=== PATIENT | male | born 1975 | race African-American/Black ===

== ENCOUNTER 2016-05-11 15:11 | Inpatient (IN) | payer OTHER ==
[2016-05-11 15:53] VITALS: BMI 24.3
--- NOTE | 2016-05-11 19:18 | HP ---
CIWA Score - CIWA Score Nausea/Vomitin Muscle Tremors: 3 Anxiety: 3 Agitation: 3 Paroxysmal Sweats: 2 Orientation: 0-Oriented Tacttile Disturbances: 2-Mild Itch/Numbness/Burn Auditory Disturbances: 2-Mild Harshness/Frighten Visual Disturbances: 2-Mild Sensitivity Headache: 2-Mild CIWA-Ar Total Score: 22 Admission ROS BHS - HPI Chief Complaint: i need help to stop drinking alcohol,cocaine and marijuana Allergies/Adverse Reactions: Allergies Allergy/AdvReac Type Severity Reaction Status Date / Time No Known Allergies Allergy Verified 04/09/16 17:45 History of Present Illness: this 40 years old male with alcohol,cocaine and marijuana,dependence,withdrawal symptom,last rehab 04/09/16 to 05/02/16 syncope alcohol related nicotine dependence several admissions in detox longest period of sobriet 19 months Exam Limitations: No Limitations - Ebola screening Have you traveled outside of the country in the last 21 days: No Have you had contact with anyone from an Ebola affected area: No Have you been sick,other than usual withdrawal symptoms: No Do you have a fever: No - Review of Systems Constitutional: Loss of Appetite, Malaise, Night Sweats, Changes in sleep, Weakness EENT: reports: Nose Congestion Respiratory: reports: No Symptoms reported Cardiac: reports: No Symptoms Reported GI: reports: Diarrhea, Nausea, Vomiting, Abdominal cramping : reports: No Symptoms Reported Musculoskeletal: reports: Back Pain, Muscle Pain Integumentary: reports: Dryness Neuro: reports: Headache, Tremors Endocrine: reports: No Symptoms Reported Hematology: reports: No Symptoms Reported Psychiatric: reports: No Sypmtoms Reported Other Systems: Reviewed and Negative Patient History - Patient Medical History Hx Anemia: No Hx Asthma: No Hx Chronic Obstructive Pulmonary Disease (COPD): No Hx Cancer: No Hx Cardiac Disorders: No Hx Congestive Heart Failure: No Hx Hypertension: No Hx Hypercholesterolemia: No Hx Pacemaker: No HX Cerebrovascular Accident: No Hx Seizures: No Hx Dementia: No Hx Diabetes: No Hx Gastrointestinal Disorders: No Hx Liver Disease: No Hx Genitourinary Disorders: No Hx Sexually Transmitted Disorders: No Hx Renal Disease (ESRD): No Hx Thyroid Disease: No Hx Human Immunodeficiency Virus (HIV): No (LAST 12/18 NEGATIVE) Hx Hepatitis C: No Hx Depression: No Hx Suicide Attempt: No Hx Bipolar Disorder: No Hx Schizophrenia: Yes (not on meds) Other Medical History: no suicidal,no homicidal - Patient Surgical History Past Surgical History: No Hx Neurologic Surgery: No Hx Cataract Extraction: No Hx Cardiac Surgery: No Hx Lung Surgery: No Hx Breast Surgery: No Hx Breast Biopsy: No Hx Abdominal Surgery: No Hx Appendectomy: No Hx Cholecystectomy: No Hx Genitourinary Surgery: No Hx Section: No Hx Orthopedic Surgery: No Other Surgical History: 1998 jaw fracture (braces/Wire) LEFT Anesthesia Reaction: No - PPD History Previous Implant?: Yes Documented Results: Negative w/proof Date: 01/20/16 Results: 0mm PPD to be Administered?: No - Smoking Cessation Smoking history: Current every day smoker Have you smoked in the past 12 months: Yes Aproximately how many cigarettes per day: 20 Hx Chewing Tobacco Use: No Initiated information on smoking cessation: Yes 'Breaking Loose' booklet given: 05/11/16 - Substance & Tx. History Hx Alcohol Use: Yes Hx Substance Use: Yes Substance Use Type: Alcohol, Marijuana Hx Substance Use Treatment: Yes ([facility] 04/09/16 to 05/02/16 [facility]) - Substances Abused Alcohol Route: Oral Frequency: Daily Amount used: 1 pint of vodka/1case of 12 ozs of beer Age of first use: 14 Date of Last Use: 05/10/16 Cocaine Route: Smoking Frequency: Daily Amount used: 600$ Age of first use: 28 Date of Last Use: 05/09/16 Marijuana/Hashish Route: Smoking Frequency: 1-2 times per week Amount used: 20$ Age of first use: 10 Date of Last Use: 05/09/16 Family Disease History - Family Disease History Family History: Denies Admission Physical Exam [facility] - Vital Signs Vital Signs: Vital Signs - 24 hr 05/11/16 15:51 Temperature 96.4 F L Pulse Rate 58 L Respiratory 20 Rate Blood Pressure 123/77 - Physical General Appearance: Yes: Moderate Distress, Tremorous, Irritable, Sweating, Anxious HEENTM: Yes: Nasal Congestion Respiratory: Yes: Lungs Clear Neck: Yes: Within Normal Limits Breast: Yes: Within Normal Limits Cardiology: Yes: Within Normal Limits, Regular Rhythm, Regular Rate, S1, S2 Abdominal: Yes: Within Normal Limits, Normal Bowel Sounds, Non Tender, Flat, Soft Genitourinary: Yes: Within Normal Limits Back: Yes: Muscle Spasm Musculoskeletal: Yes: Back pain, Muscle Pain Extremities: Yes: Tremors 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 NML intact, Alert, Motor Strength 5/5 Integumentary: Yes: Dry Lymphatic: Yes: Within Normal Limits - Diagnostic (1) Alcohol dependence with uncomplicated withdrawal Current Visit: Yes Status: Acute (2) Cannabis abuse Current Visit: No Status: Acute (3) Cocaine dependence Current Visit: No Status: Chronic Qualifiers: Substance use status: uncomplicated Qualified Code(s): F14.20 - Cocaine dependence, uncomplicated (4) Nicotine dependence Current Visit: No Status: Chronic Qualifiers: Nicotine product type: cigarettes Substance use status: uncomplicated Qualified Code(s): F17.210 - Nicotine dependence, cigarettes, uncomplicated (5) Schizophrenia Current Visit: Yes Status: Acute (6) Weight loss Current Visit: Yes Status: Acute Cleared for Admission [facility] - Detox or Rehab [facility] Level of Care: Medically Managed Detox Regimen/Protocol: Librium S Breath Alcohol Content Breath Alcohol Content: 0 Urine Drug Screen - Results Drug Screen Negative: No Urine Drug Screen Results: THC-Marijuana, JACKELINE-Cocaine
[2016-05-11] MEDS ORDERED: LOPERAMIDE HCL 2 MG CAPSULE PO PRN (19:34)
[2016-05-11] MEDS ORDERED: MAGNESIUM HYDROX 2400MG/30ML ORAL SUSPENSION 30 ML CUP PO PRN (19:34)
[2016-05-11] MEDS ORDERED: MENTHOL/PHENOL 1 EACH UD MM PRN (19:34)
[2016-05-11] MEDS ORDERED: P-EPHED 60MG/TRIPROLIDI 2.5MG TABLET PO PRN (19:34)
[2016-05-11] MEDS ORDERED: chlordiazePOXIDE HCL 25 MG CAPSULE PO ONE (19:34)
[2016-05-11] MEDS ORDERED: ACETAMINOPHEN 325 MG TABLET (FP) PO PRN (19:34)
[2016-05-11] MEDS ORDERED: MAGNESIUM CITRATE 300 ML BOTTLE PO PRN (19:34)
[2016-05-11] MEDS ORDERED: guaiFENesin/D-METHORPHAN HB 10 ML UNIT-DOSE CUPS PO PRN (19:34)
[2016-05-11] MEDS ORDERED: hydrOXYzine PAMOATE 25 MG CAPSULE (FP) PO PRN (19:34)
[2016-05-11] MEDS ORDERED: chlordiazePOXIDE HCL 25 MG CAPSULE PO PRN (19:34)
[2016-05-11] MEDS ORDERED: IBUPROFEN 400 MG TABLET (FP) PO PRN (19:34)
[2016-05-11] MEDS ORDERED: diphenhydrAMINE HCL 50 MG CAPSULE PO PRN (19:34)
[2016-05-11] MEDS ORDERED: MAG HYDROX/AL HYDROX/SIMETH 30 ML UNIT-DOSE CUP PO PRN (19:34)
[2016-05-11] MEDS: THIAMINE HCL 100 MG TABLET (FP) PO SCH (21:57)
[2016-05-11] MEDS: chlordiazePOXIDE HCL 25 MG CAPSULE PO SCH (22:04)
[2016-05-12] MEDS: chlordiazePOXIDE HCL 25 MG CAPSULE PO SCH ×4 (06:14→22:22)
[2016-05-12] MEDS ORDERED: PRENATAL VITAMINS W/ FOLIC ACID TABLET (FP) PO SCH (10:00)
--- NOTE | 2016-05-12 14:03 | PN ---
BHS CIWA - CIWA Score Nausea/Vomitin Muscle Tremors: 3 Anxiety: 4-Mod. Anxious/Guarded Agitation: 4-Moderately Restless Paroxysmal Sweats: No Perspiration Orientation: 0-Oriented Tacttile Disturbances: 1-Very Mild Itch/Numbness Auditory Disturbances: 0-None Visual Disturbances: 0-None Headache: 2-Mild CIWA-Ar Total Score: 17 BHS Progress Note (SOAP) Subjective: Anxiety, restless, tremor, sweating, interrupted sleep Objective: 05/12/16 14:01 Last Vital Signs Temp Pulse Resp BP Pulse Ox 96 F L 67 18 109/75 05/12/16 13:25 05/12/16 13:25 05/12/16 13:25 05/12/16 13:25 Labs: patient refused Assessment: 05/12/16 14:02 Withdrawal symptoms Plan: Continue detox
[2016-05-12] MEDS: THIAMINE HCL 100 MG TABLET (FP) PO SCH (22:22)
[2016-05-13] MEDS: chlordiazePOXIDE HCL 25 MG CAPSULE PO SCH (06:05)
[2016-05-13 06:07] VITALS: BP 111/78; PULSE 57; TEMP 97.1
--- NOTE | 2016-05-13 09:31 | PN ---
S CIWA - CIWA Score Nausea/Vomitin Muscle Tremors: 2 Anxiety: 3 Agitation: 3 Paroxysmal Sweats: 1-Minimal Palms Moist Orientation: 0-Oriented Tacttile Disturbances: 1-Very Mild Itch/Numbness Auditory Disturbances: 1-Very Mild Visual Disturbances: 1-Very Mild Sensitivity Headache: 2-Mild CIWA-Ar Total Score: 16 BHS Progress Note (SOAP) Subjective: alert,irritable,anxious,interrupted sleep Objective: 05/13/16 09:29 Vital Signs Temperature 97.1 F L 05/13/16 06:07 Pulse Rate 57 L 05/13/16 06:07 Respiratory Rate 18 05/13/16 06:07 Blood Pressure 111/78 05/13/16 06:07 O2 Sat by Pulse Oximetry (%) ekg sinus bradycardia 57/min no chest pain,no sob,no dizziness Assessment: 05/13/16 09:30 withdrawal symptom Plan: continue detox
--- NOTE | 2016-05-13 09:38 | PN ---
S Progress Note Note: patient did not want to take medications,non compliance,has been seen by the counselor,health care providers,nursing coordinator patient did not want to continue treatment,signed release ama
--- NOTE | 2016-05-13 09:43 | DS ---
[facility] Detox Discharge Summary Admission Date: 05/11/16 Discharge Date: 05/13/16 - History Present History: Alcohol Dependence, Cannabis Dependence, Cocaine Dependence Additional Comments: patient did not want to complete treatment,refused to take medications,non compliance,seen by health care providers,counselor and nursing program coordinator,signed release ama Pertinent Past History: schizophrenia weight loss - Physical Exam Results Vital Signs: Vital Signs Temperature 97.1 F L 05/13/16 06:07 Pulse Rate 57 L 05/13/16 06:07 Respiratory Rate 18 05/13/16 06:07 Blood Pressure 111/78 05/13/16 06:07 O2 Sat by Pulse Oximetry (%) Pertinent Admission Physical Exam Findings: withdrawal symptom - Treatment Patient has Accepted a Rehab Referral to: declined - Medication Discharge Medications: Ambulatory Orders NK [No Known Home Medication] 07/20/14 - Diagnosis (1) Alcohol dependence with uncomplicated withdrawal Current Visit: Yes Status: Acute (2) Cannabis abuse Current Visit: No Status: Acute (3) Cocaine dependence Current Visit: No Status: Chronic Qualifiers: Substance use status: uncomplicated Qualified Code(s): F14.20 - Cocaine dependence, uncomplicated (4) Nicotine dependence Current Visit: No Status: Chronic Qualifiers: Nicotine product type: cigarettes Substance use status: uncomplicated Qualified Code(s): F17.210 - Nicotine dependence, cigarettes, uncomplicated (5) Schizophrenia Current Visit: Yes Status: Acute (6) Weight loss Current Visit: Yes Status: Acute - AMA Did Patient Leave Against Medical Advice: Yes
[2016-05-13] MEDS ORDERED: chlordiazePOXIDE 5 MG CAPSULE PO SCH (23:00)
[2016-05-14] MEDS ORDERED: chlordiazePOXIDE HCL 10 MG CAPSULE PO SCH (23:00)
--- NOTE | 2016-05-15 10:21 | EKG ---
Test Reason : Blood Pressure : / mmHG Vent. Rate : 057 BPM Atrial Rate : 057 BPM P-R Int : 118 ms QRS Dur : 082 ms QT Int : 420 ms P-R-T Axes : 053 038 047 degrees QTc Int : 408 ms SINUS BRADYCARDIA OTHERWISE NORMAL ECG NO PREVIOUS ECGS AVAILABLE Confirmed by ELAINA MORATAYA, KORY ([id number]) on 05/15/2016 10:20:33 AM Referred By: Confirmed By:KORY DELANEY MD
== END 2016-05-13 09:11 | disposition left against medical advice (07) | DRG 770 ==
LOC: YASAS 15:11 → Y3N 19:21
PROVIDERS: ADMIT Internal Medicine; ATTEND Internal Medicine
PROC: HZ2ZZZZ Detoxification Services for Substance Abuse Treatment (ICD-10-PCS; principal; 2016-05-11)
DX: F10.230 Alcohol dependence with withdrawal, uncomplicated (principal); F14.20 Cocaine dependence, uncomplicated; F12.10 Cannabis abuse, uncomplicated; F17.210 Nicotine dependence, cigarettes, uncomplicated; F20.9 Schizophrenia, unspecified; R00.1 Bradycardia, unspecified; Z87.898 Personal history of other specified conditions
CPT/HCPCS: 93005; 93010

== ENCOUNTER 2016-06-09 09:15 | Inpatient (IN) | payer OTHER ==
[2016-06-09 09:59] VITALS: BMI 23.5
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
[2016-06-09] MEDS ORDERED: NICOTINE POLACRILEX 2 MG GUM BUC PRN (11:06)
[2016-06-09] MEDS ORDERED: MAGNESIUM CITRATE 300 ML BOTTLE PO PRN (11:06)
[2016-06-09] MEDS ORDERED: MAGNESIUM HYDROX 2400MG/30ML ORAL SUSPENSION 30 ML CUP PO PRN (11:06)
[2016-06-09] MEDS ORDERED: MENTHOL/PHENOL 1 EACH UD MM PRN (11:06)
[2016-06-09] MEDS ORDERED: LOPERAMIDE HCL 2 MG CAPSULE PO PRN (11:06)
[2016-06-09] MEDS ORDERED: MAG HYDROX/AL HYDROX/SIMETH 30 ML UNIT-DOSE CUP PO PRN (11:06)
[2016-06-09] MEDS ORDERED: guaiFENesin/D-METHORPHAN HB 10 ML UNIT-DOSE CUPS PO PRN (11:06)
[2016-06-09] MEDS ORDERED: chlordiazePOXIDE HCL 25 MG CAPSULE PO PRN (11:06)
[2016-06-09] MEDS ORDERED: P-EPHED 60MG/TRIPROLIDI 2.5MG TABLET PO PRN (11:06)
[2016-06-09] MEDS ORDERED: hydrOXYzine PAMOATE 50 MG CAPSULE (FP) PO PRN (11:06)
[2016-06-09] MEDS ORDERED: IBUPROFEN 400 MG TABLET (FP) PO PRN (11:06)
[2016-06-09] MEDS ORDERED: ACETAMINOPHEN 325 MG TABLET (FP) PO PRN (11:06)
[2016-06-09] MEDS ORDERED: diphenhydrAMINE HCL 50 MG CAPSULE PO PRN (11:06)
[2016-06-09] MEDS ORDERED: chlordiazePOXIDE HCL 25 MG CAPSULE PO ONE (11:30)
[2016-06-09] MEDS: NICOTINE 21 MG/24 HOURS TOPICAL PATCH TD SCH (12:10)
[2016-06-09 17:40] LABS: URINE APPEARANCE CLEAR; URINE BILIRUBIN NEGATIVE (NEGATIVE); URINE BLOOD NEGATIVE (NEGATIVE); URINE COLOR DKYELLOW; URINE GLUCOSE (UA) 1+ (NEGATIVE); URINE KETONE TRACE (NEGATIVE); URINE NITRITE NEGATIVE (NEGATIVE); URINE PROTEIN NEGATIVE (NEGATIVE); URINE UROBILINOGEN 4.0 E.U/dl E.U./dl (0.2-1.0)
[2016-06-09] MEDS: chlordiazePOXIDE HCL 25 MG CAPSULE PO SCH ×2 (17:45→22:49)
[2016-06-09 17:50] LABS: URINE LEUK ESTERASE TRACE (NEGATIVE)
[2016-06-09 18:04] LABS: URINE MUCUS MANY; URINE RBC 7 /hpf (0-3); URINE WBC 17 /hpf (3-5)
[2016-06-09] MEDS ORDERED: THIAMINE HCL 100 MG TABLET (FP) PO SCH (22:00)
--- NOTE | 2016-06-10 00:06 | EKG ---
Test Reason : Blood Pressure : / mmHG Vent. Rate : 065 BPM Atrial Rate : 065 BPM P-R Int : 112 ms QRS Dur : 090 ms QT Int : 414 ms P-R-T Axes : -29 042 038 degrees QTc Int : 430 ms NORMAL SINUS RHYTHM WITH SHORT ME ST ELEVATION, CONSIDER EARLY REPOLARIZATION, PERICARDITIS, OR INJURY WHEN COMPARED WITH ECG OF 11-MAY-2016 22:10, NO SIGNIFICANT CHANGE WAS FOUND Confirmed by TONYA MORATAYA, SIRI ([id number]) on 06/10/2016 12:06:51 AM Referred By: Confirmed By:SIRI CASTANEDA MD
[2016-06-10] MEDS: chlordiazePOXIDE HCL 25 MG CAPSULE PO SCH ×2 (05:43→10:49)
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
[2016-06-10] MEDS ORDERED: PRENATAL VITAMINS W/ FOLIC ACID TABLET (FP) PO SCH (10:00)
[2016-06-10 10:07] LABS: MCH 31.2 pg (25.7-33.7); MCHC 33.2 g/dl (32.0-35.9); MEAN PLT VOLUME 8.7 fl (7.5-11.1); PLATELET COUNT 227 K/MM3 (134-434); RDW 12.6 % (11.9-15.9); WHITE BLOOD COUNT 4.9 K/mm3 (4.0-10.0)
[2016-06-10 10:08] LABS: ALBUMIN 3.4 g/dl (3.4-5.0); ALK PHOS 65 U/L (45-117); ANION GAP 8 (8-16); BILIRUBIN,TOTAL 0.4 mg/dL (0.2-1.0); CALCIUM 8.5 mg/dL (8.5-10.1); CO2 26 mmol/L (21-32); CREATININE 0.9 mg/dL (0.7-1.3); GLUCOSE,RANDOM 100 mg/dL (74-106); SGOT/AST 15 U/L (15-37); SGPT/ALT 29 U/L (12-78); TOT PROT 6.3 g/dl (6.4-8.2)
[2016-06-10] MEDS: NICOTINE 21 MG/24 HOURS TOPICAL PATCH TD SCH (10:49)
[2016-06-10 11:01] VITALS: BP 107/62; PULSE 92; TEMP 95.7
--- NOTE | 2016-06-10 11:39 | DS ---
[facility] Detox Discharge Summary Admission Date: 06/09/16 Discharge Date: 06/10/16 - History Present History: Alcohol Dependence, Cannabis Dependence, Cocaine Dependence Additional Comments: PT WAS REPORTED TO HAVE BEEN VERBALLY AGRESSIVE TOWARDS STAFF ON THE UNIT. PT UNABLE TO FOLLOW UNIT PROTOCOL AND ATTACKS WHEN CALLED FOR ANY DAILY UNIT ROUTINE. PT WAS SPOKEN TO BY COUNSELOR, DIONICIO. PT DOES NOT APPEAR TO BE READY FOR DETOX TREATMENT. ADMINISTRATIVE DISCHARGE. Pertinent Past History: S/P JAW TRUAMA HX HEAD INJURY SCHIZOPHRENIA - Physical Exam Results Vital Signs: Vital Signs Temperature 95.7 F L 06/10/16 11:00 Pulse Rate 92 H 06/10/16 11:00 Respiratory Rate 20 06/10/16 11:00 Blood Pressure 107/62 06/10/16 11:00 O2 Sat by Pulse Oximetry (%) Pertinent Admission Physical Exam Findings: WITHDRAWAL SX - Treatment Hospital Course: Discharged Condition Good - Medication Discharge Medications: Ambulatory Orders NK [No Known Home Medication] 07/20/14 - Diagnosis (1) Alcohol dependence with uncomplicated withdrawal Current Visit: Yes Status: Acute (2) Cannabis dependence Current Visit: Yes Status: Acute (3) Cocaine dependence, uncomplicated Current Visit: Yes Status: Acute (4) Nicotine dependence Current Visit: Yes Status: Chronic Qualifiers: Nicotine product type: cigarettes Substance use status: uncomplicated Qualified Code(s): F17.210 - Nicotine dependence, cigarettes, uncomplicated (5) History of head injury Current Visit: Yes Status: Suspected (6) Schizophrenia Current Visit: Yes Status: Chronic Qualifiers: Schizophrenia type: unspecified Qualified Code(s): F20.9 - Schizophrenia, unspecified - AMA Did Patient Leave Against Medical Advice: No
[2016-06-10 12:24] LABS: SICKLE CELL SCREEN NEGATIVE (NEGATIVE)
[2016-06-10] MEDS ORDERED: chlordiazePOXIDE HCL 25 MG CAPSULE PO SCH (17:00)
[2016-06-11] MEDS ORDERED: chlordiazePOXIDE 5 MG CAPSULE PO SCH (17:00)
[2016-06-12] MEDS ORDERED: chlordiazePOXIDE HCL 10 MG CAPSULE PO SCH (17:00)
== END 2016-06-10 11:03 | disposition home or self-care (01) | DRG 774 ==
LOC: YASAS 09:15 → Y3N 10:48
PROVIDERS: ADMIT Internal Medicine; ATTEND Internal Medicine
PROC: HZ2ZZZZ Detoxification Services for Substance Abuse Treatment (ICD-10-PCS; principal; 2016-06-10)
DX: F10.230 Alcohol dependence with withdrawal, uncomplicated (principal); F14.20 Cocaine dependence, uncomplicated; F12.20 Cannabis dependence, uncomplicated; F17.210 Nicotine dependence, cigarettes, uncomplicated; F15.10 Other stimulant abuse, uncomplicated; F16.10 Hallucinogen abuse, uncomplicated; F20.9 Schizophrenia, unspecified; F91.8 Other conduct disorders
CPT/HCPCS: 36415; 80053; 81003; 81015; 85027; 85660; 86593; 93005; 93010

== ENCOUNTER 2017-01-13 16:06 | Inpatient (IN) | payer OTHER ==
[2017-01-13 17:34] VITALS: BMI 24.6
--- NOTE | 2017-01-13 20:23 | HP ---
Admission [facility] Chief Complaint: I WANT TO GO TO REHAB Allergies/Adverse Reactions: Allergies Allergy/AdvReac Type Severity Reaction Status Date / Time No Known Allergies Allergy Verified 01/13/17 18:18 History of Present Illness: 41 YEARS OLD MALE WITH LONG HISTORY OF COCAINE NICOTINE DEPENDENCE DENIES MEDICAL ISSUE HAS SCHIZOPHRENIA IS ADMITTED TO REHAB Exam Limitations: No Limitations - Ebola screening Have you traveled outside of the country in the last 21 days: No Have you had contact with anyone from an Ebola affected area: No Have you been sick,other than usual withdrawal symptoms: No Do you have a fever: No - Review of Systems Constitutional: Loss of Appetite, Unintentional Wgt. Loss, Unexplained wgt Loss EENT: reports: No Symptoms Reported Respiratory: reports: Shortness of Breath Cardiac: reports: No Symptoms Reported GI: reports: No Symptoms Reported : reports: No Symptoms Reported Musculoskeletal: reports: No Symptoms Reported Integumentary: reports: No Symptoms Reported Neuro: reports: No Symptoms reported Endocrine: reports: No Symptoms Reported Hematology: reports: No Symptoms Reported Psychiatric: reports: Judgement Intact, Orientated x3, Anxious, Depressed Other Systems: Reviewed and Negative Patient History - Patient Medical History Hx Anemia: No Hx Asthma: No Hx Chronic Obstructive Pulmonary Disease (COPD): No Hx Cancer: No Hx Cardiac Disorders: No Hx Congestive Heart Failure: No Hx Hypertension: No Hx Hypercholesterolemia: No Hx Pacemaker: No HX Cerebrovascular Accident: No Hx Seizures: No Hx Dementia: No Hx Diabetes: No Hx Gastrointestinal Disorders: No Hx Liver Disease: No Hx Genitourinary Disorders: No Hx Sexually Transmitted Disorders: No Hx Renal Disease (ESRD): No Hx Thyroid Disease: No Hx Human Immunodeficiency Virus (HIV): No (LAST 12/18 NEGATIVE) Hx Hepatitis C: No (Last Tested 2016: NEGATIVE.) Hx Depression: No (No treatment.) Hx Suicide Attempt: No (PATIENT DENIES CURRENT SI / HI.) Hx Bipolar Disorder: No Hx Schizophrenia: Yes (Meds. in past, None currently.) - Patient Surgical History Past Surgical History: No Hx Neurologic Surgery: No Hx Cataract Extraction: No Hx Cardiac Surgery: No Hx Lung Surgery: No Hx Breast Surgery: No Hx Breast Biopsy: No Hx Abdominal Surgery: No Hx Appendectomy: No Hx Cholecystectomy: No Hx Genitourinary Surgery: No Hx Orthopedic Surgery: No Other Surgical History: 1998 jaw fracture (braces/Wire) LEFT - PPD History Previous Implant?: Yes Documented Results: Negative w/o proof Implanted On Prior [facility] Admission?: Yes Date: 01/20/16 Results: 0 mm PPD to be Administered?: Yes - Smoking Cessation Smoking history: Current every day smoker Have you smoked in the past 12 months: Yes Aproximately how many cigarettes per day: 4 Cigars Per Day: 0 Hx Chewing Tobacco Use: No Initiated information on smoking cessation: Yes 'Breaking Loose' booklet given: 01/13/17 - Substance & Tx. History Hx Alcohol Use: No Hx Substance Use: Yes Substance Use Type: Cocaine Hx Substance Use Treatment: Yes (06/09-06/10/16 [facility]) - Substances Abused Cocaine Route: Smoking Frequency: Daily Amount used: 800$ Age of first use: 29 Date of Last Use: 01/13/17 Family Disease History - Family Disease History Family Disease History: Other: Father (Used Alcohol. .), Mother ( Seizures. .), Sister ( HIV) Admission Physical Exam S - Vital Signs Vital Signs: Vital Signs - 24 hr 01/13/17 17:30 Temperature 97.4 F L Pulse Rate 69 Respiratory 20 Rate Blood Pressure 111/64 - Physical General Appearance: Yes: No Apparent Distress, Appropriately Dressed, Thin HEENTM: Yes: Hearing grossly Normal, Normal ENT Inspection, Normocephalic, Normal Voice Respiratory: Yes: Chest Non-Tender, Lungs Clear, Normal Breath Sounds, No Respiratory Distress, No Accessory Muscle Use Neck: Yes: Supple, Trachea in good position Breast: Yes: Breasts Symetrical Cardiology: Yes: Regular Rhythm, Regular Rate, S1, S2 Abdominal: Yes: Normal Bowel Sounds, Non Tender, Soft Genitourinary: Yes: Within Normal Limits Back: Yes: Normal Inspection Musculoskeletal: Yes: Gait Steady Extremities: Yes: Normal Inspection, Normal Range of Motion, Non-Tender Neurological: Yes: Fully Oriented, Alert, Motor Strength 5/5, Normal Response, Depressed Affect Integumentary: Yes: Warm Lymphatic: Yes: Within Normal Limits - Diagnostic (1) Cocaine dependence, uncomplicated Current Visit: Yes Status: Chronic (2) Weight loss Current Visit: Yes Status: Acute (3) Nicotine dependence Current Visit: Yes Status: Acute Qualifiers: Nicotine product type: cigarettes Substance use status: in withdrawal Qualified Code(s): F17.213 - Nicotine dependence, cigarettes, with withdrawal (4) Schizophrenia, paranoid Current Visit: Yes Status: Suspected Cleared for Admission [facility] - Detox or Rehab [facility] Level of Care: Observation Bed Detox Regimen/Protocol: Not Applicable Claeared for Rehab Admission: Yes [facility] Breath Alcohol Content Breath Alcohol Content: 0 Urine Drug Screen - Results Urine Drug Screen Results: JACKELINE-Cocaine
[2017-01-13] MEDS ORDERED: MAGNESIUM CITRATE 300 ML BOTTLE PO PRN (20:24)
[2017-01-13] MEDS ORDERED: guaiFENesin/D-METHORPHAN HB 10 ML UNIT-DOSE CUPS PO PRN (20:24)
[2017-01-13] MEDS ORDERED: IBUPROFEN 400 MG TABLET (FP) PO PRN (20:24)
[2017-01-13] MEDS ORDERED: NICOTINE POLACRILEX 2 MG GUM BC PRN (20:24)
[2017-01-13] MEDS ORDERED: P-EPHED 60MG/TRIPROLIDI 2.5MG TABLET PO PRN (20:24)
[2017-01-13] MEDS ORDERED: hydrOXYzine PAMOATE 50 MG CAPSULE (FP) PO PRN (20:24)
[2017-01-13] MEDS ORDERED: MAG HYDROX/AL HYDROX/SIMETH 30 ML UNIT-DOSE CUP PO PRN (20:24)
[2017-01-13] MEDS ORDERED: LOPERAMIDE HCL 2 MG CAPSULE PO PRN (20:24)
[2017-01-13] MEDS ORDERED: diphenhydrAMINE HCL 50 MG CAPSULE PO PRN (20:24)
[2017-01-13] MEDS ORDERED: MENTHOL/PHENOL 1 EACH UD MM PRN (20:24)
[2017-01-13] MEDS ORDERED: ACETAMINOPHEN 325 MG TABLET (FP) PO PRN (20:24)
[2017-01-13] MEDS ORDERED: MAGNESIUM HYDROX 2400MG/30ML ORAL SUSPENSION 30 ML CUP PO PRN (20:24)
[2017-01-13] MEDS: THIAMINE HCL 100 MG TABLET (FP) PO SCH (22:45)
[2017-01-13] MEDS ORDERED: TUBERCULIN PPD 5 TU/0.1ML VIAL ID ONE (23:49)
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
[2017-01-14 09:41] LABS: URINE APPEARANCE CLEAR; URINE BILIRUBIN NEGATIVE (NEGATIVE); URINE BLOOD TRACE-INTA (NEGATIVE); URINE COLOR LT. YELLOW; URINE GLUCOSE (UA) NEGATIVE (NEGATIVE); URINE KETONE NEGATIVE (NEGATIVE); URINE LEUK ESTERASE NEGATIVE (NEGATIVE); URINE NITRITE NEGATIVE (NEGATIVE); URINE PROTEIN NEGATIVE (NEGATIVE); URINE UROBILINOGEN 0.2 mg/dL (0.2-1.0)
[2017-01-14] MEDS: NICOTINE 14 MG/24 HOURS TOPICAL PATCH TD SCH (10:37)
[2017-01-14] MEDS: PRENATAL VITAMINS W/ FOLIC ACID TABLET (FP) PO SCH (10:38)
--- NOTE | 2017-01-14 13:01 | EKG ---
Test Reason : Blood Pressure : / mmHG Vent. Rate : 069 BPM Atrial Rate : 069 BPM P-R Int : 120 ms QRS Dur : 090 ms QT Int : 380 ms P-R-T Axes : 054 044 049 degrees QTc Int : 407 ms LOW ATRIAL VS ACCELERATED JUNCTIONAL RHYTHM ALTERNATING WITH SINUS RHYTHM INCOMPLETE RBBB WHEN COMPARED WITH ECG OF 09-JUN-2016 12:16, NO SIGNIFICANT CHANGE WAS FOUND REPEAT EKG IF CLINICALLY INDICATED Confirmed by CINDI ZENG MD ([id number]) on 01/14/2017 1:01:02 PM Referred By: Confirmed By:CINDI ZENG MD
[2017-01-14 15:24] LABS: MCHC 33.6 g/dl (32.0-35.9); MEAN CELL VOLUME 95.3 fl (80-96); MEAN PLT VOLUME 9.4 fl (7.5-11.1); PLATELET COUNT 230 K/MM3 (134-434); WHITE BLOOD COUNT 6.3 K/mm3 (4.0-10.0)
[2017-01-14 15:48] LABS: ALBUMIN 3.5 g/dl (3.4-5.0); ALK PHOS 65 U/L (45-117); ANION GAP 4 (8-16); BILIRUBIN,TOTAL 0.4 mg/dL (0.2-1.0); CALCIUM 8.8 mg/dL (8.5-10.1); CO2 32 mmol/L (21-32); CREATININE 1.2 mg/dL (0.7-1.3); GLUCOSE,RANDOM 143 mg/dL (74-106); SGOT/AST 16 U/L (15-37); SGPT/ALT 31 U/L (12-78); TOT PROT 6.4 g/dl (6.4-8.2)
[2017-01-14 15:49] LABS: HIV 1 & 2 AB NEGATIVE; HIV 1 AGp24 NEGATIVE
[2017-01-14] MEDS: THIAMINE HCL 100 MG TABLET (FP) PO SCH (21:41)
[2017-01-15] MEDS: PRENATAL VITAMINS W/ FOLIC ACID TABLET (FP) PO SCH (10:14)
[2017-01-15] MEDS: NICOTINE 14 MG/24 HOURS TOPICAL PATCH TD SCH (10:14)
[2017-01-15] MEDS: THIAMINE HCL 100 MG TABLET (FP) PO SCH (21:52)
[2017-01-16] MEDS: NICOTINE 14 MG/24 HOURS TOPICAL PATCH TD SCH (10:47)
[2017-01-16] MEDS: PRENATAL VITAMINS W/ FOLIC ACID TABLET (FP) PO SCH (10:57)
[2017-01-16] MEDS: THIAMINE HCL 100 MG TABLET (FP) PO SCH (22:06)
[2017-01-17] MEDS: NICOTINE 14 MG/24 HOURS TOPICAL PATCH TD SCH (09:49)
[2017-01-17] MEDS: PRENATAL VITAMINS W/ FOLIC ACID TABLET (FP) PO SCH (09:49)
[2017-01-17] MEDS: THIAMINE HCL 100 MG TABLET (FP) PO SCH (22:25)
[2017-01-18] MEDS: NICOTINE 14 MG/24 HOURS TOPICAL PATCH TD SCH (10:08)
[2017-01-18] MEDS: PRENATAL VITAMINS W/ FOLIC ACID TABLET (FP) PO SCH (10:08)
[2017-01-18] MEDS: THIAMINE HCL 100 MG TABLET (FP) PO SCH (22:04)
[2017-01-19] MEDS: NICOTINE 14 MG/24 HOURS TOPICAL PATCH TD SCH (10:30)
[2017-01-19] MEDS: PRENATAL VITAMINS W/ FOLIC ACID TABLET (FP) PO SCH (10:30)
[2017-01-19] MEDS: THIAMINE HCL 100 MG TABLET (FP) PO SCH (21:36)
[2017-01-20] MEDS: PRENATAL VITAMINS W/ FOLIC ACID TABLET (FP) PO SCH (10:33)
[2017-01-20] MEDS: NICOTINE 14 MG/24 HOURS TOPICAL PATCH TD SCH (10:33)
[2017-01-20] MEDS: THIAMINE HCL 100 MG TABLET (FP) PO SCH (21:53)
[2017-01-21] MEDS: NICOTINE 14 MG/24 HOURS TOPICAL PATCH TD SCH (10:05)
[2017-01-21] MEDS: PRENATAL VITAMINS W/ FOLIC ACID TABLET (FP) PO SCH (10:05)
[2017-01-21] MEDS: THIAMINE HCL 100 MG TABLET (FP) PO SCH (22:38)
[2017-01-22] MEDS: NICOTINE 14 MG/24 HOURS TOPICAL PATCH TD SCH (10:23)
[2017-01-22] MEDS: PRENATAL VITAMINS W/ FOLIC ACID TABLET (FP) PO SCH (10:23)
[2017-01-22] MEDS: THIAMINE HCL 100 MG TABLET (FP) PO SCH (21:59)
[2017-01-23] MEDS: NICOTINE 14 MG/24 HOURS TOPICAL PATCH TD SCH (10:35)
[2017-01-23] MEDS: PRENATAL VITAMINS W/ FOLIC ACID TABLET (FP) PO SCH (10:36)
[2017-01-23] MEDS: THIAMINE HCL 100 MG TABLET (FP) PO SCH (22:42)
[2017-01-24] MEDS: PRENATAL VITAMINS W/ FOLIC ACID TABLET (FP) PO SCH (10:23)
[2017-01-24] MEDS: NICOTINE 14 MG/24 HOURS TOPICAL PATCH TD SCH (10:23)
[2017-01-24] MEDS: THIAMINE HCL 100 MG TABLET (FP) PO SCH (22:18)
[2017-01-25] MEDS: NICOTINE 14 MG/24 HOURS TOPICAL PATCH TD SCH (11:13)
[2017-01-25] MEDS: PRENATAL VITAMINS W/ FOLIC ACID TABLET (FP) PO SCH (11:13)
[2017-01-25] MEDS: THIAMINE HCL 100 MG TABLET (FP) PO SCH (22:10)
[2017-01-26] MEDS: PRENATAL VITAMINS W/ FOLIC ACID TABLET (FP) PO SCH (11:07)
[2017-01-26] MEDS: NICOTINE 14 MG/24 HOURS TOPICAL PATCH TD SCH (11:07)
[2017-01-26] MEDS: THIAMINE HCL 100 MG TABLET (FP) PO SCH (22:48)
[2017-01-27] MEDS: PRENATAL VITAMINS W/ FOLIC ACID TABLET (FP) PO SCH (10:07)
[2017-01-27] MEDS: NICOTINE 14 MG/24 HOURS TOPICAL PATCH TD SCH (10:07)
[2017-01-27] MEDS: THIAMINE HCL 100 MG TABLET (FP) PO SCH (21:59)
[2017-01-28] MEDS: PRENATAL VITAMINS W/ FOLIC ACID TABLET (FP) PO SCH (10:13)
[2017-01-28] MEDS: NICOTINE 14 MG/24 HOURS TOPICAL PATCH TD SCH (10:13)
[2017-01-28] MEDS: THIAMINE HCL 100 MG TABLET (FP) PO SCH (21:40)
[2017-01-29] MEDS: PRENATAL VITAMINS W/ FOLIC ACID TABLET (FP) PO SCH (10:34)
[2017-01-29] MEDS: NICOTINE 14 MG/24 HOURS TOPICAL PATCH TD SCH (10:34)
[2017-01-29] MEDS: THIAMINE HCL 100 MG TABLET (FP) PO SCH (21:55)
--- NOTE | 2017-01-30 10:02 | PN ---
Psychiatric Progress Note Vital Signs: Vital Signs Period Temp Pulse Resp BP Sys/Villafana Pulse Ox Last 24 Hr 18 Date of Session: 01/30/17 Chief Complaint:: Discharge Note HPI: Patient addressing Alcohol and Cocaine Dependence comorbid with Nicotine Dependence and Paranoid Schizophrenia Current Medications: Active Medications Generic Name Dose Route Start Last Admin Trade Name Freq PRN Reason Stop Dose Admin Acetaminophen 650 mg 01/13/17 20:24 Tylenol - PO Q4H PRN PAIN Al Hydroxide/Mg Hydroxide 30 ml 01/13/17 20:24 Mylanta Oral Suspension - PO Q6H PRN DYSPEPSIA Diphenhydramine HCl 50 mg 01/13/17 20:24 Benadryl - PO HSMR1 PRN INSOMNIA Eucalyptus/Menthol/Phenol/Sorbitol 1 each 01/13/17 20:24 Cepastat Lozenge - MM Q4H PRN SORE THROAT Guaifenesin 10 ml 01/13/17 20:24 Robitussin Dm - PO Q6H PRN COUGH Hydroxyzine Pamoate 50 mg 01/13/17 20:24 Vistaril - PO Q4H PRN AGITATION Ibuprofen 400 mg 01/13/17 20:24 Motrin - PO Q6H PRN SEVERE PAIN Loperamide HCl 4 mg 01/13/17 20:24 Imodium - PO Q6H PRN DIARRHEA Magnesium Citrate 300 ml 01/13/17 20:24 Citroma - PO Q48H PRN CONSTIPATION Magnesium Hydroxide 30 ml 01/13/17 20:24 Milk Of Magnesia - PO DAILY PRN CONSTIPATION Nicotine 14 mg 01/14/17 10:00 01/29/17 10:34 Nicoderm Patch - TD Not Given DAILY DC Nicotine Polacrilex 2 mg 01/13/17 20:24 Nicorette Gum - BC Q2H PRN NICOTINE REPLACEMENT RX Multivit/Folic Acid/Iron 1 tab 01/14/17 10:00 01/29/17 10:34 Vitamins ([facility]) - PO Not Given DAILY DC Pseudoephedrine/Triprolidine 1 combo 01/13/17 20:24 Actifed - PO TID PRN NASAL CONGESTION Thiamine HCl 100 mg 01/13/17 22:00 01/29/17 21:55 Vitamin B1 - PO Not Given HS [facility] Current Side Effect: No Lab tests ordered: Yes Lab tests reviewed: Yes Provider note:: Patient will complete this program on 01/31/17. He has met his treatment goals and will continue to address his issues in outpatient treatment at [facility] located at [address] [place] [address]. Told feature writer that from his participation in this program, he has acquired the tools he needs to manage his addiction. He is stable for discharge on 01/31/17 Total face to face time:: 35 Mental Status Exam - Mental Status Exam Alert and Oriented to: Time, Place, Person Cognitive Function: Fair Patient Appearance: Well Groomed Mood: Hopeful, Euthymic Affect: Blunted Patient Behavior: Cooperative Speech Pattern: Clear Voice Loudness: Normal Thought Process: Intact, Goal Oriented Thought Disorder: Not Present Hallucinations: Denies Suicidal Ideation: Denies Homicidal Ideation: Denies Insight/Judgement: Fair Sleep: Well Appetite: Good Muscle strength/Tone: Normal Gait/Station: Normal Psychiatric Treatment Plan - Problem List (1) Alcohol dependence Current Visit: Yes (2) Cocaine dependence Current Visit: No Qualifiers: Substance use status: uncomplicated Qualified Code(s): F14.20 - Cocaine dependence, uncomplicated (3) Nicotine dependence Current Visit: Yes Qualifiers: Nicotine product type: cigarettes Substance use status: in withdrawal Qualified Code(s): F17.213 - Nicotine dependence, cigarettes, with withdrawal (4) Paranoid schizophrenia Current Visit: Yes (5) History of head injury Current Visit: No Initial treatment plan: Patient will be discharged tomorrow and referred to [facility] for outpatient treatment and [facility] for housing
[2017-01-30] MEDS: NICOTINE 14 MG/24 HOURS TOPICAL PATCH TD SCH (10:25)
[2017-01-30] MEDS: PRENATAL VITAMINS W/ FOLIC ACID TABLET (FP) PO SCH (10:26)
[2017-01-30] MEDS: THIAMINE HCL 100 MG TABLET (FP) PO SCH (21:09)
[2017-01-31 06:46] VITALS: BP 107/77; PULSE 63; TEMP 97.3
== END 2017-01-31 08:25 | disposition home or self-care (01) | DRG 772 ==
LOC: YASAS 16:06 → Y3W 18:26
PROVIDERS: ADMIT Psychiatry & Neurology Psychiatry; ATTEND Psychiatry & Neurology Psychiatry
PROC: HZ42ZZZ Group Counseling for Substance Abuse Treatment, Cognitive-Behavioral (ICD-10-PCS; principal; 2017-01-13)
DX: F10.20 Alcohol dependence, uncomplicated (principal); F14.10 Cocaine abuse, uncomplicated; F17.213 Nicotine dependence, cigarettes, with withdrawal; F20.0 Paranoid schizophrenia; R63.4 Abnormal weight loss; Z68.24 Body mass index [BMI] 24.0-24.9, adult
CPT/HCPCS: 36415; 80053; 81003; 85027; 86593; 87389; 93005; 93010

== ENCOUNTER 2017-05-07 17:35 | Inpatient (IN) | payer OTHER ==
[2017-05-07 17:45] VITALS: BMI 24.3
[2017-05-07] MEDS ORDERED: ACETAMINOPHEN 325 MG TABLET (FP) PO PRN (19:22)
[2017-05-07] MEDS ORDERED: MAGNESIUM HYDROX 2400MG/30ML ORAL SUSPENSION 30 ML CUP PO PRN (19:22)
[2017-05-07] MEDS ORDERED: guaiFENesin/D-METHORPHAN HB 10 ML UNIT-DOSE CUPS PO PRN (19:22)
[2017-05-07] MEDS ORDERED: MAG HYDROX/AL HYDROX/SIMETH 30 ML UNIT-DOSE CUP PO PRN (19:22)
[2017-05-07] MEDS ORDERED: MAGNESIUM CITRATE 300 ML BOTTLE PO PRN (19:22)
[2017-05-07] MEDS ORDERED: P-EPHED 60MG/TRIPROLIDI 2.5MG TABLET PO PRN (19:22)
[2017-05-07] MEDS ORDERED: MENTHOL/PHENOL 1 EACH UD MM PRN (19:22)
[2017-05-07] MEDS ORDERED: NICOTINE POLACRILEX 2 MG GUM BC PRN (19:22)
[2017-05-07] MEDS ORDERED: LOPERAMIDE HCL 2 MG CAPSULE PO PRN (19:22)
--- NOTE | 2017-05-07 19:22 | HP ---
CIWA Score - CIWA Score Nausea/Vomitin-Mild Nausea/No Vomiting Muscle Tremors: 4-Moderate,w/Arms Extend Anxiety: 4-Mod. Anxious/Guarded Agitation: 4-Moderately Restless Paroxysmal Sweats: 1-Minimal Palms Moist Orientation: 0-Oriented Tacttile Disturbances: 0-None Auditory Disturbances: 0-None Visual Disturbances: 0-None Headache: 1-Very Mild CIWA-Ar Total Score: 15 Admission ROS [facility] - HPI Chief Complaint: WITHDRAWAL SX Allergies/Adverse Reactions: Allergies Allergy/AdvReac Type Severity Reaction Status Date / Time No Known Allergies Allergy Verified 05/07/17 18:01 History of Present Illness: 41 YEARS OLD MALE WITH LONG HISTORY OF ALCOHOL NICOTINE DEPENDENCE HAS SCHIZOPHRENIA IS ADMITTED TO DETOX Exam Limitations: No Limitations - Ebola screening Have you traveled outside of the country in the last 21 days: No Have you had contact with anyone from an Ebola affected area: No Have you been sick,other than usual withdrawal symptoms: No Do you have a fever: No - Review of Systems Constitutional: Loss of Appetite, Changes in sleep, Unintentional Wgt. Loss, Unexplained wgt Loss EENT: reports: No Symptoms Reported, Nose Congestion Respiratory: reports: No Symptoms reported Cardiac: reports: No Symptoms Reported GI: reports: Nausea, Poor Appetite, Poor Fluid Intake, Abdominal cramping : reports: No Symptoms Reported Musculoskeletal: reports: No Symptoms Reported Integumentary: reports: No Symptoms Reported Neuro: reports: Tremors Endocrine: reports: No Symptoms Reported Hematology: reports: No Symptoms Reported Psychiatric: reports: Judgement Intact, Orientated x3, Anxious, Depressed Other Systems: Reviewed and Negative Patient History - Patient Medical History Hx Anemia: No Hx Asthma: No Hx Chronic Obstructive Pulmonary Disease (COPD): No Hx Cancer: No Hx Cardiac Disorders: No Hx Congestive Heart Failure: No Hx Hypertension: No Hx Hypercholesterolemia: No Hx Pacemaker: No HX Cerebrovascular Accident: No Hx Seizures: No Hx Dementia: No Hx Diabetes: No Hx Gastrointestinal Disorders: No Hx Liver Disease: No Hx Genitourinary Disorders: No Hx Sexually Transmitted Disorders: No Hx Renal Disease (ESRD): No Hx Thyroid Disease: No Hx Human Immunodeficiency Virus (HIV): No (LAST 12/18 NEGATIVE) Hx Hepatitis C: No (Last Tested 2015: NEGATIVE.) Hx Depression: No Hx Suicide Attempt: No Hx Bipolar Disorder: No Hx Schizophrenia: Yes - Patient Surgical History Past Surgical History: No Hx Neurologic Surgery: No Hx Cataract Extraction: No Hx Cardiac Surgery: No Hx Lung Surgery: No Hx Breast Surgery: No Hx Breast Biopsy: No Hx Abdominal Surgery: No Hx Appendectomy: No Hx Cholecystectomy: No Hx Genitourinary Surgery: No Hx Orthopedic Surgery: No Other Surgical History: 1998 jaw fracture (braces/Wire) LEFT Anesthesia Reaction: No - PPD History Previous Implant?: Yes Documented Results: Negative w/proof Implanted On Prior [facility] Admission?: Yes Date: 01/15/17 Results: 0 mm PPD to be Administered?: No - Smoking Cessation Smoking history: Current every day smoker Have you smoked in the past 12 months: Yes Aproximately how many cigarettes per day: 6 Cigars Per Day: 0 Hx Chewing Tobacco Use: No Initiated information on smoking cessation: Yes 'Breaking Loose' booklet given: 05/07/17 - Substance & Tx. History Hx Alcohol Use: Yes Hx Substance Use: Yes Substance Use Type: Alcohol, Cocaine, Marijuana Hx Substance Use Treatment: Yes (03/2017 [facility] - Substances Abused Alcohol Route: Oral Frequency: Daily Amount used: beer- 10btls 24OZ, vodka- 2pts Age of first use: 13 Date of Last Use: 05/07/17 Crack Route: Smoking Frequency: Daily Amount used: $200 Age of first use: 28 Date of Last Use: 05/07/17 Family Disease History - Family Disease History Family Disease History: Other: Father (Used Alcohol. .), Mother ( Seizures. .), Sister ( HIV) Admission Physical Exam [facility] - Vital Signs Vital Signs: Vital Signs - 24 hr 05/07/17 17:43 Temperature 97.8 F Pulse Rate 74 Respiratory 18 Rate Blood Pressure 134/70 - Physical General Appearance: Yes: Appropriately Dressed, Mild Distress, Moderate Distress , Thin, Tremorous, Irritable, Sweating, Anxious HEENTM: Yes: Hearing grossly Normal, Normal ENT Inspection, Normocephalic, Normal Voice, Nasal Congestion Respiratory: Yes: Chest Non-Tender, Lungs Clear, Normal Breath Sounds, No Respiratory Distress, No Accessory Muscle Use Neck: Yes: Supple, Trachea in good position Breast: Yes: Breasts Symetrical Cardiology: Yes: Regular Rhythm, Regular Rate, S1, S2 Abdominal: Yes: Normal Bowel Sounds, Non Tender, Soft Genitourinary: Yes: Within Normal Limits Back: Yes: Normal Inspection Musculoskeletal: Yes: full range of Motion, Gait Steady Extremities: Yes: Normal Inspection, Normal Range of Motion, Non-Tender, Tremors Neurological: Yes: Fully Oriented, Alert, Motor Strength 5/5, Normal Response, Depressed Affect Integumentary: Yes: Warm Lymphatic: Yes: Within Normal Limits - Diagnostic (1) Alcohol dependence with uncomplicated withdrawal Current Visit: Yes Status: Acute (2) Nicotine dependence Current Visit: Yes Status: Acute Qualifiers: Nicotine product type: cigarettes Substance use status: in withdrawal Qualified Code(s): F17.213 - Nicotine dependence, cigarettes, with withdrawal (3) Weight loss Current Visit: Yes Status: Acute (4) Schizophrenia Current Visit: Yes Status: Suspected Qualifiers: Schizophrenia type: unspecified Qualified Code(s): F20.9 - Schizophrenia, unspecified Cleared for Admission [facility] - Detox or Rehab [facility] Level of Care: Medically Managed Detox Regimen/Protocol: Librium [facility] Breath Alcohol Content Breath Alcohol Content: 0 Urine Drug Screen - Results Drug Screen Negative: No Urine Drug Screen Results: THC-Marijuana, JACKELINE-Cocaine
[2017-05-07] MEDS: chlordiazePOXIDE HCL 25 MG CAPSULE PO PRN (20:44)
[2017-05-07] MEDS: THIAMINE HCL 100 MG TABLET (FP) PO SCH (22:14)
[2017-05-07] MEDS: chlordiazePOXIDE HCL 25 MG CAPSULE PO SCH (22:15)
[2017-05-07] MEDS: IBUPROFEN 400 MG TABLET (FP) PO PRN (22:16)
[2017-05-07 23:48] LABS: URINE APPEARANCE TURBID; URINE BILIRUBIN NEGATIVE (NEGATIVE); URINE BLOOD NEGATIVE (NEGATIVE); URINE COLOR YELLOW; URINE GLUCOSE (UA) NEGATIVE (NEGATIVE); URINE KETONE 1+ (NEGATIVE); URINE NITRITE NEGATIVE (NEGATIVE); URINE PROTEIN NEGATIVE (NEGATIVE); URINE UROBILINOGEN NEGATIVE mg/dL (0.2-1.0)
[2017-05-07 23:50] LABS: URINE LEUK ESTERASE 2+ (NEGATIVE)
[2017-05-08 01:19] LABS: URINE MUCUS RARE
[2017-05-08] MEDS: chlordiazePOXIDE HCL 25 MG CAPSULE PO SCH ×4 (05:18→22:11)
[2017-05-08 09:43] LABS: ALBUMIN 3.4 g/dl (3.4-5.0); ANION GAP 8 (8-16); BILIRUBIN,TOTAL 0.3 mg/dL (0.2-1.0); BLOOD UREA NITROGEN 15 mg/dL (7-18); CALCIUM 8.1 mg/dL (8.5-10.1); CHLORIDE 107 mmol/L (98-107); CO2 26 mmol/L (21-32); CREATININE 0.9 mg/dL (0.7-1.3); GLUCOSE,RANDOM 113 mg/dL (74-106); POTASSIUM 3.9 mmol/L (3.5-5.1); SGOT/AST 20 U/L (15-37); SGPT/ALT 34 U/L (12-78); SODIUM 141 mmol/L (136-145); TOT PROT 6.3 g/dl (6.4-8.2)
[2017-05-08 09:44] LABS: ALK PHOS 67 U/L (45-117)
[2017-05-08 10:22] LABS: HEMATOCRIT 40.6 % (35.4-49); HEMOGLOBIN 13.1 GM/dL (11.7-16.9); MCH 30.6 pg (25.7-33.7); MCHC 32.2 g/dl (32.0-35.9); MEAN CELL VOLUME 95.1 fl (80-96); MEAN PLT VOLUME 8.7 fl (7.5-11.1); PLATELET COUNT 249 K/MM3 (134-434); RBC 4.27 M/mm3 (4.00-5.60); RDW 13.2 % (11.9-15.9); WHITE BLOOD COUNT 5.8 K/mm3 (4.0-10.0)
[2017-05-08] MEDS: NICOTINE 14 MG/24 HOURS TOPICAL PATCH TD SCH (10:35)
[2017-05-08] MEDS: PRENATAL VITAMINS W/ FOLIC ACID TABLET (FP) PO SCH (10:35)
[2017-05-08] MEDS: PETROLATUM, WHITE 30 GM TUBE TP SCH (10:37)
--- NOTE | 2017-05-08 11:06 | CONSULT ---
[facility] Psychiatric Consult - Data Date of interview: 05/08/17 Admission source: [facility] Identifying data: Pt. is a 41 year old male , father of two, single, and unemployed. This is one of multiple admissions to [facility]. Pt. admitted to [facility] for alcohol and crack dependence. Substance Abuse History: Following information confirmed by Mr. Oviedo: - Smoking Cessation. Smoking history: Current every day smoker. Have you smoked in the past 12 months: Yes. Aproximately how many cigarettes per day: 6. Cigars Per Day: 0. Hx Chewing Tobacco Use: No. Initiated information on smoking cessation: Yes. 'Breaking Loose' booklet given: 05/07/17. - Substance & Tx. History. Hx Alcohol Use: Yes. Hx Substance Use: Yes. Substance Use Type : Alcohol, Cocaine, Marijuana. Hx Substance Use Treatment: Yes (03/2017 [facility]). - Substances Abused. Alcohol. Route: Oral. Frequency: Daily. Amount used: beer- 10btls 24OZ, vodka- 2pts. Age of first use: 13. Date of Last Use: 05/07/17. Crack. Route: Smoking. Frequency: Daily. Amount used : $200. Age of first use: 28. Date of Last Use: 05/07/17 Medical History: Denies. Psychiatric History: Pt. presents as guarded, suspicious, and is a poor historian. Pt. reports one psychiatric hospitalization in 2006. Pt. denies h/o suicide attempt and stated to inspector automatic typewriter, " I don't take and do not want to take any psych medications." As per Dr. Miller's note on 03/08/2017 patient has a history of multiple psychiatric hospitalizations at various hospitals, including , [facility] in [place] (for auditory hallucinations , paranoia ideation and behvior dyscontrol), [facility] in [place], [facility], and [facility] in 2016 for auditory hallucinations and was discharged on risperdal. As per Dr. Miller's note patient has been diagnosed with PTSD, bipolar disorder and schizoprenia. Physical/Sexual Abuse/Trauma History: Denies. Additional Comment: Urine Drug Screen Results: JACKELINE-Cocaine, BZO-Benzodiazepines Mental Status Exam - Mental Status Exam Alert and Oriented to: Time, Place, Person Cognitive Function: Fair Patient Appearance: Unkempt Mood: Suspicious, Withdrawn Affect: Flat Patient Behavior: Guarded, Suspicious Speech Pattern: Delayed Voice Loudness: Moderately Soft/Quiet Hallucinations: Denies Suicidal Ideation: Denies Homicidal Ideation: Denies Insight/Judgement: Poor Sleep: Fair Appetite: Fair Muscle strength/Tone: Normal Gait/Station: Normal Psychiatric Findings - Problem List ([place] 1, 2,3) (1) Alcohol dependence with uncomplicated withdrawal Current Visit: Yes Status: Acute (2) Alcohol dependence Current Visit: Yes Status: Acute (3) Cocaine dependence Current Visit: Yes Status: Acute Qualifiers: Substance use status: uncomplicated Qualified Code(s): F14.20 - Cocaine dependence, uncomplicated (4) Cocaine dependence, uncomplicated Current Visit: Yes Status: Acute (5) Cannabis dependence Current Visit: Yes Status: Chronic (6) Nicotine dependence Current Visit: Yes Status: Chronic Qualifiers: Nicotine product type: cigarettes Substance use status: in withdrawal Qualified Code(s): F17.213 - Nicotine dependence, cigarettes, with withdrawal (7) Schizophrenia Current Visit: No Status: Chronic Qualifiers: Schizophrenia type: unspecified Qualified Code(s): F20.9 - Schizophrenia, unspecified Comment: Self reports from previous notes. (8) Bipolar disorder Current Visit: No Status: Chronic Comment: Self reports from previous notes. - Initial Treatment Plan Initial Treatment Plan: Psychoeducation provided. Detoxification in progress. Pt. refuses psychotrophic medications.
--- NOTE | 2017-05-08 12:15 | PN ---
S CIWA - CIWA Score Nausea/Vomitin-No Nausea/No Vomiting Muscle Tremors: 3 Anxiety: 4-Mod. Anxious/Guarded Agitation: 2 Paroxysmal Sweats: 3 Orientation: 0-Oriented Tacttile Disturbances: 2-Mild Itch/Numbness/Burn Auditory Disturbances: 0-None Visual Disturbances: 2-Mild Sensitivity Headache: 0-None Present CIWA-Ar Total Score: 16 [facility] Progress Note (SOAP) Subjective: Tremors, Anxious, Sweating, Fatigue. Objective: PT. A & O X 3, OBSERVED AMBULATING ON UNIT. NO ACUTE DISTRESS. 05/08/17 12:15 Vital Signs Temperature 97.7 F 05/08/17 08:43 Pulse Rate 68 05/08/17 08:43 Respiratory Rate 17 05/08/17 08:43 Blood Pressure 108/75 05/08/17 08:43 O2 Sat by Pulse Oximetry (%) Laboratory Tests 05/07/17 05/08/17 05/08/17 Unknown 07:00 07:00 WBC 5.8 RBC 4.27 Hgb 13.1 Hct 40.6 MCV 95.1 MCH 30.6 MCHC 32.2 RDW 13.2 Plt Count 249 MPV 8.7 Sodium 141 Potassium 3.9 Chloride 107 Carbon Dioxide 26 Anion Gap 8 BUN 15 Creatinine 0.9 Creat Clearance w eGFR > 60 Random Glucose 113 H Calcium 8.1 L Total Bilirubin 0.3 D AST 20 ALT 34 D Alkaline Phosphatase 67 Total Protein 6.3 L Albumin 3.4 Urine Color Yellow Urine Appearance Turbid Urine pH 5.0 Ur Specific [place] 1.029 Urine Protein Negative Urine Glucose (UA) Negative Urine Ketones 1+ H Urine Blood Negative Urine Nitrite Negative Urine Bilirubin Negative Urine Urobilinogen Negative Ur Leukocyte Esterase Negative Urine WBC (Auto) None Urine RBC (Auto) 4 Urine Mucus Rare LABS NOTED. Assessment: 05/08/17 12:16 WITHDRAWAL SYMPTOMS. Plan: CONTINUE DETOX. INCREASE DAILY PO FLUID INTAKE.
--- NOTE | 2017-05-08 12:33 | EKG ---
Test Reason : Blood Pressure : / mmHG Vent. Rate : 075 BPM Atrial Rate : 075 BPM P-R Int : 108 ms QRS Dur : 092 ms QT Int : 396 ms P-R-T Axes : -37 050 048 degrees QTc Int : 442 ms NORMAL SINUS RHYTHM Confirmed by MEE HA MD ([id number]) on 05/08/2017 12:33:27 PM Referred By: Confirmed By:MEE HA MD
--- NOTE | 2017-05-08 12:35 | EKG ---
Test Reason : Blood Pressure : / mmHG Vent. Rate : 064 BPM Atrial Rate : 064 BPM P-R Int : 116 ms QRS Dur : 078 ms QT Int : 408 ms P-R-T Axes : 064 051 042 degrees QTc Int : 420 ms NORMAL SINUS RHYTHM NORMAL ECG WHEN COMPARED WITH ECG OF 07-MAY-2017 21:48, SINUS RHYTHM HAS REPLACED ECTOPIC ATRIAL RHYTHM Confirmed by MEE HA MD ([id number]) on 05/08/2017 12:35:13 PM Referred By: Confirmed By:MEE HA MD
[2017-05-08] MEDS: THIAMINE HCL 100 MG TABLET (FP) PO SCH (22:11)
[2017-05-09] MEDS: chlordiazePOXIDE HCL 25 MG CAPSULE PO SCH ×3 (06:09→16:57)
[2017-05-09] MEDS: PRENATAL VITAMINS W/ FOLIC ACID TABLET (FP) PO SCH (10:10)
[2017-05-09] MEDS: NICOTINE 14 MG/24 HOURS TOPICAL PATCH TD SCH (10:10)
[2017-05-09] MEDS: PETROLATUM, WHITE 30 GM TUBE TP SCH ×2 (10:11→10:19)
--- NOTE | 2017-05-09 11:05 | PN ---
[facility] CIWA - CIWA Score Nausea/Vomitin-No Nausea/No Vomiting Muscle Tremors: 4-Moderate,w/Arms Extend Anxiety: 4-Mod. Anxious/Guarded Agitation: 4-Moderately Restless Paroxysmal Sweats: 1-Minimal Palms Moist Orientation: 0-Oriented Tacttile Disturbances: 3-Moderate Itch/Numb/Burn Auditory Disturbances: 0-None Visual Disturbances: 0-None Headache: 0-None Present CIWA-Ar Total Score: 16 BHS Progress Note (SOAP) Subjective: ANXIETY,SWEATS,FATIGUE. Objective: 05/09/17 11:04 Vital Signs 05/09/17 05/09/17 05/09/17 03:25 06:01 09:20 Temperature 97.2 F L 96.4 F L Pulse Rate 68 75 Respiratory 19 18 18 Rate Blood Pressure 99/69 116/67 Laboratory Last Values WBC 5.8 K/mm3 (4.0-10.0) 05/08/17 07:00 RBC 4.27 M/mm3 (4.00-5.60) 05/08/17 07:00 Hgb 13.1 GM/dL (11.7-16.9) 05/08/17 07:00 Hct 40.6 % (35.4-49) 05/08/17 07:00 MCV 95.1 fl (80-96) 05/08/17 07:00 MCH 30.6 pg (25.7-33.7) 05/08/17 07:00 MCHC 32.2 g/dl (32.0-35.9) 05/08/17 07:00 RDW 13.2 % (11.9-15.9) 05/08/17 07:00 Plt Count 249 K/MM3 (134-434) 05/08/17 07:00 MPV 8.7 fl (7.5-11.1) 05/08/17 07:00 Sodium 141 mmol/L (136-145) 05/08/17 07:00 Potassium 3.9 mmol/L (3.5-5.1) 05/08/17 07:00 Chloride 107 mmol/L (98-107) 05/08/17 07:00 Carbon Dioxide 26 mmol/L (21-32) 05/08/17 07:00 Anion Gap 8 (8-16) 05/08/17 07:00 BUN 15 mg/dL (7-18) 05/08/17 07:00 Creatinine 0.9 mg/dL (0.7-1.3) 05/08/17 07:00 Creat Clearance w eGFR > 60 (>60) 05/08/17 07:00 Random Glucose 113 mg/dL (74-106) H 05/08/17 07:00 Calcium 8.1 mg/dL (8.5-10.1) L 05/08/17 07:00 Total Bilirubin 0.3 mg/dL (0.2-1.0) D 05/08/17 07:00 AST 20 U/L (15-37) 05/08/17 07:00 ALT 34 U/L (12-78) D 05/08/17 07:00 Alkaline Phosphatase 67 U/L (45-117) 05/08/17 07:00 Total Protein 6.3 g/dl (6.4-8.2) L 05/08/17 07:00 Albumin 3.4 g/dl (3.4-5.0) 05/08/17 07:00 Urine Color Yellow 05/07/17 Unknown Urine Appearance Turbid 05/07/17 Unknown Urine pH 5.0 (5.0-8.0) 05/07/17 Unknown Ur Specific [place] 1.029 (1.001-1.035) 05/07/17 Unknown Urine Protein Negative (NEGATIVE) 05/07/17 Unknown Urine Glucose (UA) Negative (NEGATIVE) 05/07/17 Unknown Urine Ketones 1+ (NEGATIVE) H 05/07/17 Unknown Urine Blood Negative (NEGATIVE) 05/07/17 Unknown Urine Nitrite Negative (NEGATIVE) 05/07/17 Unknown Urine Bilirubin Negative (NEGATIVE) 05/07/17 Unknown Urine Urobilinogen Negative mg/dL (0.2-1.0) 05/07/17 Unknown Ur Leukocyte Esterase Negative (NEGATIVE) 05/07/17 Unknown Urine WBC (Auto) None /hpf (3-5) 05/07/17 Unknown Urine RBC (Auto) 4 /hpf (0-3) 05/07/17 Unknown Urine Mucus Rare 05/07/17 Unknown RPR Titer Nonreactive (NONREACTIVE) 05/08/17 07:00 Assessment: 05/09/17 11:04 WITHDRAWAL SX Plan: CONTINUE DETOX
[2017-05-09] MEDS: chlordiazePOXIDE 5 MG CAPSULE PO SCH (22:00)
[2017-05-09] MEDS: THIAMINE HCL 100 MG TABLET (FP) PO SCH (22:00)
[2017-05-09] MEDS: IBUPROFEN 400 MG TABLET (FP) PO PRN (23:46)
[2017-05-10] MEDS: chlordiazePOXIDE HCL 25 MG CAPSULE PO PRN (01:02)
[2017-05-10] MEDS: chlordiazePOXIDE 5 MG CAPSULE PO SCH ×4 (05:58→17:45)
[2017-05-10] MEDS: PETROLATUM, WHITE 30 GM TUBE TP SCH (10:26)
[2017-05-10] MEDS: NICOTINE 14 MG/24 HOURS TOPICAL PATCH TD SCH (10:26)
[2017-05-10] MEDS: PRENATAL VITAMINS W/ FOLIC ACID TABLET (FP) PO SCH ×2 (10:26→10:36)
--- NOTE | 2017-05-10 12:47 | PN ---
BHS Progress Note (SOAP) Subjective: Patient not cooperative, verbalized a lot of anger and unwillingness to be talked to Objective: 05/10/17 12:43 Vital Signs 05/10/17 05/10/17 06:15 09:41 Temperature 97 F L 96.9 F L Pulse Rate 64 73 Respiratory 16 18 Rate Blood Pressure 106/67 106/66 Laboratory Last Values WBC 5.8 K/mm3 (4.0-10.0) 05/08/17 07:00 RBC 4.27 M/mm3 (4.00-5.60) 05/08/17 07:00 Hgb 13.1 GM/dL (11.7-16.9) 05/08/17 07:00 Hct 40.6 % (35.4-49) 05/08/17 07:00 MCV 95.1 fl (80-96) 05/08/17 07:00 MCH 30.6 pg (25.7-33.7) 05/08/17 07:00 MCHC 32.2 g/dl (32.0-35.9) 05/08/17 07:00 RDW 13.2 % (11.9-15.9) 05/08/17 07:00 Plt Count 249 K/MM3 (134-434) 05/08/17 07:00 MPV 8.7 fl (7.5-11.1) 05/08/17 07:00 Sodium 141 mmol/L (136-145) 05/08/17 07:00 Potassium 3.9 mmol/L (3.5-5.1) 05/08/17 07:00 Chloride 107 mmol/L (98-107) 05/08/17 07:00 Carbon Dioxide 26 mmol/L (21-32) 05/08/17 07:00 Anion Gap 8 (8-16) 05/08/17 07:00 BUN 15 mg/dL (7-18) 05/08/17 07:00 Creatinine 0.9 mg/dL (0.7-1.3) 05/08/17 07:00 Creat Clearance w eGFR > 60 (>60) 05/08/17 07:00 Random Glucose 113 mg/dL (74-106) H 05/08/17 07:00 Calcium 8.1 mg/dL (8.5-10.1) L 05/08/17 07:00 Total Bilirubin 0.3 mg/dL (0.2-1.0) D 05/08/17 07:00 AST 20 U/L (15-37) 05/08/17 07:00 ALT 34 U/L (12-78) D 05/08/17 07:00 Alkaline Phosphatase 67 U/L (45-117) 05/08/17 07:00 Total Protein 6.3 g/dl (6.4-8.2) L 05/08/17 07:00 Albumin 3.4 g/dl (3.4-5.0) 05/08/17 07:00 Urine Color Yellow 05/07/17 Unknown Urine Appearance Turbid 05/07/17 Unknown Urine pH 5.0 (5.0-8.0) 05/07/17 Unknown Ur Specific [place] 1.029 (1.001-1.035) 05/07/17 Unknown Urine Protein Negative (NEGATIVE) 05/07/17 Unknown Urine Glucose (UA) Negative (NEGATIVE) 05/07/17 Unknown Urine Ketones 1+ (NEGATIVE) H 05/07/17 Unknown Urine Blood Negative (NEGATIVE) 05/07/17 Unknown Urine Nitrite Negative (NEGATIVE) 05/07/17 Unknown Urine Bilirubin Negative (NEGATIVE) 05/07/17 Unknown Urine Urobilinogen Negative mg/dL (0.2-1.0) 05/07/17 Unknown Ur Leukocyte Esterase Negative (NEGATIVE) 05/07/17 Unknown Urine WBC (Auto) None /hpf (3-5) 05/07/17 Unknown Urine RBC (Auto) 4 /hpf (0-3) 05/07/17 Unknown Urine Mucus Rare 05/07/17 Unknown RPR Titer Nonreactive (NONREACTIVE) 05/08/17 07:00 Labs noted Assessment: 05/10/17 12:43 Withdrawal sx Anxiety, irritability with inappropriate verbal pronunciations Plan: Continue detox Redirected, reiterated the standard of behavior for inpatient detox patients
[2017-05-10] MEDS: THIAMINE HCL 100 MG TABLET (FP) PO SCH (23:11)
[2017-05-10] MEDS: chlordiazePOXIDE HCL 10 MG CAPSULE PO SCH (23:11)
[2017-05-10] MEDS: IBUPROFEN 400 MG TABLET (FP) PO PRN (23:37)
[2017-05-11 06:12] VITALS: BP 98/60; PULSE 63; TEMP 97.2
[2017-05-11] MEDS: chlordiazePOXIDE HCL 10 MG CAPSULE PO SCH (06:21)
--- NOTE | 2017-05-11 11:35 | DS ---
[facility] Detox Discharge Summary Admission Date: 05/07/17 Discharge Date: 05/11/17 - History Present History: Alcohol Dependence, Cannabis Dependence, Cocaine Dependence Additional Comments: Nicotine Dependence Pertinent Past History: Schizophrenia - Physical Exam Results Vital Signs: Vital Signs Temperature 97.2 F L 05/11/17 06:11 Pulse Rate 63 05/11/17 06:11 Respiratory Rate 16 05/11/17 06:11 Blood Pressure 98/60 05/11/17 06:11 O2 Sat by Pulse Oximetry (%) Pertinent Admission Physical Exam Findings: withdrawal symptoms Laboratory Last Values WBC 5.8 K/mm3 (4.0-10.0) 05/08/17 07:00 RBC 4.27 M/mm3 (4.00-5.60) 05/08/17 07:00 Hgb 13.1 GM/dL (11.7-16.9) 05/08/17 07:00 Hct 40.6 % (35.4-49) 05/08/17 07:00 MCV 95.1 fl (80-96) 05/08/17 07:00 MCH 30.6 pg (25.7-33.7) 05/08/17 07:00 MCHC 32.2 g/dl (32.0-35.9) 05/08/17 07:00 RDW 13.2 % (11.9-15.9) 05/08/17 07:00 Plt Count 249 K/MM3 (134-434) 05/08/17 07:00 MPV 8.7 fl (7.5-11.1) 05/08/17 07:00 Sodium 141 mmol/L (136-145) 05/08/17 07:00 Potassium 3.9 mmol/L (3.5-5.1) 05/08/17 07:00 Chloride 107 mmol/L (98-107) 05/08/17 07:00 Carbon Dioxide 26 mmol/L (21-32) 05/08/17 07:00 Anion Gap 8 (8-16) 05/08/17 07:00 BUN 15 mg/dL (7-18) 05/08/17 07:00 Creatinine 0.9 mg/dL (0.7-1.3) 05/08/17 07:00 Creat Clearance w eGFR > 60 (>60) 05/08/17 07:00 Random Glucose 113 mg/dL (74-106) H 05/08/17 07:00 Calcium 8.1 mg/dL (8.5-10.1) L 05/08/17 07:00 Total Bilirubin 0.3 mg/dL (0.2-1.0) D 05/08/17 07:00 AST 20 U/L (15-37) 05/08/17 07:00 ALT 34 U/L (12-78) D 05/08/17 07:00 Alkaline Phosphatase 67 U/L (45-117) 05/08/17 07:00 Total Protein 6.3 g/dl (6.4-8.2) L 05/08/17 07:00 Albumin 3.4 g/dl (3.4-5.0) 05/08/17 07:00 Urine Color Yellow 05/07/17 Unknown Urine Appearance Turbid 05/07/17 Unknown Urine pH 5.0 (5.0-8.0) 05/07/17 Unknown Ur Specific [place] 1.029 (1.001-1.035) 05/07/17 Unknown Urine Protein Negative (NEGATIVE) 05/07/17 Unknown Urine Glucose (UA) Negative (NEGATIVE) 05/07/17 Unknown Urine Ketones 1+ (NEGATIVE) H 05/07/17 Unknown Urine Blood Negative (NEGATIVE) 05/07/17 Unknown Urine Nitrite Negative (NEGATIVE) 05/07/17 Unknown Urine Bilirubin Negative (NEGATIVE) 05/07/17 Unknown Urine Urobilinogen Negative mg/dL (0.2-1.0) 05/07/17 Unknown Ur Leukocyte Esterase Negative (NEGATIVE) 05/07/17 Unknown Urine WBC (Auto) None /hpf (3-5) 05/07/17 Unknown Urine RBC (Auto) 4 /hpf (0-3) 05/07/17 Unknown Urine Mucus Rare 05/07/17 Unknown RPR Titer Nonreactive (NONREACTIVE) 05/08/17 07:00 Labs noted. - Treatment Hospital Course: Detox Protocol Followed, Detoxed Safely, Responded well, Discharged Condition Good, Rehab Referral Accepted Patient has Accepted a Rehab Referral to: Pt. advised self help group - Medication Discharge Medications: Ambulatory Orders NK [No Known Home Medication] 03/06/17 - Diagnosis (1) Alcohol dependence with uncomplicated withdrawal Status: Acute (2) Cannabis dependence Status: Acute (3) Cocaine dependence, uncomplicated Status: Acute (4) Nicotine dependence Status: Acute Qualifiers: Nicotine product type: cigarettes Substance use status: in withdrawal Qualified Code(s): F17.213 - Nicotine dependence, cigarettes, with withdrawal (5) Weight loss Status: Acute (6) Bipolar disorder Status: Chronic (7) Schizophrenia Status: Chronic Qualifiers: Schizophrenia type: unspecified Qualified Code(s): F20.9 - Schizophrenia, unspecified - AMA Did Patient Leave Against Medical Advice: No
== END 2017-05-11 09:27 | disposition home or self-care (01) | DRG 774 ==
LOC: YASAS 17:35 → Y3N 20:04
PROVIDERS: ADMIT Internal Medicine; ATTEND Internal Medicine
PROC: HZ2ZZZZ Detoxification Services for Substance Abuse Treatment (ICD-10-PCS; principal; 2017-05-07)
DX: F10.230 Alcohol dependence with withdrawal, uncomplicated (principal); F14.20 Cocaine dependence, uncomplicated; F12.20 Cannabis dependence, uncomplicated; F17.213 Nicotine dependence, cigarettes, with withdrawal; F20.9 Schizophrenia, unspecified; F31.9 Bipolar disorder, unspecified; R63.4 Abnormal weight loss; Z68.24 Body mass index [BMI] 24.0-24.9, adult
CPT/HCPCS: 36415; 80053; 81003; 81015; 85027; 86593; 93005; 93010

== ENCOUNTER 2017-05-26 12:05 | Inpatient (IN) | payer OTHER ==
[2017-05-26 15:02] VITALS: BMI 25.7
--- NOTE | 2017-05-26 19:00 | HP ---
[facility] Rehab Assess/Revision - Admission History Admitted to Rehab from: [facility] Date of Admission to Rehab: 05/26/17 - Vital signs Vital Signs: Vital Signs Period Temp Pulse Resp BP Sys/Villafana Pulse Ox Last 24 Hr 96.1 F 78 20 118/66 - Findings Detox History & Physical reviewed: Yes Concur with findings: Yes Comments/Additional Findings: discharged 05/11/17. return for rehab Inpatient Rehab Admission - Initial Determination Are CD services needed?: Yes Free of communicable disease: Yes Not in need of hospitalization: Yes - Rehab Admission Criteria Previous failed treatment: Yes Poor recovery environment: Yes Comorbidities: Yes Lacks judgement: No Patient is meeting Inpatient Rehab admission criteria:: Yes
[2017-05-26] MEDS ORDERED: LOPERAMIDE HCL 2 MG CAPSULE PO PRN (19:01)
[2017-05-26] MEDS ORDERED: ACETAMINOPHEN 325 MG TABLET (FP) PO PRN (19:01)
[2017-05-26] MEDS ORDERED: P-EPHED 60MG/TRIPROLIDI 2.5MG TABLET PO PRN (19:01)
[2017-05-26] MEDS ORDERED: guaiFENesin/D-METHORPHAN HB 10 ML UNIT-DOSE CUPS PO PRN (19:01)
[2017-05-26] MEDS ORDERED: MAGNESIUM CITRATE 300 ML BOTTLE PO PRN (19:01)
[2017-05-26] MEDS ORDERED: NICOTINE POLACRILEX 2 MG GUM BUC PRN (19:01)
[2017-05-26] MEDS ORDERED: IBUPROFEN 400 MG TABLET (FP) PO PRN (19:01)
[2017-05-26] MEDS ORDERED: MENTHOL/PHENOL 1 EACH UD MM PRN (19:01)
[2017-05-26] MEDS ORDERED: MAG HYDROX/AL HYDROX/SIMETH 30 ML UNIT-DOSE CUP PO PRN (19:01)
[2017-05-26] MEDS ORDERED: MAGNESIUM HYDROX 2400MG/30ML ORAL SUSPENSION 30 ML CUP PO PRN (19:01)
[2017-05-26] MEDS: THIAMINE HCL 100 MG TABLET (FP) PO SCH (22:02)
[2017-05-27] MEDS: PRENATAL VITAMINS W/ FOLIC ACID TABLET (FP) PO SCH (10:38)
[2017-05-27] MEDS: NICOTINE 14 MG/24 HOURS TOPICAL PATCH TD SCH (10:39)
--- NOTE | 2017-05-27 14:55 | HP ---
Psychiatrist Admission - Data Date of interview: 05/27/17 Admission source: [facility] Identifying data: This is one of the several inpatient rehabilitation admission for this 41 year old singal unemployed AA male, father of 2, currently homeless. Medical History: Reports a good health. Smokes 6 cigarettes a day. Psychiatric History: First psychiatric contact in his 30's in [place] to address auditory hallucinations and paranoid thoughts, was hospitalized, reports several subsequent hospitalizations with most recent in 2016 at [facility] for auditory hallucinations, was diagnosed as bipolar, schizophrenia and PTSD, non-compliant with aftercare and medications, in the past treated with prozac, zyprexa, seroquel, risperdal, he not on any medications now but willing to take , latuda was recommended(side-effects and benefits discussed) .and patient agreed to start. Physical/Sexual Abuse/Trauma History: Denies history of sexual, physical and verbal abuse, reports seeing people got killeda s a child growing in [facility], as well witnessed his mother's in 2003 but did want to talk about it. Admits having nightmares abd flashbacks to these taumas. Vital Signs: Vital Signs - 24 hr 05/26/17 05/27/17 05/27/17 14:53 01:08 03:21 Temperature 96.1 F L Pulse Rate 78 Respiratory 20 18 18 Rate Blood Pressure 118/66 05/27/17 07:04 Temperature 97.7 F Pulse Rate 58 L Respiratory 18 Rate Blood Pressure 129/69 Allergies/Adverse Reactions: Allergies Allergy/AdvReac Type Severity Reaction Status Date / Time No Known Allergies Allergy Verified 05/26/17 16:33 Date of last physical exam: 05/26/17 Concur with the findings of this exam: Yes - Substance Abuse/Tx History Hx Alcohol Use: Yes (age of first use 13, daily 2 pints of vodka and 10 24 oz beer daily.) Hx Substance Use: Yes Substance Use Type: Cocaine (age of first use 28, daily $200) Hx Substance Use Treatment: Yes (several detox/rehab at [facility]) Mental Status Exam - Mental Status Exam Alert and Oriented to: Time, Place, Person Cognitive Function: Grossly Intact Patient Appearance: Well Groomed Mood: Depressed, Sad, Anxious Affect: Mood Congruent, Constricted Patient Behavior: Guarded, Cooperative Speech Pattern: Appropriate Voice Loudness: Normal Thought Process: Goal Oriented Thought Disorder: Not Present Hallucinations: Denies Suicidal Ideation: Denies Homicidal Ideation: Denies Insight/Judgement: Fair Sleep: Fair Appetite: Fair Muscle strength/Tone: Normal Gait/Station: Normal Psychiatric Findings - Problem List ([place]armi 1, 2,3) (1) PTSD (post-traumatic stress disorder) Current Visit: Yes Status: Acute (2) Schizoaffective disorder Current Visit: Yes Status: Acute (3) Alcohol dependence Current Visit: No Status: Acute (4) Cocaine dependence Current Visit: No Status: Acute Qualifiers: Substance use status: uncomplicated Qualified Code(s): F14.20 - Cocaine dependence, uncomplicated (5) Nicotine dependence Current Visit: No Status: Acute Qualifiers: Nicotine product type: cigarettes Substance use status: in withdrawal Qualified Code(s): F17.213 - Nicotine dependence, cigarettes, with withdrawal - Initial Treatment Plan Initial Treatment Plan: psychoeducation and supports provided, will start Latuda 20 mg po daily, monitor progress as needed.
[2017-05-27] MEDS: THIAMINE HCL 100 MG TABLET (FP) PO SCH (22:01)
[2017-05-28] MEDS: NICOTINE 14 MG/24 HOURS TOPICAL PATCH TD SCH (10:34)
[2017-05-28] MEDS: PRENATAL VITAMINS W/ FOLIC ACID TABLET (FP) PO SCH (10:34)
[2017-05-28] MEDS: LURASIDONE HCL 20 MG TABLET PO SCH (10:34)
[2017-05-28] MEDS: THIAMINE HCL 100 MG TABLET (FP) PO SCH (21:49)
[2017-05-29] MEDS: PRENATAL VITAMINS W/ FOLIC ACID TABLET (FP) PO SCH (10:39)
[2017-05-29] MEDS: NICOTINE 14 MG/24 HOURS TOPICAL PATCH TD SCH (10:39)
[2017-05-29] MEDS: LURASIDONE HCL 20 MG TABLET PO SCH (10:39)
--- NOTE | 2017-05-29 14:50 | PN ---
Psychiatric Progress Note Vital Signs: Vital Signs Period Temp Pulse Resp BP Sys/Villafana Pulse Ox Last 24 Hr 97.5 F 57 17-18 103/66 Date of Session: 05/29/17 Chief Complaint:: "he refusing Latuda" HPI: Patient is addressing alcohol, cocaine, nicotine dependence comorbid PTSD and Schizoaffective disorder. Current Medications: Active Medications Generic Name Dose Route Start Last Admin Trade Name Freq PRN Reason Stop Dose Admin Acetaminophen 650 mg 05/26/17 19:01 Tylenol - PO Q4H PRN FEVER Al Hydroxide/Mg Hydroxide 30 ml 05/26/17 19:01 Mylanta Oral Suspension - PO Q6H PRN DYSPEPSIA Eucalyptus/Menthol/Phenol/Sorbitol 1 each 05/26/17 19:01 Cepastat Lozenge - MM Q4H PRN SORE THROAT Guaifenesin 10 ml 05/26/17 19:01 Robitussin Dm - PO Q6H PRN COUGH Ibuprofen 400 mg 05/26/17 19:01 Motrin - PO Q6H PRN Pain Level 4-6 Loperamide HCl 4 mg 05/26/17 19:01 Imodium - PO Q6H PRN DIARRHEA Magnesium Citrate 300 ml 05/26/17 19:01 Citroma - PO Q48H PRN CONSTIPATION Magnesium Hydroxide 30 ml 05/26/17 19:01 Milk Of Magnesia - PO DAILY PRN CONSTIPATION Nicotine 14 mg 05/27/17 10:00 05/29/17 10:39 Nicoderm Patch - TD 14 mg DAILY DC Administration Nicotine Polacrilex 2 mg 05/26/17 19:01 Nicorette Gum - BUC Q2H PRN NICOTINE REPLACEMENT RX Multivit/Folic Acid/Iron 1 tab 05/27/17 10:00 05/29/17 10:39 Vitamins (Sjr) - PO 1 tab DAILY DC Administration Pseudoephedrine/Triprolidine 1 combo 05/26/17 19:01 Actifed - PO TID PRN NASAL CONGESTION Thiamine HCl 100 mg 05/26/17 22:00 05/28/17 21:49 Vitamin B1 - PO 100 mg HS DC Administration Medication(s) Change(s): d/c Latuda Current Side Effect: Yes (nausea and diarrhea) Lab tests ordered: No Lab tests reviewed: Yes Provider note:: Patient was seen today, he reported he does not want to continue with Latuda due to the side-effects, discussed alternative medications with the patient which he took in the past, but patient declined, will d/c medication, continue to monitor progress. Total face to face time:: 15 Mental Status Exam - Mental Status Exam Alert and Oriented to: Time, Place, Person Cognitive Function: Good Patient Appearance: Well Groomed Mood: Sad Affect: Appropriate, Mood Congruent Patient Behavior: Appropriate, Cooperative Speech Pattern: Clear, Appropriate Voice Loudness: Normal Thought Process: Intact, Goal Oriented Thought Disorder: Not Present Hallucinations: Denies Suicidal Ideation: Denies Homicidal Ideation: Denies Insight/Judgement: Fair Sleep: Fair Appetite: Fair Muscle strength/Tone: Normal Gait/Station: Normal Psychiatric Treatment Plan - Problem List (1) PTSD (post-traumatic stress disorder) Current Visit: Yes (2) Schizoaffective disorder Current Visit: Yes (3) Alcohol dependence Current Visit: No (4) Cocaine dependence Current Visit: No Qualifiers: Substance use status: uncomplicated Qualified Code(s): F14.20 - Cocaine dependence, uncomplicated (5) Nicotine dependence Current Visit: No Qualifiers: Nicotine product type: cigarettes Substance use status: in withdrawal Qualified Code(s): F17.213 - Nicotine dependence, cigarettes, with withdrawal
[2017-05-29] MEDS: THIAMINE HCL 100 MG TABLET (FP) PO SCH (22:05)
[2017-05-30] MEDS: PRENATAL VITAMINS W/ FOLIC ACID TABLET (FP) PO SCH (10:44)
[2017-05-30] MEDS: NICOTINE 14 MG/24 HOURS TOPICAL PATCH TD SCH (10:44)
[2017-05-30] MEDS: THIAMINE HCL 100 MG TABLET (FP) PO SCH (21:53)
[2017-05-31] MEDS: PRENATAL VITAMINS W/ FOLIC ACID TABLET (FP) PO SCH (10:42)
[2017-05-31] MEDS: NICOTINE 14 MG/24 HOURS TOPICAL PATCH TD SCH (10:42)
[2017-05-31] MEDS: THIAMINE HCL 100 MG TABLET (FP) PO SCH (22:08)
[2017-06-01] MEDS: NICOTINE 14 MG/24 HOURS TOPICAL PATCH TD SCH (10:40)
[2017-06-01] MEDS: PRENATAL VITAMINS W/ FOLIC ACID TABLET (FP) PO SCH (10:40)
[2017-06-01] MEDS: THIAMINE HCL 100 MG TABLET (FP) PO SCH (21:51)
[2017-06-02] MEDS: NICOTINE 14 MG/24 HOURS TOPICAL PATCH TD SCH (11:02)
[2017-06-02] MEDS: PRENATAL VITAMINS W/ FOLIC ACID TABLET (FP) PO SCH (11:02)
--- NOTE | 2017-06-02 14:13 | PN ---
Psychiatric Progress Note Vital Signs: Vital Signs Period Temp Pulse Resp BP Sys/Villafana Pulse Ox Last 24 Hr 97.8 F 62 18-18 106/61 Date of Session: 06/02/17 Chief Complaint:: "anxious" HPI: Patient is addressing alcohol, cocaine, nicotine dependence comorbid PTSD and Schizoaffective disorder. ROS: WNL Current Medications: Active Medications Generic Name Dose Route Start Last Admin Trade Name Freq PRN Reason Stop Dose Admin Acetaminophen 650 mg 05/26/17 19:01 Tylenol - PO Q4H PRN FEVER Al Hydroxide/Mg Hydroxide 30 ml 05/26/17 19:01 Mylanta Oral Suspension - PO Q6H PRN DYSPEPSIA Eucalyptus/Menthol/Phenol/Sorbitol 1 each 05/26/17 19:01 Cepastat Lozenge - MM Q4H PRN SORE THROAT Guaifenesin 10 ml 05/26/17 19:01 Robitussin Dm - PO Q6H PRN COUGH Ibuprofen 400 mg 05/26/17 19:01 Motrin - PO Q6H PRN Pain Level 4-6 Loperamide HCl 4 mg 05/26/17 19:01 Imodium - PO Q6H PRN DIARRHEA Magnesium Citrate 300 ml 05/26/17 19:01 Citroma - PO Q48H PRN CONSTIPATION Magnesium Hydroxide 30 ml 05/26/17 19:01 Milk Of Magnesia - PO DAILY PRN CONSTIPATION Nicotine 14 mg 05/27/17 10:00 06/02/17 11:02 Nicoderm Patch - TD Not Given DAILY DC Nicotine Polacrilex 2 mg 05/26/17 19:01 Nicorette Gum - BUC Q2H PRN NICOTINE REPLACEMENT RX Multivit/Folic Acid/Iron 1 tab 05/27/17 10:00 06/02/17 11:02 Vitamins (Sjr) - PO Not Given DAILY DC Pseudoephedrine/Triprolidine 1 combo 05/26/17 19:01 Actifed - PO TID PRN NASAL CONGESTION Thiamine HCl 100 mg 05/26/17 22:00 06/01/17 21:51 Vitamin B1 - PO Not Given HS DC Current Side Effect: No Lab tests ordered: No Lab tests reviewed: Yes Provider note:: Patient was seen today, he is very concerned about his HIV test results, he was provided with supportive therapy and was referred to his counselor, he reports he sleeps well, medications well tolerated. Ways to reduce stress discussed with the patient , continue to monitor progress. Total face to face time:: 25 Mental Status Exam - Mental Status Exam Alert and Oriented to: Time, Place, Person Cognitive Function: Grossly Intact Patient Appearance: Well Groomed Mood: Sad, Anxious Affect: Appropriate, Mood Congruent Patient Behavior: Appropriate, Cooperative Speech Pattern: Clear, Appropriate Voice Loudness: Normal Thought Process: Intact, Goal Oriented Thought Disorder: Not Present Hallucinations: Denies Suicidal Ideation: Denies Homicidal Ideation: Denies Insight/Judgement: Fair Sleep: Fair Appetite: Fair Muscle strength/Tone: Normal Gait/Station: Normal Psychiatric Treatment Plan - Problem List (1) PTSD (post-traumatic stress disorder) Current Visit: Yes (2) Schizoaffective disorder Current Visit: Yes (3) Alcohol dependence Current Visit: No (4) Cocaine dependence Current Visit: No Qualifiers: Substance use status: uncomplicated Qualified Code(s): F14.20 - Cocaine dependence, uncomplicated (5) Nicotine dependence Current Visit: No Qualifiers: Nicotine product type: cigarettes Substance use status: in withdrawal Qualified Code(s): F17.213 - Nicotine dependence, cigarettes, with withdrawal
[2017-06-02] MEDS: THIAMINE HCL 100 MG TABLET (FP) PO SCH (21:56)
[2017-06-03] MEDS: NICOTINE 14 MG/24 HOURS TOPICAL PATCH TD SCH (11:10)
[2017-06-03] MEDS: PRENATAL VITAMINS W/ FOLIC ACID TABLET (FP) PO SCH (11:10)
[2017-06-03] MEDS: THIAMINE HCL 100 MG TABLET (FP) PO SCH (21:41)
[2017-06-04 06:49] VITALS: BP 116/69; PULSE 59; TEMP 98
[2017-06-04] MEDS: PRENATAL VITAMINS W/ FOLIC ACID TABLET (FP) PO SCH (10:54)
[2017-06-04] MEDS: NICOTINE 14 MG/24 HOURS TOPICAL PATCH TD SCH (10:54)
--- NOTE | 2017-06-04 13:54 | PN ---
[facility] Progress Note Note: patient decided to continue to address his issues on outpatient basis.He met his treatment goals partially.Patient is stable.Appropriate referral has been provided. Patient is stable for discharge today.
== END 2017-06-04 14:15 | disposition home or self-care (01) | DRG 772 ==
LOC: YASAS 12:05 → Y5N 17:49
PROVIDERS: ADMIT Psychiatry & Neurology Psychiatry; ATTEND Psychiatry & Neurology Psychiatry
PROC: HZ42ZZZ Group Counseling for Substance Abuse Treatment, Cognitive-Behavioral (ICD-10-PCS; principal; 2017-05-26)
DX: F10.20 Alcohol dependence, uncomplicated (principal); F14.20 Cocaine dependence, uncomplicated; F17.213 Nicotine dependence, cigarettes, with withdrawal; F43.10 Post-traumatic stress disorder, unspecified; F25.9 Schizoaffective disorder, unspecified
CPT/HCPCS: 36415; 87389

== ENCOUNTER 2017-07-06 13:14 | Inpatient (IN) | payer OTHER ==
[2017-07-06 15:16] VITALS: BMI 23.7
--- NOTE | 2017-07-06 20:19 | HP ---
CIWA Score - CIWA Score Nausea/Vomitin-No Nausea/No Vomiting Muscle Tremors: 4-Moderate,w/Arms Extend Anxiety: 4-Mod. Anxious/Guarded Agitation: 4-Moderately Restless Paroxysmal Sweats: 2 Orientation: 0-Oriented Tacttile Disturbances: 0-None Auditory Disturbances: 0-None Visual Disturbances: 0-None Headache: 0-None Present CIWA-Ar Total Score: 14 Admission ROS S - HPI Chief Complaint: Alcohol withdrawal symptoms Allergies/Adverse Reactions: Allergies Allergy/AdvReac Type Severity Reaction Status Date / Time No Known Allergies Allergy Verified 05/26/17 16:33 History of Present Illness: 41 years old male with a long history of alcohol dependence is seeking admission to detox. Patient has been in previous detox and reports 19 months of sobriety. He denies past medical history and suicidal ideation at this time. Exam Limitations: No Limitations - Ebola screening Have you traveled outside of the country in the last 21 days: No (N) Have you had contact with anyone from an Ebola affected area: No Have you been sick,other than usual withdrawal symptoms: No Do you have a fever: No - Review of Systems Constitutional: Chills, Loss of Appetite, Malaise, Night Sweats, Changes in sleep EENT: reports: Nose Congestion, Sinus Pressure Respiratory: reports: No Symptoms reported Cardiac: reports: No Symptoms Reported GI: reports: Poor Appetite, Poor Fluid Intake, Abdominal cramping : reports: No Symptoms Reported Integumentary: reports: Flushing Neuro: reports: Tingling, Tremors Endocrine: reports: No Symptoms Reported Hematology: reports: No Symptoms Reported Psychiatric: reports: Orientated x3, Agitated, Anxious Other Systems: Reviewed and Negative Patient History - Patient Medical History Hx Anemia: No Hx Asthma: No Hx Chronic Obstructive Pulmonary Disease (COPD): No Hx Cancer: No Hx Cardiac Disorders: No Hx Congestive Heart Failure: No Hx Hypertension: No Hx Hypercholesterolemia: No Hx Pacemaker: No HX Cerebrovascular Accident: No Hx Seizures: No Hx Dementia: No Hx Diabetes: No Hx Gastrointestinal Disorders: No Hx Liver Disease: No Hx Genitourinary Disorders: No Hx Sexually Transmitted Disorders: No Hx Renal Disease (ESRD): No Hx Thyroid Disease: No Hx Human Immunodeficiency Virus (HIV): No ( NEGATIVE MAY 2017) Hx Hepatitis C: No ( NEGATIVE MAY 2017) Hx Depression: No Hx Suicide Attempt: No Hx Bipolar Disorder: No Hx Schizophrenia: Yes (Paranoid schizophrenia- Not on medication) - Patient Surgical History Past Surgical History: No Hx Neurologic Surgery: No Hx Cataract Extraction: No Hx Cardiac Surgery: No Hx Lung Surgery: No Hx Abdominal Surgery: No Hx Appendectomy: No Hx Cholecystectomy: No Hx Genitourinary Surgery: No Hx Orthopedic Surgery: No Other Surgical History: 1998 jaw fracture (braces/Wire) LEFT Anesthesia Reaction: No - PPD History Previous Implant?: Yes Documented Results: Negative w/proof Implanted On Prior [facility] Admission?: Yes Date: 01/15/17 Results: 0 mm PPD to be Administered?: No - Reproductive History Patient is a Female of Child Bearing Age (11 -55 yrs old): No (MALE) - Smoking Cessation Smoking history: Current every day smoker Have you smoked in the past 12 months: Yes Aproximately how many cigarettes per day: 5 Cigars Per Day: 0 Hx Chewing Tobacco Use: No Initiated information on smoking cessation: Yes 'Breaking Loose' booklet given: 07/06/17 - Substance & Tx. History Hx Alcohol Use: Yes Hx Substance Use: Yes Substance Use Type: Cocaine, Marijuana Hx Substance Use Treatment: Yes ([facility] 05/07/2017-05/26/2017) - Substances Abused Alcohol Route: Oral Frequency: Daily Amount used: VODKA - 2 PINT, BEER - 12 PACK Age of first use: 10 Date of Last Use: 07/06/17 Cocaine Route: Smoking Frequency: Daily Amount used: $200 Age of first use: 10 Date of Last Use: 07/05/17 Marijuana/Hashish Route: Smoking Frequency: 1-2 times per week Amount used: $10 Age of first use: 10 Date of Last Use: 07/05/17 Family Disease History - Family Disease History Family Disease History: Other: Father (Used Alcohol. .), Mother ( Seizures. .), Sister ( HIV) Admission Physical Exam S - Vital Signs Vital Signs: Vital Signs - 24 hr 07/06/17 15:14 Temperature 97.2 F L Pulse Rate 82 Respiratory 18 Rate Blood Pressure 117/62 - Physical General Appearance: Yes: Moderate Distress, Tremorous, Irritable, Sweating, Anxious HEENTM: Yes: EOMI, Normal ENT Inspection, Normal Voice, Nasal Congestion Respiratory: Yes: Lungs Clear, Normal Breath Sounds, No Respiratory Distress Neck: Yes: Supple Breast: Yes: Breast Exam Deferred Cardiology: Yes: Regular Rhythm, Regular Rate, S1, S2 Abdominal: Yes: Normal Bowel Sounds, Soft Genitourinary: Yes: Within Normal Limits Back: Yes: Normal Inspection Musculoskeletal: Yes: Within Normal Limits Extremities: Yes: Tremors Neurological: Yes: Alert, Normal Mood/Affect Integumentary: Yes: Warm Lymphatic: Yes: Within Normal Limits - Diagnostic (1) Alcohol dependence with uncomplicated withdrawal Current Visit: Yes Status: Chronic (2) Cannabis dependence Current Visit: Yes Status: Chronic (3) Cocaine dependence Current Visit: Yes Status: Chronic Qualifiers: Substance use status: uncomplicated Qualified Code(s): F14.20 - Cocaine dependence, uncomplicated (4) Nicotine dependence Current Visit: Yes Status: Chronic Qualifiers: Nicotine product type: cigarettes Substance use status: in withdrawal Qualified Code(s): F17.213 - Nicotine dependence, cigarettes, with withdrawal [facility] Level of Care: Medically Managed Detox Regimen/Protocol: Librium [facility] Breath Alcohol Content Breath Alcohol Content: 0 Urine Drug Screen - Results Drug Screen Negative: No Urine Drug Screen Results: THC-Marijuana, JACKELINE-Cocaine
[2017-07-06] MEDS ORDERED: LOPERAMIDE HCL 2 MG CAPSULE PO PRN (20:30)
[2017-07-06] MEDS ORDERED: guaiFENesin/D-METHORPHAN HB 10 ML UNIT-DOSE CUPS PO PRN (20:30)
[2017-07-06] MEDS ORDERED: MAG HYDROX/AL HYDROX/SIMETH 30 ML UNIT-DOSE CUP PO PRN (20:30)
[2017-07-06] MEDS ORDERED: ACETAMINOPHEN 325 MG TABLET (FP) PO PRN (20:30)
[2017-07-06] MEDS ORDERED: MAGNESIUM HYDROX 2400MG/30ML ORAL SUSPENSION 30 ML CUP PO PRN (20:30)
[2017-07-06] MEDS ORDERED: NICOTINE POLACRILEX 2 MG GUM BC PRN (20:30)
[2017-07-06] MEDS ORDERED: IBUPROFEN 400 MG TABLET (FP) PO PRN (20:30)
[2017-07-06] MEDS ORDERED: MENTHOL/PHENOL 1 EACH UD MM PRN (20:30)
[2017-07-06] MEDS ORDERED: MAGNESIUM CITRATE 300 ML BOTTLE PO PRN (20:30)
[2017-07-06] MEDS ORDERED: chlordiazePOXIDE HCL 25 MG CAPSULE PO PRN (20:30)
[2017-07-06] MEDS ORDERED: P-EPHED 60MG/TRIPROLIDI 2.5MG TABLET PO PRN (20:30)
[2017-07-06 22:50] LABS: URINE APPEARANCE CLEAR; URINE BILIRUBIN NEGATIVE (NEGATIVE); URINE BLOOD NEGATIVE (NEGATIVE); URINE COLOR YELLOW; URINE GLUCOSE (UA) 2+ (NEGATIVE); URINE KETONE 1+ (NEGATIVE); URINE LEUK ESTERASE NEGATIVE (NEGATIVE); URINE NITRITE NEGATIVE (NEGATIVE); URINE PROTEIN NEGATIVE (NEGATIVE); URINE UROBILINOGEN 4.0 E.U/dl mg/dL (0.2-1.0)
[2017-07-06] MEDS: chlordiazePOXIDE HCL 25 MG CAPSULE PO SCH (23:30)
[2017-07-06] MEDS: THIAMINE HCL 100 MG TABLET (FP) PO SCH (23:30)
[2017-07-07] MEDS: chlordiazePOXIDE HCL 25 MG CAPSULE PO SCH ×5 (07:14→22:57)
--- NOTE | 2017-07-07 10:49 | EKG ---
Test Reason : Blood Pressure : / mmHG Vent. Rate : 076 BPM Atrial Rate : 076 BPM P-R Int : 120 ms QRS Dur : 086 ms QT Int : 390 ms P-R-T Axes : 062 056 056 degrees QTc Int : 438 ms NORMAL SINUS RHYTHM NORMAL ECG WHEN COMPARED WITH ECG OF 08-MAY-2017 12:16, NO SIGNIFICANT CHANGE WAS FOUND Confirmed by SHENG LAU MD ([id number]) on 07/07/2017 10:49:12 AM Referred By: Tim Ponce Confirmed By:SHENG LAU MD
[2017-07-07] MEDS: NICOTINE 14 MG/24 HOURS TOPICAL PATCH TD SCH (11:00)
[2017-07-07] MEDS: PRENATAL VITAMINS W/ FOLIC ACID TABLET (FP) PO SCH (11:00)
--- NOTE | 2017-07-07 11:36 | PN ---
S CIWA - CIWA Score Nausea/Vomitin Muscle Tremors: 3 Anxiety: 3 Agitation: 3 Paroxysmal Sweats: 1-Minimal Palms Moist Orientation: 0-Oriented Tacttile Disturbances: 1-Very Mild Itch/Numbness Auditory Disturbances: 1-Very Mild Visual Disturbances: 0-None Headache: 2-Mild CIWA-Ar Total Score: 17 BHS Progress Note (SOAP) Subjective: ALERT,IRRITABLE,ANXIOUS,INTERRUPTED SLEEP,TREMOR Objective: 07/07/17 11:34 Vital Signs Temperature 97.7 F 07/07/17 10:00 Pulse Rate 79 07/07/17 10:00 Respiratory Rate 18 07/07/17 10:00 Blood Pressure 112/62 07/07/17 10:00 O2 Sat by Pulse Oximetry (%) EKG NSR,NORMAL ECG Laboratory Last Values Urine Color Yellow 07/06/17 22:40 Urine Appearance Clear 07/06/17 22:40 Urine pH 5.0 (5.0-8.0) 07/06/17 22:40 Ur Specific [place] 1.027 (1.001-1.035) 07/06/17 22:40 Urine Protein Negative (NEGATIVE) 07/06/17 22:40 Urine Glucose (UA) 2+ (NEGATIVE) H 07/06/17 22:40 Urine Ketones 1+ (NEGATIVE) H 07/06/17 22:40 Urine Blood Negative (NEGATIVE) 07/06/17 22:40 Urine Nitrite Negative (NEGATIVE) 07/06/17 22:40 Urine Bilirubin Negative (NEGATIVE) 07/06/17 22:40 Urine Urobilinogen 4.0 e.u/dl mg/dL (0.2-1.0) 07/06/17 22:40 Ur Leukocyte Esterase Negative (NEGATIVE) 07/06/17 22:40 LABS PENDING Assessment: 07/07/17 11:35 WITHDRAWAL SYMPTOM Plan: CONTINUE DETOX
[2017-07-07 14:54] LABS: HEMATOCRIT 38.1 % (35.4-49); MCH 32.1 pg (25.7-33.7); MEAN CELL VOLUME 94.5 fl (80-96); MEAN PLT VOLUME 9.4 fl (7.5-11.1); PLATELET COUNT 247 K/MM3 (134-434); RBC 4.04 M/mm3 (4.00-5.60); RDW 13.5 % (11.9-15.9); WHITE BLOOD COUNT 5.3 K/mm3 (4.0-10.0)
[2017-07-07 15:02] LABS: ALBUMIN 3.2 g/dl (3.4-5.0); ANION GAP 9 (8-16); BLOOD UREA NITROGEN 13 mg/dL (7-18); CALCIUM 8.4 mg/dL (8.5-10.1); CHLORIDE 107 mmol/L (98-107); CO2 27 mmol/L (21-32); GLUCOSE,RANDOM 80 mg/dL (74-106); POTASSIUM 4.1 mmol/L (3.5-5.1); SODIUM 143 mmol/L (136-145)
[2017-07-07 15:06] LABS: ALK PHOS 83 U/L (45-117); BILIRUBIN,TOTAL 0.5 mg/dL (0.2-1.0); SGOT/AST 17 U/L (15-37); SGPT/ALT 33 U/L (12-78); TOT PROT 6.3 g/dl (6.4-8.2)
--- NOTE | 2017-07-07 19:45 | CONSULT ---
[facility] Psychiatric Consult - Data Date of interview: 07/07/17 Admission source: [facility] Identifying data: Patient is approached at bedside for psychiatric interview.Mr Oviedo refuses to converse with this proposal lead writer." I am fine.I have no issue to discuss with psychiatrists."
[2017-07-07] MEDS: THIAMINE HCL 100 MG TABLET (FP) PO SCH (22:57)
[2017-07-08] MEDS: chlordiazePOXIDE HCL 25 MG CAPSULE PO SCH ×2 (05:54→10:51)
[2017-07-08] MEDS: PRENATAL VITAMINS W/ FOLIC ACID TABLET (FP) PO SCH (10:51)
[2017-07-08] MEDS: NICOTINE 14 MG/24 HOURS TOPICAL PATCH TD SCH (10:52)
--- NOTE | 2017-07-08 10:59 | PN ---
S CIWA - CIWA Score Nausea/Vomitin Muscle Tremors: 3 Anxiety: 3 Agitation: 2 Paroxysmal Sweats: 1-Minimal Palms Moist Orientation: 0-Oriented Tacttile Disturbances: 1-Very Mild Itch/Numbness Auditory Disturbances: 1-Very Mild Visual Disturbances: 0-None Headache: 2-Mild CIWA-Ar Total Score: 16 BHS Progress Note (SOAP) Subjective: ALERT,IRRITABLE,ANXIOUS,INTERRUPTED SLEEP,TREMOR,BLISTER UPPER LIP Objective: 07/08/17 10:57 Vital Signs Temperature 97.5 F L 07/08/17 06:00 Pulse Rate 68 07/08/17 06:00 Respiratory Rate 18 07/08/17 06:00 Blood Pressure 112/62 07/08/17 06:00 O2 Sat by Pulse Oximetry (%) Laboratory Last Values WBC 5.3 K/mm3 (4.0-10.0) 07/07/17 08:30 RBC 4.04 M/mm3 (4.00-5.60) 07/07/17 08:30 Hgb 13.0 GM/dL (11.7-16.9) 07/07/17 08:30 Hct 38.1 % (35.4-49) 07/07/17 08:30 MCV 94.5 fl (80-96) 07/07/17 08:30 MCH 32.1 pg (25.7-33.7) 07/07/17 08:30 MCHC 34.0 g/dl (32.0-35.9) 07/07/17 08:30 RDW 13.5 % (11.9-15.9) 07/07/17 08:30 Plt Count 247 K/MM3 (134-434) 07/07/17 08:30 MPV 9.4 fl (7.5-11.1) 07/07/17 08:30 Sodium 143 mmol/L (136-145) 07/07/17 08:30 Potassium 4.1 mmol/L (3.5-5.1) 07/07/17 08:30 Chloride 107 mmol/L (98-107) 07/07/17 08:30 Carbon Dioxide 27 mmol/L (21-32) 07/07/17 08:30 Anion Gap 9 (8-16) 07/07/17 08:30 BUN 13 mg/dL (7-18) 07/07/17 08:30 Creatinine 1.0 mg/dL (0.7-1.3) 07/07/17 08:30 Creat Clearance w eGFR > 60 (>60) 07/07/17 08:30 Random Glucose 80 mg/dL (74-106) D 07/07/17 08:30 Calcium 8.4 mg/dL (8.5-10.1) L 07/07/17 08:30 Total Bilirubin 0.5 mg/dL (0.2-1.0) D 07/07/17 08:30 AST 17 U/L (15-37) 07/07/17 08:30 ALT 33 U/L (12-78) 07/07/17 08:30 Alkaline Phosphatase 83 U/L (45-117) D 07/07/17 08:30 Total Protein 6.3 g/dl (6.4-8.2) L 07/07/17 08:30 Albumin 3.2 g/dl (3.4-5.0) L 07/07/17 08:30 Urine Color Yellow 07/06/17 22:40 Urine Appearance Clear 07/06/17 22:40 Urine pH 5.0 (5.0-8.0) 07/06/17 22:40 Ur Specific [place] 1.027 (1.001-1.035) 07/06/17 22:40 Urine Protein Negative (NEGATIVE) 07/06/17 22:40 Urine Glucose (UA) 2+ (NEGATIVE) H 07/06/17 22:40 Urine Ketones 1+ (NEGATIVE) H 07/06/17 22:40 Urine Blood Negative (NEGATIVE) 07/06/17 22:40 Urine Nitrite Negative (NEGATIVE) 07/06/17 22:40 Urine Bilirubin Negative (NEGATIVE) 07/06/17 22:40 Urine Urobilinogen 4.0 e.u/dl mg/dL (0.2-1.0) 07/06/17 22:40 Ur Leukocyte Esterase Negative (NEGATIVE) 07/06/17 22:40 Assessment: 07/08/17 10:58 WITHDRAWAL SYMPTOM Plan: CONTINUE DETOX,BACITRACIN OINTMENT BID
[2017-07-08] MEDS ORDERED: BACITRACIN 0.9 GM PACKET TP SCH (11:30)
--- NOTE | 2017-07-08 14:35 | PN ---
S Progress Note Note: PATIENT DID NOT WANT TO COMPLETE TREATMENT,SIGNED RELEASE AMA,DID NOT WANT TO WAIT
--- NOTE | 2017-07-08 14:38 | DS ---
[facility] Detox Discharge Summary Admission Date: 07/06/17 Discharge Date: 07/08/17 - History Present History: Alcohol Dependence, Cannabis Dependence, Cocaine Dependence Additional Comments: PATIENT DID NOT WANT TO COMPLETE TREATMENT,SEEN BY COUNSELOR,SIGNED RELEASE AMA, DID NOT WANT TO WAIT Pertinent Past History: NICOTINE DEPENDENCE - Physical Exam Results Vital Signs: Vital Signs Temperature 97.5 F L 07/08/17 06:00 Pulse Rate 68 07/08/17 06:00 Respiratory Rate 18 07/08/17 06:00 Blood Pressure 112/62 07/08/17 06:00 O2 Sat by Pulse Oximetry (%) Pertinent Admission Physical Exam Findings: WITHDRAWAL SYMPTOM AND SIGNS - Medication Discharge Medications: Ambulatory Orders NK [No Known Home Medication] 03/06/17 - Diagnosis (1) Alcohol dependence with uncomplicated withdrawal Current Visit: Yes Status: Chronic (2) Cannabis dependence Current Visit: Yes Status: Chronic (3) Cocaine dependence Current Visit: Yes Status: Chronic Qualifiers: Substance use status: uncomplicated Qualified Code(s): F14.20 - Cocaine dependence, uncomplicated (4) Nicotine dependence Current Visit: Yes Status: Chronic Qualifiers: Nicotine product type: cigarettes Substance use status: in withdrawal Qualified Code(s): F17.213 - Nicotine dependence, cigarettes, with withdrawal - AMA Did Patient Leave Against Medical Advice: Yes
[2017-07-08 15:30] VITALS: BP 108/45; PULSE 73; TEMP 98.1
[2017-07-08] MEDS ORDERED: chlordiazePOXIDE 5 MG CAPSULE PO SCH (23:00)
[2017-07-09] MEDS ORDERED: chlordiazePOXIDE HCL 10 MG CAPSULE PO SCH (23:00)
== END 2017-07-08 15:20 | disposition left against medical advice (07) | DRG 770 ==
LOC: YASAS 13:14 → Y6N 20:57
PROVIDERS: ADMIT Internal Medicine; ATTEND Internal Medicine
PROC: HZ2ZZZZ Detoxification Services for Substance Abuse Treatment (ICD-10-PCS; principal; 2017-07-06)
DX: F10.230 Alcohol dependence with withdrawal, uncomplicated (principal); F14.20 Cocaine dependence, uncomplicated; F12.20 Cannabis dependence, uncomplicated; F17.213 Nicotine dependence, cigarettes, with withdrawal
CPT/HCPCS: 36415; 80053; 81003; 85027; 86593; 93005; 93010

== ENCOUNTER 2017-08-18 13:42 | Inpatient (IN) | payer OTHER ==
[2017-08-18 14:59] VITALS: BMI 23.1
--- NOTE | 2017-08-18 16:30 | HP ---
CIWA Score - CIWA Score Nausea/Vomitin-No Nausea/No Vomiting Muscle Tremors: 2 Anxiety: 2 Agitation: 2 Paroxysmal Sweats: 2 Orientation: 1-Uncertain about Date Tacttile Disturbances: 0-None Auditory Disturbances: 0-None Visual Disturbances: 0-None Headache: 3-Moderate CIWA-Ar Total Score: 12 Admission [facility] Chief Complaint: Pt present with ETOH withdrawal symptoms. Allergies/Adverse Reactions: Allergies Allergy/AdvReac Type Severity Reaction Status Date / Time No Known Allergies Allergy Verified 08/18/17 15:37 History of Present Illness: Patient presents with ETOH withdrawal symptoms. Also smokes crack/cocaine. Drinks up to 1-2 pints of vodka and 12 pack of beer daily. Smokes up to 2grams of crack/cocaine daily. Starting using ETOH at age 14, crack at age 28. Last drink today and last use of cocaine yesterday. Has history of depression and schizophrenia. Was in [facility] on 08/16/17 due to mental illness and medicated while there. Denies suicidal ideation or attempts. Denies seizures from ETOH use/withdrawal. Exam Limitations: No Limitations - Ebola screening Have you traveled outside of the country in the last 21 days: No Have you had contact with anyone from an Ebola affected area: No Have you been sick,other than usual withdrawal symptoms: No Do you have a fever: No - Review of Systems Constitutional: Unexplained wgt Loss EENT: reports: No Symptoms Reported Respiratory: reports: No Symptoms reported Cardiac: reports: No Symptoms Reported GI: reports: Diarrhea, Poor Fluid Intake, Abdominal cramping : reports: No Symptoms Reported Musculoskeletal: reports: Joint Swelling, Joint Stiffness Integumentary: reports: Sweating Neuro: reports: Headache, Tremors Endocrine: reports: Unexplained Weight Loss Hematology: reports: No Symptoms Reported Psychiatric: reports: Anxious, Depressed Patient History - Patient Medical History Hx Anemia: No Hx Asthma: No Hx Chronic Obstructive Pulmonary Disease (COPD): No Hx Cancer: No Hx Cardiac Disorders: No Hx Congestive Heart Failure: No Hx Hypertension: No Hx Hypercholesterolemia: No Hx Pacemaker: No HX Cerebrovascular Accident: No Hx Seizures: No Hx Dementia: No Hx Diabetes: No Hx Gastrointestinal Disorders: No Hx Liver Disease: No Hx Genitourinary Disorders: No Hx Sexually Transmitted Disorders: No Hx Renal Disease (ESRD): No Hx Thyroid Disease: No Hx Human Immunodeficiency Virus (HIV): No ( NEGATIVE MAY 2017) Hx Hepatitis C: No ( NEGATIVE MAY 2017) Hx Depression: Yes (denies suicidal ideation/attempts) Hx Suicide Attempt: No Hx Bipolar Disorder: No Hx Schizophrenia: No - Patient Surgical History Past Surgical History: No Hx Neurologic Surgery: No Hx Cataract Extraction: No Hx Cardiac Surgery: No Hx Lung Surgery: No Hx Breast Surgery: No Hx Breast Biopsy: No Hx Abdominal Surgery: No Hx Appendectomy: No Hx Cholecystectomy: No Hx Genitourinary Surgery: No Hx Section: No Hx Orthopedic Surgery: No Other Surgical History: 1998 jaw fracture (braces/Wire) LEFT Anesthesia Reaction: No - PPD History Documented Results: Negative w/proof Date: 01/15/17 Results: 0 mm PPD to be Administered?: No - Smoking Cessation Smoking history: Current every day smoker Have you smoked in the past 12 months: Yes Aproximately how many cigarettes per day: 5 Cigars Per Day: 0 Hx Chewing Tobacco Use: No Initiated information on smoking cessation: Yes 'Breaking Loose' booklet given: 08/18/17 - Substance & Tx. History Hx Alcohol Use: Yes Hx Substance Use: Yes Substance Use Type: Alcohol, Cocaine Hx Substance Use Treatment: Yes - Substances Abused Alcohol Route: Oral Frequency: Daily Amount used: 1 pint Age of first use: 13 Date of Last Use: 08/18/17 Crack Route: Smoking Frequency: Daily Amount used: 150 Age of first use: 28 Date of Last Use: 08/18/17 Family Disease History - Family Disease History Family Disease History: Other: Father (Used Alcohol. .), Mother ( Seizures. .), Sister ( HIV) Admission Physical Exam [facility] - Vital Signs Vital Signs: Vital Signs - 24 hr 08/18/17 14:55 Temperature 96.6 F L Pulse Rate 70 Respiratory 20 Rate Blood Pressure 136/73 - Physical General Appearance: Yes: No Apparent Distress, Appropriately Dressed, Tremorous , Sweating, Anxious HEENTM: Yes: EOMI, Hearing grossly Normal, Normocephalic, Normal Voice, PRISCILLA, Pharynx Normal Respiratory: Yes: Lungs Clear, Normal Breath Sounds, No Respiratory Distress, No Accessory Muscle Use Neck: Yes: Within Normal Limits, No masses,lesions,Nodules, Supple Breast: Yes: Breast Exam Deferred Cardiology: Yes: Within Normal Limits, Regular Rhythm, Regular Rate, S1, S2 Abdominal: Yes: Normal Bowel Sounds, Non Tender, Soft Genitourinary: Yes: Within Normal Limits Back: Yes: Muscle Spasm Musculoskeletal: Yes: Gait Steady, Muscle Pain Extremities: Yes: Tremors Neurological: Yes: rod pointer II-XII NML intact, Fully Oriented, Alert, Motor Strength 5/5, Depressed Affect Integumentary: Yes: Normal Color, Warm, Moist Lymphatic: Yes: Within Normal Limits - Diagnostic (1) Depressed affect Current Visit: Yes Status: Acute (2) Cocaine dependence, uncomplicated Current Visit: Yes Status: Acute (3) Alcohol dependence with uncomplicated withdrawal Current Visit: Yes Status: Chronic (4) Nicotine dependence Current Visit: Yes Status: Chronic Qualifiers: Nicotine product type: cigarettes Substance use status: in withdrawal Qualified Code(s): F17.213 - Nicotine dependence, cigarettes, with withdrawal (5) Paranoid schizophrenia Current Visit: Yes Status: Chronic Cleared for Admission [facility] - Detox or Rehab [facility] Level of Care: Medically Managed Detox Regimen/Protocol: Valium S Breath Alcohol Content Breath Alcohol Content: 0.011 Urine Drug Screen - Results Drug Screen Negative: Yes Urine Drug Screen Results: JACKELINE-Cocaine, BZO-Benzodiazepines Inpatient Rehab Admission - Initial Determination Are CD services needed?: Yes Free of communicable disease: Yes Not in need of hospitalization: Yes - Rehab Admission Criteria Previous failed treatment: Yes Poor recovery environment: Yes Comorbidities: Yes Lacks judgement: Yes
[2017-08-18] MEDS ORDERED: MAGNESIUM HYDROX 2400MG/30ML ORAL SUSPENSION 30 ML CUP PO PRN (16:41)
[2017-08-18] MEDS ORDERED: LOPERAMIDE HCL 2 MG CAPSULE PO PRN (16:41)
[2017-08-18] MEDS ORDERED: IBUPROFEN 400 MG TABLET (FP) PO PRN (16:41)
[2017-08-18] MEDS ORDERED: NICOTINE POLACRILEX 2 MG GUM BC PRN (16:41)
[2017-08-18] MEDS ORDERED: MENTHOL/PHENOL 1 EACH UD MM PRN (16:41)
[2017-08-18] MEDS ORDERED: hydrOXYzine PAMOATE 50 MG CAPSULE (FP) PO PRN (16:41)
[2017-08-18] MEDS ORDERED: guaiFENesin/D-METHORPHAN HB 10 ML UNIT-DOSE CUPS PO PRN (16:41)
[2017-08-18] MEDS ORDERED: MAG HYDROX/AL HYDROX/SIMETH 30 ML UNIT-DOSE CUP PO PRN (16:41)
[2017-08-18] MEDS ORDERED: P-EPHED 60MG/TRIPROLIDI 2.5MG TABLET PO PRN (16:41)
[2017-08-18] MEDS ORDERED: ACETAMINOPHEN 325 MG TABLET (FP) PO PRN (16:41)
[2017-08-18] MEDS ORDERED: MAGNESIUM CITRATE 300 ML BOTTLE PO PRN (16:41)
[2017-08-18] MEDS ORDERED: diazePAM 5 MG TABLET PO PRN (16:43)
[2017-08-18] MEDS ORDERED: diazePAM 5 MG TABLET PO ONE (17:45)
[2017-08-18] MEDS ORDERED: MELATONIN 5 MG TABLETS PO PRN (22:00)
[2017-08-18] MEDS: THIAMINE HCL 100 MG TABLET (FP) PO SCH (22:27)
[2017-08-18] MEDS: CLOTRIMAZOLE 1% CREAM 15 GM TUBE TP SCH (22:27)
[2017-08-18] MEDS: diazePAM 5 MG TABLET PO SCH (22:27)
[2017-08-19 00:17] LABS: URINE APPEARANCE CLEAR; URINE BILIRUBIN NEGATIVE (<2.0 mg/dL); URINE BLOOD NEGATIVE (NEGATIVE); URINE COLOR LTYELLOW; URINE GLUCOSE (UA) 2+ (NEGATIVE); URINE KETONE NEGATIVE (NEGATIVE); URINE LEUK ESTERASE NEGATIVE (NEGATIVE); URINE NITRITE NEGATIVE (NEGATIVE); URINE PROTEIN NEGATIVE (NEGATIVE); URINE UROBILINOGEN NEGATIVE mg/dL (0.2-1.0)
[2017-08-19] MEDS: diazePAM 5 MG TABLET PO SCH ×3 (05:10→22:24)
[2017-08-19 10:07] LABS: HEMATOCRIT 39.1 % (35.4-49); HEMOGLOBIN 13.1 GM/dL (11.7-16.9); MCH 31.8 pg (25.7-33.7); MCHC 33.6 g/dl (32.0-35.9); MEAN CELL VOLUME 94.6 fl (80-96); MEAN PLT VOLUME 9.1 fl (7.5-11.1); PLATELET COUNT 232 K/MM3 (134-434); RBC 4.13 M/mm3 (4.00-5.60); RDW 13.7 % (11.9-15.9); WHITE BLOOD COUNT 5.4 K/mm3 (4.0-10.0)
[2017-08-19] MEDS: PRENATAL VITAMINS W/ FOLIC ACID TABLET (FP) PO SCH (10:10)
[2017-08-19] MEDS: CLOTRIMAZOLE 1% CREAM 15 GM TUBE TP SCH ×2 (10:11→22:24)
[2017-08-19 10:22] LABS: ALBUMIN 3.4 g/dl (3.4-5.0); ANION GAP 4 (8-16); BLOOD UREA NITROGEN 10 mg/dL (7-18); CALCIUM 8.4 mg/dL (8.5-10.1); CHLORIDE 108 mmol/L (98-107); CO2 29 mmol/L (21-32); CREATININE 0.9 mg/dL (0.7-1.3); GLUCOSE,RANDOM 89 mg/dL (74-106); POTASSIUM 4.1 mmol/L (3.5-5.1); SGOT/AST 13 U/L (15-37); SGPT/ALT 20 U/L (12-78); SODIUM 141 mmol/L (136-145)
[2017-08-19 10:24] LABS: ALK PHOS 68 U/L (45-117); BILIRUBIN,TOTAL 0.2 mg/dL (0.2-1.0); TOT PROT 6.2 g/dl (6.4-8.2)
--- NOTE | 2017-08-19 10:32 | PN ---
[facility] CIWA - CIWA Score Nausea/Vomitin-No Nausea/No Vomiting Muscle Tremors: 4-Moderate,w/Arms Extend Anxiety: 4-Mod. Anxious/Guarded Agitation: 4-Moderately Restless Paroxysmal Sweats: 1-Minimal Palms Moist Orientation: 0-Oriented Tacttile Disturbances: 0-None Auditory Disturbances: 0-None Visual Disturbances: 0-None Headache: 0-None Present CIWA-Ar Total Score: 13 BHS Progress Note (SOAP) Subjective: ANXIETY,SLIGHT TREMORS,FATIGUE. Objective: 08/19/17 10:25 Vital Signs Temperature 96.8 F L 08/19/17 09:04 Pulse Rate 61 08/19/17 09:04 Respiratory Rate 18 08/19/17 09:04 Blood Pressure 101/62 08/19/17 09:04 O2 Sat by Pulse Oximetry (%) Laboratory Last Values Sodium 141 mmol/L (136-145) 08/19/17 08:30 Potassium 4.1 mmol/L (3.5-5.1) 08/19/17 08:30 Chloride 108 mmol/L (98-107) H 08/19/17 08:30 Carbon Dioxide 29 mmol/L (21-32) 08/19/17 08:30 Anion Gap 4 (8-16) L 08/19/17 08:30 BUN 10 mg/dL (7-18) D 08/19/17 08:30 Creatinine 0.9 mg/dL (0.7-1.3) 08/19/17 08:30 Creat Clearance w eGFR > 60 (>60) 08/19/17 08:30 Random Glucose 89 mg/dL (74-106) 08/19/17 08:30 Calcium 8.4 mg/dL (8.5-10.1) L 08/19/17 08:30 Total Bilirubin 0.2 mg/dL (0.2-1.0) D 08/19/17 08:30 AST 13 U/L (15-37) L D 08/19/17 08:30 ALT 20 U/L (12-78) D 08/19/17 08:30 Alkaline Phosphatase 68 U/L (45-117) 08/19/17 08:30 Total Protein 6.2 g/dl (6.4-8.2) L 08/19/17 08:30 Albumin 3.4 g/dl (3.4-5.0) 08/19/17 08:30 Urine Color Ltyellow 08/18/17 00:00 Urine Appearance Clear 08/18/17 00:00 Urine pH 8.0 (5.0-8.0) D 08/18/17 00:00 Ur Specific [place] 1.017 (1.001-1.035) 08/18/17 00:00 Urine Protein Negative (NEGATIVE) 08/18/17 00:00 Urine Glucose (UA) 2+ (NEGATIVE) H 08/18/17 00:00 Urine Ketones Negative (NEGATIVE) 08/18/17 00:00 Urine Blood Negative (NEGATIVE) 08/18/17 00:00 Urine Nitrite Negative (NEGATIVE) 08/18/17 00:00 Urine Bilirubin Negative (<2.0 mg/dL) 08/18/17 00:00 Urine Urobilinogen Negative mg/dL (0.2-1.0) 08/18/17 00:00 Ur Leukocyte Esterase Negative (NEGATIVE) 08/18/17 00:00 Assessment: 08/19/17 10:32 WITHDRAWAL SX Plan: CONTINUE DETOX
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
--- NOTE | 2017-08-19 16:59 | EKG ---
Test Reason : Blood Pressure : / mmHG Vent. Rate : 071 BPM Atrial Rate : 071 BPM P-R Int : 110 ms QRS Dur : 088 ms QT Int : 380 ms P-R-T Axes : -28 041 045 degrees QTc Int : 412 ms SINUS RHYTHM WITH SHORT TN OTHERWISE NORMAL ECG WHEN COMPARED WITH ECG OF 06-JUL-2017 23:05, NO SIGNIFICANT CHANGE WAS FOUND Confirmed by MD Lillian, Chan ([id number]) on 08/19/2017 4:59:24 PM Referred By: Confirmed By:Chan Snyder MD
[2017-08-19] MEDS: THIAMINE HCL 100 MG TABLET (FP) PO SCH (22:24)
[2017-08-20] MEDS: CLOTRIMAZOLE 1% CREAM 15 GM TUBE TP SCH ×2 (09:46→22:50)
[2017-08-20] MEDS: diazePAM 5 MG TABLET PO SCH ×2 (09:46→22:50)
[2017-08-20] MEDS: PRENATAL VITAMINS W/ FOLIC ACID TABLET (FP) PO SCH (09:46)
--- NOTE | 2017-08-20 12:18 | PN ---
S CIWA - CIWA Score Nausea/Vomitin-No Nausea/No Vomiting Muscle Tremors: 3 Anxiety: 5 Agitation: 3 Paroxysmal Sweats: 1-Minimal Palms Moist Orientation: 0-Oriented Tacttile Disturbances: 0-None Auditory Disturbances: 0-None Visual Disturbances: 0-None Headache: 0-None Present CIWA-Ar Total Score: 12 S Progress Note (SOAP) Subjective: ANXIETY,IRRITABILITY,FATIGUE. Objective: 08/20/17 12:17 Vital Signs Temperature 96.5 F L 08/20/17 11:06 Pulse Rate 73 08/20/17 11:06 Respiratory Rate 18 08/20/17 11:06 Blood Pressure 96/52 08/20/17 11:06 O2 Sat by Pulse Oximetry (%) Laboratory Last Values WBC 5.4 K/mm3 (4.0-10.0) 08/19/17 08:30 RBC 4.13 M/mm3 (4.00-5.60) 08/19/17 08:30 Hgb 13.1 GM/dL (11.7-16.9) 08/19/17 08:30 Hct 39.1 % (35.4-49) 08/19/17 08:30 MCV 94.6 fl (80-96) 08/19/17 08:30 MCH 31.8 pg (25.7-33.7) 08/19/17 08:30 MCHC 33.6 g/dl (32.0-35.9) 08/19/17 08:30 RDW 13.7 % (11.9-15.9) 08/19/17 08:30 Plt Count 232 K/MM3 (134-434) 08/19/17 08:30 MPV 9.1 fl (7.5-11.1) 08/19/17 08:30 Sodium 141 mmol/L (136-145) 08/19/17 08:30 Potassium 4.1 mmol/L (3.5-5.1) 08/19/17 08:30 Chloride 108 mmol/L (98-107) H 08/19/17 08:30 Carbon Dioxide 29 mmol/L (21-32) 08/19/17 08:30 Anion Gap 4 (8-16) L 08/19/17 08:30 BUN 10 mg/dL (7-18) D 08/19/17 08:30 Creatinine 0.9 mg/dL (0.7-1.3) 08/19/17 08:30 Creat Clearance w eGFR > 60 (>60) 08/19/17 08:30 Random Glucose 89 mg/dL (74-106) 08/19/17 08:30 Calcium 8.4 mg/dL (8.5-10.1) L 08/19/17 08:30 Total Bilirubin 0.2 mg/dL (0.2-1.0) D 08/19/17 08:30 AST 13 U/L (15-37) L D 08/19/17 08:30 ALT 20 U/L (12-78) D 08/19/17 08:30 Alkaline Phosphatase 68 U/L (45-117) 08/19/17 08:30 Total Protein 6.2 g/dl (6.4-8.2) L 08/19/17 08:30 Albumin 3.4 g/dl (3.4-5.0) 08/19/17 08:30 Urine Color Ltyellow 08/18/17 00:00 Urine Appearance Clear 08/18/17 00:00 Urine pH 8.0 (5.0-8.0) D 08/18/17 00:00 Ur Specific [place] 1.017 (1.001-1.035) 08/18/17 00:00 Urine Protein Negative (NEGATIVE) 08/18/17 00:00 Urine Glucose (UA) 2+ (NEGATIVE) H 08/18/17 00:00 Urine Ketones Negative (NEGATIVE) 08/18/17 00:00 Urine Blood Negative (NEGATIVE) 08/18/17 00:00 Urine Nitrite Negative (NEGATIVE) 08/18/17 00:00 Urine Bilirubin Negative (<2.0 mg/dL) 08/18/17 00:00 Urine Urobilinogen Negative mg/dL (0.2-1.0) 08/18/17 00:00 Ur Leukocyte Esterase Negative (NEGATIVE) 08/18/17 00:00 RPR Titer Nonreactive (NONREACTIVE) 08/19/17 08:30 HIV 1&2 Antibody Screen Negative 08/18/17 08:30 HIV P24 Antigen Negative 08/18/17 08:30 Assessment: 08/20/17 12:17 WITHDRAWAL SX Plan: CONTINUE DETOX INCREASE PO FLUIDS
[2017-08-20] MEDS: THIAMINE HCL 100 MG TABLET (FP) PO SCH (22:50)
[2017-08-21 09:09] VITALS: BP 104/54; PULSE 57; TEMP 96.6
--- NOTE | 2017-08-21 10:04 | PN ---
S Progress Note (SOAP) Subjective: DENIES ANY ACUTE DISTRESS OF WITHDRAWAL SX. PT IS VERY EAGER TO GO INTO REHAB TODAY AND DOES NOT WANT TO CONTINUE WITH VALIUM PROTOCOL IF BED IS AVAILABLE FOR HIM. STATES THAT HE NEEDS REHAB NOW RATHER THAN TAKING MOR VALIUM. Objective: 08/21/17 10:03 Vital Signs Temperature 96.6 F L 08/21/17 09:09 Pulse Rate 57 L 08/21/17 09:09 Respiratory Rate 18 08/21/17 09:09 Blood Pressure 104/54 08/21/17 09:09 O2 Sat by Pulse Oximetry (%) Laboratory Last Values WBC 5.4 K/mm3 (4.0-10.0) 08/19/17 08:30 RBC 4.13 M/mm3 (4.00-5.60) 08/19/17 08:30 Hgb 13.1 GM/dL (11.7-16.9) 08/19/17 08:30 Hct 39.1 % (35.4-49) 08/19/17 08:30 MCV 94.6 fl (80-96) 08/19/17 08:30 MCH 31.8 pg (25.7-33.7) 08/19/17 08:30 MCHC 33.6 g/dl (32.0-35.9) 08/19/17 08:30 RDW 13.7 % (11.9-15.9) 08/19/17 08:30 Plt Count 232 K/MM3 (134-434) 08/19/17 08:30 MPV 9.1 fl (7.5-11.1) 08/19/17 08:30 Sodium 141 mmol/L (136-145) 08/19/17 08:30 Potassium 4.1 mmol/L (3.5-5.1) 08/19/17 08:30 Chloride 108 mmol/L (98-107) H 08/19/17 08:30 Carbon Dioxide 29 mmol/L (21-32) 08/19/17 08:30 Anion Gap 4 (8-16) L 08/19/17 08:30 BUN 10 mg/dL (7-18) D 08/19/17 08:30 Creatinine 0.9 mg/dL (0.7-1.3) 08/19/17 08:30 Creat Clearance w eGFR > 60 (>60) 08/19/17 08:30 Random Glucose 89 mg/dL (74-106) 08/19/17 08:30 Calcium 8.4 mg/dL (8.5-10.1) L 08/19/17 08:30 Total Bilirubin 0.2 mg/dL (0.2-1.0) D 08/19/17 08:30 AST 13 U/L (15-37) L D 08/19/17 08:30 ALT 20 U/L (12-78) D 08/19/17 08:30 Alkaline Phosphatase 68 U/L (45-117) 08/19/17 08:30 Total Protein 6.2 g/dl (6.4-8.2) L 08/19/17 08:30 Albumin 3.4 g/dl (3.4-5.0) 08/19/17 08:30 Urine Color Ltyellow 08/18/17 00:00 Urine Appearance Clear 08/18/17 00:00 Urine pH 8.0 (5.0-8.0) D 08/18/17 00:00 Ur Specific [place] 1.017 (1.001-1.035) 08/18/17 00:00 Urine Protein Negative (NEGATIVE) 08/18/17 00:00 Urine Glucose (UA) 2+ (NEGATIVE) H 08/18/17 00:00 Urine Ketones Negative (NEGATIVE) 08/18/17 00:00 Urine Blood Negative (NEGATIVE) 08/18/17 00:00 Urine Nitrite Negative (NEGATIVE) 08/18/17 00:00 Urine Bilirubin Negative (<2.0 mg/dL) 08/18/17 00:00 Urine Urobilinogen Negative mg/dL (0.2-1.0) 08/18/17 00:00 Ur Leukocyte Esterase Negative (NEGATIVE) 08/18/17 00:00 RPR Titer Nonreactive (NONREACTIVE) 08/19/17 08:30 HIV 1&2 Antibody Screen Negative 08/18/17 08:30 HIV P24 Antigen Negative 08/18/17 08:30 Assessment: 08/21/17 10:03 NAD/MEDICALLY STABLE Plan: PT SEPTEMBER D/C TO REHAB TODAY
[2017-08-21] MEDS: diazePAM 5 MG TABLET PO SCH (10:15)
[2017-08-21] MEDS: PRENATAL VITAMINS W/ FOLIC ACID TABLET (FP) PO SCH (10:15)
[2017-08-21] MEDS: CLOTRIMAZOLE 1% CREAM 15 GM TUBE TP SCH (10:16)
--- NOTE | 2017-08-21 10:16 | DS ---
[facility] Detox Discharge Summary Admission Date: 08/18/17 Discharge Date: 08/21/17 - History Present History: Alcohol Dependence Additional Comments: DETOX COMPLETED. Pertinent Past History: PLEASE SEE DX BELOW - Physical Exam Results Vital Signs: Vital Signs Temperature 96.6 F L 08/21/17 09:09 Pulse Rate 57 L 08/21/17 09:09 Respiratory Rate 08/21/17 09:09 Blood Pressure 104/54 08/21/17 09:09 O2 Sat by Pulse Oximetry (%) - Treatment Hospital Course: Detox Protocol Followed, Detoxed Safely, Responded well, Discharged Condition Good, Rehab Referral Accepted Patient has Accepted a Rehab Referral to: [facility] - Medication Discharge Medications: Ambulatory Orders NK [No Known Home Medication] 03/06/17 - Diagnosis (1) Cocaine dependence, uncomplicated Status: Acute (2) Alcohol dependence with uncomplicated withdrawal Status: Chronic (3) Nicotine dependence Status: Acute Qualifiers: Nicotine product type: cigarettes Substance use status: in withdrawal Qualified Code(s): F17.213 - Nicotine dependence, cigarettes, with withdrawal - AMA Did Patient Leave Against Medical Advice: No
[2017-08-22] MEDS ORDERED: diazePAM 5 MG TABLET PO SCH (10:00)
== END 2017-08-21 11:40 | disposition other institution (70) | DRG 774 ==
LOC: YASAS 13:42 → Y3N 17:07
PROVIDERS: ADMIT Internal Medicine; ATTEND Internal Medicine
PROC: HZ2ZZZZ Detoxification Services for Substance Abuse Treatment (ICD-10-PCS; principal; 2017-08-18)
DX: F10.230 Alcohol dependence with withdrawal, uncomplicated (principal); F14.20 Cocaine dependence, uncomplicated; F17.213 Nicotine dependence, cigarettes, with withdrawal; F19.24 Other psychoactive substance dependence with psychoactive substance-induced mood disorder; F25.0 Schizoaffective disorder, bipolar type; Z91.5 Personal history of self-harm
CPT/HCPCS: 36415; 80053; 81003; 85027; 86593; 87389; 93005; 93010

== ENCOUNTER 2017-08-21 11:49 | Inpatient (IN) | payer OTHER ==
[2017-08-21 12:09] VITALS: BMI 22.9
[2017-08-21] MEDS ORDERED: NICOTINE POLACRILEX 2 MG GUM BUC PRN (12:30)
[2017-08-21] MEDS ORDERED: hydrOXYzine PAMOATE 50 MG CAPSULE (FP) PO PRN (12:30)
[2017-08-21] MEDS ORDERED: ACETAMINOPHEN 325 MG TABLET (FP) PO PRN (12:30)
[2017-08-21] MEDS ORDERED: MENTHOL/PHENOL 1 EACH UD MM PRN (12:30)
[2017-08-21] MEDS ORDERED: P-EPHED 60MG/TRIPROLIDI 2.5MG TABLET PO PRN (12:30)
[2017-08-21] MEDS ORDERED: MAGNESIUM CITRATE 300 ML BOTTLE PO PRN (12:30)
[2017-08-21] MEDS ORDERED: LOPERAMIDE HCL 2 MG CAPSULE PO PRN (12:30)
[2017-08-21] MEDS ORDERED: IBUPROFEN 400 MG TABLET (FP) PO PRN (12:30)
[2017-08-21] MEDS ORDERED: MAG HYDROX/AL HYDROX/SIMETH 30 ML UNIT-DOSE CUP PO PRN (12:30)
[2017-08-21] MEDS ORDERED: MAGNESIUM HYDROX 2400MG/30ML ORAL SUSPENSION 30 ML CUP PO PRN (12:30)
[2017-08-21] MEDS ORDERED: guaiFENesin/D-METHORPHAN HB 10 ML UNIT-DOSE CUPS PO PRN (12:30)
--- NOTE | 2017-08-21 12:33 | HP ---
[facility] Rehab Assess/Revision - Admission History Admitted to Rehab from: [facility] Date of Admission to Rehab: 08/21/17 - Vital signs Vital Signs: Vital Signs Period Temp Pulse Resp BP Sys/Villafana Pulse Ox Last 24 Hr 97.4 F 59 18 105/67 - Findings Detox History & Physical reviewed: Yes Concur with findings: Yes Comments/Additional Findings: PT REFERRED TO REHAB TODAY FROM DETOX. Inpatient Rehab Admission - Initial Determination Are CD services needed?: Yes Free of communicable disease: Yes Not in need of hospitalization: Yes - Rehab Admission Criteria Patient is meeting Inpatient Rehab admission criteria:: Yes
[2017-08-21] MEDS: NICOTINE 14 MG/24 HOURS TOPICAL PATCH TD SCH (12:40)
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
[2017-08-21] MEDS: THIAMINE HCL 100 MG TABLET (FP) PO SCH (21:02)
[2017-08-21] MEDS ORDERED: MELATONIN 5 MG TABLETS PO PRN (22:00)
[2017-08-22] MEDS: PRENATAL VITAMINS W/ FOLIC ACID TABLET (FP) PO SCH (10:32)
[2017-08-22] MEDS: NICOTINE 14 MG/24 HOURS TOPICAL PATCH TD SCH (10:32)
[2017-08-22] MEDS: CLOTRIMAZOLE/BETAMET DIPROP 15 GM TUBE TP SCH (21:06)
[2017-08-22] MEDS: THIAMINE HCL 100 MG TABLET (FP) PO SCH (21:07)
[2017-08-23] MEDS: PRENATAL VITAMINS W/ FOLIC ACID TABLET (FP) PO SCH (09:28)
[2017-08-23] MEDS: NICOTINE 14 MG/24 HOURS TOPICAL PATCH TD SCH (09:28)
[2017-08-23] MEDS: CLOTRIMAZOLE/BETAMET DIPROP 15 GM TUBE TP SCH ×3 (09:28→22:17)
[2017-08-23] MEDS: THIAMINE HCL 100 MG TABLET (FP) PO SCH (21:15)
[2017-08-24] MEDS: PRENATAL VITAMINS W/ FOLIC ACID TABLET (FP) PO SCH (09:31)
[2017-08-24] MEDS: CLOTRIMAZOLE/BETAMET DIPROP 15 GM TUBE TP SCH ×2 (09:31→22:01)
[2017-08-24] MEDS: NICOTINE 14 MG/24 HOURS TOPICAL PATCH TD SCH (09:31)
[2017-08-24] MEDS: THIAMINE HCL 100 MG TABLET (FP) PO SCH (22:00)
[2017-08-25] MEDS: CLOTRIMAZOLE/BETAMET DIPROP 15 GM TUBE TP SCH ×2 (10:42→21:05)
[2017-08-25] MEDS: PRENATAL VITAMINS W/ FOLIC ACID TABLET (FP) PO SCH (10:42)
[2017-08-25] MEDS: NICOTINE 14 MG/24 HOURS TOPICAL PATCH TD SCH (10:42)
[2017-08-25] MEDS: THIAMINE HCL 100 MG TABLET (FP) PO SCH (21:06)
[2017-08-26] MEDS: PRENATAL VITAMINS W/ FOLIC ACID TABLET (FP) PO SCH (11:38)
[2017-08-26] MEDS: NICOTINE 14 MG/24 HOURS TOPICAL PATCH TD SCH (11:38)
[2017-08-26] MEDS: CLOTRIMAZOLE/BETAMET DIPROP 15 GM TUBE TP SCH ×2 (11:38→21:08)
[2017-08-26] MEDS: THIAMINE HCL 100 MG TABLET (FP) PO SCH (21:07)
[2017-08-27] MEDS: PRENATAL VITAMINS W/ FOLIC ACID TABLET (FP) PO SCH (10:53)
[2017-08-27] MEDS: CLOTRIMAZOLE/BETAMET DIPROP 15 GM TUBE TP SCH ×2 (10:57→22:02)
[2017-08-27] MEDS: NICOTINE 14 MG/24 HOURS TOPICAL PATCH TD SCH (10:57)
[2017-08-27] MEDS ORDERED: PT OWN MED DRAWER 7, Y5N ONE (20:11)
[2017-08-27] MEDS: THIAMINE HCL 100 MG TABLET (FP) PO SCH (21:08)
[2017-08-28] MEDS: CLOTRIMAZOLE/BETAMET DIPROP 15 GM TUBE TP SCH ×2 (10:45→21:04)
[2017-08-28] MEDS: PRENATAL VITAMINS W/ FOLIC ACID TABLET (FP) PO SCH (10:45)
[2017-08-28] MEDS: NICOTINE 14 MG/24 HOURS TOPICAL PATCH TD SCH (10:45)
[2017-08-28] MEDS: THIAMINE HCL 100 MG TABLET (FP) PO SCH (21:04)
[2017-08-29] MEDS: PRENATAL VITAMINS W/ FOLIC ACID TABLET (FP) PO SCH (10:52)
[2017-08-29] MEDS: NICOTINE 14 MG/24 HOURS TOPICAL PATCH TD SCH (10:52)
[2017-08-29] MEDS: CLOTRIMAZOLE/BETAMET DIPROP 15 GM TUBE TP SCH ×2 (10:52→21:03)
[2017-08-29] MEDS: THIAMINE HCL 100 MG TABLET (FP) PO SCH (21:02)
[2017-08-30] MEDS: NICOTINE 14 MG/24 HOURS TOPICAL PATCH TD SCH (10:47)
[2017-08-30] MEDS: PRENATAL VITAMINS W/ FOLIC ACID TABLET (FP) PO SCH (10:47)
[2017-08-30] MEDS: CLOTRIMAZOLE/BETAMET DIPROP 15 GM TUBE TP SCH ×2 (10:47→21:09)
[2017-08-30] MEDS: THIAMINE HCL 100 MG TABLET (FP) PO SCH (21:08)
[2017-08-31] MEDS: PRENATAL VITAMINS W/ FOLIC ACID TABLET (FP) PO SCH (10:33)
[2017-08-31] MEDS: NICOTINE 14 MG/24 HOURS TOPICAL PATCH TD SCH (10:33)
[2017-08-31] MEDS: CLOTRIMAZOLE/BETAMET DIPROP 15 GM TUBE TP SCH ×2 (10:33→21:51)
[2017-08-31] MEDS: THIAMINE HCL 100 MG TABLET (FP) PO SCH (21:06)
[2017-09-01] MEDS: PRENATAL VITAMINS W/ FOLIC ACID TABLET (FP) PO SCH (10:06)
[2017-09-01] MEDS: NICOTINE 14 MG/24 HOURS TOPICAL PATCH TD SCH (10:06)
[2017-09-01] MEDS: CLOTRIMAZOLE/BETAMET DIPROP 15 GM TUBE TP SCH ×2 (10:06→21:03)
[2017-09-01] MEDS: THIAMINE HCL 100 MG TABLET (FP) PO SCH (21:02)
[2017-09-02 06:48] VITALS: BP 127/74; PULSE 65; TEMP 97.2
--- NOTE | 2017-09-02 08:13 | HP ---
Psychiatrist Admission - Data Date of interview: 09/02/17 Admission source: Discharge Note Identifying data: Patient addresing Alcohol and Cocaine Dependence comorbid with Nicotine Dependence and Schizoaffective Disorder Vital Signs: Vital Signs - 24 hr 09/02/17 09/02/17 09/02/17 00:30 03:30 06:48 Temperature 97.2 F L Pulse Rate 65 Respiratory 18 18 18 Rate Blood Pressure 127/74 Allergies/Adverse Reactions: Allergies Allergy/AdvReac Type Severity Reaction Status Date / Time No Known Allergies Allergy Verified 08/21/17 11:56 Psychiatric Findings - Problem List ([place] 1, 2,3) (1) Alcohol dependence Current Visit: No Status: Acute (2) Cocaine dependence Current Visit: Yes Status: Acute (3) Nicotine dependence Current Visit: Yes Status: Chronic (4) Schizoaffective disorder Current Visit: No Status: Chronic Comment: By history.Non-adherent to medications. (5) Paranoid schizophrenia Current Visit: No Status: Ruled-out (6) PTSD (post-traumatic stress disorder) Current Visit: No Status: Chronic (7) History of head injury Current Visit: No Status: Chronic
--- NOTE | 2017-09-02 08:19 | PN ---
Psychiatric Progress Note Vital Signs: Vital Signs Period Temp Pulse Resp BP Sys/Villafana Pulse Ox Last 24 Hr 97.2 F 65 18-18 127/74 Date of Session: 09/02/17 Chief Complaint:: Discharge Note HPI: Patient addressing Alcohol and Cocaine Dependence comorbid with Nicotine Dependence, Schizoaffective Disorder and Posttraumatic Sress Disorder ROS: History of head injury Current Medications: Active Medications Generic Name Dose Route Start Last Admin Trade Name Freq PRN Reason Stop Dose Admin Acetaminophen 650 mg 08/21/17 12:30 Tylenol - PO Q4H PRN FEVER Al Hydroxide/Mg Hydroxide 30 ml 08/21/17 12:30 Mylanta Oral Suspension - PO Q6H PRN DYSPEPSIA Clotrimazole 1 applic 08/22/17 22:00 09/01/17 21:03 Lotrisone Cream (Small Tube) TP Not Given BID DC Eucalyptus/Menthol/Phenol/Sorbitol 1 each 08/21/17 12:30 Cepastat Lozenge - MM Q4H PRN SORE THROAT Guaifenesin 10 ml 08/21/17 12:30 Robitussin Dm - PO Q6H PRN COUGH Hydroxyzine Pamoate 50 mg 08/21/17 12:30 Vistaril - PO Q4H PRN AGITATION Ibuprofen 400 mg 08/21/17 12:30 Motrin - PO Q6H PRN Pain Level 4-6 Loperamide HCl 4 mg 08/21/17 12:30 Imodium - PO Q6H PRN DIARRHEA Magnesium Citrate 300 ml 08/21/17 12:30 Citroma - PO Q48H PRN CONSTIPATION Magnesium Hydroxide 30 ml 08/21/17 12:30 Milk Of Magnesia - PO DAILY PRN CONSTIPATION Melatonin 5 mg 08/21/17 22:00 Melatonin PO HS PRN INSOMNIA Nicotine 14 mg 08/21/17 12:30 09/01/17 10:06 Nicoderm Patch - TD Not Given DAILY DC Nicotine Polacrilex 2 mg 08/21/17 12:30 Nicorette Gum - BUC Q2H PRN NICOTINE REPLACEMENT RX Multivit/Folic Acid/Iron 1 tab 08/22/17 10:00 09/01/17 10:06 Vitamins (Sjr) - PO 1 tab DAILY DC Administration Pseudoephedrine/Triprolidine 1 combo 08/21/17 12:30 Actifed - PO TID PRN NASAL CONGESTION Thiamine HCl 100 mg 08/21/17 22:00 09/01/17 21:02 Vitamin B1 - PO 100 mg HS DC Administration Current Side Effect: No Lab tests ordered: Yes Lab tests reviewed: Yes Provider note:: Patient has completed this program today. He has met his treatment goal and will continue to address his issues in outpatiet treatment at [facility]. Told engineering writer that from his participation in this program, he has learned that he has to stop using if he does not want to [facility]. He is stable for discharge today Total face to face time:: 35 Mental Status Exam - Mental Status Exam Alert and Oriented to: Time, Place, Person Cognitive Function: Fair Patient Appearance: Well Groomed Mood: Hopeful, Euthymic Affect: Appropriate Patient Behavior: Cooperative Speech Pattern: Clear Voice Loudness: Normal Thought Process: Intact, Goal Oriented Thought Disorder: Not Present Hallucinations: Denies Suicidal Ideation: Denies Homicidal Ideation: Denies Insight/Judgement: Fair Sleep: Well Appetite: Good Muscle strength/Tone: Normal Gait/Station: Normal Psychiatric Treatment Plan - Problem List (1) Alcohol dependence Current Visit: No (2) Cocaine dependence Current Visit: Yes (3) Nicotine dependence Current Visit: Yes (4) Schizoaffective disorder Current Visit: No Comment: By history.Non-adherent to medications. (5) Paranoid schizophrenia Current Visit: No (6) PTSD (post-traumatic stress disorder) Current Visit: No (7) History of head injury Current Visit: No Initial treatment plan: Patient is discharged today and referred to [facility] for outpatient treatment
== END 2017-09-02 08:35 | disposition home or self-care (01) | DRG 772 ==
LOC: YASAS 11:49 → Y3W 11:50
PROVIDERS: ADMIT Psychiatry & Neurology Psychiatry; ATTEND Psychiatry & Neurology Psychiatry
PROC: HZ42ZZZ Group Counseling for Substance Abuse Treatment, Cognitive-Behavioral (ICD-10-PCS; principal; 2017-08-21)
DX: F10.20 Alcohol dependence, uncomplicated (principal); F14.20 Cocaine dependence, uncomplicated; F17.210 Nicotine dependence, cigarettes, uncomplicated; F25.9 Schizoaffective disorder, unspecified; F20.0 Paranoid schizophrenia; F43.10 Post-traumatic stress disorder, unspecified

== ENCOUNTER 2017-10-05 12:45 | Inpatient (IN) | payer OTHER ==
[2017-10-05 13:27] VITALS: BMI 24.0
--- NOTE | 2017-10-05 15:07 | HP ---
CIWA Score - CIWA Score Nausea/Vomitin-Mild Nausea/No Vomiting Muscle Tremors: 4-Moderate,w/Arms Extend Anxiety: 4-Mod. Anxious/Guarded Agitation: 4-Moderately Restless Paroxysmal Sweats: 1-Minimal Palms Moist Orientation: 0-Oriented Tacttile Disturbances: 0-None Auditory Disturbances: 0-None Visual Disturbances: 0-None Headache: 2-Mild CIWA-Ar Total Score: 16 Admission ROS BHS - HPI Chief Complaint: alcohol withdrawal sx Allergies/Adverse Reactions: Allergies Allergy/AdvReac Type Severity Reaction Status Date / Time No Known Allergies Allergy Verified 10/05/17 14:08 History of Present Illness: 42 years old male with long history of alcohol nicotine dependence has depression is admitted to detox Exam Limitations: No Limitations - Ebola screening Have you traveled outside of the country in the last 21 days: No (N) Have you had contact with anyone from an Ebola affected area: No Have you been sick,other than usual withdrawal symptoms: No Do you have a fever: No - Review of Systems Constitutional: Changes in sleep, Weight Stable EENT: reports: No Symptoms Reported Respiratory: reports: No Symptoms reported Cardiac: reports: No Symptoms Reported GI: reports: Nausea, Poor Fluid Intake, Abdominal cramping : reports: No Symptoms Reported Musculoskeletal: reports: No Symptoms Reported Integumentary: reports: No Symptoms Reported Neuro: reports: Tremors Endocrine: reports: No Symptoms Reported Hematology: reports: No Symptoms Reported Psychiatric: reports: Judgement Intact, Orientated x3, Anxious, Depressed Other Systems: Reviewed and Negative Patient History - Patient Medical History Hx Anemia: No Hx Asthma: No Hx Chronic Obstructive Pulmonary Disease (COPD): No Hx Cancer: No Hx Cardiac Disorders: No Hx Congestive Heart Failure: No Hx Hypertension: No Hx Hypercholesterolemia: No Hx Pacemaker: No HX Cerebrovascular Accident: No Hx Seizures: No Hx Dementia: No Hx Diabetes: No Hx Gastrointestinal Disorders: No Hx Liver Disease: No Hx Genitourinary Disorders: No Hx Sexually Transmitted Disorders: No Hx Renal Disease (ESRD): No Hx Thyroid Disease: No Hx Human Immunodeficiency Virus (HIV): No ( NEGATIVE MAY 2017) Hx Hepatitis C: No ( NEGATIVE MAY 2017) Hx Depression: Yes Hx Suicide Attempt: No Hx Bipolar Disorder: No Hx Schizophrenia: No (Dx Several years ago) - Patient Surgical History Past Surgical History: No Hx Neurologic Surgery: No Hx Cataract Extraction: No Hx Cardiac Surgery: No Hx Lung Surgery: No Hx Breast Surgery: No Hx Breast Biopsy: No Hx Abdominal Surgery: No Hx Appendectomy: No Hx Cholecystectomy: No Hx Genitourinary Surgery: No Hx Orthopedic Surgery: No Other Surgical History: 1998 jaw fracture (braces/Wire) LEFT - PPD History Previous Implant?: No Documented Results: Negative w/proof Implanted On Prior [facility] Admission?: Yes Date: 01/15/17 Results: 0 mm PPD to be Administered?: No - Smoking Cessation Smoking history: Current every day smoker Have you smoked in the past 12 months: Yes Aproximately how many cigarettes per day: 20 Cigars Per Day: 0 Hx Chewing Tobacco Use: No Initiated information on smoking cessation: Yes 'Breaking Loose' booklet given: 10/05/17 - Substance & Tx. History Hx Alcohol Use: Yes Hx Substance Use: Yes Substance Use Type: Alcohol, Cocaine, Marijuana Hx Substance Use Treatment: Yes (09/2017 [facility] - Substances Abused Alcohol Route: Oral Frequency: Daily Amount used: 1 Case of Beer Age of first use: 13 Date of Last Use: 10/04/17 Marijuana/Hashish Route: Smoking Frequency: 1-2 times per week Amount used: $20 Age of first use: 10 Date of Last Use: 10/04/17 Crack Route: Smoking Frequency: Daily Amount used: 5- 10 grams Age of first use: 27 Date of Last Use: 10/04/17 Family Disease History - Family Disease History Family Disease History: Other: Father (Used Alcohol. .), Mother ( Seizures. .), Sister ( HIV) Admission Physical Exam S - Vital Signs Vital Signs: Vital Signs - 24 hr 10/05/17 13:23 Temperature 98.3 F Pulse Rate 76 Respiratory 17 Rate Blood Pressure 123/65 - Physical General Appearance: Yes: Appropriately Dressed, Mild Distress, Thin, Tremorous, Irritable, Sweating, Anxious HEENTM: Yes: Hearing grossly Normal, Normocephalic, Normal Voice Respiratory: Yes: Chest Non-Tender, Lungs Clear, Normal Breath Sounds, No Respiratory Distress, No Accessory Muscle Use Neck: Yes: Supple, Trachea in good position Breast: Yes: Breasts Symetrical, No Discharge Cardiology: Yes: Regular Rhythm, Regular Rate, S1, S2 Abdominal: Yes: Normal Bowel Sounds, Non Tender, Flat Genitourinary: Yes: Within Normal Limits Back: Yes: Normal Inspection Musculoskeletal: Yes: full range of Motion, Gait Steady Extremities: Yes: Normal Inspection, Normal Range of Motion, Non-Tender, Tremors Neurological: Yes: Fully Oriented, Alert, Motor Strength 5/5, Normal Response, Depressed Affect Integumentary: Yes: Warm Lymphatic: Yes: Within Normal Limits - Diagnostic (1) Cocaine dependence, uncomplicated Current Visit: Yes Status: Chronic (2) Nicotine dependence Current Visit: Yes Status: Acute Qualifiers: Nicotine product type: cigarettes Substance use status: in withdrawal Qualified Code(s): F17.213 - Nicotine dependence, cigarettes, with withdrawal (3) Alcohol dependence with uncomplicated withdrawal Current Visit: Yes Status: Acute (4) Schizoaffective disorder Current Visit: Yes Status: Suspected Qualifiers: Schizoaffective disorder type: bipolar Qualified Code(s): F25.0 - Schizoaffective disorder, bipolar type Comment: By history.Non-adherent to medications. Cleared for Admission [facility] - Detox or Rehab [facility] Level of Care: Medically Managed Detox Regimen/Protocol: Librium [facility] Breath Alcohol Content Breath Alcohol Content: 0 Urine Drug Screen - Results Drug Screen Negative: No Urine Drug Screen Results: THC-Marijuana, JACKELINE-Cocaine
[2017-10-05] MEDS ORDERED: ACETAMINOPHEN 325 MG TABLET (FP) PO PRN (15:11)
[2017-10-05] MEDS ORDERED: chlordiazePOXIDE HCL 25 MG CAPSULE PO PRN (15:11)
[2017-10-05] MEDS ORDERED: P-EPHED 60MG/TRIPROLIDI 2.5MG TABLET PO PRN (15:11)
[2017-10-05] MEDS ORDERED: MENTHOL/PHENOL 1 EACH UD MM PRN (15:11)
[2017-10-05] MEDS ORDERED: LOPERAMIDE HCL 2 MG CAPSULE PO PRN (15:11)
[2017-10-05] MEDS ORDERED: NICOTINE POLACRILEX 4 MG GUM BC PRN (15:11)
[2017-10-05] MEDS ORDERED: MAGNESIUM HYDROX 2400MG/30ML ORAL SUSPENSION 30 ML CUP PO PRN (15:11)
[2017-10-05] MEDS ORDERED: IBUPROFEN 400 MG TABLET (FP) PO PRN (15:11)
[2017-10-05] MEDS ORDERED: guaiFENesin/D-METHORPHAN HB 10 ML UNIT-DOSE CUPS PO PRN (15:11)
[2017-10-05] MEDS ORDERED: MAG HYDROX/AL HYDROX/SIMETH 30 ML UNIT-DOSE CUP PO PRN (15:11)
[2017-10-05] MEDS ORDERED: MAGNESIUM CITRATE 300 ML BOTTLE PO PRN (15:11)
[2017-10-05] MEDS: chlordiazePOXIDE HCL 25 MG CAPSULE PO SCH ×2 (17:10→22:36)
[2017-10-05] MEDS: NICOTINE 21 MG/24 HOURS TOPICAL PATCH TD SCH (17:10)
[2017-10-05] MEDS ORDERED: MELATONIN 5 MG TABLETS PO PRN (22:00)
[2017-10-05] MEDS: THIAMINE HCL 100 MG TABLET (FP) PO SCH (22:36)
[2017-10-05 23:55] LABS: URINE APPEARANCE CLEAR; URINE BILIRUBIN NEGATIVE (<2.0 mg/dL); URINE BLOOD NEGATIVE (NEGATIVE); URINE COLOR YELLOW; URINE GLUCOSE (UA) NEGATIVE (NEGATIVE); URINE KETONE 1+ (NEGATIVE); URINE LEUK ESTERASE NEGATIVE (NEGATIVE); URINE NITRITE NEGATIVE (NEGATIVE); URINE PROTEIN NEGATIVE (NEGATIVE); URINE UROBILINOGEN NEGATIVE mg/dL (0.2-1.0)
[2017-10-06] MEDS: chlordiazePOXIDE HCL 25 MG CAPSULE PO SCH ×4 (05:49→22:51)
[2017-10-06] MEDS: NICOTINE 21 MG/24 HOURS TOPICAL PATCH TD SCH (10:29)
[2017-10-06] MEDS: PRENATAL VITAMINS W/ FOLIC ACID TABLET (FP) PO SCH (10:30)
[2017-10-06 10:32] LABS: HEMATOCRIT 39.2 % (35.4-49); HEMOGLOBIN 13.2 GM/dL (11.7-16.9); MCH 31.7 pg (25.7-33.7); MCHC 33.6 g/dl (32.0-35.9); MEAN CELL VOLUME 94.2 fl (80-96); MEAN PLT VOLUME 9.1 fl (7.5-11.1); PLATELET COUNT 213 K/MM3 (134-434); RBC 4.16 M/mm3 (4.00-5.60); RDW 12.8 % (11.9-15.9); WHITE BLOOD COUNT 5.1 K/mm3 (4.0-10.0)
[2017-10-06 10:42] LABS: CHLORIDE 107 mmol/L (98-107); POTASSIUM 4.1 mmol/L (3.5-5.1); SODIUM 142 mmol/L (136-145)
[2017-10-06 10:57] LABS: ALBUMIN 3.5 g/dl (3.4-5.0); ALK PHOS 80 U/L (45-117); ANION GAP 7 (8-16); BILIRUBIN,TOTAL 0.2 mg/dL (0.2-1.0); BLOOD UREA NITROGEN 14 mg/dL (7-18); CALCIUM 7.8 mg/dL (8.5-10.1); CO2 28 mmol/L (21-32); CREATININE 1.2 mg/dL (0.7-1.3); GLUCOSE,RANDOM 146 mg/dL (74-106); SGOT/AST 21 U/L (15-37); SGPT/ALT 28 U/L (12-78); TOT PROT 6.4 g/dl (6.4-8.2)
--- NOTE | 2017-10-06 11:26 | EKG ---
Test Reason : Blood Pressure : / mmHG Vent. Rate : 063 BPM Atrial Rate : 063 BPM P-R Int : 120 ms QRS Dur : 082 ms QT Int : 412 ms P-R-T Axes : 062 047 045 degrees QTc Int : 421 ms NORMAL SINUS RHYTHM NORMAL ECG WHEN COMPARED WITH ECG OF 18-AUG-2017 18:55, NO SIGNIFICANT CHANGE WAS FOUND Confirmed by SHENG LAU MD ([id number]) on 10/06/2017 11:26:21 AM Referred By: Confirmed By:SHENG LAU MD
--- NOTE | 2017-10-06 11:28 | PN ---
S CIWA - CIWA Score Nausea/Vomitin-No Nausea/No Vomiting Muscle Tremors: 4-Moderate,w/Arms Extend Anxiety: 4-Mod. Anxious/Guarded Agitation: 4-Moderately Restless Paroxysmal Sweats: 1-Minimal Palms Moist Orientation: 0-Oriented Tacttile Disturbances: 0-None Auditory Disturbances: 0-None Visual Disturbances: 0-None Headache: 0-None Present CIWA-Ar Total Score: 13 BHS Progress Note (SOAP) Subjective: ANXIETY,SWEATS,FATIGUE. Objective: 10/06/17 11:28 Vital Signs 10/06/17 10/06/17 10/06/17 03:30 06:45 09:02 Temperature 96.3 F L 97.0 F L Pulse Rate 72 70 Respiratory 20 16 18 Rate Blood Pressure 101/63 108/57 Laboratory Tests 10/06/17 10/06/17 10/06/17 00:00 07:00 07:00 WBC 5.1 RBC 4.16 Hgb 13.2 Hct 39.2 MCV 94.2 MCH 31.7 MCHC 33.6 RDW 12.8 Plt Count 213 MPV 9.1 Sodium 142 Potassium 4.1 Chloride 107 Carbon Dioxide 28 Anion Gap 7 L BUN 14 D Creatinine 1.2 D Creat Clearance w eGFR > 60 Random Glucose 146 H D Calcium 7.8 L Total Bilirubin 0.2 AST 21 D ALT 28 D Alkaline Phosphatase 80 Total Protein 6.4 Albumin 3.5 Urine Color Yellow Urine Appearance Clear Urine pH 5.0 D Ur Specific [place] 1.030 Urine Protein Negative Urine Glucose (UA) Negative Urine Ketones 1+ H Urine Blood Negative Urine Nitrite Negative Urine Bilirubin Negative Urine Urobilinogen Negative Ur Leukocyte Esterase Negative Assessment: 10/06/17 11:28 WITHDRAWAL SX Plan: CONTINUE DETOX
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
[2017-10-06] MEDS: THIAMINE HCL 100 MG TABLET (FP) PO SCH (22:51)
[2017-10-07] MEDS: chlordiazePOXIDE HCL 25 MG CAPSULE PO SCH ×2 (05:47→10:32)
[2017-10-07] MEDS: NICOTINE 21 MG/24 HOURS TOPICAL PATCH TD SCH (10:32)
[2017-10-07] MEDS: PRENATAL VITAMINS W/ FOLIC ACID TABLET (FP) PO SCH (10:32)
--- NOTE | 2017-10-07 12:55 | PN ---
[facility] CIWA - CIWA Score Nausea/Vomitin-No Nausea/No Vomiting Muscle Tremors: 4-Moderate,w/Arms Extend Anxiety: 4-Mod. Anxious/Guarded Agitation: 3 Paroxysmal Sweats: 1-Minimal Palms Moist Orientation: 0-Oriented Tacttile Disturbances: 0-None Auditory Disturbances: 0-None Visual Disturbances: 0-None Headache: 0-None Present CIWA-Ar Total Score: 12 S Progress Note (SOAP) Subjective: PT SEEN IN BED AND STATES HE IS JUST TIRED AND RESTING. DENIES ACUTE DISTRESS. Objective: 10/07/17 12:54 ALERT O X3 Vital Signs 10/07/17 10/07/17 05:53 09:16 Temperature 96.9 F L 96.4 F L Pulse Rate 70 72 Respiratory 18 18 Rate Blood Pressure 97/65 87/50 Laboratory Tests 10/06/17 10/06/17 10/06/17 00:00 07:00 07:00 WBC 5.1 RBC 4.16 Hgb 13.2 Hct 39.2 MCV 94.2 MCH 31.7 MCHC 33.6 RDW 12.8 Plt Count 213 MPV 9.1 Sodium 142 Potassium 4.1 Chloride 107 Carbon Dioxide 28 Anion Gap 7 L BUN 14 D Creatinine 1.2 D Creat Clearance w eGFR > 60 Random Glucose 146 H D Calcium 7.8 L Total Bilirubin 0.2 AST 21 D ALT 28 D Alkaline Phosphatase 80 Total Protein 6.4 Albumin 3.5 Urine Color Yellow Urine Appearance Clear Urine pH 5.0 D Ur Specific [place] 1.030 Urine Protein Negative Urine Glucose (UA) Negative Urine Ketones 1+ H Urine Blood Negative Urine Nitrite Negative Urine Bilirubin Negative Urine Urobilinogen Negative Ur Leukocyte Esterase Negative RPR Titer 10/06/17 07:00 WBC RBC Hgb Hct MCV MCH MCHC RDW Plt Count MPV Sodium Potassium Chloride Carbon Dioxide Anion Gap BUN Creatinine Creat Clearance w eGFR Random Glucose Calcium Total Bilirubin AST ALT Alkaline Phosphatase Total Protein Albumin Urine Color Urine Appearance Urine pH Ur Specific [place] Urine Protein Urine Glucose (UA) Urine Ketones Urine Blood Urine Nitrite Urine Bilirubin Urine Urobilinogen Ur Leukocyte Esterase RPR Titer Nonreactive Assessment: 10/07/17 12:55 WITHDRAWAL SX Plan: CONTINUE DETOX INCREASE PO FLUIDS
[2017-10-07] MEDS: chlordiazePOXIDE 5 MG CAPSULE PO SCH ×2 (17:22→22:35)
[2017-10-07] MEDS: THIAMINE HCL 100 MG TABLET (FP) PO SCH (22:35)
[2017-10-08] MEDS: chlordiazePOXIDE 5 MG CAPSULE PO SCH ×2 (06:18→10:32)
[2017-10-08 09:32] VITALS: BP 93/59; PULSE 59; TEMP 97.5
[2017-10-08] MEDS: NICOTINE 21 MG/24 HOURS TOPICAL PATCH TD SCH (10:32)
[2017-10-08] MEDS: PRENATAL VITAMINS W/ FOLIC ACID TABLET (FP) PO SCH (10:32)
--- NOTE | 2017-10-08 15:03 | PN ---
S Progress Note (SOAP) Subjective: ALERT O X 2. PT HAS NOT BEEN TAKING HIS LIBRIUM . STATES HE DOESN'T WANT IT AND FEELS OK. NO TREMORS NOTED. Objective: 10/08/17 15:01 Vital Signs 10/08/17 09:31 Temperature 97.5 F L Pulse Rate 59 L Respiratory 18 Rate Blood Pressure 93/59 Laboratory Tests 10/06/17 10/06/17 10/06/17 00:00 07:00 07:00 WBC 5.1 RBC 4.16 Hgb 13.2 Hct 39.2 MCV 94.2 MCH 31.7 MCHC 33.6 RDW 12.8 Plt Count 213 MPV 9.1 Sodium 142 Potassium 4.1 Chloride 107 Carbon Dioxide 28 Anion Gap 7 L BUN 14 D Creatinine 1.2 D Creat Clearance w eGFR > 60 Random Glucose 146 H D Calcium 7.8 L Total Bilirubin 0.2 AST 21 D ALT 28 D Alkaline Phosphatase 80 Total Protein 6.4 Albumin 3.5 Urine Color Yellow Urine Appearance Clear Urine pH 5.0 D Ur Specific [place] 1.030 Urine Protein Negative Urine Glucose (UA) Negative Urine Ketones 1+ H Urine Blood Negative Urine Nitrite Negative Urine Bilirubin Negative Urine Urobilinogen Negative Ur Leukocyte Esterase Negative RPR Titer 10/06/17 07:00 WBC RBC Hgb Hct MCV MCH MCHC RDW Plt Count MPV Sodium Potassium Chloride Carbon Dioxide Anion Gap BUN Creatinine Creat Clearance w eGFR Random Glucose Calcium Total Bilirubin AST ALT Alkaline Phosphatase Total Protein Albumin Urine Color Urine Appearance Urine pH Ur Specific [place] Urine Protein Urine Glucose (UA) Urine Ketones Urine Blood Urine Nitrite Urine Bilirubin Urine Urobilinogen Ur Leukocyte Esterase RPR Titer Nonreactive Vital Signs - 24 hr 10/07/17 10/07/17 10/08/17 17:31 22:20 00:30 Temperature 97.4 F L 97.5 F L Pulse Rate 67 75 Respiratory 16 18 18 Rate Blood Pressure 97/53 106/67 10/08/17 10/08/17 10/08/17 03:30 06:52 09:31 Temperature 97.1 F L 97.5 F L Pulse Rate 67 59 L Respiratory 18 18 18 Rate Blood Pressure 86/60 93/59 Assessment: 10/08/17 15:03 NAD Plan: D/C PT TODAY PT WILL F/U AT [facility] SCHEDULED BY COUNSELOR MS CHANTELL FORTE FOR PATIENT'S AFTERCARE.
--- NOTE | 2017-10-08 15:08 | DS ---
[facility] Detox Discharge Summary Admission Date: 10/05/17 Discharge Date: 10/08/17 - History Present History: Alcohol Dependence, Cannabis Dependence, Cocaine Dependence Additional Comments: PT D/C'D TODAY AND WILL FOLLOW UP WITH AFTERCARE. Pertinent Past History: PLEASE SEE DX BELOW - Physical Exam Results Vital Signs: Vital Signs Temperature 97.5 F L 10/08/17 09:31 Pulse Rate 59 L 10/08/17 09:31 Respiratory Rate 18 10/08/17 09:31 Blood Pressure 93/59 10/08/17 09:31 O2 Sat by Pulse Oximetry (%) Pertinent Admission Physical Exam Findings: WITHDRAWAL SX Laboratory Tests 10/06/17 10/06/17 10/06/17 00:00 07:00 07:00 WBC 5.1 RBC 4.16 Hgb 13.2 Hct 39.2 MCV 94.2 MCH 31.7 MCHC 33.6 RDW 12.8 Plt Count 213 MPV 9.1 Sodium 142 Potassium 4.1 Chloride 107 Carbon Dioxide 28 Anion Gap 7 L BUN 14 D Creatinine 1.2 D Creat Clearance w eGFR > 60 Random Glucose 146 H D Calcium 7.8 L Total Bilirubin 0.2 AST 21 D ALT 28 D Alkaline Phosphatase 80 Total Protein 6.4 Albumin 3.5 Urine Color Yellow Urine Appearance Clear Urine pH 5.0 D Ur Specific [place] 1.030 Urine Protein Negative Urine Glucose (UA) Negative Urine Ketones 1+ H Urine Blood Negative Urine Nitrite Negative Urine Bilirubin Negative Urine Urobilinogen Negative Ur Leukocyte Esterase Negative RPR Titer 10/06/17 07:00 WBC RBC Hgb Hct MCV MCH MCHC RDW Plt Count MPV Sodium Potassium Chloride Carbon Dioxide Anion Gap BUN Creatinine Creat Clearance w eGFR Random Glucose Calcium Total Bilirubin AST ALT Alkaline Phosphatase Total Protein Albumin Urine Color Urine Appearance Urine pH Ur Specific [place] Urine Protein Urine Glucose (UA) Urine Ketones Urine Blood Urine Nitrite Urine Bilirubin Urine Urobilinogen Ur Leukocyte Esterase RPR Titer Nonreactive - Treatment Hospital Course: Detoxed Safely, Responded well, Discharged Condition Good, Rehab Referral Accepted Patient has Accepted a Rehab Referral to: [facility] - Medication Discharge Medications: Ambulatory Orders NK [No Known Home Medication] 03/06/17 - Diagnosis (1) Alcohol dependence with uncomplicated withdrawal Status: Acute (2) Nicotine dependence Status: Acute Qualifiers: Nicotine product type: cigarettes Substance use status: in withdrawal Qualified Code(s): F17.213 - Nicotine dependence, cigarettes, with withdrawal (3) Cocaine dependence, uncomplicated Status: Chronic (4) Cannabis dependence Status: Acute (5) Schizoaffective disorder Status: Suspected Qualifiers: Schizoaffective disorder type: bipolar Qualified Code(s): F25.0 - Schizoaffective disorder, bipolar type - AMA Did Patient Leave Against Medical Advice: No
[2017-10-08] MEDS ORDERED: chlordiazePOXIDE HCL 10 MG CAPSULE PO SCH (17:00)
== END 2017-10-08 10:57 | disposition left against medical advice (07) | DRG 770 ==
LOC: YASAS 12:45 → Y3N 16:36
PROVIDERS: ADMIT Surgery; ATTEND Surgery
PROC: HZ2ZZZZ Detoxification Services for Substance Abuse Treatment (ICD-10-PCS; principal; 2017-10-05)
DX: F10.230 Alcohol dependence with withdrawal, uncomplicated (principal); F14.20 Cocaine dependence, uncomplicated; F12.20 Cannabis dependence, uncomplicated; F17.213 Nicotine dependence, cigarettes, with withdrawal; F25.0 Schizoaffective disorder, bipolar type
CPT/HCPCS: 36415; 80053; 81003; 85027; 86593; 93005; 93010

== ENCOUNTER 2017-12-04 22:30 | Inpatient (IN) | payer OTHER ==
[~2017-12-04 22:30] MED LIST: MELATONIN 5 MG TABLETS PO PRN
--- NOTE | 2017-12-04 22:52 | HP ---
CIWA Score - CIWA Score Nausea/Vomitin-Mild Nausea/No Vomiting Muscle Tremors: 4-Moderate,w/Arms Extend Anxiety: 4-Mod. Anxious/Guarded Agitation: 4-Moderately Restless Paroxysmal Sweats: No Perspiration Orientation: 0-Oriented Tacttile Disturbances: 2-Mild Itch/Numbness/Burn Auditory Disturbances: 0-None Visual Disturbances: 0-None Headache: 2-Mild CIWA-Ar Total Score: 17 Admission ROS BHS - HPI Chief Complaint: SEEKING DETOX FOR C/O WITHDRAWAL SX'S FROM ALCOHOL Allergies/Adverse Reactions: Allergies Allergy/AdvReac Type Severity Reaction Status Date / Time No Known Allergies Allergy Verified 11/01/17 12:28 History of Present Illness: 42 Y.O. MALE KNOWN TO THIS PROGRAM HERE FOR ALCOHOL DETOX. CLIENT DC 1 MONTH AGO BUT IMMEDIATELY RELAPSED. SELF REFERRED. REPORTS LONGEST CLEAQN TIME 19 MONTHS WHILE INCARCERATED. DENIES HX/O SEIZURES BUT DOES ADMIT TO A FEW BLACK OUTS. DENIES PAST PRESENT SI/HI Exam Limitations: No Limitations - Ebola screening Have you traveled outside of the country in the last 21 days: No (N) Have you had contact with anyone from an Ebola affected area: No Do you have a fever: No - Review of Systems Constitutional: Chills, Malaise, Weakness, Unintentional Wgt. Loss EENT: reports: No Symptoms Reported Respiratory: reports: No Symptoms reported Cardiac: reports: No Symptoms Reported GI: reports: Abdominal cramping : reports: No Symptoms Reported Musculoskeletal: reports: No Symptoms Reported Integumentary: reports: Other (LEFT FOREARM ABRASION) Neuro: reports: No Symptoms reported Endocrine: reports: No Symptoms Reported Hematology: reports: No Symptoms Reported Psychiatric: reports: Anxious Other Systems: Reviewed and Negative Patient History - Patient Medical History Hx Anemia: No Hx Asthma: No Hx Chronic Obstructive Pulmonary Disease (COPD): No Hx Cancer: No Hx Cardiac Disorders: No Hx Congestive Heart Failure: No Hx Hypertension: No Hx Hypercholesterolemia: No Hx Pacemaker: No HX Cerebrovascular Accident: No Hx Seizures: No Hx Dementia: No Hx Diabetes: No Hx Gastrointestinal Disorders: No Hx Liver Disease: No Hx Genitourinary Disorders: No Hx Sexually Transmitted Disorders: No Hx Renal Disease (ESRD): No Hx Thyroid Disease: No Hx Human Immunodeficiency Virus (HIV): No Hx Hepatitis C: No Hx Depression: No Hx Suicide Attempt: No Hx Bipolar Disorder: No Hx Schizophrenia: Yes Other Medical History: ANXIETY - Patient Surgical History Past Surgical History: No Hx Neurologic Surgery: No Hx Cataract Extraction: No Hx Cardiac Surgery: No Hx Lung Surgery: No Hx Breast Surgery: No Hx Breast Biopsy: No Hx Abdominal Surgery: No Hx Appendectomy: No Hx Cholecystectomy: No Hx Genitourinary Surgery: No Hx Section: No Hx Orthopedic Surgery: No Other Surgical History: 1998 jaw fracture (braces/Wire) LEFT Anesthesia Reaction: No - PPD History Previous Implant?: Yes Documented Results: Negative w/proof Implanted On Prior [facility] Admission?: Yes Date: 01/15/17 Results: 0 mm PPD to be Administered?: No - Smoking Cessation Smoking history: Current every day smoker Have you smoked in the past 12 months: Yes Aproximately how many cigarettes per day: 20 Cigars Per Day: 0 Hx Chewing Tobacco Use: No Initiated information on smoking cessation: Yes 'Breaking Loose' booklet given: 12/04/17 - Substance & Tx. History Hx Alcohol Use: Yes Hx Substance Use: Yes Substance Use Type: Alcohol, Cocaine, Marijuana Hx Substance Use Treatment: Yes ([facility]) - Substances Abused VODKA Route: Oral Frequency: Daily Amount used: 1 LITER Age of first use: 15 Date of Last Use: 12/04/17 CRACK Route: Smoking Frequency: Daily Amount used: $100'S Age of first use: 28 Date of Last Use: 12/04/17 THC Route: Smoking Frequency: 1-3 times last 30 days Amount used: 1 JOINT Age of first use: 10 Date of Last Use: 12/03/17 Family Disease History - Family Disease History Family Disease History: Other: Father (Used Alcohol. .), Mother ( Seizures. .), Brother (two - living - healthy), Sister (two ( one HIV, one murdered)), Son (three - healthy), Daughter (three - healthy) Admission Physical Exam [facility] - Physical General Appearance: Yes: Appropriately Dressed, Tremorous, Anxious HEENTM: Yes: EOMI, Normocephalic, Normal Voice, PRISCILLA, Pharynx Normal, Other ( POOR DENTITON/MISSING TEETH) Respiratory: Yes: Chest Non-Tender, Lungs Clear, Normal Breath Sounds, No Respiratory Distress, No Accessory Muscle Use Neck: Yes: No masses,lesions,Nodules, Supple, Trachea in good position Breast: Yes: Breast Exam Deferred Cardiology: Yes: Regular Rhythm, Regular Rate, S1, S2 Abdominal: Yes: Normal Bowel Sounds, Non Tender, Flat, Soft Genitourinary: Yes: Within Normal Limits Back: Yes: Normal Inspection Musculoskeletal: Yes: full range of Motion, Gait Steady Extremities: Yes: Normal Range of Motion, Non-Tender, Tremors Neurological: Yes: Fully Oriented, Alert, Motor Strength 5/5, Depressed Affect Integumentary: Yes: Dry, Warm Lymphatic: Yes: Within Normal Limits - Diagnostic (1) Alcohol dependence with uncomplicated withdrawal Current Visit: Yes Status: Acute (2) Cocaine dependence, uncomplicated Current Visit: Yes Status: Chronic (3) Depressed affect Current Visit: Yes Status: Suspected (4) Nicotine dependence Current Visit: Yes Status: Chronic Qualifiers: Nicotine product type: cigarettes Substance use status: in withdrawal Qualified Code(s): F17.213 - Nicotine dependence, cigarettes, with withdrawal (5) Substance induced mood disorder Current Visit: Yes Status: Suspected (6) Schizoaffective disorder Current Visit: Yes Status: Chronic Qualifiers: Schizoaffective disorder type: bipolar Qualified Code(s): F25.0 - Schizoaffective disorder, bipolar type Comment: By history.Non-adherent to medications. Cleared for Admission S - Detox or Rehab [facility] Level of Care: Medically Managed Detox Regimen/Protocol: Garciaium Claeared for Rehab Admission: No BHS Breath Alcohol Content Breath Alcohol Content: 0
[2017-12-04] MEDS ORDERED: hydrOXYzine PAMOATE 50 MG CAPSULE (FP) PO PRN (22:55)
[2017-12-04] MEDS ORDERED: NICOTINE POLACRILEX 2 MG GUM BC PRN (22:55)
[2017-12-04] MEDS ORDERED: MAG HYDROX/AL HYDROX/SIMETH 30 ML UNIT-DOSE CUP PO PRN (22:55)
[2017-12-04] MEDS ORDERED: chlordiazePOXIDE HCL 25 MG CAPSULE PO PRN (22:55)
[2017-12-04] MEDS ORDERED: P-EPHED 60MG/TRIPROLIDI 2.5MG TABLET PO PRN (22:55)
[2017-12-04] MEDS ORDERED: LOPERAMIDE HCL 2 MG CAPSULE PO PRN (22:55)
[2017-12-04] MEDS ORDERED: MAGNESIUM CITRATE 300 ML BOTTLE PO PRN (22:55)
[2017-12-04] MEDS ORDERED: IBUPROFEN 400 MG TABLET (FP) PO PRN (22:55)
[2017-12-04] MEDS ORDERED: MENTHOL/PHENOL 1 EACH UD MM PRN (22:55)
[2017-12-04] MEDS ORDERED: MAGNESIUM HYDROX 2400MG/30ML ORAL SUSPENSION 30 ML CUP PO PRN (22:55)
[2017-12-04] MEDS ORDERED: guaiFENesin/D-METHORPHAN HB 10 ML UNIT-DOSE CUPS PO PRN (22:55)
[2017-12-04 23:15] VITALS: BMI 23.7
[2017-12-05] MEDS: chlordiazePOXIDE HCL 25 MG CAPSULE PO SCH ×5 (01:37→23:00)
[2017-12-05 09:56] LABS: HEMATOCRIT 37.2 % (35.4-49); HEMOGLOBIN 12.7 GM/dL (11.7-16.9); MEAN CELL VOLUME 94.1 fl (80-96); MEAN PLT VOLUME 9.2 fl (7.5-11.1); PLATELET COUNT 205 K/MM3 (134-434); RBC 3.95 M/mm3 (4.00-5.60); WHITE BLOOD COUNT 6.9 K/mm3 (4.0-10.0)
[2017-12-05] MEDS: PRENATAL VITAMINS W/ FOLIC ACID TABLET (FP) PO SCH (10:11)
[2017-12-05] MEDS: NICOTINE 21 MG/24 HOURS TOPICAL PATCH TD SCH (10:24)
[2017-12-05 10:45] LABS: ALBUMIN 3.5 g/dl (3.4-5.0); ANION GAP 7 (8-16); BLOOD UREA NITROGEN 15 mg/dL (7-18); CALCIUM 8.6 mg/dL (8.5-10.1); CHLORIDE 107 mmol/L (98-107); CO2 28 mmol/L (21-32); GLUCOSE,RANDOM 92 mg/dL (74-106); SGOT/AST 42 U/L (15-37); SGPT/ALT 49 U/L (12-78); SODIUM 142 mmol/L (136-145)
[2017-12-05 10:47] LABS: ALK PHOS 68 U/L (45-117); BILIRUBIN,TOTAL 0.5 mg/dL (0.2-1.0); TOT PROT 6.2 g/dl (6.4-8.2)
--- NOTE | 2017-12-05 11:44 | PN ---
S CIWA - CIWA Score Nausea/Vomitin-No Nausea/No Vomiting Muscle Tremors: None Anxiety: 4-Mod. Anxious/Guarded Agitation: 2 Paroxysmal Sweats: 3 Orientation: 0-Oriented Tacttile Disturbances: 2-Mild Itch/Numbness/Burn Auditory Disturbances: 0-None Visual Disturbances: 2-Mild Sensitivity Headache: 3-Moderate CIWA-Ar Total Score: 16 BHS Progress Note (SOAP) Subjective: Fatigue, Anxious, H/A. Objective: PATIENT A & O X 3. NO ACUTE DISTRESS. 12/05/17 11:42 Vital Signs Temperature 97.4 F L 12/05/17 09:45 Pulse Rate 74 12/05/17 09:45 Respiratory Rate 16 12/05/17 09:45 Blood Pressure 100/60 12/05/17 09:45 O2 Sat by Pulse Oximetry (%) Laboratory Tests 12/05/17 12/05/17 07:40 07:40 WBC 6.9 RBC 3.95 L Hgb 12.7 Hct 37.2 MCV 94.1 MCH 32.0 MCHC 34.0 RDW 13.0 Plt Count 205 D MPV 9.2 Sodium 142 Potassium 4.0 Chloride 107 Carbon Dioxide 28 Anion Gap 7 L BUN 15 Creatinine 1.0 Creat Clearance w eGFR > 60 Random Glucose 92 D Calcium 8.6 Total Bilirubin 0.5 AST 42 H D ALT 49 Alkaline Phosphatase 68 Total Protein 6.2 L Albumin 3.5 LABS NOTED. RPR, UA RESULTS PENDING. 12/05/17 11:44 Assessment: 12/05/17 11:43 WITHDRAWAL SYMPTOMS. Plan: CONTINUE DETOX.
--- NOTE | 2017-12-05 17:04 | CONSULT ---
[facility] Psychiatric Consult - Data Date of interview: 12/05/17 Admission source: [facility] Identifying data: Approached this patient at bedside for the requested psychiatric evaluation.Mr Oviedo leni." Leave me alone.I am getting my rest.Go away." Nursing staff is made aware.
[2017-12-05] MEDS: ACETAMINOPHEN 325 MG TABLET (FP) PO PRN (17:33)
[2017-12-05 17:53] LABS: URINE APPEARANCE TURBID; URINE BILIRUBIN NEGATIVE (<2.0 mg/dL); URINE COLOR AMBER; URINE GLUCOSE (UA) 2+ (NEGATIVE); URINE KETONE NEGATIVE (NEGATIVE); URINE LEUK ESTERASE NEGATIVE (NEGATIVE); URINE NITRITE NEGATIVE (NEGATIVE); URINE PROTEIN NEGATIVE (NEGATIVE); URINE UROBILINOGEN NEGATIVE mg/dL (0.2-1.0)
[2017-12-05] MEDS: THIAMINE HCL 100 MG TABLET (FP) PO SCH (23:00)
[2017-12-06] MEDS: chlordiazePOXIDE HCL 25 MG CAPSULE PO SCH ×3 (05:30→18:30)
--- NOTE | 2017-12-06 09:03 | EKG ---
Test Reason : Blood Pressure : / mmHG Vent. Rate : 082 BPM Atrial Rate : 082 BPM P-R Int : 120 ms QRS Dur : 090 ms QT Int : 378 ms P-R-T Axes : 075 036 040 degrees QTc Int : 441 ms NORMAL SINUS RHYTHM POSSIBLE LEFT ATRIAL ENLARGEMENT BORDERLINE ECG WHEN COMPARED WITH ECG OF 01-NOV-2017 13:23, MS INTERVAL HAS INCREASED Confirmed by ELAINA MORATAYA, KORY ([id number]) on 12/06/2017 9:02:49 AM Referred By: Confirmed By:KORY DELANEY MD
[2017-12-06] MEDS: NICOTINE 21 MG/24 HOURS TOPICAL PATCH TD SCH (11:02)
[2017-12-06] MEDS: PRENATAL VITAMINS W/ FOLIC ACID TABLET (FP) PO SCH (11:03)
[2017-12-06] MEDS: BACITRACIN 0.9 GM PACKET TP SCH ×2 (12:19→22:57)
--- NOTE | 2017-12-06 16:20 | PN ---
[facility] CIWA - CIWA Score Nausea/Vomitin-No Nausea/No Vomiting Muscle Tremors: None Anxiety: 4-Mod. Anxious/Guarded Agitation: 4-Moderately Restless Paroxysmal Sweats: 2 Orientation: 0-Oriented Tacttile Disturbances: 3-Moderate Itch/Numb/Burn Auditory Disturbances: 0-None Visual Disturbances: 0-None Headache: 0-None Present CIWA-Ar Total Score: 13 BHS Progress Note (SOAP) Subjective: Anxious, Sweating, Body Aches. Objective: PATIENT A & O X 3, OBSERVED AMBULATING ON UNIT. NO ACUTE DISTRESS. 12/06/17 16:21 Vital Signs Temperature 98.6 F 12/06/17 14:13 Pulse Rate 80 12/06/17 14:13 Respiratory Rate 18 12/06/17 14:13 Blood Pressure 110/76 12/06/17 14:13 O2 Sat by Pulse Oximetry (%) Laboratory Tests 12/05/17 12/05/17 12/05/17 07:40 07:40 07:40 WBC 6.9 RBC 3.95 L Hgb 12.7 Hct 37.2 MCV 94.1 MCH 32.0 MCHC 34.0 RDW 13.0 Plt Count 205 D MPV 9.2 Sodium 142 Potassium 4.0 Chloride 107 Carbon Dioxide 28 Anion Gap 7 L BUN 15 Creatinine 1.0 Creat Clearance w eGFR > 60 Random Glucose 92 D Calcium 8.6 Total Bilirubin 0.5 AST 42 H D ALT 49 Alkaline Phosphatase 68 Total Protein 6.2 L Albumin 3.5 Urine Color Urine Appearance Urine pH Ur Specific [place] Urine Protein Urine Glucose (UA) Urine Ketones Urine Blood Urine Nitrite Urine Bilirubin Urine Urobilinogen Ur Leukocyte Esterase RPR Titer Nonreactive 12/05/17 15:26 WBC RBC Hgb Hct MCV MCH MCHC RDW Plt Count MPV Sodium Potassium Chloride Carbon Dioxide Anion Gap BUN Creatinine Creat Clearance w eGFR Random Glucose Calcium Total Bilirubin AST ALT Alkaline Phosphatase Total Protein Albumin Urine Color Magy Urine Appearance Turbid Urine pH 5.0 Ur Specific [place] 1.028 Urine Protein Negative Urine Glucose (UA) 2+ H Urine Ketones Negative Urine Blood Negative Urine Nitrite Negative Urine Bilirubin Negative Urine Urobilinogen Negative Ur Leukocyte Esterase Negative RPR Titer labs noted. Assessment: 12/06/17 16:21 WITHDRAWAL SYMPTOMS. Plan: CONTINUE DETOX.
[2017-12-06] MEDS: chlordiazePOXIDE 5 MG CAPSULE PO SCH (22:57)
[2017-12-06] MEDS: THIAMINE HCL 100 MG TABLET (FP) PO SCH (22:57)
[2017-12-07] MEDS: chlordiazePOXIDE 5 MG CAPSULE PO SCH ×3 (06:44→17:37)
[2017-12-07] MEDS: PRENATAL VITAMINS W/ FOLIC ACID TABLET (FP) PO SCH (10:46)
[2017-12-07] MEDS: BACITRACIN 0.9 GM PACKET TP SCH ×2 (10:46→22:06)
[2017-12-07] MEDS: NICOTINE 21 MG/24 HOURS TOPICAL PATCH TD SCH (10:46)
[2017-12-07] MEDS ORDERED: BACITRACIN 15 GM TUBE TOPICAL OINTMENT TP ONE (11:11)
--- NOTE | 2017-12-07 12:50 | PN ---
S Progress Note (SOAP) Subjective: Anxious, interrupted sleep Objective: 12/07/17 12:45 Last Vital Signs Temp Pulse Resp BP Pulse Ox 95.0 F L 63 18 90/51 12/07/17 10:11 12/07/17 10:11 12/07/17 10:11 12/07/17 10:11 Hypotension noted: encouraged PO hydration (water) Laboratory Tests 12/05/17 12/05/17 12/05/17 07:40 07:40 07:40 WBC 6.9 RBC 3.95 L Hgb 12.7 Hct 37.2 MCV 94.1 MCH 32.0 MCHC 34.0 RDW 13.0 Plt Count 205 D MPV 9.2 Sodium 142 Potassium 4.0 Chloride 107 Carbon Dioxide 28 Anion Gap 7 L BUN 15 Creatinine 1.0 Creat Clearance w eGFR > 60 Random Glucose 92 D Calcium 8.6 Total Bilirubin 0.5 AST 42 H D ALT 49 Alkaline Phosphatase 68 Total Protein 6.2 L Albumin 3.5 Urine Color Urine Appearance Urine pH Ur Specific [place] Urine Protein Urine Glucose (UA) Urine Ketones Urine Blood Urine Nitrite Urine Bilirubin Urine Urobilinogen Ur Leukocyte Esterase RPR Titer Nonreactive 12/05/17 15:26 WBC RBC Hgb Hct MCV MCH MCHC RDW Plt Count MPV Sodium Potassium Chloride Carbon Dioxide Anion Gap BUN Creatinine Creat Clearance w eGFR Random Glucose Calcium Total Bilirubin AST ALT Alkaline Phosphatase Total Protein Albumin Urine Color Magy Urine Appearance Turbid Urine pH 5.0 Ur Specific [place] 1.028 Urine Protein Negative Urine Glucose (UA) 2+ H Urine Ketones Negative Urine Blood Negative Urine Nitrite Negative Urine Bilirubin Negative Urine Urobilinogen Negative Ur Leukocyte Esterase Negative RPR Titer Labs reviewed: glycosuria noted Assessment: 12/07/17 12:47 Withdrawal symptoms Noted with hypotension and glycosuria Plan: Continue detox Hypotension: encouraged to drink more water for hydration Glycosuria: repeat UA
--- NOTE | 2017-12-07 18:25 | PN ---
[facility] Progress Note Note: patient would like to go home today stated he is feeling all right Vital Signs Temperature 97.4 F L 12/07/17 14:29 Pulse Rate 68 12/07/17 14:29 Respiratory Rate 18 12/07/17 14:29 Blood Pressure 104/65 12/07/17 14:29 O2 Sat by Pulse Oximetry (%) stable for discharge follow up with after care program as arrangement
--- NOTE | 2017-12-07 18:26 | DS ---
[facility] Detox Discharge Summary Admission Date: 12/04/17 Discharge Date: 12/07/17 - History Present History: Alcohol Dependence, Cocaine Dependence Pertinent Past History: nicotine dependence - Physical Exam Results Vital Signs: Vital Signs Temperature 97.4 F L 12/07/17 14:29 Pulse Rate 68 12/07/17 14:29 Respiratory Rate 18 12/07/17 14:29 Blood Pressure 104/65 12/07/17 14:29 O2 Sat by Pulse Oximetry (%) - Medication Discharge Medications: Ambulatory Orders NK [No Known Home Medication] 03/06/17
--- NOTE | 2017-12-07 18:31 | PN ---
[facility] Progress Note Note: patient changed his mind did not want to leave today,continue detox
[2017-12-07] MEDS: chlordiazePOXIDE HCL 10 MG CAPSULE PO SCH (22:05)
[2017-12-07] MEDS: THIAMINE HCL 100 MG TABLET (FP) PO SCH (22:06)
[2017-12-07] MEDS: ACETAMINOPHEN 325 MG TABLET (FP) PO PRN (22:06)
[2017-12-08] MEDS: chlordiazePOXIDE HCL 10 MG CAPSULE PO SCH (05:32)
[2017-12-08 06:24] VITALS: BP 90/58; PULSE 62; TEMP 97.6
--- NOTE | 2017-12-08 16:47 | PN ---
[facility] Progress Note (SOAP) Subjective: DETOX COMPLETED. ALERT O X3. NAD. PT REPORTS HE GOES TO [facility] FOR HIS MEDICAL CARE. Objective: 12/08/17 16:46 Vital Signs - 24 hr 12/07/17 12/07/17 12/08/17 18:00 21:27 06:23 Temperature 98.7 F 97.3 F L 97.6 F Pulse Rate 67 65 62 Respiratory 18 18 18 Rate Blood Pressure 114/63 96/61 90/58 Laboratory Tests 12/05/17 12/05/17 12/05/17 07:40 07:40 07:40 WBC 6.9 RBC 3.95 L Hgb 12.7 Hct 37.2 MCV 94.1 MCH 32.0 MCHC 34.0 RDW 13.0 Plt Count 205 D MPV 9.2 Sodium 142 Potassium 4.0 Chloride 107 Carbon Dioxide 28 Anion Gap 7 L BUN 15 Creatinine 1.0 Creat Clearance w eGFR > 60 Random Glucose 92 D Calcium 8.6 Total Bilirubin 0.5 AST 42 H D ALT 49 Alkaline Phosphatase 68 Total Protein 6.2 L Albumin 3.5 Urine Color Urine Appearance Urine pH Ur Specific [place] Urine Protein Urine Glucose (UA) Urine Ketones Urine Blood Urine Nitrite Urine Bilirubin Urine Urobilinogen Ur Leukocyte Esterase RPR Titer Nonreactive 12/05/17 15:26 WBC RBC Hgb Hct MCV MCH MCHC RDW Plt Count MPV Sodium Potassium Chloride Carbon Dioxide Anion Gap BUN Creatinine Creat Clearance w eGFR Random Glucose Calcium Total Bilirubin AST ALT Alkaline Phosphatase Total Protein Albumin Urine Color Magy Urine Appearance Turbid Urine pH 5.0 Ur Specific [place] 1.028 Urine Protein Negative Urine Glucose (UA) 2+ H Urine Ketones Negative Urine Blood Negative Urine Nitrite Negative Urine Bilirubin Negative Urine Urobilinogen Negative Ur Leukocyte Esterase Negative RPR Titer Assessment: 12/08/17 16:46 MEDICALLY STABLE Plan: D/C PT TODAY
--- NOTE | 2017-12-08 16:48 | DS ---
[facility] Detox Discharge Summary Admission Date: 12/04/17 Discharge Date: 12/08/17 - History Present History: Alcohol Dependence Additional Comments: DETOX COMPLETED. ALERT OX 3, NAD. Pertinent Past History: PLEASE SEE DX BELOW - Physical Exam Results Vital Signs: Vital Signs Temperature 97.6 F 12/08/17 06:23 Pulse Rate 62 12/08/17 06:23 Respiratory Rate 18 12/08/17 06:23 Blood Pressure 90/58 12/08/17 06:23 O2 Sat by Pulse Oximetry (%) Pertinent Admission Physical Exam Findings: WITHDRAWAL SX - Treatment Hospital Course: Detox Protocol Followed, Detoxed Safely, Responded well, Discharged Condition Good - Medication Discharge Medications: Ambulatory Orders NK [No Known Home Medication] 03/06/17 - Diagnosis (1) Alcohol dependence with uncomplicated withdrawal Status: Acute (2) Cocaine dependence, uncomplicated Status: Chronic (3) Nicotine dependence Status: Acute Qualifiers: Nicotine product type: cigarettes Substance use status: in withdrawal Qualified Code(s): F17.213 - Nicotine dependence, cigarettes, with withdrawal (4) Cannabis dependence, uncomplicated Status: Acute - AMA Did Patient Leave Against Medical Advice: No
== END 2017-12-08 09:05 | disposition home or self-care (01) | DRG 774 ==
LOC: YASAS 22:30 → Y3N 23:15
PROVIDERS: ADMIT Surgery; ATTEND Surgery
PROC: HZ2ZZZZ Detoxification Services for Substance Abuse Treatment (ICD-10-PCS; principal; 2017-12-04)
DX: F10.230 Alcohol dependence with withdrawal, uncomplicated (principal); F14.20 Cocaine dependence, uncomplicated; F12.20 Cannabis dependence, uncomplicated; F17.213 Nicotine dependence, cigarettes, with withdrawal; F25.0 Schizoaffective disorder, bipolar type; F32.9 Major depressive disorder, single episode, unspecified; F19.24 Other psychoactive substance dependence with psychoactive substance-induced mood disorder; I95.9 Hypotension, unspecified; R81 Glycosuria
CPT/HCPCS: 36415; 80053; 81003; 85027; 86593; 93005; 93010

== ENCOUNTER 2018-02-06 14:26 | Inpatient (IN) | payer OTHER ==
[2018-02-06 15:21] VITALS: BMI 24.0
--- NOTE | 2018-02-06 18:31 | HP ---
"CIWA Score - CIWA Score Nausea/Vomitin-No Nausea/No Vomiting Muscle Tremors: 3 Anxiety: 3 Agitation: 1-Slight > Activity Paroxysmal Sweats: 3 (facial moisture w/o beading) Orientation: 0-Oriented Tacttile Disturbances: 0-None Auditory Disturbances: 0-None Visual Disturbances: 0-None Headache: 0-None Present CIWA-Ar Total Score: 10 Admission ROS S - HPI Chief Complaint: Here for alcohol withdrawal. Allergies/Adverse Reactions: Allergies Allergy/AdvReac Type Severity Reaction Status Date / Time No Known Allergies Allergy Verified 02/06/18 16:14 History of Present Illness: Having alcohol withdrawal and I need detox. Alcohol use began at age 13. Hx crack/cocaine use since age 28. Marijuana use at age 10. Denies benzo use. States probably in the cocaine. Denies hx seizures or blackouts. Nicotine use since age 13. Daily use until 1 week ago when stopped smoking. Longest length of sobriety only while in rehab. Search Terms: Cesar Oviedo, 1975 Search Date: 02/06/2018 06:30:38 PM The Drug Utilization Report below displays all of the controlled substance prescriptions, if any, that your patient has filled in the last twelve months. The information displayed on this report is compiled from pharmacy submissions to the Department, and accurately reflects the information as submitted by the pharmacies. This report was requested by: Holly Win | Reference #: [id number] There are no results for the search terms that you entered. Exam Limitations: No Limitations - Ebola screening Have you traveled outside of the country in the last 21 days: No Have you had contact with anyone from an Ebola affected area: No Have you been sick,other than usual withdrawal symptoms: No Do you have a fever: No - Review of Systems Constitutional: No Symptoms Reported EENT: reports: No Symptoms Reported Respiratory: reports: Cough (x 3 days. Bringing up grayish mucous. Denies chest pain. SOB.) Cardiac: reports: No Symptoms Reported GI: reports: No Symptoms Reported : reports: No Symptoms Reported Musculoskeletal: reports: No Symptoms Reported Integumentary: reports: No Symptoms Reported Neuro: reports: Tremors (mild) Endocrine: reports: No Symptoms Reported Hematology: reports: No Symptoms Reported Psychiatric: reports: Judgement Intact (Denies thoughts of harming self or others.), Orientated x3, Agitated, Anxious Patient History - Patient Medical History Hx Anemia: No Hx Asthma: No Hx Chronic Obstructive Pulmonary Disease (COPD): No Hx Cancer: No Hx Cardiac Disorders: No Hx Congestive Heart Failure: No Hx Hypertension: No Hx Hypercholesterolemia: No Hx Pacemaker: No HX Cerebrovascular Accident: No Hx Seizures: No Hx Dementia: No Hx Diabetes: No Hx Gastrointestinal Disorders: No Hx Liver Disease: No Hx Genitourinary Disorders: No Hx Sexually Transmitted Disorders: No Hx Renal Disease (ESRD): No Hx Thyroid Disease: No Hx Human Immunodeficiency Virus (HIV): No Hx Hepatitis C: No Hx Depression: No Hx Suicide Attempt: No Hx Bipolar Disorder: No Hx Schizophrenia: No - Patient Surgical History Past Surgical History: No Hx Neurologic Surgery: No Hx Cataract Extraction: No Hx Cardiac Surgery: No Hx Lung Surgery: No Hx Breast Surgery: No Hx Breast Biopsy: No Hx Abdominal Surgery: No Hx Appendectomy: No Hx Cholecystectomy: No Hx Genitourinary Surgery: No Hx Section: No Hx Orthopedic Surgery: No Other Surgical History: fx, left mandible in 1998 Anesthesia Reaction: No - PPD History Previous Implant?: Yes Documented Results: Negative w/o proof Implanted On Prior R Admission?: Yes Date: 01/15/17 Results: 0 mm PPD to be Administered?: Yes - Smoking Cessation Smoking history: Former smoker Have you smoked in the past 12 months: Yes Aproximately how many cigarettes per day: 20 If you are a former smoker, when did you quit?: 01/30/2018 Cigars Per Day: 0 Hx Chewing Tobacco Use: No Initiated information on smoking cessation: Yes 'Breaking Loose' booklet given: 02/06/18 - Substance & Tx. History Hx Alcohol Use: Yes Hx Substance Use: Yes Substance Use Type: Alcohol, Cocaine, Marijuana Hx Substance Use Treatment: Yes (Multiple detox and rehabs) - Substances Abused Alcohol Route: Oral Frequency: Daily Amount used: 1 LITER OF VODKA 2XWEEKLY AND 64OZ OF BEER DAILY Age of first use: 13 Date of Last Use: 02/06/18 (1 am) Marijuana/Hashish Route: Smoking Frequency: 1-2 times per week Amount used: 1 BAG Age of first use: 10 Date of Last Use: 02/05/18 (10 pm) Cocaine Route: Smoking Frequency: Daily Amount used: $100 Age of first use: 28 Date of Last Use: 02/05/18 ( 9 pm) Family Disease History - Family Disease History Family Disease History: Other: Father (Used Alcohol. .), Mother ( Seizures. .), Brother (two - living - healthy), Sister (two ( one HIV, one murdered)), Son (three - healthy), Daughter (three - healthy) Admission Physical Exam [facility] - Vital Signs Vital Signs: Vital Signs - 24 hr 02/06/18 15:18 Temperature 97.7 F Pulse Rate 72 Respiratory 17 Rate Blood Pressure 119/63 - Physical General Appearance: Yes: Nourished, Appropriately Dressed, Mild Distress, Tremorous, Sweating (Facial moisture w/o beading), Anxious HEENTM: Yes: EOMI (Slight jumping on lateral gaze), Hearing grossly Normal, Normocephalic, Normal Voice, PRISCILLA Respiratory: Yes: Lungs Clear, Normal Breath Sounds, No Respiratory Distress, Other (Noisy cough productive of whitish phlegm) Neck: Yes: No masses,lesions,Nodules, Supple Breast: Yes: Breast Exam Deferred Cardiology: Yes: Regular Rhythm, Regular Rate, S1, S2 Abdominal: Yes: Normal Bowel Sounds, Non Tender, Soft Genitourinary: Yes: Within Normal Limits Back: Yes: Normal Inspection Musculoskeletal: Yes: full range of Motion Extremities: Yes: Normal Capillary Refill, Normal Range of Motion, Tremors ( Mild tremors of hands felt and increased when arms elevated) Neurological: Yes: trimmer sawyer II-XII NML intact, Fully Oriented, Alert, Motor Strength 5/5, Normal Mood/Affect Integumentary: Yes: Normal Color, Dry, Warm, Moist (Facial moisture w/o beading) Lymphatic: Yes: Within Normal Limits - Diagnostic (1) Nicotine dependence, cigarettes, in remission Current Visit: Yes Status: Acute (2) Cannabis dependence, uncomplicated Current Visit: Yes Status: Chronic (3) Alcohol dependence with uncomplicated withdrawal Current Visit: Yes Status: Acute (4) Cocaine dependence, uncomplicated Current Visit: Yes Status: Chronic (5) Cough Current Visit: Yes Status: Acute (6) Nystagmus Current Visit: Yes Status: Acute Cleared for Admission [facility] - Detox or Rehab [facility] Level of Care: Medically Supervised Detox Regimen/Protocol: Librium [facility] Breath Alcohol Content Breath Alcohol Content: 0 Urine Drug Screen - Results Drug Screen Negative: No Urine Drug Screen Results: THC-Marijuana, JACKELINE-Cocaine, BZO-Benzodiazepines"
[2018-02-06] MEDS ORDERED: MAG HYDROX/AL HYDROX/SIMETH 30 ML UNIT-DOSE CUP PO PRN (18:51)
[2018-02-06] MEDS ORDERED: P-EPHED 60MG/TRIPROLIDI 2.5MG TABLET PO PRN (18:51)
[2018-02-06] MEDS ORDERED: chlordiazePOXIDE HCL 25 MG CAPSULE PO PRN (18:51)
[2018-02-06] MEDS ORDERED: IBUPROFEN 400 MG TABLET (FP) PO PRN (18:51)
[2018-02-06] MEDS ORDERED: MAGNESIUM CITRATE 300 ML BOTTLE PO PRN (18:51)
[2018-02-06] MEDS ORDERED: ACETAMINOPHEN 325 MG TABLET (FP) PO PRN (18:51)
[2018-02-06] MEDS ORDERED: LOPERAMIDE HCL 2 MG CAPSULE PO PRN (18:51)
[2018-02-06] MEDS ORDERED: MAGNESIUM HYDROX 2400MG/30ML ORAL SUSPENSION 30 ML CUP PO PRN (18:51)
[2018-02-06] MEDS ORDERED: hydrOXYzine PAMOATE 50 MG CAPSULE (FP) PO PRN (18:51)
[2018-02-06] MEDS ORDERED: NICOTINE POLACRILEX 2 MG GUM BC PRN (18:51)
[2018-02-06] MEDS ORDERED: MENTHOL/PHENOL 1 EACH UD MM PRN (18:51)
[2018-02-06] MEDS ORDERED: chlordiazePOXIDE HCL 25 MG CAPSULE PO ONE (20:00)
[2018-02-06] MEDS ORDERED: MELATONIN 5 MG TABLETS PO PRN (22:00)
[2018-02-06] MEDS: THIAMINE HCL 100 MG TABLET (FP) PO SCH (23:08)
[2018-02-06] MEDS: chlordiazePOXIDE HCL 25 MG CAPSULE PO SCH (23:08)
[2018-02-07] MEDS: chlordiazePOXIDE HCL 25 MG CAPSULE PO SCH ×4 (06:20→23:02)
[2018-02-07 10:07] LABS: HEMATOCRIT 39.8 % (35.4-49); HEMOGLOBIN 12.9 GM/dL (11.7-16.9); MCH 30.6 pg (25.7-33.7); MCHC 32.4 g/dl (32.0-35.9); MEAN CELL VOLUME 94.2 fl (80-96); MEAN PLT VOLUME 8.8 fl (7.5-11.1); PLATELET COUNT 207 K/MM3 (134-434); RBC 4.22 M/mm3 (4.00-5.60); RDW 12.6 % (11.9-15.9); WHITE BLOOD COUNT 4.7 K/mm3 (4.0-10.0)
[2018-02-07 10:44] LABS: URINE APPEARANCE CLEAR; URINE BILIRUBIN NEGATIVE (<2.0 mg/dL); URINE COLOR YELLOW; URINE GLUCOSE (UA) 3+ (NEGATIVE); URINE KETONE NEGATIVE (NEGATIVE); URINE LEUK ESTERASE NEGATIVE (NEGATIVE); URINE NITRITE NEGATIVE (NEGATIVE); URINE PROTEIN NEGATIVE (NEGATIVE)
[2018-02-07] MEDS: PRENATAL VITAMINS W/ FOLIC ACID TABLET (FP) PO SCH (10:55)
[2018-02-07 10:58] LABS: ALBUMIN 3.3 g/dl (3.4-5.0); ALK PHOS 67 U/L (45-117); ANION GAP 6 MMOL/L (8-16); BILIRUBIN,TOTAL 0.3 mg/dL (0.2-1); BLOOD UREA NITROGEN 7 mg/dL (7-18); CALCIUM 8.3 mg/dL (8.5-10.1); CHLORIDE 109 mmol/L (98-107); CO2 27 mmol/L (21-32); CREATININE 0.9 mg/dL (0.55-1.3); GLUCOSE,RANDOM 102 mg/dL (74-106); SGOT/AST 16 U/L (15-37); SGPT/ALT 22 U/L (13-61); SODIUM 142 mmol/L (136-145); TOT PROT 6.3 g/dl (6.4-8.2)
--- NOTE | 2018-02-07 13:19 | PN ---
S CIWA - CIWA Score Nausea/Vomitin-No Nausea/No Vomiting Muscle Tremors: None Anxiety: 4-Mod. Anxious/Guarded Agitation: 5 Paroxysmal Sweats: No Perspiration Orientation: 0-Oriented Tacttile Disturbances: 0-None Auditory Disturbances: 0-None Visual Disturbances: 0-None Headache: 3-Moderate CIWA-Ar Total Score: 12 BHS Progress Note (SOAP) Subjective: PATIENT IRRITABLE AND RESTLESS DURING VISIT. PATIENT STATES "I WANT TO BE LEFT ALONE!". REFUSED PHYSICAL EXAM Objective: 02/07/18 13:18 Vital Signs Temperature 97.7 F 02/07/18 10:37 Pulse Rate 64 02/07/18 10:37 Respiratory Rate 18 02/07/18 10:37 Blood Pressure 100/54 L 02/07/18 10:37 O2 Sat by Pulse Oximetry (%) Laboratory Tests 02/06/18 02/07/18 02/07/18 10:00 08:00 08:00 WBC 4.7 RBC 4.22 Hgb 12.9 Hct 39.8 MCV 94.2 MCH 30.6 MCHC 32.4 RDW 12.6 Plt Count 207 MPV 8.8 Sodium 142 Potassium 4.0 Chloride 109 H Carbon Dioxide 27 Anion Gap 6 L BUN 7 Creatinine 0.9 Creat Clearance w eGFR > 60 Random Glucose 102 Calcium 8.3 L Total Bilirubin 0.3 AST 16 ALT 22 Alkaline Phosphatase 67 Total Protein 6.3 L Albumin 3.3 L Urine Color Yellow Urine Appearance Clear Urine pH 7.0 D Ur Specific [place] 1.024 Urine Protein Negative Urine Glucose (UA) 3+ H Urine Ketones Negative Urine Blood Negative Urine Nitrite Negative Urine Bilirubin Negative Urine Urobilinogen 2.0 Ur Leukocyte Esterase Negative RPR Titer 02/07/18 08:00 WBC RBC Hgb Hct MCV MCH MCHC RDW Plt Count MPV Sodium Potassium Chloride Carbon Dioxide Anion Gap BUN Creatinine Creat Clearance w eGFR Random Glucose Calcium Total Bilirubin AST ALT Alkaline Phosphatase Total Protein Albumin Urine Color Urine Appearance Urine pH Ur Specific [place] Urine Protein Urine Glucose (UA) Urine Ketones Urine Blood Urine Nitrite Urine Bilirubin Urine Urobilinogen Ur Leukocyte Esterase RPR Titer Nonreactive REFUSED PE Assessment: 02/07/18 13:18 WITHDRAWAL SYNDROME Plan: CONTINUE DETOX PATIENT ENCOURAGED TO COMPLY WITH DETOX REGIMEN ORAL FLUIDS ENCOURAGED
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
--- NOTE | 2018-02-07 17:28 | EKG ---
Test Reason : Blood Pressure : / mmHG Vent. Rate : 059 BPM Atrial Rate : 059 BPM P-R Int : 116 ms QRS Dur : 078 ms QT Int : 388 ms P-R-T Axes : 061 043 046 degrees QTc Int : 384 ms SINUS BRADYCARDIA OTHERWISE NORMAL ECG WHEN COMPARED WITH ECG OF 18-DEC-2017 14:21, SINUS RHYTHM HAS REPLACED ECTOPIC ATRIAL RHYTHM QT HAS SHORTENED CLINICAL CORRELATION IS RECOMMENDED Confirmed by ADELAIDE MORATAYA, DEANGELO ([id number]) on 02/07/2018 5:28:16 PM Referred By: Confirmed By:DEANGELO BRYSON MD
[2018-02-07] MEDS: QUEtiapine FUMARATE 100 MG TABLET (FP) PO SCH (23:02)
[2018-02-07] MEDS: THIAMINE HCL 100 MG TABLET (FP) PO SCH (23:02)
[2018-02-08] MEDS: chlordiazePOXIDE HCL 25 MG CAPSULE PO SCH ×3 (07:50→18:19)
[2018-02-08] MEDS: PRENATAL VITAMINS W/ FOLIC ACID TABLET (FP) PO SCH (10:52)
[2018-02-08] MEDS: guaiFENesin/D-METHORPHAN HB 10 ML UNIT-DOSE CUPS PO PRN (11:55)
--- NOTE | 2018-02-08 13:16 | PN ---
S CIWA - CIWA Score Nausea/Vomitin-Mild Nausea/No Vomiting Muscle Tremors: 3 Anxiety: 2 Agitation: 2 Paroxysmal Sweats: 1-Minimal Palms Moist Orientation: 0-Oriented Tacttile Disturbances: 1-Very Mild Itch/Numbness Auditory Disturbances: 0-None Visual Disturbances: 0-None Headache: 0-None Present CIWA-Ar Total Score: 10 BHS Progress Note (SOAP) Subjective: sweat tremor trouble sleep at night low energy anxiety Objective: 02/08/18 13:21 Vital Signs Temperature 97.7 F 02/08/18 10:32 Pulse Rate 66 02/08/18 10:32 Respiratory Rate 18 02/08/18 10:32 Blood Pressure 100/50 L 02/08/18 10:32 O2 Sat by Pulse Oximetry (%) Laboratory Last Values WBC 4.7 K/mm3 (4.0-10.0) 02/07/18 08:00 RBC 4.22 M/mm3 (4.00-5.60) 02/07/18 08:00 Hgb 12.9 GM/dL (11.7-16.9) 02/07/18 08:00 Hct 39.8 % (35.4-49) 02/07/18 08:00 MCV 94.2 fl (80-96) 02/07/18 08:00 MCH 30.6 pg (25.7-33.7) 02/07/18 08:00 MCHC 32.4 g/dl (32.0-35.9) 02/07/18 08:00 RDW 12.6 % (11.9-15.9) 02/07/18 08:00 Plt Count 207 K/MM3 (134-434) 02/07/18 08:00 MPV 8.8 fl (7.5-11.1) 02/07/18 08:00 Sodium 142 mmol/L (136-145) 02/07/18 08:00 Potassium 4.0 mmol/L (3.5-5.1) 02/07/18 08:00 Chloride 109 mmol/L (98-107) H 02/07/18 08:00 Carbon Dioxide 27 mmol/L (21-32) 02/07/18 08:00 Anion Gap 6 MMOL/L (8-16) L 02/07/18 08:00 BUN 7 mg/dL (7-18) 02/07/18 08:00 Creatinine 0.9 mg/dL (0.55-1.3) 02/07/18 08:00 Creat Clearance w eGFR > 60 (>60) 02/07/18 08:00 Random Glucose 102 mg/dL (74-106) 02/07/18 08:00 Calcium 8.3 mg/dL (8.5-10.1) L 02/07/18 08:00 Total Bilirubin 0.3 mg/dL (0.2-1) 02/07/18 08:00 AST 16 U/L (15-37) 02/07/18 08:00 ALT 22 U/L (13-61) 02/07/18 08:00 Alkaline Phosphatase 67 U/L (45-117) 02/07/18 08:00 Total Protein 6.3 g/dl (6.4-8.2) L 02/07/18 08:00 Albumin 3.3 g/dl (3.4-5.0) L 02/07/18 08:00 Urine Color Yellow 02/06/18 10:00 Urine Appearance Clear 02/06/18 10:00 Urine pH 7.0 (5.0-8.0) D 02/06/18 10:00 Ur Specific [place] 1.024 (1.010-1.035) 02/06/18 10:00 Urine Protein Negative (NEGATIVE) 02/06/18 10:00 Urine Glucose (UA) 3+ (NEGATIVE) H 02/06/18 10:00 Urine Ketones Negative (NEGATIVE) 02/06/18 10:00 Urine Blood Negative (NEGATIVE) 02/06/18 10:00 Urine Nitrite Negative (NEGATIVE) 02/06/18 10:00 Urine Bilirubin Negative (<2.0 mg/dL) 02/06/18 10:00 Urine Urobilinogen 2.0 mg/dL (0.2-1.0) 02/06/18 10:00 Ur Leukocyte Esterase Negative (NEGATIVE) 02/06/18 10:00 RPR Titer Nonreactive (NONREACTIVE) 02/07/18 08:00 lab noted Assessment: 02/08/18 13:21 withdrawal sx Plan: continue detox
[2018-02-08] MEDS: chlordiazePOXIDE 5 MG CAPSULE PO SCH (23:10)
[2018-02-08] MEDS: QUEtiapine FUMARATE 100 MG TABLET (FP) PO SCH (23:10)
[2018-02-08] MEDS: THIAMINE HCL 100 MG TABLET (FP) PO SCH (23:12)
[2018-02-09] MEDS: chlordiazePOXIDE 5 MG CAPSULE PO SCH ×3 (05:57→18:09)
[2018-02-09] MEDS: guaiFENesin/D-METHORPHAN HB 10 ML UNIT-DOSE CUPS PO PRN ×2 (05:58→18:10)
[2018-02-09] MEDS: PRENATAL VITAMINS W/ FOLIC ACID TABLET (FP) PO SCH (10:40)
--- NOTE | 2018-02-09 16:49 | PN ---
BHS Progress Note (SOAP) Subjective: feeling better no tremor less sweat no gi distress Objective: 02/09/18 16:47 Vital Signs Temperature 98.8 F 02/09/18 13:20 Pulse Rate 73 02/09/18 13:20 Respiratory Rate 20 02/09/18 13:20 Blood Pressure 124/73 02/09/18 13:20 O2 Sat by Pulse Oximetry (%) Laboratory Last Values WBC 4.7 K/mm3 (4.0-10.0) 02/07/18 08:00 RBC 4.22 M/mm3 (4.00-5.60) 02/07/18 08:00 Hgb 12.9 GM/dL (11.7-16.9) 02/07/18 08:00 Hct 39.8 % (35.4-49) 02/07/18 08:00 MCV 94.2 fl (80-96) 02/07/18 08:00 MCH 30.6 pg (25.7-33.7) 02/07/18 08:00 MCHC 32.4 g/dl (32.0-35.9) 02/07/18 08:00 RDW 12.6 % (11.9-15.9) 02/07/18 08:00 Plt Count 207 K/MM3 (134-434) 02/07/18 08:00 MPV 8.8 fl (7.5-11.1) 02/07/18 08:00 Sodium 142 mmol/L (136-145) 02/07/18 08:00 Potassium 4.0 mmol/L (3.5-5.1) 02/07/18 08:00 Chloride 109 mmol/L (98-107) H 02/07/18 08:00 Carbon Dioxide 27 mmol/L (21-32) 02/07/18 08:00 Anion Gap 6 MMOL/L (8-16) L 02/07/18 08:00 BUN 7 mg/dL (7-18) 02/07/18 08:00 Creatinine 0.9 mg/dL (0.55-1.3) 02/07/18 08:00 Creat Clearance w eGFR > 60 (>60) 02/07/18 08:00 Random Glucose 102 mg/dL (74-106) 02/07/18 08:00 Calcium 8.3 mg/dL (8.5-10.1) L 02/07/18 08:00 Total Bilirubin 0.3 mg/dL (0.2-1) 02/07/18 08:00 AST 16 U/L (15-37) 02/07/18 08:00 ALT 22 U/L (13-61) 02/07/18 08:00 Alkaline Phosphatase 67 U/L (45-117) 02/07/18 08:00 Total Protein 6.3 g/dl (6.4-8.2) L 02/07/18 08:00 Albumin 3.3 g/dl (3.4-5.0) L 02/07/18 08:00 Urine Color Yellow 02/06/18 10:00 Urine Appearance Clear 02/06/18 10:00 Urine pH 7.0 (5.0-8.0) D 02/06/18 10:00 Ur Specific [place] 1.024 (1.010-1.035) 02/06/18 10:00 Urine Protein Negative (NEGATIVE) 02/06/18 10:00 Urine Glucose (UA) 3+ (NEGATIVE) H 02/06/18 10:00 Urine Ketones Negative (NEGATIVE) 02/06/18 10:00 Urine Blood Negative (NEGATIVE) 02/06/18 10:00 Urine Nitrite Negative (NEGATIVE) 02/06/18 10:00 Urine Bilirubin Negative (<2.0 mg/dL) 02/06/18 10:00 Urine Urobilinogen 2.0 mg/dL (0.2-1.0) 02/06/18 10:00 Ur Leukocyte Esterase Negative (NEGATIVE) 02/06/18 10:00 RPR Titer Nonreactive (NONREACTIVE) 02/07/18 08:00 lab noted Assessment: 02/09/18 16:48 mild withdrawal sx Plan: continue detox
[2018-02-09] MEDS: chlordiazePOXIDE HCL 10 MG CAPSULE PO SCH (22:12)
[2018-02-09] MEDS: QUEtiapine FUMARATE 100 MG TABLET (FP) PO SCH (22:12)
[2018-02-09] MEDS: THIAMINE HCL 100 MG TABLET (FP) PO SCH (22:12)
[2018-02-10] MEDS: chlordiazePOXIDE HCL 10 MG CAPSULE PO SCH ×3 (07:19→18:06)
--- NOTE | 2018-02-10 09:07 | DS ---
[facility] Detox Discharge Summary Admission Date: 02/06/18 Discharge Date: 02/10/18 - History Present History: Alcohol Dependence, Cannabis Dependence, Cocaine Dependence - Physical Exam Results Vital Signs: Vital Signs Temperature 97 F L 02/10/18 07:07 Pulse Rate 102 H 02/10/18 07:07 Respiratory Rate 20 02/10/18 07:07 Blood Pressure 115/54 L 02/10/18 07:07 O2 Sat by Pulse Oximetry (%) - Treatment Hospital Course: Detox Protocol Followed, Detoxed Safely, Responded well, Discharged Condition Good, Rehab Referral Accepted - Medication Discharge Medications: Ambulatory Orders NK [No Known Home Medication] 03/06/17 - Diagnosis (1) Alcohol dependence with uncomplicated withdrawal Current Visit: Yes Status: Chronic (2) Cannabis dependence, uncomplicated Current Visit: Yes Status: Chronic (3) Cocaine dependence, uncomplicated Current Visit: Yes Status: Chronic - AMA Did Patient Leave Against Medical Advice: No
[2018-02-10] MEDS: guaiFENesin/D-METHORPHAN HB 10 ML UNIT-DOSE CUPS PO PRN ×2 (09:53→22:20)
[2018-02-10] MEDS: PRENATAL VITAMINS W/ FOLIC ACID TABLET (FP) PO SCH (10:25)
--- NOTE | 2018-02-10 16:01 | PN ---
BHS Progress Note (SOAP) Subjective: patient stated that he experience alcohol withdrawal feeling anxiousness restlessness, moist skin, visible tremor pel to sitting still, atient is unab Objective: 02/10/18 16:00 Vital Signs Temperature 98.3 F 02/10/18 14:58 Pulse Rate 63 02/10/18 14:58 Respiratory Rate 16 02/10/18 14:58 Blood Pressure 103/48 L 02/10/18 14:58 O2 Sat by Pulse Oximetry (%) Laboratory Last Values WBC 4.7 K/mm3 (4.0-10.0) 02/07/18 08:00 RBC 4.22 M/mm3 (4.00-5.60) 02/07/18 08:00 Hgb 12.9 GM/dL (11.7-16.9) 02/07/18 08:00 Hct 39.8 % (35.4-49) 02/07/18 08:00 MCV 94.2 fl (80-96) 02/07/18 08:00 MCH 30.6 pg (25.7-33.7) 02/07/18 08:00 MCHC 32.4 g/dl (32.0-35.9) 02/07/18 08:00 RDW 12.6 % (11.9-15.9) 02/07/18 08:00 Plt Count 207 K/MM3 (134-434) 02/07/18 08:00 MPV 8.8 fl (7.5-11.1) 02/07/18 08:00 Sodium 142 mmol/L (136-145) 02/07/18 08:00 Potassium 4.0 mmol/L (3.5-5.1) 02/07/18 08:00 Chloride 109 mmol/L (98-107) H 02/07/18 08:00 Carbon Dioxide 27 mmol/L (21-32) 02/07/18 08:00 Anion Gap 6 MMOL/L (8-16) L 02/07/18 08:00 BUN 7 mg/dL (7-18) 02/07/18 08:00 Creatinine 0.9 mg/dL (0.55-1.3) 02/07/18 08:00 Creat Clearance w eGFR > 60 (>60) 02/07/18 08:00 Random Glucose 102 mg/dL (74-106) 02/07/18 08:00 Calcium 8.3 mg/dL (8.5-10.1) L 02/07/18 08:00 Total Bilirubin 0.3 mg/dL (0.2-1) 02/07/18 08:00 AST 16 U/L (15-37) 02/07/18 08:00 ALT 22 U/L (13-61) 02/07/18 08:00 Alkaline Phosphatase 67 U/L (45-117) 02/07/18 08:00 Total Protein 6.3 g/dl (6.4-8.2) L 02/07/18 08:00 Albumin 3.3 g/dl (3.4-5.0) L 02/07/18 08:00 Urine Color Yellow 02/06/18 10:00 Urine Appearance Clear 02/06/18 10:00 Urine pH 7.0 (5.0-8.0) D 02/06/18 10:00 Ur Specific [place] 1.024 (1.010-1.035) 02/06/18 10:00 Urine Protein Negative (NEGATIVE) 02/06/18 10:00 Urine Glucose (UA) 3+ (NEGATIVE) H 02/06/18 10:00 Urine Ketones Negative (NEGATIVE) 02/06/18 10:00 Urine Blood Negative (NEGATIVE) 02/06/18 10:00 Urine Nitrite Negative (NEGATIVE) 02/06/18 10:00 Urine Bilirubin Negative (<2.0 mg/dL) 02/06/18 10:00 Urine Urobilinogen 2.0 mg/dL (0.2-1.0) 02/06/18 10:00 Ur Leukocyte Esterase Negative (NEGATIVE) 02/06/18 10:00 RPR Titer Nonreactive (NONREACTIVE) 02/07/18 08:00 lab noted Assessment: 02/10/18 16:00 mild withdrawal sx Plan: medically supervised detox
[2018-02-10] MEDS: QUEtiapine FUMARATE 100 MG TABLET (FP) PO SCH (22:20)
[2018-02-10] MEDS: THIAMINE HCL 100 MG TABLET (FP) PO SCH (23:41)
[2018-02-11 07:20] VITALS: TEMP 97.3
--- NOTE | 2018-02-11 08:33 | DS ---
[facility] Detox Discharge Summary Admission Date: 02/06/18 Discharge Date: 02/11/18 - History Present History: Alcohol Dependence - Physical Exam Results Vital Signs: Vital Signs Temperature 97.3 F L 02/11/18 07:19 Pulse Rate 51 L 02/11/18 07:19 Respiratory Rate 18 02/11/18 07:19 Blood Pressure 102/58 L 02/11/18 07:19 O2 Sat by Pulse Oximetry (%) - Treatment Hospital Course: Detox Protocol Followed, Detoxed Safely, Responded well, Discharged Condition Good, Rehab Referral Accepted - Medication Discharge Medications: Ambulatory Orders NK [No Known Home Medication] 03/06/17 - Diagnosis (1) Alcohol dependence with uncomplicated withdrawal Current Visit: Yes Status: Chronic (2) Cannabis dependence, uncomplicated Current Visit: Yes Status: Chronic (3) Cocaine dependence, uncomplicated Current Visit: Yes Status: Chronic (4) Cough Current Visit: Yes Status: Acute (5) Insomnia Current Visit: Yes Status: Acute (6) Nystagmus Current Visit: No Status: Acute (7) Substance induced mood disorder Current Visit: Yes Status: Acute (8) Nicotine dependence Current Visit: Yes Status: Chronic Qualifiers: Nicotine product type: cigarettes Substance use status: uncomplicated Qualified Code(s): F17.210 - Nicotine dependence, cigarettes, uncomplicated (9) Schizoaffective disorder Current Visit: Yes Status: Suspected Qualifiers: Schizoaffective disorder type: bipolar Qualified Code(s): F25.0 - Schizoaffective disorder, bipolar type (10) Athletes foot Current Visit: No Status: Acute (11) Cannabis dependence Current Visit: No Status: Acute (12) Cocaine dependence Current Visit: No Status: Acute Qualifiers: Substance use status: uncomplicated Qualified Code(s): F14.20 - Cocaine dependence, uncomplicated (13) Dehydration Current Visit: No Status: Acute (14) Glycosuria with normal serum glucose Current Visit: No Status: Acute (15) Hypotension Current Visit: No Status: Acute (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
[2018-02-11] MEDS: PRENATAL VITAMINS W/ FOLIC ACID TABLET (FP) PO SCH (10:03)
[2018-02-11] MEDS: guaiFENesin/D-METHORPHAN HB 10 ML UNIT-DOSE CUPS PO PRN (10:04)
[2018-02-11 10:24] VITALS: BP 103/59; PULSE 56
== END 2018-02-11 13:03 | disposition other institution (70) | DRG 774 ==
LOC: YASAS 14:26 → Y6N 19:27
PROC: HZ2ZZZZ Detoxification Services for Substance Abuse Treatment (ICD-10-PCS; principal; 2018-02-06)
DX: F10.230 Alcohol dependence with withdrawal, uncomplicated (principal); F14.20 Cocaine dependence, uncomplicated; F12.20 Cannabis dependence, uncomplicated; F19.24 Other psychoactive substance dependence with psychoactive substance-induced mood disorder; F25.9 Schizoaffective disorder, unspecified; F32.9 Major depressive disorder, single episode, unspecified; F43.10 Post-traumatic stress disorder, unspecified; F20.0 Paranoid schizophrenia; F31.9 Bipolar disorder, unspecified; G47.00 Insomnia, unspecified; R05 Cough; H55.09 Other forms of nystagmus; B35.3 Tinea pedis; E86.0 Dehydration; R81 Glycosuria; Z87.891 Personal history of nicotine dependence; Z91.14 Patient's other noncompliance with medication regimen; Z86.69 Personal history of other diseases of the nervous system and sense organs
CPT/HCPCS: 36415; 80053; 81003; 85027; 86593; 93005; 93010

== ENCOUNTER 2018-02-11 13:31 | Inpatient (IN) | payer OTHER ==
[2018-02-11] MEDS ORDERED: ACETAMINOPHEN 325 MG TABLET (FP) PO PRN (14:06)
[2018-02-11] MEDS ORDERED: P-EPHED 60MG/TRIPROLIDI 2.5MG TABLET PO PRN (14:06)
[2018-02-11] MEDS ORDERED: NICOTINE POLACRILEX 2 MG GUM BUC PRN (14:06)
[2018-02-11] MEDS ORDERED: MAG HYDROX/AL HYDROX/SIMETH 30 ML UNIT-DOSE CUP PO PRN (14:06)
[2018-02-11] MEDS ORDERED: LOPERAMIDE HCL 2 MG CAPSULE PO PRN (14:06)
[2018-02-11] MEDS ORDERED: IBUPROFEN 400 MG TABLET (FP) PO PRN (14:06)
[2018-02-11] MEDS ORDERED: MAGNESIUM CITRATE 300 ML BOTTLE PO PRN (14:06)
[2018-02-11] MEDS ORDERED: MAGNESIUM HYDROX 2400MG/30ML ORAL SUSPENSION 30 ML CUP PO PRN (14:06)
[2018-02-11] MEDS ORDERED: MENTHOL/PHENOL 1 EACH UD MM PRN (14:06)
--- NOTE | 2018-02-11 14:06 | HP ---
ANAIS MORATAYA Rehab Assess/Revision - Admission History Admitted to Rehab from: [facility] [place] Date of Admission to Rehab: 02/11/18 - Findings Detox History & Physical reviewed: Yes Concur with findings: Yes Comments/Additional Findings: transferred from detox to rehab admission as per protocol Inpatient Rehab Admission - Initial Determination Are CD services needed?: Yes Free of communicable disease: Yes Not in need of hospitalization: Yes - Rehab Admission Criteria Previous failed treatment: Yes Poor recovery environment: Yes Comorbidities: Yes Lacks judgement: No Patient is meeting Inpatient Rehab admission criteria:: Yes
[2018-02-11] MEDS: THIAMINE HCL 100 MG TABLET (FP) PO SCH (21:54)
[2018-02-11] MEDS: guaiFENesin/D-METHORPHAN HB 10 ML UNIT-DOSE CUPS PO PRN (21:54)
[2018-02-11] MEDS ORDERED: MELATONIN 5 MG TABLETS PO PRN (22:00)
[2018-02-12] MEDS: NICOTINE 14 MG/24 HOURS TOPICAL PATCH TD SCH (09:35)
[2018-02-12] MEDS: PRENATAL VITAMINS W/ FOLIC ACID TABLET (FP) PO SCH (09:35)
[2018-02-12] MEDS: guaiFENesin/D-METHORPHAN HB 10 ML UNIT-DOSE CUPS PO PRN ×2 (09:36→21:55)
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
[2018-02-12] MEDS ORDERED: FLU VACCINE QUAD 60 MCG/0.5 ML (MDV 18-19) IM ONE (12:00)
[2018-02-12] MEDS: THIAMINE HCL 100 MG TABLET (FP) PO SCH (21:54)
[2018-02-12] MEDS ORDERED: QUEtiapine FUMARATE 100 MG TABLET (FP) PO SCH (22:00)
[2018-02-13 07:01] VITALS: BP 93/66; PULSE 55; TEMP 97.9
[2018-02-13] MEDS: NICOTINE 14 MG/24 HOURS TOPICAL PATCH TD SCH (09:20)
[2018-02-13] MEDS: PRENATAL VITAMINS W/ FOLIC ACID TABLET (FP) PO SCH (09:20)
== END 2018-02-13 15:58 | disposition left against medical advice (07) | DRG 770 ==
LOC: YASAS 13:31 → Y3W 13:32
PROVIDERS: ADMIT Psychiatry & Neurology Psychiatry; ATTEND Psychiatry & Neurology Psychiatry
PROC: HZ42ZZZ Group Counseling for Substance Abuse Treatment, Cognitive-Behavioral (ICD-10-PCS; principal; 2018-02-11)
DX: F10.20 Alcohol dependence, uncomplicated (principal); F14.20 Cocaine dependence, uncomplicated; F12.20 Cannabis dependence, uncomplicated; F17.210 Nicotine dependence, cigarettes, uncomplicated; F25.0 Schizoaffective disorder, bipolar type; F43.10 Post-traumatic stress disorder, unspecified; F20.0 Paranoid schizophrenia; F19.282 Other psychoactive substance dependence with psychoactive substance-induced sleep disorder

== ENCOUNTER 2018-03-07 10:55 | Inpatient (IN) | payer OTHER ==
[2018-03-07 11:19] VITALS: BMI 23.7
--- NOTE | 2018-03-07 13:15 | HP ---
CIWA Score - CIWA Score Nausea/Vomitin-Mild Nausea/No Vomiting Muscle Tremors: 3 Anxiety: 4-Mod. Anxious/Guarded Agitation: 0-Normal Activity Paroxysmal Sweats: No Perspiration Orientation: 1-Uncertain about Date Tacttile Disturbances: 0-None Auditory Disturbances: 1-Very Mild Visual Disturbances: 1-Very Mild Sensitivity Headache: 2-Mild CIWA-Ar Total Score: 13 Admission ROS BHS - HPI Chief Complaint: I need to be here. I don't feel good. I need help Allergies/Adverse Reactions: Allergies Allergy/AdvReac Type Severity Reaction Status Date / Time No Known Allergies Allergy Verified 03/07/18 12:49 History of Present Illness: 42 yo gentleman here for detox from alcohol. also using cocaine. noted urine tox+ fentanyl and bzo- denies using these but thinks mixed with cocaine. Denies seizures, does have black outs. This is one of many admissions (almost monthly) for detox. Exam Limitations: Clinical Condition - Ebola screening Have you traveled outside of the country in the last 21 days: No Have you had contact with anyone from an Ebola affected area: No Have you been sick,other than usual withdrawal symptoms: No Do you have a fever: No - Review of Systems Constitutional: Chills, Malaise, Weakness EENT: reports: No Symptoms Reported Respiratory: reports: No Symptoms reported Cardiac: reports: No Symptoms Reported GI: reports: Nausea, Poor Appetite, Abdominal cramping : reports: Frequency Musculoskeletal: reports: No Symptoms Reported Integumentary: reports: No Symptoms Reported Neuro: reports: Headache, Tremors Endocrine: reports: No Symptoms Reported Hematology: reports: No Symptoms Reported Psychiatric: reports: Judgement Intact, Anxious, other (irritable) Patient History - Patient Medical History Hx Anemia: No Hx Asthma: No Hx Chronic Obstructive Pulmonary Disease (COPD): No Hx Cancer: No Hx Cardiac Disorders: No Hx Congestive Heart Failure: No Hx Hypertension: No Hx Hypercholesterolemia: No Hx Pacemaker: No HX Cerebrovascular Accident: No Hx Seizures: No Hx Dementia: No Hx Diabetes: No Hx Gastrointestinal Disorders: No Hx Liver Disease: No Hx Genitourinary Disorders: No Hx Sexually Transmitted Disorders: No Hx Renal Disease (ESRD): No Hx Thyroid Disease: No Hx Human Immunodeficiency Virus (HIV): No Hx Hepatitis C: No Hx Depression: Yes Hx Suicide Attempt: No Hx Bipolar Disorder: No Hx Schizophrenia: Yes (hospitalized several years ago; no meds) - Patient Surgical History Past Surgical History: No Hx Neurologic Surgery: No Hx Cataract Extraction: No Hx Cardiac Surgery: No Hx Lung Surgery: No Hx Breast Surgery: No Hx Breast Biopsy: No Hx Abdominal Surgery: No Hx Appendectomy: No Hx Cholecystectomy: No Hx Genitourinary Surgery: No Hx Section: No Hx Orthopedic Surgery: No Other Surgical History: fx, left mandible in 1998 Anesthesia Reaction: No - PPD History Previous Implant?: Yes Documented Results: Negative w/proof Implanted On Prior [facility] Admission?: Yes Date: 02/08/18 Results: 0 mm PPD to be Administered?: No - Reproductive History Patient is a Female of Child Bearing Age (11 -55 yrs old): No (male) - Smoking Cessation Smoking history: Current every day smoker Have you smoked in the past 12 months: Yes Aproximately how many cigarettes per day: 20 If you are a former smoker, when did you quit?: 01/30/2018 Cigars Per Day: 0 Hx Chewing Tobacco Use: No Initiated information on smoking cessation: Yes 'Breaking Loose' booklet given: 03/07/18 (give on floor) - Substance & Tx. History Hx Alcohol Use: Yes Hx Substance Use: Yes Substance Use Type: Alcohol, Cocaine Hx Substance Use Treatment: Yes (detox, rehab,residential treatment) - Substances Abused Alcohol Route: Oral Frequency: Daily Amount used: 1 [place] Age of first use: 13 Date of Last Use: 03/06/18 Cocaine Route: Smoking Frequency: Daily Amount used: $200-$300 Age of first use: 28 Date of Last Use: 03/06/18 PCP Route: Smoking Frequency: 1-2 times per week Amount used: $20-$30 Age of first use: 28 Date of Last Use: 03/06/18 Marijuana/Hashish Route: Smoking Frequency: 1-2 times per week Amount used: 1 GRAM Age of first use: 10 Date of Last Use: 03/06/18 Family Disease History - Family Disease History Family Disease History: Other: Father (Used Alcohol. .), Mother ( Seizures. .), Brother (two - living - healthy), Sister (two ( one HIV, one murdered)), Son (three - healthy), Daughter (three - healthy) Admission Physical Exam BHS - Vital Signs Vital Signs: Vital Signs - 24 hr 03/07/18 11:16 Temperature 97.4 F L Pulse Rate 92 H Respiratory 18 Rate Blood Pressure 122/72 - Physical General Appearance: Yes: Nourished, Appropriately Dressed, Mild Distress, Tremorous, Irritable HEENTM: Yes: EOMI, Hearing grossly Normal, Normocephalic, Normal Voice, Pharynx Normal Respiratory: Yes: Normal Breath Sounds, No Respiratory Distress Neck: Yes: No masses,lesions,Nodules, Supple Breast: Yes: Breast Exam Deferred Cardiology: Yes: Regular Rhythm, Regular Rate Abdominal: Yes: Non Tender, Flat, Soft Genitourinary: Yes: Frequency Back: Yes: Normal Inspection Musculoskeletal: Yes: full range of Motion, Gait Steady Extremities: Yes: Normal Inspection, Normal Range of Motion, Non-Tender Neurological: Yes: Fully Oriented, Alert, Motor Strength 5/5, Normal Mood/Affect , Normal Response Integumentary: Yes: Normal Color, Dry, Warm Lymphatic: Yes: Within Normal Limits - Diagnostic (1) Alcohol dependence with uncomplicated withdrawal Current Visit: Yes Status: Chronic (2) Cocaine dependence Current Visit: Yes Status: Chronic Qualifiers: Substance use status: uncomplicated Qualified Code(s): F14.20 - Cocaine dependence, uncomplicated (3) Nicotine dependence Current Visit: Yes Status: Chronic Qualifiers: Nicotine product type: cigarettes Substance use status: uncomplicated Qualified Code(s): F17.210 - Nicotine dependence, cigarettes, uncomplicated (4) Schizoaffective disorder Current Visit: Yes Status: Chronic Qualifiers: Schizoaffective disorder type: bipolar Qualified Code(s): F25.0 - Schizoaffective disorder, bipolar type Comment: By history.Non-adherent to medications. Cleared for Admission [facility] - Detox or Rehab [facility] Level of Care: Medically Managed Detox Regimen/Protocol: Valium [facility] Breath Alcohol Content Breath Alcohol Content: 0 Urine Drug Screen - Results Drug Screen Negative: No Urine Drug Screen Results: JACKELINE-Cocaine, BZO-Benzodiazepines, FEN-Fentanyl
[2018-03-07] MEDS ORDERED: IBUPROFEN 400 MG TABLET (FP) PO PRN (13:20)
[2018-03-07] MEDS ORDERED: guaiFENesin/D-METHORPHAN HB 10 ML UNIT-DOSE CUPS PO PRN (13:20)
[2018-03-07] MEDS ORDERED: MAGNESIUM HYDROX 2400MG/30ML ORAL SUSPENSION 30 ML CUP PO PRN (13:20)
[2018-03-07] MEDS ORDERED: MAG HYDROX/AL HYDROX/SIMETH 30 ML UNIT-DOSE CUP PO PRN (13:20)
[2018-03-07] MEDS ORDERED: P-EPHED 60MG/TRIPROLIDI 2.5MG TABLET PO PRN (13:20)
[2018-03-07] MEDS ORDERED: diazePAM 5 MG TABLET PO PRN (13:20)
[2018-03-07] MEDS ORDERED: MAGNESIUM CITRATE 300 ML BOTTLE PO PRN (13:20)
[2018-03-07] MEDS ORDERED: MENTHOL/PHENOL 1 EACH UD MM PRN (13:20)
[2018-03-07] MEDS ORDERED: ACETAMINOPHEN 325 MG TABLET (FP) PO PRN (13:20)
[2018-03-07] MEDS ORDERED: NICOTINE POLACRILEX 4 MG GUM BUC PRN (13:20)
[2018-03-07] MEDS ORDERED: LOPERAMIDE HCL 2 MG CAPSULE PO PRN (13:20)
[2018-03-07] MEDS ORDERED: diazePAM 5 MG TABLET PO ONE (14:00)
[2018-03-07] MEDS: diazePAM 5 MG TABLET PO SCH ×2 (14:42→22:47)
[2018-03-07 19:21] LABS: URINE APPEARANCE TURBID; URINE BILIRUBIN NEGATIVE (<2.0 mg/dL); URINE COLOR YELLOW; URINE GLUCOSE (UA) NEGATIVE (NEGATIVE); URINE KETONE 1+ (NEGATIVE); URINE LEUK ESTERASE NEGATIVE (NEGATIVE); URINE NITRITE NEGATIVE (NEGATIVE); URINE PROTEIN 1+ (NEGATIVE); URINE UROBILINOGEN NEGATIVE mg/dL (0.2-1.0)
[2018-03-07 19:45] LABS: URINE MUCUS MANY
[2018-03-07] MEDS ORDERED: MELATONIN 5 MG TABLETS PO PRN (22:00)
[2018-03-07] MEDS: THIAMINE HCL 100 MG TABLET (FP) PO SCH (22:47)
[2018-03-08] MEDS: diazePAM 5 MG TABLET PO SCH ×3 (05:30→23:02)
[2018-03-08] MEDS: PRENATAL VITAMINS W/ FOLIC ACID TABLET (FP) PO SCH (10:08)
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
[2018-03-08] MEDS ORDERED: ZOLPIDEM TARTRATE 5 MG TABLET PO PRN (11:03)
--- NOTE | 2018-03-08 11:22 | PN ---
[facility] CIWA - CIWA Score Nausea/Vomitin-Mild Nausea/No Vomiting Muscle Tremors: 3 Anxiety: 2 Agitation: 2 Paroxysmal Sweats: 1-Minimal Palms Moist Orientation: 1-Uncertain about Date Tacttile Disturbances: 0-None Auditory Disturbances: 0-None Visual Disturbances: 0-None Headache: 1-Very Mild CIWA-Ar Total Score: 11 BHS Progress Note (SOAP) Subjective: tremor sweat anxiety restlessness trouble sleep at night Objective: 03/08/18 11:21 Vital Signs Temperature 97.9 F 03/08/18 09:34 Pulse Rate 74 03/08/18 09:34 Respiratory Rate 18 03/08/18 09:34 Blood Pressure 91/53 L 03/08/18 09:34 O2 Sat by Pulse Oximetry (%) Laboratory Last Values Urine Color Yellow 03/07/18 15:35 Urine Appearance Turbid 03/07/18 15:35 Urine pH 5.0 (5.0-8.0) D 03/07/18 15:35 Ur Specific [place] 1.029 (1.010-1.035) 03/07/18 15:35 Urine Protein 1+ (NEGATIVE) H 03/07/18 15:35 Urine Glucose (UA) Negative (NEGATIVE) 03/07/18 15:35 Urine Ketones 1+ (NEGATIVE) H 03/07/18 15:35 Urine Blood Negative (NEGATIVE) 03/07/18 15:35 Urine Nitrite Negative (NEGATIVE) 03/07/18 15:35 Urine Bilirubin Negative (<2.0 mg/dL) 03/07/18 15:35 Urine Urobilinogen Negative mg/dL (0.2-1.0) 03/07/18 15:35 Ur Leukocyte Esterase Negative (NEGATIVE) 03/07/18 15:35 Urine WBC (Auto) 1 /hpf (3-5) 03/07/18 15:35 Urine RBC (Auto) 1 /hpf (0-3) 03/07/18 15:35 Urine Mucus Many 03/07/18 15:35 lab noted Assessment: 03/08/18 11:21 withdrawal sx Plan: continue detox
--- NOTE | 2018-03-08 11:36 | EKG ---
Test Reason : Blood Pressure : / mmHG Vent. Rate : 077 BPM Atrial Rate : 077 BPM P-R Int : 104 ms QRS Dur : 084 ms QT Int : 384 ms P-R-T Axes : -32 052 049 degrees QTc Int : 434 ms UNUSUAL P AXIS, POSSIBLE ECTOPIC ATRIAL RHYTHM ABNORMAL ECG WHEN COMPARED WITH ECG OF 06-FEB-2018 19:54, ECTOPIC ATRIAL RHYTHM HAS REPLACED SINUS RHYTHM QT HAS LENGTHENED Confirmed by IRMA MORATAYA, APPLE ([id number]) on 03/08/2018 11:35:48 AM Referred By: Confirmed By:APPLE SOLIS MD
[2018-03-08] MEDS: THIAMINE HCL 100 MG TABLET (FP) PO SCH (23:02)
[2018-03-09] MEDS: diazePAM 5 MG TABLET PO SCH ×2 (10:45→22:23)
[2018-03-09] MEDS: PRENATAL VITAMINS W/ FOLIC ACID TABLET (FP) PO SCH (10:45)
--- NOTE | 2018-03-09 14:45 | PN ---
S CIWA - CIWA Score Nausea/Vomitin-No Nausea/No Vomiting Muscle Tremors: 2 Anxiety: 2 Agitation: 2 Paroxysmal Sweats: 1-Minimal Palms Moist Orientation: 1-Uncertain about Date Tacttile Disturbances: 0-None Auditory Disturbances: 0-None Visual Disturbances: 0-None Headache: 1-Very Mild CIWA-Ar Total Score: 9 BHS Progress Note (SOAP) Subjective: sweat tremor anxiety trouble sleep at night Objective: 03/09/18 14:44 Vital Signs Temperature 97.9 F 03/09/18 13:02 Pulse Rate 70 03/09/18 13:02 Respiratory Rate 20 03/09/18 13:02 Blood Pressure 103/58 L 03/09/18 13:02 O2 Sat by Pulse Oximetry (%) Laboratory Last Values Urine Color Yellow 03/07/18 15:35 Urine Appearance Turbid 03/07/18 15:35 Urine pH 5.0 (5.0-8.0) D 03/07/18 15:35 Ur Specific [place] 1.029 (1.010-1.035) 03/07/18 15:35 Urine Protein 1+ (NEGATIVE) H 03/07/18 15:35 Urine Glucose (UA) Negative (NEGATIVE) 03/07/18 15:35 Urine Ketones 1+ (NEGATIVE) H 03/07/18 15:35 Urine Blood Negative (NEGATIVE) 03/07/18 15:35 Urine Nitrite Negative (NEGATIVE) 03/07/18 15:35 Urine Bilirubin Negative (<2.0 mg/dL) 03/07/18 15:35 Urine Urobilinogen Negative mg/dL (0.2-1.0) 03/07/18 15:35 Ur Leukocyte Esterase Negative (NEGATIVE) 03/07/18 15:35 Urine WBC (Auto) 1 /hpf (3-5) 03/07/18 15:35 Urine RBC (Auto) 1 /hpf (0-3) 03/07/18 15:35 Urine Mucus Many 03/07/18 15:35 lab noted Assessment: 03/09/18 14:45 withdrawal sx Plan: continue detox
[2018-03-09] MEDS: THIAMINE HCL 100 MG TABLET (FP) PO SCH (22:23)
[2018-03-10] MEDS: PRENATAL VITAMINS W/ FOLIC ACID TABLET (FP) PO SCH (11:02)
[2018-03-10] MEDS: diazePAM 5 MG TABLET PO SCH ×2 (11:03→22:23)
--- NOTE | 2018-03-10 11:41 | PN ---
BHS Progress Note (SOAP) Subjective: feeing better no tremor less sweat no gi distress social with peers in day room Objective: 03/10/18 11:40 Vital Signs Temperature 98.1 F 03/10/18 09:41 Pulse Rate 63 03/10/18 09:41 Respiratory Rate 18 03/10/18 09:41 Blood Pressure 100/56 L 03/10/18 09:41 O2 Sat by Pulse Oximetry (%) Laboratory Last Values Urine Color Yellow 03/07/18 15:35 Urine Appearance Turbid 03/07/18 15:35 Urine pH 5.0 (5.0-8.0) D 03/07/18 15:35 Ur Specific [place] 1.029 (1.010-1.035) 03/07/18 15:35 Urine Protein 1+ (NEGATIVE) H 03/07/18 15:35 Urine Glucose (UA) Negative (NEGATIVE) 03/07/18 15:35 Urine Ketones 1+ (NEGATIVE) H 03/07/18 15:35 Urine Blood Negative (NEGATIVE) 03/07/18 15:35 Urine Nitrite Negative (NEGATIVE) 03/07/18 15:35 Urine Bilirubin Negative (<2.0 mg/dL) 03/07/18 15:35 Urine Urobilinogen Negative mg/dL (0.2-1.0) 03/07/18 15:35 Ur Leukocyte Esterase Negative (NEGATIVE) 03/07/18 15:35 Urine WBC (Auto) 1 /hpf (3-5) 03/07/18 15:35 Urine RBC (Auto) 1 /hpf (0-3) 03/07/18 15:35 Urine Mucus Many 03/07/18 15:35 la bnoted 03/10/18 11:42 lab work based on 02/07/18 Assessment: 03/10/18 11:42 mild withdrawal sx Plan: medically supervised detox
[2018-03-10] MEDS: THIAMINE HCL 100 MG TABLET (FP) PO SCH (22:23)
[2018-03-11 09:46] VITALS: BP 143/86; PULSE 78; TEMP 97.9
[2018-03-11] MEDS ORDERED: diazePAM 5 MG TABLET PO SCH (10:00)
--- NOTE | 2018-03-11 12:38 | DS ---
[facility] Detox Discharge Summary Admission Date: 03/07/18 Discharge Date: 03/11/18 - History Present History: Alcohol Dependence Additional Comments: 42 years old male admitted on 03/07/18 for alcohol withdrawal sx completed alcohol detox regimen tolerated well denies alcohol withdrawal sx alert oriented x 3 no acute distress aftercare [facility] requal - Physical Exam Results Vital Signs: Vital Signs Temperature 97.9 F 03/11/18 09:45 Pulse Rate 78 03/11/18 09:45 Respiratory Rate 18 03/11/18 09:45 Blood Pressure 143/86 03/11/18 09:45 O2 Sat by Pulse Oximetry (%) Pertinent Admission Physical Exam Findings: alcohol withdrawal sx Vital Signs Temperature 97.9 F 03/11/18 09:45 Pulse Rate 78 03/11/18 09:45 Respiratory Rate 18 03/11/18 09:45 Blood Pressure 143/86 03/11/18 09:45 O2 Sat by Pulse Oximetry (%) Laboratory Last Values Urine Color Yellow 03/07/18 15:35 Urine Appearance Turbid 03/07/18 15:35 Urine pH 5.0 (5.0-8.0) D 03/07/18 15:35 Ur Specific [place] 1.029 (1.010-1.035) 03/07/18 15:35 Urine Protein 1+ (NEGATIVE) H 03/07/18 15:35 Urine Glucose (UA) Negative (NEGATIVE) 03/07/18 15:35 Urine Ketones 1+ (NEGATIVE) H 03/07/18 15:35 Urine Blood Negative (NEGATIVE) 03/07/18 15:35 Urine Nitrite Negative (NEGATIVE) 03/07/18 15:35 Urine Bilirubin Negative (<2.0 mg/dL) 03/07/18 15:35 Urine Urobilinogen Negative mg/dL (0.2-1.0) 03/07/18 15:35 Ur Leukocyte Esterase Negative (NEGATIVE) 03/07/18 15:35 Urine WBC (Auto) 1 /hpf (3-5) 03/07/18 15:35 Urine RBC (Auto) 1 /hpf (0-3) 03/07/18 15:35 Urine Mucus Many 03/07/18 15:35 lab noted - Treatment Hospital Course: Detox Protocol Followed, Detoxed Safely, Responded well, Discharged Condition Good, Rehab Referral Accepted Patient has Accepted a Rehab Referral to: [facility] - Medication Discharge Medications: Ambulatory Orders NK [No Known Home Medication] 03/06/17 - Diagnosis (1) Alcohol dependence with uncomplicated withdrawal Status: Acute (2) Schizoaffective disorder Status: Suspected Qualifiers: Schizoaffective disorder type: bipolar Qualified Code(s): F25.0 - Schizoaffective disorder, bipolar type (3) Weight loss Status: Acute (4) Alcohol dependence with uncomplicated withdrawal Status: Acute (5) Nicotine dependence Status: Acute Qualifiers: Nicotine product type: cigarettes Substance use status: in withdrawal Qualified Code(s): F17.213 - Nicotine dependence, cigarettes, with withdrawal (6) Schizophrenia Status: Suspected Qualifiers: Schizophrenia type: unspecified Qualified Code(s): F20.9 - Schizophrenia, unspecified - AMA Did Patient Leave Against Medical Advice: No
== END 2018-03-11 09:22 | disposition home or self-care (01) | DRG 774 ==
LOC: YASAS 10:55 → Y6N 13:55
PROC: HZ2ZZZZ Detoxification Services for Substance Abuse Treatment (ICD-10-PCS; principal; 2018-03-07)
DX: F10.230 Alcohol dependence with withdrawal, uncomplicated (principal); F14.20 Cocaine dependence, uncomplicated; F12.20 Cannabis dependence, uncomplicated; F16.20 Hallucinogen dependence, uncomplicated; F17.210 Nicotine dependence, cigarettes, uncomplicated; F25.9 Schizoaffective disorder, unspecified; F20.0 Paranoid schizophrenia; F19.282 Other psychoactive substance dependence with psychoactive substance-induced sleep disorder; F43.10 Post-traumatic stress disorder, unspecified
CPT/HCPCS: 81003; 81015; 93005; 93010

== ENCOUNTER 2018-04-15 15:02 | Inpatient (IN) | payer OTHER ==
[2018-04-15 15:45] VITALS: BMI 23.3
--- NOTE | 2018-04-15 17:36 | HP ---
CIWA Score Nausea/Vomitin-Mild Nausea/No Vomiting Muscle Tremors: 4-Moderate,w/Arms Extend Anxiety: 2 Agitation: 3 Paroxysmal Sweats: 3 Orientation: 0-Oriented Tacttile Disturbances: 0-None Auditory Disturbances: 0-None Visual Disturbances: 0-None Headache: 0-None Present CIWA-Ar Total Score: 13 - Admission Criteria OASAS Guidelines: Admission for Medically Managed Detox: Requires at least one of the followin. CIWA greater than 12 2. Seizures within the past 24 hours 3. Delirium tremens within the past 24 hours 4. Hallucinations within the past 24 hours 5. Acute intervention needed for co occurring medical disorder 6. Acute intervention needed for co occurring psychiatric disorder 7. Severe withdrawal that cannot be handled at a lower level of care (continued vomiting, continued diarrhea, abnormal vital signs) requiring intravenous medication and/or fluids 8. Admission ROS [facility] - HPI Chief Complaint: I am here for detox and trying to get it right. Allergies/Adverse Reactions: Allergies Allergy/AdvReac Type Severity Reaction Status Date / Time No Known Allergies Allergy Verified 04/15/18 17:25 History of Present Illness: pt is a 42yr old male with a history of alcohol dependence seeking detox for treatment. Exam Limitations: No Limitations - Ebola screening Have you traveled outside of the country in the last 21 days: No Have you had contact with anyone from an Ebola affected area: No Have you been sick,other than usual withdrawal symptoms: No Do you have a fever: No - Review of Systems Constitutional: Chills, Loss of Appetite EENT: reports: No Symptoms Reported Respiratory: reports: No Symptoms reported Cardiac: reports: No Symptoms Reported GI: reports: Diarrhea, Nausea, Poor Appetite, Poor Fluid Intake : reports: No Symptoms Reported Musculoskeletal: reports: No Symptoms Reported Integumentary: reports: Flushing, Sweating Neuro: reports: Tingling, Tremors Endocrine: reports: Excessive Sweating, Flushing, Intolerance to Cold, Intolerance to Heat Hematology: reports: No Symptoms Reported Psychiatric: reports: Judgement Intact, Mood/Affect Appropiate, Orientated x3, Agitated, Anxious Other Systems: Reviewed and Negative Patient History - Patient Medical History Hx Anemia: No Hx Asthma: No Hx Chronic Obstructive Pulmonary Disease (COPD): No Hx Cancer: No Hx Cardiac Disorders: No Hx Congestive Heart Failure: No Hx Hypertension: No Hx Hypercholesterolemia: No Hx Pacemaker: No HX Cerebrovascular Accident: No Hx Seizures: No Hx Dementia: No Hx Diabetes: No Hx Gastrointestinal Disorders: No Hx Liver Disease: No Hx Genitourinary Disorders: No Hx Sexually Transmitted Disorders: No Hx Renal Disease (ESRD): No Hx Thyroid Disease: No Hx Human Immunodeficiency Virus (HIV): No Hx Hepatitis C: No Hx Depression: No Hx Suicide Attempt: No Hx Bipolar Disorder: No Hx Schizophrenia: Yes (none compliant with medication. last time taken was 6mo ago) - Patient Surgical History Past Surgical History: No Hx Neurologic Surgery: No Hx Cataract Extraction: No Hx Cardiac Surgery: No Hx Lung Surgery: No Hx Breast Surgery: No Hx Breast Biopsy: No Hx Abdominal Surgery: No Hx Appendectomy: No Hx Cholecystectomy: No Hx Genitourinary Surgery: No Hx Section: No Hx Orthopedic Surgery: No Other Surgical History: fx, left mandible in 1998 Anesthesia Reaction: No - PPD History Previous Implant?: Yes Documented Results: Negative w/proof Date: 02/08/18 Results: 0 mm PPD to be Administered?: No - Reproductive History Patient is a Female of Child Bearing Age (11 -55 yrs old): No - Smoking Cessation Smoking history: Current every day smoker Have you smoked in the past 12 months: Yes Aproximately how many cigarettes per day: 20 Cigars Per Day: 0 Hx Chewing Tobacco Use: No Initiated information on smoking cessation: Yes 'Breaking Loose' booklet given: 04/15/18 - Substance & Tx. History Hx Alcohol Use: Yes Hx Substance Use: Yes Substance Use Type: Alcohol, Cocaine Hx Substance Use Treatment: Yes (last detox 03/2018 [facility]) - Substances Abused Alcohol Route: Oral Frequency: Daily Amount used: 1 LITER + 6 PACK [employer]ER Age of first use: 13 Date of Last Use: 04/15/18 Cocaine Route: Smoking Frequency: Daily Amount used: $300 Age of first use: 28 Date of Last Use: 04/15/18 Family Disease History - Family Disease History Family Disease History: Other: Father (Used Alcohol. .), Mother ( Seizures. .), Brother (two - living - healthy), Sister (two ( one HIV, one murdered)), Son (three - healthy), Daughter (three - healthy) Admission Physical Exam [facility] - Vital Signs Vital Signs: Vital Signs - 24 hr 04/15/18 15:40 Temperature 95.9 F L Pulse Rate 69 Respiratory 18 Rate Blood Pressure 132/70 - Physical General Appearance: Yes: Appropriately Dressed, Moderate Distress, Thin, Tremorous, Irritable, Sweating, Anxious HEENTM: Yes: Hearing grossly Normal, Normal Voice Respiratory: Yes: Lungs Clear, Normal Breath Sounds, No Respiratory Distress Neck: Yes: No masses,lesions,Nodules Breast: Yes: Within Normal Limits Cardiology: Yes: Regular Rhythm, Regular Rate, S1, S2 Abdominal: Yes: Normal Bowel Sounds, Non Tender, Flat Genitourinary: Yes: Within Normal Limits Back: Yes: Normal Inspection Musculoskeletal: Yes: full range of Motion, Gait Steady Extremities: Yes: Normal Capillary Refill, Normal Inspection, Non-Tender, Tremors Neurological: Yes: Fully Oriented, Alert, Normal Response Integumentary: Yes: Normal Color Lymphatic: Yes: Within Normal Limits - Diagnostic (1) Alcohol dependence with uncomplicated withdrawal Current Visit: Yes Status: Chronic (2) Cannabis dependence Current Visit: Yes Status: Chronic (3) Cocaine dependence Current Visit: Yes Status: Chronic Qualifiers: Substance use status: uncomplicated (4) Dehydration Current Visit: No Status: Acute (5) Nicotine dependence Current Visit: Yes Status: Chronic Qualifiers: Nicotine product type: cigarettes Substance use status: uncomplicated Qualified Code(s): F17.210 - Nicotine dependence, cigarettes, uncomplicated (6) Nystagmus Current Visit: No Status: Acute (7) Substance induced mood disorder Current Visit: No Status: Acute (8) Weight loss Current Visit: Yes Status: Chronic (9) PTSD (post-traumatic stress disorder) Current Visit: Yes Status: Chronic (10) Schizoaffective disorder Current Visit: No Status: Suspected Qualifiers: Schizoaffective disorder type: depressive Qualified Code(s): F25.1 - Schizoaffective disorder, depressive type Comment: By history.Non-adherent to medications. (11) Paranoid schizophrenia Current Visit: No Status: Suspected Cleared for Admission S - Detox or Rehab [facility] Level of Care: Medically Managed Detox Regimen/Protocol: Librium [facility] Breath Alcohol Content Breath Alcohol Content: 0 Urine Drug Screen - Results Drug Screen Negative: No Urine Drug Screen Results: THC-Marijuana, JACKELINE-Cocaine, BZO-Benzodiazepines
[2018-04-15] MEDS ORDERED: MENTHOL/PHENOL 1 EACH UD MM PRN (17:37)
[2018-04-15] MEDS ORDERED: chlordiazePOXIDE HCL 25 MG CAPSULE PO PRN (17:37)
[2018-04-15] MEDS ORDERED: MAG HYDROX/AL HYDROX/SIMETH 30 ML UNIT-DOSE CUP PO PRN (17:37)
[2018-04-15] MEDS ORDERED: NICOTINE POLACRILEX 4 MG GUM BC PRN (17:37)
[2018-04-15] MEDS ORDERED: guaiFENesin/D-METHORPHAN HB 10 ML UNIT-DOSE CUPS PO PRN (17:37)
[2018-04-15] MEDS ORDERED: ACETAMINOPHEN 325 MG TABLET (FP) PO PRN (17:37)
[2018-04-15] MEDS ORDERED: P-EPHED 60MG/TRIPROLIDI 2.5MG TABLET PO PRN (17:37)
[2018-04-15] MEDS ORDERED: IBUPROFEN 400 MG TABLET (FP) PO PRN (17:37)
[2018-04-15] MEDS ORDERED: LOPERAMIDE HCL 2 MG CAPSULE PO PRN (17:37)
[2018-04-15] MEDS ORDERED: hydrOXYzine PAMOATE 50 MG CAPSULE (FP) PO PRN (17:37)
[2018-04-15] MEDS ORDERED: MAGNESIUM HYDROX 2400MG/30ML ORAL SUSPENSION 30 ML CUP PO PRN (17:37)
[2018-04-15] MEDS ORDERED: MAGNESIUM CITRATE 300 ML BOTTLE PO PRN (17:37)
[2018-04-15] MEDS ORDERED: chlordiazePOXIDE HCL 25 MG CAPSULE PO ONE (18:15)
[2018-04-15] MEDS ORDERED: MELATONIN 5 MG TABLETS PO PRN (22:00)
[2018-04-15] MEDS: THIAMINE HCL 100 MG TABLET (FP) PO SCH (22:15)
[2018-04-15] MEDS: chlordiazePOXIDE HCL 25 MG CAPSULE PO SCH (22:15)
[2018-04-16] MEDS: chlordiazePOXIDE HCL 25 MG CAPSULE PO SCH ×4 (05:23→22:15)
[2018-04-16] MEDS: PRENATAL VITAMINS W/ FOLIC ACID TABLET (FP) PO SCH (10:52)
[2018-04-16] MEDS: NICOTINE 21 MG/24 HOURS TOPICAL PATCH TD SCH (10:53)
--- NOTE | 2018-04-16 16:01 | PN ---
[facility] CIWA - CIWA Score Nausea/Vomitin-No Nausea/No Vomiting Muscle Tremors: 3 Anxiety: 1-Mildly Anxious Agitation: 2 Paroxysmal Sweats: 1-Minimal Palms Moist Orientation: 1-Uncertain about Date Tacttile Disturbances: 0-None Auditory Disturbances: 0-None Visual Disturbances: 0-None Headache: 1-Very Mild CIWA-Ar Total Score: 9 [facility] Progress Note (SOAP) Subjective: low energy tremor sweat restlessness Objective: 04/16/18 16:01 Vital Signs Temperature 97.2 F L 04/16/18 13:44 Pulse Rate 75 04/16/18 13:44 Respiratory Rate 17 04/16/18 13:44 Blood Pressure 95/62 04/16/18 13:44 O2 Sat by Pulse Oximetry (%) lab pending 04/16/18 16:03 last detox admission 03/2018 Assessment: 04/16/18 16:03 withdrawal sx Plan: continue detox
[2018-04-16] MEDS: THIAMINE HCL 100 MG TABLET (FP) PO SCH (22:15)
[2018-04-17 06:20] VITALS: BP 90/61; PULSE 56; TEMP 97
[2018-04-17] MEDS: chlordiazePOXIDE HCL 25 MG CAPSULE PO SCH ×2 (07:35→11:03)
--- NOTE | 2018-04-17 10:08 | PN ---
[facility] Progress Note (SOAP) Subjective: I want to leave now Objective: 04/17/18 10:06 Vital Signs Temperature 97 F L 04/17/18 06:20 Pulse Rate 56 L 04/17/18 06:20 Respiratory Rate 18 04/17/18 06:20 Blood Pressure 90/61 04/17/18 06:20 O2 Sat by Pulse Oximetry (%) pt aox3 in nad Assessment: 04/17/18 10:06 pt wants to leave AMA to go Xmas shopping - does not want to stay in detox Plan: pt signed out AMA
--- NOTE | 2018-04-17 10:10 | DS ---
[facility] Detox Discharge Summary Admission Date: 04/15/18 Discharge Date: 04/17/18 - History Present History: Alcohol Dependence, Cannabis Dependence, Cocaine Dependence - Physical Exam Results Vital Signs: Vital Signs Temperature 97 F L 04/17/18 06:20 Pulse Rate 56 L 04/17/18 06:20 Respiratory Rate 18 04/17/18 06:20 Blood Pressure 90/61 04/17/18 06:20 O2 Sat by Pulse Oximetry (%) - Treatment Hospital Course: Detox Protocol Followed - Medication Discharge Medications: Ambulatory Orders NK [No Known Home Medication] 03/06/17 - Diagnosis (1) Alcohol dependence with uncomplicated withdrawal Current Visit: Yes Status: Chronic (2) Cannabis dependence Current Visit: Yes Status: Chronic (3) Cocaine dependence Current Visit: Yes Status: Chronic Qualifiers: Substance use status: uncomplicated (4) Nicotine dependence Current Visit: Yes Status: Chronic Qualifiers: Nicotine product type: cigarettes Substance use status: uncomplicated Qualified Code(s): F17.210 - Nicotine dependence, cigarettes, uncomplicated (5) PTSD (post-traumatic stress disorder) Current Visit: Yes Status: Chronic (6) Schizoaffective disorder Current Visit: No Status: Suspected Qualifiers: Schizoaffective disorder type: depressive Qualified Code(s): F25.1 - Schizoaffective disorder, depressive type - AMA Did Patient Leave Against Medical Advice: Yes (pt wants to go [employer] shopping )
[2018-04-17] MEDS: NICOTINE 21 MG/24 HOURS TOPICAL PATCH TD SCH (11:03)
[2018-04-17] MEDS: PRENATAL VITAMINS W/ FOLIC ACID TABLET (FP) PO SCH (11:03)
[2018-04-17] MEDS ORDERED: chlordiazePOXIDE 5 MG CAPSULE PO SCH (23:00)
[2018-04-18] MEDS ORDERED: chlordiazePOXIDE HCL 10 MG CAPSULE PO SCH (23:00)
== END 2018-04-17 09:20 | disposition left against medical advice (07) | DRG 770 ==
LOC: YASAS 15:02 → Y3N 17:54
PROC: HZ2ZZZZ Detoxification Services for Substance Abuse Treatment (ICD-10-PCS; principal; 2018-04-15)
DX: F10.230 Alcohol dependence with withdrawal, uncomplicated (principal); F14.20 Cocaine dependence, uncomplicated; F12.20 Cannabis dependence, uncomplicated; F17.210 Nicotine dependence, cigarettes, uncomplicated; F25.1 Schizoaffective disorder, depressive type; F43.10 Post-traumatic stress disorder, unspecified; F19.24 Other psychoactive substance dependence with psychoactive substance-induced mood disorder; F20.0 Paranoid schizophrenia; E86.0 Dehydration; H55.00 Unspecified nystagmus; Z91.14 Patient's other noncompliance with medication regimen

== ENCOUNTER 2018-04-23 09:58 | Inpatient (IN) | payer OTHER ==
[2018-04-23 10:27] VITALS: BMI 22.8
--- NOTE | 2018-04-23 12:12 | HP ---
CIWA Score Nausea/Vomitin-Mild Nausea/No Vomiting Muscle Tremors: None Anxiety: 1-Mildly Anxious Agitation: 0-Normal Activity Paroxysmal Sweats: No Perspiration Orientation: 0-Oriented Tacttile Disturbances: 0-None Auditory Disturbances: 0-None Visual Disturbances: 2-Mild Sensitivity Headache: 0-None Present CIWA-Ar Total Score: 4 - Admission Criteria OASAS Guidelines: Admission for Medically Managed Detox: Requires at least one of the followin. CIWA greater than 12 2. Seizures within the past 24 hours 3. Delirium tremens within the past 24 hours 4. Hallucinations within the past 24 hours 5. Acute intervention needed for co occurring medical disorder 6. Acute intervention needed for co occurring psychiatric disorder 7. Severe withdrawal that cannot be handled at a lower level of care (continued vomiting, continued diarrhea, abnormal vital signs) requiring intravenous medication and/or fluids 8. Admission ROS [facility] Allergies/Adverse Reactions: Allergies Allergy/AdvReac Type Severity Reaction Status Date / Time No Known Allergies Allergy Verified 04/23/18 10:41 History of Present Illness: patient here requesting detox from etoh use , reports 6-12 beers/day x 4 years , latest use yesterday, denies tremors , seizures , falls while intoxicated , current symptoms as above , prior at this facility " a few days ago " - per MR d/c 04/17/18 left AMA , prior rehab at this facility left AMA , states decided to leave because he did not want to wait to go to rehab , cites he misses playing videogames on the phone and is worried about his SSI check as reasons for prior AMAs. REports weight loss > 10 lbs in the last 3 months due to ongoing use of illicits and poor appetite . cocaine : 10-14 years , 2-3 gr/day denies IVDU. 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 Exam Limitations: Clinical Condition - Ebola screening Have you traveled outside of the country in the last 21 days: No Have you had contact with anyone from an Ebola affected area: No Have you been sick,other than usual withdrawal symptoms: No Do you have a fever: No - Review of Systems Constitutional: Loss of Appetite, Unintentional Wgt. Loss EENT: reports: Other (states difficulty seeing close objects) Respiratory: reports: No Symptoms reported Cardiac: reports: No Symptoms Reported GI: reports: No Symptoms Reported : reports: No Symptoms Reported Musculoskeletal: reports: No Symptoms Reported Integumentary: reports: No Symptoms Reported Neuro: reports: No Symptoms reported Endocrine: reports: No Symptoms Reported Psychiatric: reports: Orientated x3, other (evasive) Patient History - Patient Medical History Hx Anemia: No Hx Asthma: No Hx Chronic Obstructive Pulmonary Disease (COPD): No Hx Cancer: No Hx Cardiac Disorders: No Hx Congestive Heart Failure: No Hx Hypertension: No Hx Hypercholesterolemia: No Hx Pacemaker: No HX Cerebrovascular Accident: No Hx Seizures: No Hx Dementia: No Hx Diabetes: No Hx Gastrointestinal Disorders: No Hx Liver Disease: No Hx Genitourinary Disorders: No Hx Sexually Transmitted Disorders: No Hx Renal Disease (ESRD): No Hx Thyroid Disease: No Hx Human Immunodeficiency Virus (HIV): No Hx Hepatitis C: No Hx Depression: No Hx Suicide Attempt: No Hx Bipolar Disorder: No Hx Schizophrenia: Yes - Patient Surgical History Past Surgical History: No Hx Neurologic Surgery: No Hx Cataract Extraction: No Hx Cardiac Surgery: No Hx Lung Surgery: No Hx Breast Surgery: No Hx Breast Biopsy: No Hx Abdominal Surgery: No Hx Appendectomy: No Hx Cholecystectomy: No Hx Genitourinary Surgery: No Hx Section: No Hx Orthopedic Surgery: No Other Surgical History: fx, left mandible in 1998 Anesthesia Reaction: No - PPD History Previous Implant?: Yes Documented Results: Negative w/proof Implanted On Prior R Admission?: Yes Date: 02/08/18 Results: 0 mm - Smoking Cessation Smoking history: Current every day smoker Have you smoked in the past 12 months: Yes Aproximately how many cigarettes per day: 20 If you are a former smoker, when did you quit?: 01/30/2018 Cigars Per Day: 0 Hx Chewing Tobacco Use: No Initiated information on smoking cessation: No - Substances Abused Alcohol Route: Oral Frequency: Daily Amount used: 6-12pk beer Age of first use: 13 Date of Last Use: 04/20/18 Crack Route: Smoking Frequency: Daily Amount used: $200-300 Age of first use: 28 Date of Last Use: 04/22/18 Marijuana/Hashish Route: Smoking Frequency: Daily Amount used: 1 blunt Age of first use: 10 Date of Last Use: 04/22/18 Family Disease History - Family Disease History Family Disease History: Other: Father (Used Alcohol. .), Mother ( Seizures. .), Brother (two - living - healthy), Sister (two ( one HIV, one murdered)), Son (three - healthy), Daughter (three - healthy) Admission Physical Exam [facility] - Vital Signs Vital Signs: Vital Signs - 24 hr 04/23/18 10:25 Temperature 96.5 F L Pulse Rate 64 Respiratory 17 Rate Blood Pressure 113/68 - Physical General Appearance: Yes: Within Normal Limits, Other (drowsy , easily awakened) HEENTM: Yes: EOMI, Hearing grossly Normal, Normocephalic, Normal Voice Respiratory: Yes: Chest Non-Tender, Lungs Clear, Normal Breath Sounds Neck: Yes: No masses,lesions,Nodules, Trachea in good position Breast: Yes: Breast Exam Deferred Cardiology: Yes: Regular Rhythm, Regular Rate, S1, S2 Abdominal: Yes: Normal Bowel Sounds, Flat, Soft Genitourinary: Yes: Within Normal Limits Back: Yes: Normal Inspection Musculoskeletal: Yes: full range of Motion, Gait Steady Extremities: Yes: Normal Capillary Refill Neurological: Yes: Motor Strength 5/5, Depressed Affect Integumentary: Yes: Normal Color, Dry, Warm - Diagnostic (1) Alcohol dependence with uncomplicated withdrawal Current Visit: Yes Status: Chronic (2) Cannabis dependence Current Visit: Yes Status: Chronic (3) Cocaine dependence Current Visit: Yes Status: Chronic Qualifiers: Substance use status: uncomplicated Qualified Code(s): F14.20 - Cocaine dependence, uncomplicated (4) Nicotine dependence Current Visit: Yes Status: Chronic Qualifiers: Nicotine product type: cigarettes Substance use status: uncomplicated Qualified Code(s): F17.210 - Nicotine dependence, cigarettes, uncomplicated [facility] Breath Alcohol Content Breath Alcohol Content: 0 Urine Drug Screen - Results Drug Screen Negative: No Urine Drug Screen Results: THC-Marijuana, ALETHA-Cocaine, BAR-Barbiturates, BZO- Benzodiazepines
[2018-04-23] MEDS ORDERED: MAG HYDROX/AL HYDROX/SIMETH 30 ML UNIT-DOSE CUP PO PRN (12:18)
[2018-04-23] MEDS ORDERED: P-EPHED 60MG/TRIPROLIDI 2.5MG TABLET PO PRN (12:18)
[2018-04-23] MEDS ORDERED: guaiFENesin/D-METHORPHAN HB 10 ML UNIT-DOSE CUPS PO PRN (12:18)
[2018-04-23] MEDS ORDERED: MAGNESIUM HYDROX 2400MG/30ML ORAL SUSPENSION 30 ML CUP PO PRN (12:18)
[2018-04-23] MEDS ORDERED: ACETAMINOPHEN 325 MG TABLET (FP) PO PRN (12:18)
[2018-04-23] MEDS ORDERED: NICOTINE POLACRILEX 2 MG GUM BUC PRN (12:18)
[2018-04-23] MEDS ORDERED: IBUPROFEN 400 MG TABLET (FP) PO PRN (12:18)
[2018-04-23] MEDS ORDERED: MAGNESIUM CITRATE 300 ML BOTTLE PO PRN (12:18)
[2018-04-23] MEDS ORDERED: hydrOXYzine PAMOATE 25 MG CAPSULE (FP) PO PRN (12:18)
[2018-04-23] MEDS ORDERED: MENTHOL/PHENOL 1 EACH UD MM PRN (12:18)
[2018-04-23] MEDS ORDERED: MELATONIN 5 MG TABLETS PO PRN (22:00)
[2018-04-23] MEDS: THIAMINE HCL 100 MG TABLET (FP) PO SCH (22:01)
[2018-04-23 23:09] LABS: URINE APPEARANCE TURBID; URINE BILIRUBIN NEGATIVE (<2.0 mg/dL); URINE COLOR YELLOW; URINE GLUCOSE (UA) NEGATIVE (NEGATIVE); URINE KETONE TRACE (NEGATIVE); URINE LEUK ESTERASE 2+ (NEGATIVE); URINE NITRITE NEGATIVE (NEGATIVE); URINE PROTEIN 1+ (NEGATIVE); URINE UROBILINOGEN 4.0 E.U/dl mg/dL (0.2-1.0)
[2018-04-23 23:18] LABS: URINE MUCUS MANY
[2018-04-24] MEDS: PRENATAL VITAMINS W/ FOLIC ACID TABLET (FP) PO SCH (11:04)
--- NOTE | 2018-04-24 11:16 | HP ---
Psychiatrist Admission - Data Date of interview: 04/24/18 Admission source: [address] [place] [address] Identifying data: This is one of the multiple admssions to this facility for this 42 yo single AA father of 2,domiciled,supported by [facility]. Medical History: H/O head trauma. Vital Signs: Vital Signs - 24 hr 04/23/18 04/24/18 04/24/18 15:39 00:30 03:30 Temperature 97.9 F Pulse Rate 75 Respiratory 18 18 20 Rate Blood Pressure 110/67 04/24/18 07:09 Temperature 98.1 F Pulse Rate 63 Respiratory 18 Rate Blood Pressure 115/73 Allergies/Adverse Reactions: Allergies Allergy/AdvReac Type Severity Reaction Status Date / Time No Known Allergies Allergy Verified 04/23/18 10:41 - Substance Abuse/Tx History Hx Alcohol Use: Yes Hx Substance Use: Yes Substance Use Type: Alcohol, Cocaine, Marijuana Hx Substance Use Treatment: Yes (multiple previous treatments) Mental Status Exam - Mental Status Exam Alert and Oriented to: Time, Place, Person Cognitive Function: Grossly Intact Patient Appearance: Unkempt Mood: Irritable Affect: Labile Patient Behavior: Cooperative Speech Pattern: Clear Voice Loudness: Normal Thought Process: Goal Oriented Thought Disorder: Being Controlled Hallucinations: Denies Suicidal Ideation: Denies Homicidal Ideation: Denies Insight/Judgement: Fair Sleep: Fair Appetite: Good Muscle strength/Tone: Normal Gait/Station: Normal Psychiatric Findings - Problem List ([place] 1, 2,3) (1) Substance induced mood disorder Current Visit: Yes Status: Chronic (2) Alcohol dependence with uncomplicated withdrawal Current Visit: Yes Status: Chronic (3) Cannabis dependence Current Visit: No Status: Chronic (4) Cocaine dependence Current Visit: Yes Status: Chronic Qualifiers: Substance use status: uncomplicated (5) Nicotine dependence Current Visit: Yes Status: Chronic Qualifiers: Nicotine product type: cigarettes Substance use status: uncomplicated Qualified Code(s): F17.210 - Nicotine dependence, cigarettes, uncomplicated (6) PTSD (post-traumatic stress disorder) Current Visit: Yes Status: Chronic (7) Head injury due to trauma Current Visit: Yes Status: Inactive - Initial Treatment Plan Initial Treatment Plan: Will monitor progress.
[2018-04-24] MEDS: THIAMINE HCL 100 MG TABLET (FP) PO SCH (22:07)
[2018-04-25] MEDS: PRENATAL VITAMINS W/ FOLIC ACID TABLET (FP) PO SCH (10:20)
[2018-04-25] MEDS: THIAMINE HCL 100 MG TABLET (FP) PO SCH (21:56)
[2018-04-26] MEDS: PRENATAL VITAMINS W/ FOLIC ACID TABLET (FP) PO SCH (10:36)
[2018-04-26] MEDS: THIAMINE HCL 100 MG TABLET (FP) PO SCH (21:44)
[2018-04-27 07:13] VITALS: BP 110/65; PULSE 70; TEMP 98.3
[2018-04-27] MEDS: PRENATAL VITAMINS W/ FOLIC ACID TABLET (FP) PO SCH (10:48)
== END 2018-04-27 13:00 | disposition left against medical advice (07) | DRG 770 ==
LOC: YASAS 09:58 → Y5N 14:05
PROVIDERS: ADMIT Psychiatry & Neurology Psychiatry; ATTEND Psychiatry & Neurology Psychiatry
PROC: HZ42ZZZ Group Counseling for Substance Abuse Treatment, Cognitive-Behavioral (ICD-10-PCS; principal; 2018-04-23)
DX: F10.20 Alcohol dependence, uncomplicated (principal); F14.20 Cocaine dependence, uncomplicated; F12.20 Cannabis dependence, uncomplicated; F17.210 Nicotine dependence, cigarettes, uncomplicated; F43.10 Post-traumatic stress disorder, unspecified; F19.24 Other psychoactive substance dependence with psychoactive substance-induced mood disorder
CPT/HCPCS: 81003; 81015; 87086

== ENCOUNTER 2018-06-06 13:08 | Inpatient (IN) | payer OTHER ==
[2018-06-06 14:06] VITALS: BMI 22.7
--- NOTE | 2018-06-06 14:28 | HP ---
CIWA Score Nausea/Vomitin-Mild Nausea/No Vomiting Muscle Tremors: 4-Moderate,w/Arms Extend Anxiety: 4-Mod. Anxious/Guarded Agitation: 1-Slight > Activity Paroxysmal Sweats: No Perspiration Orientation: 0-Oriented Tacttile Disturbances: 0-None Auditory Disturbances: 1-Very Mild Visual Disturbances: 1-Very Mild Sensitivity Headache: 2-Mild CIWA-Ar Total Score: 14 - Admission Criteria OASAS Guidelines: Admission for Medically Managed Detox: Requires at least one of the followin. CIWA greater than 12 2. Seizures within the past 24 hours 3. Delirium tremens within the past 24 hours 4. Hallucinations within the past 24 hours 5. Acute intervention needed for co occurring medical disorder 6. Acute intervention needed for co occurring psychiatric disorder 7. Severe withdrawal that cannot be handled at a lower level of care (continued vomiting, continued diarrhea, abnormal vital signs) requiring intravenous medication and/or fluids 8. Patient presents the following: CIWA greater than 12, Acute intervention needed for co-occurring med or psych disorder Admission Criteria Met: Admission criteria met Admission ROS S - HPI Chief Complaint: I want to get it right, I'm tired Allergies/Adverse Reactions: Allergies Allergy/AdvReac Type Severity Reaction Status Date / Time No Known Allergies Allergy Verified 06/06/18 14:20 History of Present Illness: 42 yo gentleman here for detox from alcohol, also using cocaine and marijuana. This is one of many admissions for treatment - almost monthly. Denies seizures but does have black outs. States he drinks first thing in the morning to stop his shakes. Patient is a good candidate for medications upon discharge such as Vivitrol. Exam Limitations: Clinical Condition - Ebola screening Have you traveled outside of the country in the last 21 days: No (N) Have you had contact with anyone from an Ebola affected area: No Have you been sick,other than usual withdrawal symptoms: No Do you have a fever: No - Review of Systems Constitutional: Loss of Appetite, Malaise, Changes in sleep, Weakness EENT: reports: Blurred Vision Respiratory: reports: No Symptoms reported Cardiac: reports: No Symptoms Reported GI: reports: Nausea, Poor Fluid Intake, Abdominal cramping : reports: Frequency Musculoskeletal: reports: No Symptoms Reported Integumentary: reports: Dryness Neuro: reports: Headache, Tremors Endocrine: reports: No Symptoms Reported Hematology: reports: No Symptoms Reported Psychiatric: reports: Judgement Intact, Mood/Affect Appropiate, Orientated x3, Anxious Other Systems: Reviewed and Negative Patient History - Patient Medical History Hx Anemia: No Hx Asthma: No Hx Chronic Obstructive Pulmonary Disease (COPD): No Hx Cancer: No Hx Cardiac Disorders: No Hx Congestive Heart Failure: No Hx Hypertension: No Hx Hypercholesterolemia: No Hx Pacemaker: No HX Cerebrovascular Accident: No Hx Seizures: No Hx Dementia: No Hx Diabetes: No Hx Gastrointestinal Disorders: No Hx Liver Disease: No Hx Genitourinary Disorders: No Hx Sexually Transmitted Disorders: No Hx Renal Disease (ESRD): No Hx Thyroid Disease: No Hx Human Immunodeficiency Virus (HIV): No Hx Hepatitis C: No Hx Depression: Yes (hospitalized thinks apr 2018 at [facility]) Hx Suicide Attempt: No Hx Bipolar Disorder: No Hx Schizophrenia: Yes Other Medical History: reports history of head trauma - Patient Surgical History Past Surgical History: No Hx Neurologic Surgery: No Hx Cataract Extraction: No Hx Cardiac Surgery: No Hx Lung Surgery: No Hx Breast Surgery: No Hx Breast Biopsy: No Hx Abdominal Surgery: No Hx Appendectomy: No Hx Cholecystectomy: No Hx Genitourinary Surgery: No Hx Section: No Hx Orthopedic Surgery: No Other Surgical History: fx, left mandible in 1998 Anesthesia Reaction: No - PPD History Previous Implant?: Yes Documented Results: Negative w/proof Implanted On Prior [facility] Admission?: Yes Date: 02/08/18 Results: 0 mm PPD to be Administered?: No - Reproductive History Patient is a Female of Child Bearing Age (11 -55 yrs old): No (male) - Smoking Cessation Smoking history: Current every day smoker Have you smoked in the past 12 months: Yes Aproximately how many cigarettes per day: 10 If you are a former smoker, when did you quit?: 01/30/2018 Cigars Per Day: 0 Hx Chewing Tobacco Use: No Initiated information on smoking cessation: Yes 'Breaking Loose' booklet given: 06/06/18 (give on floor) - Substance & Tx. History Hx Alcohol Use: Yes Hx Substance Use: Yes Substance Use Type: Alcohol, Cocaine, Marijuana Hx Substance Use Treatment: Yes (detox, rehab) - Substances Abused Alcohol Route: Oral Frequency: Daily Amount used: 12 PACK 24 oz BEER; 4 pints vodka/gin/tequila Age of first use: 13 Date of Last Use: 06/06/18 Cocaine Route: Smoking Frequency: Daily Amount used: $200 Age of first use: 28 Date of Last Use: 06/06/18 pot Route: Smoking Frequency: 1-2 times per week Amount used: 1 bag Age of first use: 10 Date of Last Use: 06/05/18 Family Disease History - Family Disease History Family Disease History: Other: Father (Used Alcohol. .), Mother ( Seizures. .), Brother (two - living - healthy), Sister (two ( one HIV, one murdered)), Son (three - healthy), Daughter (three - healthy) Admission Physical Exam [facility] - Vital Signs Vital Signs: Vital Signs - 24 hr 06/06/18 14:04 Temperature 97.7 F Pulse Rate 77 Respiratory 18 Rate Blood Pressure 120/77 - Physical General Appearance: Yes: Nourished, Appropriately Dressed, Moderate Distress, Thin, Anxious HEENTM: Yes: EOMI, Hearing grossly Normal, Normocephalic, Normal Voice, Pharynx Normal, Other (tongue coated) Respiratory: Yes: Normal Breath Sounds, No Respiratory Distress Neck: Yes: No masses,lesions,Nodules Breast: Yes: Breast Exam Deferred Cardiology: Yes: Regular Rhythm, Regular Rate Abdominal: Yes: Flat, Soft Genitourinary: Yes: Frequency Back: Yes: Normal Inspection Extremities: Yes: Normal Inspection, Non-Tender Neurological: Yes: Fully Oriented, Alert, Normal Mood/Affect, Normal Response Integumentary: Yes: Normal Color, Warm Lymphatic: Yes: Within Normal Limits - Diagnostic (1) Alcohol dependence with uncomplicated withdrawal Current Visit: Yes Status: Chronic (2) Cannabis dependence Current Visit: Yes Status: Chronic (3) Dehydration Current Visit: Yes Status: Acute (4) Cocaine dependence Current Visit: No Status: Chronic Qualifiers: Substance use status: uncomplicated Qualified Code(s): F14.20 - Cocaine dependence, uncomplicated (5) Nicotine dependence Current Visit: Yes Status: Chronic Qualifiers: Nicotine product type: cigarettes Substance use status: uncomplicated Qualified Code(s): F17.210 - Nicotine dependence, cigarettes, uncomplicated (6) History of head injury Current Visit: Yes Status: Resolved Cleared for Admission [facility] - Detox or Rehab S Level of Care: Medically Managed Detox Regimen/Protocol: Librium BHS Breath Alcohol Content Breath Alcohol Content: 0 Urine Drug Screen - Results Drug Screen Negative: No Urine Drug Screen Results: THC-Marijuana, JACKELINE-Cocaine
[2018-06-06] MEDS ORDERED: chlordiazePOXIDE HCL 25 MG CAPSULE PO PRN (14:35)
[2018-06-06] MEDS ORDERED: MAGNESIUM CITRATE 300 ML BOTTLE PO PRN (14:35)
[2018-06-06] MEDS ORDERED: IBUPROFEN 400 MG TABLET (FP) PO PRN (14:35)
[2018-06-06] MEDS ORDERED: MAGNESIUM HYDROX 2400MG/30ML ORAL SUSPENSION 30 ML CUP PO PRN (14:35)
[2018-06-06] MEDS ORDERED: guaiFENesin/D-METHORPHAN HB 10 ML UNIT-DOSE CUPS PO PRN (14:35)
[2018-06-06] MEDS ORDERED: MENTHOL/PHENOL 1 EACH UD MM PRN (14:35)
[2018-06-06] MEDS ORDERED: LOPERAMIDE HCL 2 MG CAPSULE PO PRN (14:35)
[2018-06-06] MEDS ORDERED: NICOTINE POLACRILEX 4 MG GUM BC PRN (14:35)
[2018-06-06] MEDS ORDERED: P-EPHED 60MG/TRIPROLIDI 2.5MG TABLET PO PRN (14:35)
[2018-06-06] MEDS ORDERED: ACETAMINOPHEN 325 MG TABLET (FP) PO PRN (14:35)
[2018-06-06] MEDS ORDERED: MAG HYDROX/AL HYDROX/SIMETH 30 ML UNIT-DOSE CUP PO PRN (14:35)
[2018-06-06] MEDS: chlordiazePOXIDE HCL 25 MG CAPSULE PO SCH ×2 (17:32→22:39)
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
[2018-06-06] MEDS ORDERED: MELATONIN 5 MG TABLETS PO PRN (22:00)
[2018-06-06] MEDS: THIAMINE HCL 100 MG TABLET (FP) PO SCH (22:39)
[2018-06-07] MEDS: chlordiazePOXIDE HCL 25 MG CAPSULE PO SCH ×4 (06:29→22:20)
[2018-06-07] MEDS: PRENATAL VITAMINS W/ FOLIC ACID TABLET (FP) PO SCH (10:44)
--- NOTE | 2018-06-07 12:46 | PN ---
[facility] CIWA - CIWA Score Nausea/Vomitin-No Nausea/No Vomiting Muscle Tremors: 3 Anxiety: 2 Agitation: 1-Slight > Activity Paroxysmal Sweats: 1-Minimal Palms Moist Orientation: 1-Uncertain about Date Tacttile Disturbances: 0-None Auditory Disturbances: 0-None Visual Disturbances: 0-None Headache: 2-Mild CIWA-Ar Total Score: 10 BHS Progress Note (SOAP) Subjective: irritable tremor sweating agitative otherwise patient reported feeling ok Objective: 06/07/18 12:48 Vital Signs Temperature 98.8 F 06/07/18 09:20 Pulse Rate 79 06/07/18 09:20 Respiratory Rate 18 06/07/18 09:20 Blood Pressure 105/69 06/07/18 09:20 O2 Sat by Pulse Oximetry (%) lab results based on 02/2018 current lab pending Assessment: 06/07/18 12:49 withdrawal sx Plan: continue detox
--- NOTE | 2018-06-07 15:45 | EKG ---
Test Reason : Blood Pressure : / mmHG Vent. Rate : 073 BPM Atrial Rate : 073 BPM P-R Int : 108 ms QRS Dur : 096 ms QT Int : 394 ms P-R-T Axes : -38 053 052 degrees QTc Int : 434 ms UNUSUAL P AXIS, POSSIBLE ECTOPIC ATRIAL RHYTHM ABNORMAL ECG WHEN COMPARED WITH ECG OF 07-MAR-2018 14:24, NO SIGNIFICANT CHANGE WAS FOUND Confirmed by KIM LUCIANO MD ([id number]) on 06/07/2018 3:44:41 PM Referred By: Confirmed By:KIM LUCIANO MD
[2018-06-07] MEDS: THIAMINE HCL 100 MG TABLET (FP) PO SCH (22:20)
[2018-06-08] MEDS: chlordiazePOXIDE HCL 25 MG CAPSULE PO SCH ×2 (06:49→10:10)
--- NOTE | 2018-06-08 09:06 | PN ---
[facility] CIWA - CIWA Score Nausea/Vomitin-No Nausea/No Vomiting Muscle Tremors: 2 Anxiety: 1-Mildly Anxious Agitation: 1-Slight > Activity Paroxysmal Sweats: 1-Minimal Palms Moist Orientation: 1-Uncertain about Date Tacttile Disturbances: 0-None Auditory Disturbances: 0-None Visual Disturbances: 0-None Headache: 1-Very Mild CIWA-Ar Total Score: 7 BHS Progress Note (SOAP) Subjective: tremor sweating low energy trouble resting throughout the night Objective: 06/08/18 09:05 Vital Signs Temperature 98.6 F 06/08/18 09:00 Pulse Rate 55 L 06/08/18 09:00 Respiratory Rate 18 06/08/18 09:00 Blood Pressure 97/56 L 06/08/18 09:00 O2 Sat by Pulse Oximetry (%) lab pending reorder admission lab panel Assessment: 06/08/18 09:10 withdrawal sx Plan: continue detox
[2018-06-08] MEDS: PRENATAL VITAMINS W/ FOLIC ACID TABLET (FP) PO SCH (10:10)
[2018-06-08 12:29] LABS: HEMATOCRIT 40.2 % (35.4-49); HEMOGLOBIN 14.1 GM/dL (11.7-16.9); MCH 33.5 pg (25.7-33.7); MCHC 35.1 g/dl (32.0-35.9); MEAN CELL VOLUME 95.4 fl (80-96); MEAN PLT VOLUME 8.9 fl (7.5-11.1); PLATELET COUNT 201 K/MM3 (134-434); RBC 4.21 M/mm3 (4.00-5.60); RDW 13.3 % (11.9-15.9)
[2018-06-08 12:58] LABS: ALBUMIN 3.6 g/dl (3.4-5.0); ALK PHOS 81 U/L (45-117); ANION GAP 2 MMOL/L (8-16); BILIRUBIN,TOTAL 0.4 mg/dL (0.2-1); BLOOD UREA NITROGEN 12 mg/dL (7-18); CALCIUM 8.6 mg/dL (8.5-10.1); CHLORIDE 109 mmol/L (98-107); CO2 31 mmol/L (21-32); CREATININE 1.1 mg/dL (0.55-1.3); GLUCOSE,RANDOM 112 mg/dL (74-106); POTASSIUM 4.2 mmol/L (3.5-5.1); SGOT/AST 17 U/L (15-37); SGPT/ALT 28 U/L (13-61); SODIUM 142 mmol/L (136-145); TOT PROT 6.4 g/dl (6.4-8.2)
[2018-06-08] MEDS: chlordiazePOXIDE 5 MG CAPSULE PO SCH ×2 (17:08→22:25)
[2018-06-08] MEDS: THIAMINE HCL 100 MG TABLET (FP) PO SCH (22:25)
[2018-06-09] MEDS: chlordiazePOXIDE 5 MG CAPSULE PO SCH ×2 (07:04→11:13)
[2018-06-09] MEDS: PRENATAL VITAMINS W/ FOLIC ACID TABLET (FP) PO SCH (11:13)
[2018-06-09 12:28] LABS: URINE APPEARANCE CLEAR; URINE BILIRUBIN NEGATIVE (<2.0 mg/dL); URINE COLOR STRAW; URINE GLUCOSE (UA) NEGATIVE (NEGATIVE); URINE KETONE NEGATIVE (NEGATIVE); URINE LEUK ESTERASE NEGATIVE (NEGATIVE); URINE NITRITE NEGATIVE (NEGATIVE); URINE PROTEIN NEGATIVE (NEGATIVE); URINE UROBILINOGEN NEGATIVE mg/dL (0.2-1.0)
--- NOTE | 2018-06-09 15:17 | PN ---
[facility] Progress Note (SOAP) Subjective: feeling better no nausea no vomiting tolerate food and fluid well mild tremor less sweating Objective: 06/09/18 15:16 Vital Signs Temperature 98.4 F 06/09/18 13:34 Pulse Rate 67 06/09/18 13:34 Respiratory Rate 18 06/09/18 13:34 Blood Pressure 86/56 L 06/09/18 13:34 O2 Sat by Pulse Oximetry (%) Laboratory Last Values WBC 5.0 K/mm3 (4.0-10.0) 06/08/18 10:20 RBC 4.21 M/mm3 (4.00-5.60) 06/08/18 10:20 Hgb 14.1 GM/dL (11.7-16.9) 06/08/18 10:20 Hct 40.2 % (35.4-49) 06/08/18 10:20 MCV 95.4 fl (80-96) 06/08/18 10:20 MCH 33.5 pg (25.7-33.7) 06/08/18 10:20 MCHC 35.1 g/dl (32.0-35.9) 06/08/18 10:20 RDW 13.3 % (11.9-15.9) 06/08/18 10:20 Plt Count 201 K/MM3 (134-434) 06/08/18 10:20 MPV 8.9 fl (7.5-11.1) 06/08/18 10:20 Sodium 142 mmol/L (136-145) 06/08/18 10:20 Potassium 4.2 mmol/L (3.5-5.1) 06/08/18 10:20 Chloride 109 mmol/L (98-107) H 06/08/18 10:20 Carbon Dioxide 31 mmol/L (21-32) 06/08/18 10:20 Anion Gap 2 MMOL/L (8-16) L 06/08/18 10:20 BUN 12 mg/dL (7-18) 06/08/18 10:20 Creatinine 1.1 mg/dL (0.55-1.3) 06/08/18 10:20 Creat Clearance w eGFR > 60 (>60) 06/08/18 10:20 Random Glucose 112 mg/dL (74-106) H 06/08/18 10:20 Calcium 8.6 mg/dL (8.5-10.1) 06/08/18 10:20 Total Bilirubin 0.4 mg/dL (0.2-1) 06/08/18 10:20 AST 17 U/L (15-37) 06/08/18 10:20 ALT 28 U/L (13-61) 06/08/18 10:20 Alkaline Phosphatase 81 U/L (45-117) 06/08/18 10:20 Total Protein 6.4 g/dl (6.4-8.2) 06/08/18 10:20 Albumin 3.6 g/dl (3.4-5.0) 06/08/18 10:20 Urine Color Straw 06/09/18 10:10 Urine Appearance Clear 06/09/18 10:10 Urine pH 6.0 (5.0-8.0) 06/09/18 10:10 Ur Specific [place] 1.009 (1.010-1.035) L 06/09/18 10:10 Urine Protein Negative (NEGATIVE) 06/09/18 10:10 Urine Glucose (UA) Negative (NEGATIVE) 06/09/18 10:10 Urine Ketones Negative (NEGATIVE) 06/09/18 10:10 Urine Blood Negative (NEGATIVE) 06/09/18 10:10 Urine Nitrite Negative (NEGATIVE) 06/09/18 10:10 Urine Bilirubin Negative (<2.0 mg/dL) 06/09/18 10:10 Urine Urobilinogen Negative mg/dL (0.2-1.0) 06/09/18 10:10 Ur Leukocyte Esterase Negative (NEGATIVE) 06/09/18 10:10 RPR Titer Nonreactive (NONREACTIVE) 06/08/18 10:20 lab noted Assessment: 06/09/18 15:17 mild withdrawal sx Plan: continue detox
[2018-06-09] MEDS ORDERED: chlordiazePOXIDE HCL 10 MG CAPSULE PO SCH (17:00)
[2018-06-09 17:14] VITALS: BP 111/62; PULSE 76; TEMP 97.8
--- NOTE | 2018-06-09 19:03 | DS ---
[facility] Detox Discharge Summary Admission Date: 06/06/18 Discharge Date: 06/09/18 - Physical Exam Results Vital Signs: Vital Signs Temperature 97.8 F 06/09/18 17:13 Pulse Rate 76 06/09/18 17:13 Respiratory Rate 16 06/09/18 17:13 Blood Pressure 111/62 06/09/18 17:13 O2 Sat by Pulse Oximetry (%) - Treatment Hospital Course: Detox Protocol Followed, Detoxed Safely - Medication Discharge Medications: Ambulatory Orders Phosphorated Carbo(Dext-Fruct) [Emetrol Oral Solution] 30 ml PO TID PRN
== END 2018-06-09 19:00 | disposition home or self-care (01) | DRG 774 ==
LOC: YASAS 13:08 → Y3N 14:10
PROVIDERS: ADMIT Neuromusculoskeletal Medicine & OMM; ATTEND Neuromusculoskeletal Medicine & OMM
PROC: HZ2ZZZZ Detoxification Services for Substance Abuse Treatment (ICD-10-PCS; principal; 2018-06-06)
DX: F10.230 Alcohol dependence with withdrawal, uncomplicated (principal); F14.20 Cocaine dependence, uncomplicated; F17.210 Nicotine dependence, cigarettes, uncomplicated; F19.24 Other psychoactive substance dependence with psychoactive substance-induced mood disorder; Z87.820 Personal history of traumatic brain injury
CPT/HCPCS: 36415; 80053; 81003; 85027; 86593; 93005; 93010

== ENCOUNTER 2018-09-12 11:58 | Inpatient (IN) | payer OTHER ==
[2018-09-12 12:29] VITALS: BMI 23.6
--- NOTE | 2018-09-12 12:52 | HP ---
CIWA Score Nausea/Vomitin-Mild Nausea/No Vomiting Muscle Tremors: 4-Moderate,w/Arms Extend Anxiety: 2 Agitation: 0-Normal Activity Paroxysmal Sweats: 1-Minimal Palms Moist Orientation: 0-Oriented Tacttile Disturbances: 1-Very Mild Itch/Numbness Auditory Disturbances: 1-Very Mild Visual Disturbances: 1-Very Mild Sensitivity Headache: 3-Moderate CIWA-Ar Total Score: 14 - Admission Criteria OASAS Guidelines: Admission for Medically Managed Detox: Requires at least one of the followin. CIWA greater than 12 2. Seizures within the past 24 hours 3. Delirium tremens within the past 24 hours 4. Hallucinations within the past 24 hours 5. Acute intervention needed for co occurring medical disorder 6. Acute intervention needed for co occurring psychiatric disorder 7. Severe withdrawal that cannot be handled at a lower level of care (continued vomiting, continued diarrhea, abnormal vital signs) requiring intravenous medication and/or fluids 8. Patient presents the following: CIWA greater than 12 Admission Criteria Met: Admission criteria met Admission ROS S - HPI Chief Complaint: I want to get clean, get detox Allergies/Adverse Reactions: Allergies Allergy/AdvReac Type Severity Reaction Status Date / Time No Known Allergies Allergy Verified 09/12/18 12:22 History of Present Illness: 42 yo gentleman here for detox from alcohol - this is one of many admissions for treatment. Was in [facility] last night for back pain - given toradol and muscle relaxer. Longest time sober 18 months while incarcerated. Denies seizures, denies black outs. urine tox + bzo but does not use benzo separately - thinks mixed with cocaine. Exam Limitations: Clinical Condition - Ebola screening Have you traveled outside of the country in the last 21 days: No (N) Have you had contact with anyone from an Ebola affected area: No Do you have a fever: No - Review of Systems Constitutional: Loss of Appetite, Malaise, Changes in sleep, Weakness EENT: reports: Blurred Vision Respiratory: reports: No Symptoms reported Cardiac: reports: No Symptoms Reported GI: reports: Poor Appetite, Poor Fluid Intake, Abdominal cramping : reports: Burning, Frequency Musculoskeletal: reports: Back Pain Integumentary: reports: No Symptoms Reported Neuro: reports: Headache, Tremors Endocrine: reports: No Symptoms Reported Hematology: reports: No Symptoms Reported Psychiatric: reports: Judgement Intact, Mood/Affect Appropiate, Orientated x3, Anxious Other Systems: Reviewed and Negative Patient History - Patient Medical History Hx Anemia: No Hx Asthma: No Hx Chronic Obstructive Pulmonary Disease (COPD): No Hx Cancer: No Hx Cardiac Disorders: No Hx Congestive Heart Failure: No Hx Hypertension: No Hx Hypercholesterolemia: No Hx Pacemaker: No HX Cerebrovascular Accident: No Hx Seizures: No Hx Dementia: No Hx Diabetes: No Hx Gastrointestinal Disorders: No Hx Liver Disease: No Hx Genitourinary Disorders: No Hx Sexually Transmitted Disorders: No Hx Renal Disease (ESRD): No Hx Thyroid Disease: No Hx Human Immunodeficiency Virus (HIV): No Hx Hepatitis C: No Hx Depression: Yes (not for 'years') Hx Suicide Attempt: No (denies) Hx Bipolar Disorder: No Hx Schizophrenia: Yes (not hearing voices now, no meds) - Patient Surgical History Past Surgical History: No Hx Neurologic Surgery: No Hx Cataract Extraction: No Hx Cardiac Surgery: No Hx Lung Surgery: No Hx Breast Surgery: No Hx Breast Biopsy: No Hx Abdominal Surgery: No Hx Appendectomy: No Hx Cholecystectomy: No Hx Genitourinary Surgery: No Hx Section: No Hx Orthopedic Surgery: Yes (fx left mandible 1998) Anesthesia Reaction: No - PPD History Date: 02/08/18 Results: 0 mm - Reproductive History Patient is a Female of Child Bearing Age (11 -55 yrs old): No - Smoking Cessation Smoking history: Current every day smoker Have you smoked in the past 12 months: Yes Aproximately how many cigarettes per day: 20 If you are a former smoker, when did you quit?: 01/30/2018 Cigars Per Day: 0 Hx Chewing Tobacco Use: No Initiated information on smoking cessation: Yes 'Breaking Loose' booklet given: 09/12/18 (give on floor) - Substance & Tx. History Hx Alcohol Use: Yes Hx Substance Use: Yes Substance Use Type: Alcohol, Cocaine Hx Substance Use Treatment: Yes (detox, rehab) - Substances abused Alcohol Substance route: Oral Frequency: Daily Amount used: 1 liter of vodka Age of first use: 13 Date of last use: 09/12/18 Cocaine Substance route: Smoking Frequency: Daily Amount used: $200 Age of first use: 28 Date of last use: 09/11/18 Marijuana/Hashish Substance route: Smoking Frequency: 1-2 times per week Amount used: 1 bag Age of first use: 12 Date of last use: 09/10/18 Family Disease History - Family Disease History Family Disease History: Other: Father (Used Alcohol. .), Mother ( Seizures. .), Brother (two - living - healthy), Sister (two ( one HIV, one murdered)), Son (three - healthy), Daughter (three - healthy) Admission Physical Exam [facility] - Vital Signs Vital Signs: Vital Signs - 24 hr 09/12/18 12:23 Temperature 97.0 F L Pulse Rate 62 Respiratory 16 Rate Blood Pressure 96/59 L - Physical General Appearance: Yes: Nourished, Appropriately Dressed, Moderate Distress, Anxious HEENTM: Yes: EOMI, Hearing grossly Normal, Normal ENT Inspection, Normocephalic , Normal Voice, Pharynx Normal Respiratory: Yes: Normal Breath Sounds, No Respiratory Distress Neck: Yes: No masses,lesions,Nodules Breast: Yes: Breast Exam Deferred Cardiology: Yes: Regular Rhythm, Regular Rate Abdominal: Yes: Flat, Soft Genitourinary: Yes: Frequency Back: Yes: Normal Inspection, Muscle Spasm Musculoskeletal: Yes: full range of Motion, Gait Steady Extremities: Yes: Normal Inspection, Normal Range of Motion, Non-Tender Neurological: Yes: Fully Oriented, Alert, Motor Strength 5/5, Normal Mood/Affect , Normal Response Integumentary: Yes: Normal Color, Dry, Warm Lymphatic: Yes: Within Normal Limits - Diagnostic (1) Alcohol dependence with uncomplicated withdrawal Current Visit: Yes Status: Acute (2) Cocaine dependence Current Visit: Yes Status: Chronic Qualifiers: Substance use status: uncomplicated Qualified Code(s): F14.20 - Cocaine dependence, uncomplicated (3) Nicotine dependence Current Visit: Yes Status: Chronic Qualifiers: Nicotine product type: cigarettes Substance use status: uncomplicated Qualified Code(s): F17.210 - Nicotine dependence, cigarettes, uncomplicated (4) Back pain Current Visit: Yes Status: Acute Qualifiers: Back pain location: low back pain Chronicity: acute Back pain laterality : bilateral Sciatica presence: without sciatica Qualified Code(s): M54.5 - Low back pain Cleared for Admission [facility] - Detox or Rehab [facility] Level of Care: Medically Managed Detox Regimen/Protocol: Librium Urine Drug Screen - Control Is test valid?: Yes - Results Urine drug screen results: THC-Marijuana, JACKELINE-Cocaine, BZO-Benzodiazepines Inpatient Rehab Admission - Rehab Decision to Admit Inpatient rehab admission?: No
[2018-09-12] MEDS ORDERED: hydrOXYzine PAMOATE 25 MG CAPSULE (FP) PO PRN (12:58)
[2018-09-12] MEDS ORDERED: MAGNESIUM CITRATE 300 ML BOTTLE PO PRN (12:58)
[2018-09-12] MEDS ORDERED: METHOCARBAMOL 500 MG TABLET PO PRN (12:58)
[2018-09-12] MEDS ORDERED: MAGNESIUM HYDROX 2400MG/30ML ORAL SUSPENSION 30 ML CUP PO PRN (12:58)
[2018-09-12] MEDS ORDERED: MELATONIN 5 MG TABLETS PO PRN (12:58)
[2018-09-12] MEDS ORDERED: NICOTINE POLACRILEX 4 MG GUM BUC PRN (12:58)
[2018-09-12] MEDS ORDERED: MENTHOL/PHENOL 1 EACH UD MM PRN (12:58)
[2018-09-12] MEDS ORDERED: BISMUTH SUBSALICYLATE 524 MG/30 ML UD PO PRN (12:58)
[2018-09-12] MEDS ORDERED: IBUPROFEN 400 MG TABLET (FP) PO PRN (12:58)
[2018-09-12] MEDS ORDERED: ACETAMINOPHEN 325 MG TABLET (FP) PO PRN (12:58)
[2018-09-12] MEDS ORDERED: MAG HYDROX/AL HYDROX/SIMETH 30 ML UNIT-DOSE CUP PO PRN (12:58)
[2018-09-12] MEDS ORDERED: chlordiazePOXIDE HCL 25 MG CAPSULE PO PRN (12:58)
[2018-09-12] MEDS ORDERED: chlordiazePOXIDE HCL 25 MG CAPSULE PO ONE (14:00)
[2018-09-12] MEDS: LIDOCAINE 5% TOPICAL PATCH TP SCH (14:41)
[2018-09-12] MEDS: chlordiazePOXIDE HCL 25 MG CAPSULE PO SCH ×2 (18:04→22:47)
[2018-09-12] MEDS: THIAMINE HCL 100 MG TABLET (FP) PO SCH (22:47)
[2018-09-12] MEDS: LIDOCAINE PATCH REMOVAL MC SCH (22:48)
[2018-09-13] MEDS: chlordiazePOXIDE HCL 25 MG CAPSULE PO SCH ×4 (06:18→23:41)
[2018-09-13] MEDS: LIDOCAINE 5% TOPICAL PATCH TP SCH (10:38)
[2018-09-13] MEDS: PRENATAL VITAMINS W/ FOLIC ACID TABLET (FP) PO SCH (10:38)
--- NOTE | 2018-09-13 10:44 | PN ---
S CIWA - CIWA Score Nausea/Vomitin-Mild Nausea/No Vomiting Muscle Tremors: 3 Anxiety: 2 Agitation: 2 Paroxysmal Sweats: 1-Minimal Palms Moist Orientation: 2-Disoriented Date<2 days Tacttile Disturbances: 0-None Auditory Disturbances: 0-None Visual Disturbances: 0-None Headache: 1-Very Mild CIWA-Ar Total Score: 12 BHS Progress Note (SOAP) Subjective: doing ok today feeling well with librium protocol Objective: 09/13/18 10:45 Vital Signs Temperature 97.3 F L 09/13/18 10:13 Pulse Rate 73 09/13/18 10:13 Respiratory Rate 18 09/13/18 10:13 Blood Pressure 99/59 L 09/13/18 10:13 O2 Sat by Pulse Oximetry (%) lab pending Assessment: 09/13/18 10:46 alcohol withdrawal sx Plan: continue alcohol detox
[2018-09-13 10:53] LABS: ALBUMIN 3.7 g/dl (3.4-5.0); BILIRUBIN,TOTAL 0.7 mg/dL (0.2-1); CALCIUM 8.8 mg/dL (8.5-10.1); POTASSIUM 4.6 mmol/L (3.5-5.1); TOT PROT 6.7 g/dl (6.4-8.2)
[2018-09-13 11:20] LABS: HEMATOCRIT 42.5 % (35.4-49); HEMOGLOBIN 13.7 GM/dL (11.7-16.9); MCH 31.1 pg (25.7-33.7); MCHC 32.3 g/dl (32.0-35.9); MEAN CELL VOLUME 96.3 fl (80-96); MEAN PLT VOLUME 9.5 fl (7.5-11.1); PLATELET COUNT 215 K/MM3 (134-434); RBC 4.41 M/mm3 (4.00-5.60); RDW 13.1 % (11.9-15.9); WHITE BLOOD COUNT 5.4 K/mm3 (4.0-10.0)
[2018-09-13 13:59] LABS: EPI CELLS 0.6 /HPF (0-5/HPF); PH,URINE 6.5 (5.0-8.0); URINE APPEARANCE CLEAR; URINE BACTERIA 16.1 /hpf (NEGATIVE); URINE BILIRUBIN NEGATIVE (NEGATIVE); URINE CASTS 2 /lpf (0-8); URINE COLOR YELLOW; URINE GLUCOSE (UA) TRACE (NEGATIVE); URINE KETONE NEGATIVE (NEGATIVE); URINE LEUK ESTERASE TRACE (NEGATIVE); URINE NITRITE NEGATIVE (NEGATIVE); URINE PROTEIN NEGATIVE (NEGATIVE); URINE RBC 1 /hpf (0-4); URINE UROBILINOGEN 0.2 mg/dL (0.2-1.0); URINE WBC 4 /hpf (0-5)
[2018-09-13] MEDS: LIDOCAINE PATCH REMOVAL MC SCH (23:41)
[2018-09-13] MEDS: THIAMINE HCL 100 MG TABLET (FP) PO SCH (23:42)
[2018-09-14] MEDS: chlordiazePOXIDE HCL 25 MG CAPSULE PO SCH ×2 (06:07→10:39)
[2018-09-14] MEDS: PRENATAL VITAMINS W/ FOLIC ACID TABLET (FP) PO SCH (10:39)
[2018-09-14] MEDS: LIDOCAINE 5% TOPICAL PATCH TP SCH (11:30)
--- NOTE | 2018-09-14 12:06 | PN ---
[facility] CIWA - CIWA Score Nausea/Vomitin-Mild Nausea/No Vomiting Muscle Tremors: 3 Anxiety: 2 Agitation: 2 Paroxysmal Sweats: 1-Minimal Palms Moist Orientation: 0-Oriented Tacttile Disturbances: 0-None Auditory Disturbances: 0-None Visual Disturbances: 0-None Headache: 0-None Present CIWA-Ar Total Score: 9 S Progress Note (SOAP) Subjective: feeling ok today discuss aftercare with staff social with peers in day room Objective: 09/14/18 12:05 Vital Signs Temperature 98.1 F 09/14/18 09:14 Pulse Rate 86 09/14/18 09:14 Respiratory Rate 18 09/14/18 09:14 Blood Pressure 128/79 09/14/18 09:14 O2 Sat by Pulse Oximetry (%) Laboratory Last Values WBC 5.4 K/mm3 (4.0-10.0) 09/13/18 07:40 RBC 4.41 M/mm3 (4.00-5.60) 09/13/18 07:40 Hgb 13.7 GM/dL (11.7-16.9) 09/13/18 07:40 Hct 42.5 % (35.4-49) 09/13/18 07:40 MCV 96.3 fl (80-96) H 09/13/18 07:40 MCH 31.1 pg (25.7-33.7) 09/13/18 07:40 MCHC 32.3 g/dl (32.0-35.9) 09/13/18 07:40 RDW 13.1 % (11.9-15.9) 09/13/18 07:40 Plt Count 215 K/MM3 (134-434) 09/13/18 07:40 MPV 9.5 fl (7.5-11.1) 09/13/18 07:40 Sodium 143 mmol/L (136-145) 09/13/18 07:40 Potassium 4.6 mmol/L (3.5-5.1) 09/13/18 07:40 Chloride 108 mmol/L (98-107) H 09/13/18 07:40 Carbon Dioxide 31 mmol/L (21-32) 09/13/18 07:40 Anion Gap 4 MMOL/L (8-16) L 09/13/18 07:40 BUN 10 mg/dL (7-18) 09/13/18 07:40 Creatinine 1.0 mg/dL (0.55-1.3) 09/13/18 07:40 Est GFR (CKD-EPI)AfAm 105.62 09/13/18 07:40 Est GFR (CKD-EPI)NonAf 91.13 09/13/18 07:40 Random Glucose 100 mg/dL (74-106) 09/13/18 07:40 Calcium 8.8 mg/dL (8.5-10.1) 09/13/18 07:40 Total Bilirubin 0.7 mg/dL (0.2-1) 09/13/18 07:40 AST 17 U/L (15-37) 09/13/18 07:40 ALT 25 U/L (13-61) 09/13/18 07:40 Alkaline Phosphatase 73 U/L (45-117) 09/13/18 07:40 Total Protein 6.7 g/dl (6.4-8.2) 09/13/18 07:40 Albumin 3.7 g/dl (3.4-5.0) 09/13/18 07:40 Urine Color Yellow 09/13/18 10:48 Urine Appearance Clear 09/13/18 10:48 Urine pH 6.5 (5.0-8.0) 09/13/18 10:48 Ur Specific [place] 1.020 (1.010-1.035) 09/13/18 10:48 Urine Protein Negative (NEGATIVE) 09/13/18 10:48 Urine Glucose (UA) Trace (NEGATIVE) 09/13/18 10:48 Urine Ketones Negative (NEGATIVE) 09/13/18 10:48 Urine Blood Negative (NEGATIVE) 09/13/18 10:48 Urine Nitrite Negative (NEGATIVE) 09/13/18 10:48 Urine Bilirubin Negative (NEGATIVE) 09/13/18 10:48 Urine Urobilinogen 0.2 mg/dL (0.2-1.0) 09/13/18 10:48 Ur Leukocyte Esterase Trace (NEGATIVE) 09/13/18 10:48 Urine WBC (Auto) 4 /hpf (0-5) 09/13/18 10:48 Urine RBC (Auto) 1 /hpf (0-4) 09/13/18 10:48 Urine Casts (Auto) 2 /lpf (0-8) 09/13/18 10:48 U Epithel Cells (Auto) 0.6 /HPF (0-5/HPF) 09/13/18 10:48 Urine Bacteria (Auto) 16.1 /hpf (NEGATIVE) 09/13/18 10:48 RPR Titer Nonreactive (NONREACTIVE) 09/13/18 07:40 lab noted Assessment: 09/14/18 12:05 withdrawal sx Plan: continue detox
[2018-09-14] MEDS ORDERED: chlordiazePOXIDE HCL 10 MG CAPSULE PO PRN (17:00)
[2018-09-14] MEDS: chlordiazePOXIDE HCL 10 MG CAPSULE PO SCH ×2 (17:28→22:08)
[2018-09-14] MEDS: THIAMINE HCL 100 MG TABLET (FP) PO SCH (22:07)
[2018-09-14] MEDS: LIDOCAINE PATCH REMOVAL MC SCH (22:08)
[2018-09-15] MEDS: chlordiazePOXIDE HCL 10 MG CAPSULE PO SCH ×2 (06:11→10:50)
[2018-09-15 09:14] VITALS: BP 114/72; PULSE 78; TEMP 96.8
[2018-09-15] MEDS: LIDOCAINE 5% TOPICAL PATCH TP SCH (10:50)
[2018-09-15] MEDS: PRENATAL VITAMINS W/ FOLIC ACID TABLET (FP) PO SCH (10:50)
--- NOTE | 2018-09-15 13:16 | DS ---
[facility] Detox Discharge Summary Admission Date: 09/12/18 Discharge Date: 09/15/18 - History Present History: Alcohol Dependence Additional Comments: 42 years old male admitted on 09/12/18 for alcohol withdrawal stabilization feeling better preferring alcohol rehab today after[facility] - Physical Exam Results Vital Signs: Vital Signs Temperature 96.8 F L 09/15/18 09:13 Pulse Rate 78 09/15/18 09:13 Respiratory Rate 18 09/15/18 09:13 Blood Pressure 114/72 09/15/18 09:13 O2 Sat by Pulse Oximetry (%) Pertinent Admission Physical Exam Findings: alcohol withdrawal sx Laboratory Last Values WBC 5.4 K/mm3 (4.0-10.0) 09/13/18 07:40 RBC 4.41 M/mm3 (4.00-5.60) 09/13/18 07:40 Hgb 13.7 GM/dL (11.7-16.9) 09/13/18 07:40 Hct 42.5 % (35.4-49) 09/13/18 07:40 MCV 96.3 fl (80-96) H 09/13/18 07:40 MCH 31.1 pg (25.7-33.7) 09/13/18 07:40 MCHC 32.3 g/dl (32.0-35.9) 09/13/18 07:40 RDW 13.1 % (11.9-15.9) 09/13/18 07:40 Plt Count 215 K/MM3 (134-434) 09/13/18 07:40 MPV 9.5 fl (7.5-11.1) 09/13/18 07:40 Sodium 143 mmol/L (136-145) 09/13/18 07:40 Potassium 4.6 mmol/L (3.5-5.1) 09/13/18 07:40 Chloride 108 mmol/L (98-107) H 09/13/18 07:40 Carbon Dioxide 31 mmol/L (21-32) 09/13/18 07:40 Anion Gap 4 MMOL/L (8-16) L 09/13/18 07:40 BUN 10 mg/dL (7-18) 09/13/18 07:40 Creatinine 1.0 mg/dL (0.55-1.3) 09/13/18 07:40 Est GFR (CKD-EPI)AfAm 105.62 09/13/18 07:40 Est GFR (CKD-EPI)NonAf 91.13 09/13/18 07:40 Random Glucose 100 mg/dL (74-106) 09/13/18 07:40 Calcium 8.8 mg/dL (8.5-10.1) 09/13/18 07:40 Total Bilirubin 0.7 mg/dL (0.2-1) 09/13/18 07:40 AST 17 U/L (15-37) 09/13/18 07:40 ALT 25 U/L (13-61) 09/13/18 07:40 Alkaline Phosphatase 73 U/L (45-117) 09/13/18 07:40 Total Protein 6.7 g/dl (6.4-8.2) 09/13/18 07:40 Albumin 3.7 g/dl (3.4-5.0) 09/13/18 07:40 Urine Color Yellow 09/13/18 10:48 Urine Appearance Clear 09/13/18 10:48 Urine pH 6.5 (5.0-8.0) 09/13/18 10:48 Ur Specific [place] 1.020 (1.010-1.035) 09/13/18 10:48 Urine Protein Negative (NEGATIVE) 09/13/18 10:48 Urine Glucose (UA) Trace (NEGATIVE) 09/13/18 10:48 Urine Ketones Negative (NEGATIVE) 09/13/18 10:48 Urine Blood Negative (NEGATIVE) 09/13/18 10:48 Urine Nitrite Negative (NEGATIVE) 09/13/18 10:48 Urine Bilirubin Negative (NEGATIVE) 09/13/18 10:48 Urine Urobilinogen 0.2 mg/dL (0.2-1.0) 09/13/18 10:48 Ur Leukocyte Esterase Trace (NEGATIVE) 09/13/18 10:48 Urine WBC (Auto) 4 /hpf (0-5) 09/13/18 10:48 Urine RBC (Auto) 1 /hpf (0-4) 09/13/18 10:48 Urine Casts (Auto) 2 /lpf (0-8) 09/13/18 10:48 U Epithel Cells (Auto) 0.6 /HPF (0-5/HPF) 09/13/18 10:48 Urine Bacteria (Auto) 16.1 /hpf (NEGATIVE) 09/13/18 10:48 RPR Titer Nonreactive (NONREACTIVE) 09/13/18 07:40 lab noted - Treatment Hospital Course: Detox Protocol Followed, Detoxed Safely, Responded well, Discharged Condition Good, Rehab Referral Accepted Patient has Accepted a [facility] Referral to: [facility] - Medication Discharge Medications: Ambulatory Orders NK [No Known Home Medication] 09/12/18 - Diagnosis (1) Alcohol dependence with uncomplicated withdrawal Current Visit: Yes Status: Acute (2) Nicotine dependence Current Visit: Yes Status: Acute Qualifiers: Nicotine product type: cigarettes Substance use status: in withdrawal Qualified Code(s): F17.213 - Nicotine dependence, cigarettes, with withdrawal (3) Substance induced mood disorder Current Visit: Yes Status: Suspected (4) Weight loss Current Visit: Yes Status: Acute - AMA Did Patient Leave Against Medical Advice: No
[2018-09-15] MEDS ORDERED: chlordiazePOXIDE HCL 10 MG CAPSULE PO SCH (17:00)
== END 2018-09-15 12:31 | disposition other institution (70) | DRG 774 ==
LOC: YASAS 11:58 → Y3N 13:03
PROVIDERS: ADMIT Surgery; ATTEND Surgery
PROC: HZ2ZZZZ Detoxification Services for Substance Abuse Treatment (ICD-10-PCS; principal; 2018-09-12)
DX: F10.230 Alcohol dependence with withdrawal, uncomplicated (principal); F14.20 Cocaine dependence, uncomplicated; F12.20 Cannabis dependence, uncomplicated; F17.213 Nicotine dependence, cigarettes, with withdrawal; F19.24 Other psychoactive substance dependence with psychoactive substance-induced mood disorder; M54.5 Low back pain; R63.4 Abnormal weight loss
CPT/HCPCS: 36415; 80053; 81003; 85027; 86593

== ENCOUNTER 2018-09-15 12:41 | Inpatient (IN) | payer OTHER ==
[2018-09-15] MEDS ORDERED: NICOTINE POLACRILEX 2 MG GUM BUC PRN (13:18)
[2018-09-15] MEDS ORDERED: NICOTINE 14 MG/24 HOURS TOPICAL PATCH TD PRN (13:18)
[2018-09-15] MEDS ORDERED: ACETAMINOPHEN 325 MG TABLET (FP) PO PRN (13:18)
[2018-09-15] MEDS ORDERED: IBUPROFEN 400 MG TABLET (FP) PO PRN (13:18)
[2018-09-15] MEDS ORDERED: MAG HYDROX/AL HYDROX/SIMETH 30 ML UNIT-DOSE CUP PO PRN (13:18)
[2018-09-15] MEDS ORDERED: MAGNESIUM HYDROX 2400MG/30ML ORAL SUSPENSION 30 ML CUP PO PRN (13:18)
[2018-09-15] MEDS ORDERED: LOPERAMIDE HCL 2 MG CAPSULE PO PRN (13:18)
[2018-09-15] MEDS ORDERED: MENTHOL/PHENOL 1 EACH UD MM PRN (13:18)
[2018-09-15] MEDS ORDERED: guaiFENesin 200 MG/10 ML 10 ML UNIT-DOSE CUPS PO PRN (13:18)
[2018-09-15] MEDS ORDERED: MAGNESIUM CITRATE 300 ML BOTTLE PO PRN (13:18)
[2018-09-15] MEDS ORDERED: P-EPHED 60MG/TRIPROLIDI 2.5MG TABLET PO PRN (13:18)
--- NOTE | 2018-09-15 13:18 | HP ---
[facility] Rehab Assess/Revision - Admission History Admitted to Rehab from: [facility] Date of Admission to Rehab: 09/15/18 - Findings Detox History & Physical reviewed: Yes Concur with findings: Yes Comments/Additional Findings: transferred from detox to rehab admission as per protocol Inpatient Rehab Admission - Rehab Decision to Admit Inpatient rehab admission?: Yes - Initial Determination Are CD services needed?: Yes Free of communicable disease: Yes Not in need of hospitalization: Yes - Rehab Admission Criteria Previous failed treatment: Yes Poor recovery environment: Yes Comorbidities: Yes Lacks judgement: No Patient is meeting Inpatient Rehab admission criteria:: Yes
[2018-09-15] MEDS ORDERED: MELATONIN 5 MG TABLETS PO PRN (22:00)
[2018-09-15] MEDS: THIAMINE HCL 100 MG TABLET (FP) PO SCH (22:50)
[2018-09-16] MEDS: PRENATAL VITAMINS W/ FOLIC ACID TABLET (FP) PO SCH (10:06)
[2018-09-16] MEDS: THIAMINE HCL 100 MG TABLET (FP) PO SCH (21:43)
[2018-09-17] MEDS: PRENATAL VITAMINS W/ FOLIC ACID TABLET (FP) PO SCH (10:06)
[2018-09-17] MEDS: THIAMINE HCL 100 MG TABLET (FP) PO SCH (21:08)
[2018-09-18] MEDS: PRENATAL VITAMINS W/ FOLIC ACID TABLET (FP) PO SCH (09:59)
[2018-09-18] MEDS: THIAMINE HCL 100 MG TABLET (FP) PO SCH (21:24)
[2018-09-19] MEDS: PRENATAL VITAMINS W/ FOLIC ACID TABLET (FP) PO SCH (10:16)
[2018-09-19] MEDS: THIAMINE HCL 100 MG TABLET (FP) PO SCH (21:35)
[2018-09-20] MEDS: PRENATAL VITAMINS W/ FOLIC ACID TABLET (FP) PO SCH (09:32)
[2018-09-20] MEDS: THIAMINE HCL 100 MG TABLET (FP) PO SCH (21:28)
[2018-09-21] MEDS: PRENATAL VITAMINS W/ FOLIC ACID TABLET (FP) PO SCH (10:35)
[2018-09-21] MEDS: THIAMINE HCL 100 MG TABLET (FP) PO SCH ×2 (23:05→23:54)
[2018-09-22] MEDS: PRENATAL VITAMINS W/ FOLIC ACID TABLET (FP) PO SCH (10:04)
[2018-09-22] MEDS: THIAMINE HCL 100 MG TABLET (FP) PO SCH (22:57)
[2018-09-23] MEDS: PRENATAL VITAMINS W/ FOLIC ACID TABLET (FP) PO SCH (10:32)
--- NOTE | 2018-09-23 16:13 | PN ---
S Progress Note (SOAP) Subjective: Patient c/o red eyes. Denies itchiness, tearing, crusting, pain. Denies symptoms of allergies but reports he sometimes has allergy symptoms with pollen. Denies injury. States eyes red for 2-3 days. Objective: Sclera of both eyes injected, no swelling, tearing, or discharge noted. 09/23/18 16:11 Assessment: allergic conjunctivitis. 09/23/18 16:12 Plan: Visine ordered.
--- NOTE | 2018-09-23 16:16 | PN ---
[facility] Progress Note (SOAP) Subjective: c/o occasional burning on urination. States he had sexual relations with a female prior to coming into detox and believes the burning may be related to that event. Denies discharge, sores, difficulty urinating, voiding small amounts. RPR on admission is negative. Last HIV test in 2017-negative. u/a on 04/2019 did not show evidence of infection. Objective: Vital Signs (72 hours) 09/21/18 09/21/18 09/21/18 00:30 03:30 07:46 Temperature 97 F L Pulse Rate 53 L Respiratory 18 18 18 Rate Blood Pressure 99/57 L 09/22/18 09/22/18 09/22/18 00:30 03:30 06:52 Temperature 97.2 F L Pulse Rate 53 L Respiratory 18 18 18 Rate Blood Pressure 116/62 09/23/18 09/23/18 09/23/18 00:30 03:30 07:13 Temperature 97.3 F L Pulse Rate 60 Respiratory 20 18 18 Rate Blood Pressure 112/69 09/23/18 16:15 Assessment: Impression: at risk for STD. 09/23/18 16:17 Plan: Educated patient that considering the nature of his complaint, it was important to determine if he had a UTI or an STD. Patient refused a GC culture and refused an HIV test. Agreed to a urine culture. Will review culture and determine treatment.
[2018-09-23] MEDS: THIAMINE HCL 100 MG TABLET (FP) PO SCH (22:53)
[2018-09-24] LABS: PH,URINE 6.5 (5.0-8.0); URINE APPEARANCE CLEAR; URINE BILIRUBIN NEGATIVE (NEGATIVE); URINE COLOR YELLOW; URINE GLUCOSE (UA) NEGATIVE (NEGATIVE); URINE KETONE NEGATIVE (NEGATIVE); URINE LEUK ESTERASE NEGATIVE (NEGATIVE); URINE NITRITE NEGATIVE (NEGATIVE); URINE PROTEIN NEGATIVE (NEGATIVE); URINE UROBILINOGEN 0.2 mg/dL (0.2-1.0)
[2018-09-24] MEDS: PRENATAL VITAMINS W/ FOLIC ACID TABLET (FP) PO SCH (10:38)
[2018-09-24] MEDS: TETRAHYDROZOLINE HCL EYE DROPS OU PRN (10:39)
--- NOTE | 2018-09-24 11:22 | PN ---
[facility] Progress Note Note: PT REQUESTING UA AND UC TEST REVIEWCDONE 09/23/18. Laboratory Tests 09/23/18 20:28 Urine Color Yellow Urine Appearance Clear Urine pH 6.5 Ur Specific [place] 1.015 Urine Protein Negative Urine Glucose (UA) Negative Urine Ketones Negative Urine Blood Negative Urine Nitrite Negative Urine Bilirubin Negative Urine Urobilinogen 0.2 Ur Leukocyte Esterase Negative UA WNL. UC CURRENTLY UNCOLLECTED. NURSE VLADIMIR MADE AWARE. UA REVIEWED WITH PT. INCREASE PO FLUIDS.
[2018-09-24] MEDS ORDERED: PT OWN MED DRAWER 7, Y5N ONE (13:55)
[2018-09-24] MEDS: THIAMINE HCL 100 MG TABLET (FP) PO SCH (22:22)
[2018-09-25] MEDS: PRENATAL VITAMINS W/ FOLIC ACID TABLET (FP) PO SCH (10:30)
[2018-09-25] MEDS: THIAMINE HCL 100 MG TABLET (FP) PO SCH (22:14)
[2018-09-26] MEDS: PRENATAL VITAMINS W/ FOLIC ACID TABLET (FP) PO SCH (10:45)
[2018-09-26] MEDS: THIAMINE HCL 100 MG TABLET (FP) PO SCH (21:51)
[2018-09-27] MEDS: PRENATAL VITAMINS W/ FOLIC ACID TABLET (FP) PO SCH (10:31)
[2018-09-27] MEDS: THIAMINE HCL 100 MG TABLET (FP) PO SCH (22:07)
[2018-09-28] MEDS: PRENATAL VITAMINS W/ FOLIC ACID TABLET (FP) PO SCH (10:27)
[2018-09-28] MEDS: CYCLOBENZAPRINE HCL 5 MG TABLET PO SCH ×2 (14:19→21:29)
[2018-09-28] MEDS: THIAMINE HCL 100 MG TABLET (FP) PO SCH (21:29)
[2018-09-29] MEDS: CYCLOBENZAPRINE HCL 5 MG TABLET PO SCH ×3 (06:18→21:20)
[2018-09-29] MEDS: PRENATAL VITAMINS W/ FOLIC ACID TABLET (FP) PO SCH (10:17)
[2018-09-29] MEDS: TETRAHYDROZOLINE HCL EYE DROPS OU PRN (14:20)
[2018-09-29] MEDS: THIAMINE HCL 100 MG TABLET (FP) PO SCH (21:20)
[2018-09-30] MEDS: CYCLOBENZAPRINE HCL 5 MG TABLET PO SCH (06:28)
[2018-09-30] MEDS: PRENATAL VITAMINS W/ FOLIC ACID TABLET (FP) PO SCH (10:22)
[2018-09-30] MEDS ORDERED: CYCLOBENZAPRINE HCL 5 MG TABLET PO PRN (10:24)
--- NOTE | 2018-09-30 17:56 | CONSULT ---
[facility] Psychiatric Consult - Data Date of interview: 09/30/18 Admission source: [facility] Identifying data: Patient is a 42 year single male, father of six, unemployed, homeless, and is supported by [facility]. This is one of multiple admissions for patient. Patient admitted to for alcohol and cocaine dependence. Substance Abuse History: Smoking Cessation. Smoking history: Current every day smoker. Have you smoked in the past 12 months: Yes. Aproximately how many cigarettes per day: 20. If you are a former smoker, when did you quit?: 2017. Cigars Per Day: 0. Hx Chewing Tobacco Use: No. Initiated information on smoking cessation: Yes. 'Breaking Loose' booklet given: 09/12/18 (give on floor). - Substance & Tx. History. Hx Alcohol Use: Yes. Hx Substance Use: Yes. Substance Use Type: Alcohol, Cocaine. Hx Substance Use Treatment: Yes ( detox, rehab). - Substances abused. Alcohol. Substance route: Oral. Frequency: Daily. Amount used: 1 liter of vodka. Age of first use: 13. Date of last use: 09/12/18. Cocaine. Substance route: Smoking. Frequency: Daily. Amount used: $200. Age of first use: 28. Date of last use: 09/11/18. Marijuana/Hashish. Substance route: Smoking. Frequency: 1-2 times per week. Amount used: 1 bag. Age of first use: 12. Date of last use: 09/10/18 Medical History: fx left mandible 1998 Psychiatric History: Patient presents as poor historian. Mr. Oviedo is unable to provide a clear psychiatric history. As per patient he no longer has a psychiatric history. States it is all in the past and he is much improved now. He admits to accepting medications in the past but is unable to recall the names of psychotropic medications. As per previous entries from Dr. Miller and Dr. Brooks, patient has a past of diagnosis of schizophrenia. His onset of psychiatric disturbances occured at 28 years of age which consisted of auditory hallucinations, persecutory delusions, and acting out behaviors. Patient has past psychiatric hospitalizations at [facility] in [place] in which he was diagnosed with schizophrenia and PTSD. Multiple hospitalizations followed. Mr De La Rosa is known for chronic non-adherence to psychiatric aftercare. As per previous notes patient has received trials of various psychotropic medications which include risperidone, quetiapine, haloperidol, Invega and many other molecules. Patient denies h/o suicide attempt. At present he denies psychotic symptoms. No psychosis, manic or depressive symptoms noted. Physical/Sexual Abuse/Trauma History: denies. Mental Status Exam - Mental Status Exam Alert and Oriented to: Time, Place, Person Cognitive Function: Good Patient Appearance: Well Groomed Mood: Withdrawn Affect: Mood Congruent Patient Behavior: Guarded, Cooperative Speech Pattern: Appropriate Voice Loudness: Moderately Soft/Quiet Thought Process: Goal Oriented Thought Disorder: Not Present Hallucinations: Denies Suicidal Ideation: Denies Homicidal Ideation: Denies Insight/Judgement: Poor Sleep: Fair Appetite: Fair Muscle strength/Tone: Normal Gait/Station: Normal Psychiatric Findings - Problem List ([place] 1, 2,3) (1) Alcohol dependence with uncomplicated withdrawal Current Visit: Yes Status: Acute (2) Cocaine dependence Current Visit: Yes Status: Chronic Qualifiers: Substance use status: uncomplicated Qualified Code(s): F14.20 - Cocaine dependence, uncomplicated (3) Schizoaffective disorder Current Visit: No Status: Suspected Qualifiers: Schizoaffective disorder type: depressive Qualified Code(s): F25.1 - Schizoaffective disorder, depressive type Comment: By history.Non-adherent to medications. (4) Cannabis dependence Current Visit: Yes Status: Chronic - Initial Treatment Plan Initial Treatment Plan: Psychoeducation provided. Rehab in progress. Patient refuses to accept psychotropic medications. Monitor for decompensation.
[2018-09-30] MEDS: THIAMINE HCL 100 MG TABLET (FP) PO SCH (21:27)
[2018-10-01] MEDS: PRENATAL VITAMINS W/ FOLIC ACID TABLET (FP) PO SCH (10:10)
--- NOTE | 2018-10-01 12:19 | PN ---
[facility] Progress Note (SOAP) Subjective: Client to be discharged tomorrow. Objective: A+O X3; no neurological deficits, heart sounds regular, lungs clear, abd soft, non-tender, non-distended. +BS. 10/01/18 12:18 Laboratory Last Values Urine Color Yellow 09/23/18 20:28 Urine Appearance Clear 09/23/18 20:28 Urine pH 6.5 (5.0-8.0) 09/23/18 20:28 Ur Specific [place] 1.015 (1.010-1.035) 09/23/18 20:28 Urine Protein Negative (NEGATIVE) 09/23/18 20:28 Urine Glucose (UA) Negative (NEGATIVE) 09/23/18 20:28 Urine Ketones Negative (NEGATIVE) 09/23/18 20: Urine Blood Negative (NEGATIVE) 09/23/18 20: Urine Nitrite Negative (NEGATIVE) 09/23/18 20:28 Urine Bilirubin Negative (NEGATIVE) 09/23/18 20:28 Urine Urobilinogen 0.2 mg/dL (0.2-1.0) 09/23/18 20:28 Ur Leukocyte Esterase Negative (NEGATIVE) 09/23/18 20:28 Vital Signs (72 hours) 09/29/18 09/29/18 09/30/18 00:30 06:40 00:30 Temperature 97.6 F Pulse Rate 58 L Respiratory 18 18 16 Rate Blood Pressure 116/70 09/30/18 09/30/18 10/01/18 03:30 06:50 00:30 Temperature 97.7 F Pulse Rate 56 L Respiratory 18 18 18 Rate Blood Pressure 126/67 10/01/18 10/01/18 03:30 07:07 Temperature 97.6 F Pulse Rate 54 L Respiratory 18 18 Rate Blood Pressure 111/72 Assessment: Medically stable for discharge. Discharge Dx: Cocaine Dependence Cannabis dependence ETOH dependence PTSD Plan: Does not have an aftercare plan or medical care, does not take any prescriptions. Encouraged for follow up for aftercare and secure medical care.
[2018-10-01] MEDS: THIAMINE HCL 100 MG TABLET (FP) PO SCH (21:20)
[2018-10-02 06:34] VITALS: BP 103/69; PULSE 57; TEMP 97
== END 2018-10-02 06:45 | disposition home or self-care (01) | DRG 772 ==
LOC: YASAS 12:41 → Y3W 12:43
PROVIDERS: ADMIT Neuromusculoskeletal Medicine & OMM; ATTEND Neuromusculoskeletal Medicine & OMM
PROC: HZ42ZZZ Group Counseling for Substance Abuse Treatment, Cognitive-Behavioral (ICD-10-PCS; principal; 2018-09-15)
DX: F10.20 Alcohol dependence, uncomplicated (principal); F14.20 Cocaine dependence, uncomplicated; F12.20 Cannabis dependence, uncomplicated; F17.210 Nicotine dependence, cigarettes, uncomplicated; F43.10 Post-traumatic stress disorder, unspecified; F25.1 Schizoaffective disorder, depressive type; R30.0 Dysuria; H10.13 Acute atopic conjunctivitis, bilateral; Z20.2 Contact with and (suspected) exposure to infections with a predominantly sexual mode of transmission
CPT/HCPCS: 81003; 87086

== ENCOUNTER 2018-11-04 17:33 | Inpatient (IN) | payer OTHER ==
[2018-11-04 18:15] VITALS: BMI 23.1
--- NOTE | 2018-11-04 19:31 | HP ---
CIWA Score Nausea/Vomitin Muscle Tremors: 2 Anxiety: 6 Agitation: 0-Normal Activity Paroxysmal Sweats: 1-Minimal Palms Moist Orientation: 1-Uncertain about Date Tacttile Disturbances: 1-Very Mild Itch/Numbness Auditory Disturbances: 1-Very Mild Visual Disturbances: 1-Very Mild Sensitivity Headache: 0-None Present CIWA-Ar Total Score: 15 - Admission Criteria OASAS Guidelines: Admission for Medically Managed Detox: Requires at least one of the followin. CIWA greater than 12 2. Seizures within the past 24 hours 3. Delirium tremens within the past 24 hours 4. Hallucinations within the past 24 hours 5. Acute intervention needed for co occurring medical disorder 6. Acute intervention needed for co occurring psychiatric disorder 7. Severe withdrawal that cannot be handled at a lower level of care (continued vomiting, continued diarrhea, abnormal vital signs) requiring intravenous medication and/or fluids 8. Admission ROS [facility] Chief Complaint: Withdrawal symptoms Allergies/Adverse Reactions: Allergies Allergy/AdvReac Type Severity Reaction Status Date / Time No Known Allergies Allergy Verified 11/04/18 18:11 History of Present Illness: 43 y.o. man with an extensive history of alcohol and crack-cocaine dependence is here seeking detox services. He last completed detox and rehab here in 2018. Longest period of sobriety or cocaine abstinence has been 19 month while incarcerated. Exam Limitations: No Limitations - Ebola screening Have you traveled outside of the country in the last 21 days: No (N) Have you had contact with anyone from an Ebola affected area: No Do you have a fever: No - Review of Systems Constitutional: No Symptoms Reported EENT: reports: Blurred Vision Respiratory: reports: No Symptoms reported Cardiac: reports: No Symptoms Reported GI: reports: No Symptoms Reported : reports: No Symptoms Reported Musculoskeletal: reports: No Symptoms Reported Integumentary: reports: No Symptoms Reported Neuro: reports: Tremors Endocrine: reports: No Symptoms Reported Hematology: reports: No Symptoms Reported Psychiatric: reports: Mood/Affect Appropiate Other Systems: Reviewed and Negative Patient History - Patient Medical History Hx Anemia: No Hx Asthma: No Hx Chronic Obstructive Pulmonary Disease (COPD): No Hx Cancer: No Hx Cardiac Disorders: No Hx Congestive Heart Failure: No Hx Hypertension: No Hx Hypercholesterolemia: No Hx Pacemaker: No HX Cerebrovascular Accident: No Hx Seizures: No Hx Dementia: No Hx Diabetes: No Hx Gastrointestinal Disorders: No Hx Liver Disease: No Hx Genitourinary Disorders: No Hx Sexually Transmitted Disorders: No Hx Renal Disease (ESRD): No Hx Thyroid Disease: No Hx Human Immunodeficiency Virus (HIV): No Hx Hepatitis C: No Hx Depression: No (not for 'years') Hx Suicide Attempt: No (denies) Hx Bipolar Disorder: No Hx Schizophrenia: Yes - Patient Surgical History Past Surgical History: No Hx Neurologic Surgery: No Hx Cataract Extraction: No Hx Cardiac Surgery: No Hx Lung Surgery: No Hx Breast Surgery: No Hx Breast Biopsy: No Hx Abdominal Surgery: No Hx Appendectomy: No Hx Cholecystectomy: No Hx Genitourinary Surgery: No Hx Section: No Hx Orthopedic Surgery: Yes (fx left mandible 1998) Other Surgical History: fx, left mandible in 1998 Anesthesia Reaction: No - PPD History Previous Implant?: Yes Documented Results: Negative w/proof Implanted On Prior [facility] Admission?: Yes Date: 02/08/18 Results: 0 mm PPD to be Administered?: No - Reproductive History Patient is a Female of Child Bearing Age (11 -55 yrs old): No - Smoking Cessation Smoking history: Current every day smoker Have you smoked in the past 12 months: Yes Aproximately how many cigarettes per day: 4 Cigars Per Day: 0 Hx Chewing Tobacco Use: No Initiated information on smoking cessation: Yes 'Breaking Loose' booklet given: 11/04/18 - Substance & Tx. History Hx Alcohol Use: Yes Hx Substance Use: Yes Substance Use Type: Alcohol, Cocaine - Substances abused Alcohol Substance route: Oral Frequency: Daily Amount used: 1 liter of vodka Age of first use: 13 Date of last use: 11/04/18 Cocaine Substance route: Smoking Frequency: Daily Amount used: $200 Age of first use: 28 Date of last use: 11/04/18 Marijuana/Hashish Substance route: Smoking Frequency: 1-2 times per week Amount used: 1 bag Age of first use: 12 Date of last use: 11/01/18 Family Disease History - Family Disease History Family Disease History: Other: Father (Used Alcohol. .), Mother ( Seizures. .), Brother (two - living - healthy), Sister (two ( one HIV, one murdered)), Son (three - healthy), Daughter (three - healthy) Admission Physical Exam [facility] - Vital Signs Vital Signs: Vital Signs - 24 hr 11/04/18 18:06 Temperature 96.2 F L Pulse Rate 74 Respiratory 20 Rate Blood Pressure 119/77 - Physical General Appearance: Yes: Tremorous, Anxious HEENTM: Yes: Hearing grossly Normal, Normocephalic, Normal Voice Respiratory: Yes: Lungs Clear, Normal Breath Sounds, No Respiratory Distress, No Accessory Muscle Use Neck: Yes: No masses,lesions,Nodules Breast: Yes: Breast Exam Deferred Cardiology: Yes: Regular Rhythm, Regular Rate Abdominal: Yes: Normal Bowel Sounds, Non Tender, Flat Genitourinary: Yes: Other (No complaints reported.) Back: Yes: Normal Inspection Musculoskeletal: Yes: full range of Motion, Gait Steady, Pelvis Stable Extremities: Yes: Normal Capillary Refill, Normal Inspection, Normal Range of Motion Neurological: Yes: Alert, Normal Mood/Affect, Normal Response Integumentary: Yes: Normal Color, Dry, Warm Lymphatic: Yes: Within Normal Limits - Diagnostic (1) Pain in tooth Current Visit: Yes Status: Acute (2) Alcohol dependence with uncomplicated withdrawal Current Visit: Yes Status: Chronic (3) Nicotine dependence Current Visit: Yes Status: Chronic Qualifiers: Nicotine product type: cigarettes Substance use status: in withdrawal Qualified Code(s): F17.213 - Nicotine dependence, cigarettes, with withdrawal (4) Cocaine dependence Current Visit: Yes Status: Chronic Qualifiers: Substance use status: uncomplicated Qualified Code(s): F14.20 - Cocaine dependence, uncomplicated Cleared for Admission [facility] - Detox or Rehab [facility] Level of Care: Medically Managed Detox Regimen/Protocol: Not Applicable (Ativan regimen prescribed for detox. ) Breathalyzer - Breathalyzer Breathalyzer: 0 Urine Drug Screen - Test Device Lot number: [id number] Expiration date: 07/02/20 - Control Is test valid?: Yes - Results Drug screen NEGATIVE: No Urine drug screen results: THC-Marijuana, JACKELINE-Cocaine, BZO-Benzodiazepines Inpatient Rehab Admission - Rehab Decision to Admit Inpatient rehab admission?: No
[2018-11-04] MEDS ORDERED: ACETAMINOPHEN 325 MG TABLET (FP) PO PRN ×2 (19:33)
[2018-11-04] MEDS ORDERED: ONDANSETRON *ODT* 4 MG TABLET SL PRN (19:33)
[2018-11-04] MEDS ORDERED: MELATONIN 5 MG TABLETS PO PRN (19:33)
[2018-11-04] MEDS ORDERED: MENTHOL/PHENOL 1 EACH UD MM PRN (19:33)
[2018-11-04] MEDS ORDERED: hydrOXYzine PAMOATE 25 MG CAPSULE (FP) PO PRN (19:33)
[2018-11-04] MEDS ORDERED: NICOTINE POLACRILEX 2 MG GUM BUC PRN (19:33)
[2018-11-04] MEDS ORDERED: IBUPROFEN 400 MG TABLET (FP) PO PRN (19:33)
[2018-11-04] MEDS ORDERED: LORazepam 2 MG TABLET PO ONE (19:33)
[2018-11-04] MEDS ORDERED: MAG HYDROX/AL HYDROX/SIMETH 30 ML UNIT-DOSE CUP PO PRN (19:33)
[2018-11-04] MEDS ORDERED: MAGNESIUM CITRATE 300 ML BOTTLE PO PRN (19:33)
[2018-11-04] MEDS ORDERED: MAGNESIUM HYDROX 2400MG/30ML ORAL SUSPENSION 30 ML CUP PO PRN (19:33)
[2018-11-04] MEDS ORDERED: BISMUTH SUBSALICYLATE 524 MG/30 ML UD PO PRN (19:33)
[2018-11-04] MEDS ORDERED: METHOCARBAMOL 500 MG TABLET PO PRN (19:33)
[2018-11-04] MEDS ORDERED: LORazepam 1 MG TABLET PO PRN (19:33)
[2018-11-04] MEDS ORDERED: LIDOCAINE VISCOUS 2% ORAL/TOP 100 ML BOTTLE MM PRN (20:30)
[2018-11-04] MEDS ORDERED: THIAMINE HCL 100 MG TABLET (FP) PO SCH (22:00)
[2018-11-04] MEDS: LORazepam 2 MG TABLET PO SCH (22:54)
[2018-11-05] MEDS: LORazepam 2 MG TABLET PO SCH ×3 (06:17→17:11)
[2018-11-05] MEDS ORDERED: NICOTINE 14 MG/24 HOURS TOPICAL PATCH TD SCH (10:00)
[2018-11-05] MEDS ORDERED: PRENATAL VITAMINS W/ FOLIC ACID TABLET (FP) PO SCH (10:00)
--- NOTE | 2018-11-05 10:26 | EKG ---
Test Reason : Blood Pressure : / mmHG Vent. Rate : 083 BPM Atrial Rate : 083 BPM P-R Int : 116 ms QRS Dur : 090 ms QT Int : 392 ms P-R-T Axes : 071 037 041 degrees QTc Int : 460 ms NORMAL SINUS RHYTHM INCOMPLETE RBBB WHEN COMPARED WITH ECG OF 06-JUN-2018 15:04, SINUS RHYTHM HAS REPLACED ECTOPIC ATRIAL RHYTHM Confirmed by APPLE SOLIS MD ([id number]) on 11/05/2018 10:26:06 AM Referred By: Confirmed By:APPLE SOLIS MD
--- NOTE | 2018-11-05 10:43 | CONSULT ---
[facility] Psychiatric Consult - Data Date of interview: 11/05/18 Admission source: [facility] Identifying data: Patient is a 42 year single male, father of six, unemployed, homeless, and is supported by [facility]. This is one of multiple admissions for patient. Patient admitted to for alcohol and cocaine dependence. Substance Abuse History: Smoking Cessation. Smoking history: Current every day smoker. Have you smoked in the past 12 months: Yes. Aproximately how many cigarettes per day: 4. Cigars Per Day: 0. Hx Chewing Tobacco Use: No. Initiated information on smoking cessation: Yes. 'Breaking Loose' booklet given : 11/04/18. - Substance & Tx. History. Hx Alcohol Use: Yes. Hx Substance Use : Yes. Substance Use Type: Alcohol, Cocaine. - Substances abused. Alcohol. Substance route: Oral. Frequency: Daily. Amount used: 1 liter of vodka. Age of first use: 13. Date of last use: 11/04/18. Cocaine. Substance route: Smoking. Frequency: Daily. Amount used: $200. Age of first use: 28. Date of last use: 11/04/18. Marijuana/Hashish. Substance route: Smoking. Frequency: 1-2 times per week. Amount used: 1 bag. Age of first use : 12. Date of last use: 11/01/18 Medical History: fx left mandible (1998) Psychiatric History: Patient presents as lethargic and withdrawn. Patient denies h/o psychiatric hospitalization, outpatient care, and sucidie attempts. Patient with multiple admissions to detox and rehab. Following information is extraxted from previous admission to rehab on 09/30/18, "As per previous entries from Dr. Miller and Dr. Brooks, patient has a past of diagnosis of schizophrenia. His onset of psychiatric disturbances occured at 28 years of age which consisted of auditory hallucinations, persecutory delusions, and acting out behaviors. Patient has past psychiatric hospitalizations at [facility] in [place] in which he was diagnosed with schizophrenia and PTSD. Multiple hospitalizations followed. Mr De La Rosa is known for chronic non-adherence to psychiatric aftercare. As per previous notes patient has received trials of various psychotropic medications which include risperidone, quetiapine, haloperidol, Invega and many other molecules." At present, patient refuses to accept psychotropic medications. He denies auditory/visual hallucinations. States he is tired and wants to return to sleep. Physical/Sexual Abuse/Trauma History: denies. Mental Status Exam - Mental Status Exam Alert and Oriented to: Time, Place, Person Cognitive Function: Good Patient Appearance: Well Groomed Mood: Withdrawn Affect: Mood Congruent Patient Behavior: Sedated, Fatigued Speech Pattern: Delayed Voice Loudness: Moderately Soft/Quiet Thought Process: Goal Oriented Thought Disorder: Not Present Hallucinations: Denies Suicidal Ideation: Denies Homicidal Ideation: Denies Insight/Judgement: Poor Sleep: Fair Appetite: Fair Muscle strength/Tone: Normal Gait/Station: Normal Psychiatric Findings - Problem List ([place] 1, 2,3) (1) Alcohol dependence with uncomplicated withdrawal Current Visit: Yes Status: Acute (2) Cocaine dependence Current Visit: Yes Status: Chronic Qualifiers: Substance use status: uncomplicated Qualified Code(s): F14.20 - Cocaine dependence, uncomplicated (3) Nicotine dependence Current Visit: Yes Status: Chronic Qualifiers: Nicotine product type: cigarettes Substance use status: in withdrawal Qualified Code(s): F17.213 - Nicotine dependence, cigarettes, with withdrawal (4) Substance induced mood disorder Current Visit: Yes Status: Acute - Initial Treatment Plan Initial Treatment Plan: Psychoeducation provided. Detoxification in progress. Observation.
--- NOTE | 2018-11-05 10:56 | PN ---
BHS CIWA - CIWA Score Nausea/Vomitin-Mild Nausea/No Vomiting Muscle Tremors: 3 Anxiety: 3 Agitation: 3 Paroxysmal Sweats: 1-Minimal Palms Moist Orientation: 0-Oriented Tacttile Disturbances: 0-None Auditory Disturbances: 0-None Visual Disturbances: 0-None Headache: 1-Very Mild CIWA-Ar Total Score: 12 BHS Progress Note (SOAP) Subjective: patient is doing well with ativan detox protocol tremor mild indigestion Objective: 11/05/18 10:59 Vital Signs Temperature 97.8 F 11/05/18 09:45 Pulse Rate 59 L 11/05/18 09:45 Respiratory Rate 18 11/05/18 09:45 Blood Pressure 96/62 11/05/18 09:45 O2 Sat by Pulse Oximetry (%) 11/05/18 11:00 lab pending Assessment: 11/05/18 11:00 alcohol withdrawal sx Plan: continue alcohol detox
[2018-11-05 13:16] LABS: HEMATOCRIT 39.7 % (35.4-49); HEMOGLOBIN 13.3 GM/dL (11.7-16.9); MCH 31.7 pg (25.7-33.7); MCHC 33.5 g/dl (32.0-35.9); MEAN CELL VOLUME 94.7 fl (80-96); MEAN PLT VOLUME 8.8 fl (7.5-11.1); RBC 4.19 M/mm3 (4.00-5.60); RDW 13.3 % (11.9-15.9); WHITE BLOOD COUNT 5.5 K/mm3 (4.0-10.0)
[2018-11-05 13:45] LABS: ALBUMIN 3.3 g/dl (3.4-5.0); BILIRUBIN,TOTAL 0.3 mg/dL (0.2-1); BLOOD UREA NITROGEN 11.2 mg/dL (7-18); CALCIUM 8.4 mg/dL (8.5-10.1); CREATININE 0.9 mg/dL (0.55-1.3); POTASSIUM 4.1 mmol/L (3.5-5.1); TOT PROT 6.3 g/dl (6.4-8.2)
[2018-11-05 14:16] LABS: PLATELET COUNT 265 K/MM3 (134-434)
[2018-11-05 17:55] VITALS: BP 112/70; PULSE 76; TEMP 97.3
[2018-11-06] MEDS ORDERED: LORazepam 1 MG TABLET PO SCH (05:00)
[2018-11-07] MEDS ORDERED: LORazepam 0.5 MG TABLET PO PRN
[2018-11-07] MEDS ORDERED: LORazepam 0.5 MG TABLET PO SCH (05:00)
[2018-11-08] MEDS ORDERED: LORazepam 0.5 MG TABLET PO ONE (05:00)
== END 2018-11-05 18:35 | disposition left against medical advice (07) | DRG 770 ==
LOC: YASAS 17:33 → Y3N 19:52
PROVIDERS: ADMIT Surgery; ATTEND Surgery
PROC: HZ2ZZZZ Detoxification Services for Substance Abuse Treatment (ICD-10-PCS; principal; 2018-11-04)
DX: F10.230 Alcohol dependence with withdrawal, uncomplicated (principal); F14.20 Cocaine dependence, uncomplicated; F17.213 Nicotine dependence, cigarettes, with withdrawal; F19.24 Other psychoactive substance dependence with psychoactive substance-induced mood disorder; F20.9 Schizophrenia, unspecified; K08.89 Other specified disorders of teeth and supporting structures
CPT/HCPCS: 36415; 80053; 85027; 86593; 93005; 93010

== ENCOUNTER 2018-12-11 09:20 | Inpatient (IN) | payer OTHER ==
[2018-12-11 10:02] VITALS: BMI 23.6
--- NOTE | 2018-12-11 12:00 | HP ---
CIWA Score Nausea/Vomitin Muscle Tremors: 3 Anxiety: 3 Agitation: 3 Paroxysmal Sweats: 1-Minimal Palms Moist Orientation: 0-Oriented Tacttile Disturbances: 1-Very Mild Itch/Numbness Auditory Disturbances: 0-None Visual Disturbances: 0-None Headache: 2-Mild CIWA-Ar Total Score: 16 - Admission Criteria OASAS Guidelines: Admission for Medically Managed Detox: Requires at least one of the followin. CIWA greater than 12 2. Seizures within the past 24 hours 3. Delirium tremens within the past 24 hours 4. Hallucinations within the past 24 hours 5. Acute intervention needed for co occurring medical disorder 6. Acute intervention needed for co occurring psychiatric disorder 7. Severe withdrawal that cannot be handled at a lower level of care (continued vomiting, continued diarrhea, abnormal vital signs) requiring intravenous medication and/or fluids 8. Admission ROS S - HPI Chief Complaint: i need help to stop drinking alcohol and crack Allergies/Adverse Reactions: Allergies Allergy/AdvReac Type Severity Reaction Status Date / Time No Known Allergies Allergy Verified 12/11/18 09:57 History of Present Illness: this 43 years old male with alcohol and crack dependence,seeking detox, withdrawal symptom, multiple admissions in detox,has non compliance issue,keep relapsing last admissions in [facility] 11/04/18 to 11/05/18 [facility] schizophrenia no meds no significant period of sobriety - Ebola screening Have you traveled outside of the country in the last 21 days: No Have you had contact with anyone from an Ebola affected area: No - Review of Systems Constitutional: Loss of Appetite, Malaise, Night Sweats, Changes in sleep, Weakness, Unintentional Wgt. Loss EENT: reports: Tearing, Nose Congestion Respiratory: reports: No Symptoms reported Cardiac: reports: Palpitations GI: reports: Nausea, Indigestion, Abdominal cramping : reports: No Symptoms Reported Musculoskeletal: reports: Back Pain, Muscle Pain Integumentary: reports: Dryness Neuro: reports: Headache, Tremors Endocrine: reports: No Symptoms Reported Hematology: reports: No Symptoms Reported Psychiatric: reports: No Sypmtoms Reported, Judgement Intact, Mood/Affect Appropiate, Orientated x3 Other Systems: Reviewed and Negative Patient History - Patient Medical History Hx Anemia: No Hx Asthma: No Hx Chronic Obstructive Pulmonary Disease (COPD): No Hx Cancer: No Hx Cardiac Disorders: No Hx Congestive Heart Failure: No Hx Hypertension: No Hx Hypercholesterolemia: No Hx Pacemaker: No HX Cerebrovascular Accident: No Hx Seizures: No Hx Dementia: No Hx Diabetes: No Hx Gastrointestinal Disorders: No Hx Liver Disease: No Hx Genitourinary Disorders: No Hx Sexually Transmitted Disorders: No Hx Renal Disease (ESRD): No Hx Thyroid Disease: No Hx Human Immunodeficiency Virus (HIV): No Hx Hepatitis C: No Hx Depression: Yes Hx Suicide Attempt: No (denies) Hx Bipolar Disorder: No Hx Schizophrenia: Yes (no med) Other Medical History: no suicidal,no homicidal - Patient Surgical History Past Surgical History: No Hx Neurologic Surgery: No Hx Cataract Extraction: No Hx Cardiac Surgery: No Hx Lung Surgery: No Hx Breast Surgery: No Hx Breast Biopsy: No Hx Abdominal Surgery: No Hx Appendectomy: No Hx Cholecystectomy: No Hx Genitourinary Surgery: No Hx Section: No Hx Orthopedic Surgery: Yes (fx left mandible 1998) Other Surgical History: fx, left mandible in 1998 Anesthesia Reaction: No - PPD History Previous Implant?: Yes Documented Results: Negative w/proof Implanted On Prior [facility] Admission?: Yes Date: 02/08/18 Results: 0 mm PPD to be Administered?: No - Smoking Cessation Smoking history: Current every day smoker Have you smoked in the past 12 months: Yes Aproximately how many cigarettes per day: 4 If you are a former smoker, when did you quit?: 01/30/2018 Cigars Per Day: 0 Hx Chewing Tobacco Use: No Initiated information on smoking cessation: Yes 'Breaking Loose' booklet given: 12/11/18 - Substance & Tx. History Hx Alcohol Use: Yes Hx Substance Use: Yes Substance Use Type: Alcohol, Cocaine, Marijuana Hx Substance Use Treatment: Yes ([facility] 11/04/18 to 11/05/18 AMA) - Substances abused Alcohol Substance route: Oral Frequency: Daily Amount used: 1 liter of vodka Age of first use: 13 Date of last use: 12/11/18 Cocaine Substance route: Smoking Frequency: Daily Amount used: 10 grams Age of first use: 28 Date of last use: 12/11/18 Marijuana/Hashish Substance route: Smoking Frequency: 1-2 times per week Amount used: 1 bag Age of first use: 12 Date of last use: 11/01/18 Family Disease History - Family Disease History Family Disease History: Other: Father (Used Alcohol. .), Mother ( Seizures. .), Brother (two - living - healthy), Sister (two ( one HIV, one murdered)), Son (three - healthy), Daughter (three - healthy) Admission Physical Exam B[facility] - Vital Signs Vital Signs: Vital Signs - 24 hr 12/11/18 12/11/18 09:57 10:27 Temperature 97.1 F L 97.1 F L Pulse Rate 77 77 Respiratory 20 20 Rate Blood Pressure 117/69 117/69 - Physical General Appearance: Yes: Moderate Distress, Tremorous, Irritable, Sweating, Anxious HEENTM: Yes: Normal ENT Inspection, Normocephalic, PRISCILLA, Pharynx Normal Respiratory: Yes: Within Normal Limits, Lungs Clear, Normal Breath Sounds Neck: Yes: Within Normal Limits, No masses,lesions,Nodules, Supple, Trachea in good position Breast: Yes: Within Normal Limits Cardiology: Yes: Within Normal Limits, Regular Rhythm, Regular Rate, S1, S2 Abdominal: Yes: Within Normal Limits, Normal Bowel Sounds, Non Tender, Flat, Soft Genitourinary: Yes: Within Normal Limits Musculoskeletal: Yes: Within Normal Limits, Back pain, Muscle Pain Extremities: Yes: Within Normal Limits, Tremors Neurological: Yes: textile knitter II-XII NML intact, Fully Oriented, Alert, Motor Strength 5/5 Integumentary: Yes: Dry Lymphatic: Yes: Within Normal Limits - Diagnostic (1) Alcohol dependence with uncomplicated withdrawal Current Visit: No Status: Acute (2) Dehydration Current Visit: No Status: Acute (3) Weight loss Current Visit: No Status: Acute (4) Cannabis dependence Current Visit: No Status: Chronic (5) Cocaine dependence Current Visit: No Status: Chronic Qualifiers: Substance use status: uncomplicated Qualified Code(s): F14.20 - Cocaine dependence, uncomplicated (6) Nicotine dependence Current Visit: No Status: Chronic Qualifiers: Nicotine product type: cigarettes Substance use status: in withdrawal Qualified Code(s): F17.213 - Nicotine dependence, cigarettes, with withdrawal (7) Schizoaffective disorder Current Visit: No Status: Suspected Qualifiers: Schizoaffective disorder type: depressive Qualified Code(s): F25.1 - Schizoaffective disorder, depressive type Comment: By history.Non-adherent to medications. (8) History of head injury Current Visit: No Status: Resolved Cleared for Admission [facility] - Detox or Rehab [facility] Level of Care: Medically Managed (patient would like ativan detox) Breathalyzer - Breathalyzer Breathalyzer: 0 Urine Drug Screen - Test Device Lot number: [id number] Expiration date: 09/01/20 - Control Is test valid?: Yes - Results Drug screen NEGATIVE: No Urine drug screen results: JACKELINE-Cocaine Inpatient Rehab Admission - Rehab Decision to Admit Inpatient rehab admission?: No
[2018-12-11] MEDS ORDERED: MAGNESIUM CITRATE 300 ML BOTTLE PO PRN (12:07)
[2018-12-11] MEDS ORDERED: MAGNESIUM HYDROX 2400MG/30ML ORAL SUSPENSION 30 ML CUP PO PRN (12:07)
[2018-12-11] MEDS ORDERED: LORazepam 1 MG TABLET PO PRN (12:07)
[2018-12-11] MEDS ORDERED: hydrOXYzine HCL 25 MG TABLET (FP) PO PRN (12:07)
[2018-12-11] MEDS ORDERED: MELATONIN 5 MG TABLETS PO PRN (12:07)
[2018-12-11] MEDS ORDERED: BISMUTH SUBSALICYLATE 262 MG/15 ML BTL PO PRN (12:07)
[2018-12-11] MEDS ORDERED: IBUPROFEN 400 MG TABLET (FP) PO PRN (12:07)
[2018-12-11] MEDS ORDERED: MENTHOL/PHENOL 1 EACH UD MM PRN (12:07)
[2018-12-11] MEDS ORDERED: METHOCARBAMOL 500 MG TABLET PO PRN (12:07)
[2018-12-11] MEDS ORDERED: MAG HYDROX/AL HYDROX/SIMETH 30 ML UNIT-DOSE CUP PO PRN (12:07)
[2018-12-11] MEDS ORDERED: ACETAMINOPHEN 325 MG TABLET (FP) PO PRN ×2 (12:07)
[2018-12-11 16:55] LABS: HEMATOCRIT 40.7 % (35.4-49); HEMOGLOBIN 13.7 GM/dL (11.7-16.9); MCH 31.9 pg (25.7-33.7); MCHC 33.7 g/dl (32.0-35.9); MEAN CELL VOLUME 94.9 fl (80-96); MEAN PLT VOLUME 8.9 fl (7.5-11.1); PLATELET COUNT 255 K/MM3 (134-434); RBC 4.29 M/mm3 (4.00-5.60); WHITE BLOOD COUNT 8.2 K/mm3 (4.0-10.0)
[2018-12-11 17:11] LABS: ALBUMIN 4.4 g/dl (3.4-5.0); BILIRUBIN,TOTAL 0.8 mg/dL (0.2-1); BLOOD UREA NITROGEN 11.5 mg/dL (7-18); CALCIUM 9.2 mg/dL (8.5-10.1); CREATININE 1.1 mg/dL (0.55-1.3); POTASSIUM 3.8 mmol/L (3.5-5.1); TOT PROT 7.6 g/dl (6.4-8.2)
[2018-12-11] MEDS: LORazepam 2 MG TABLET PO SCH ×2 (17:48→23:06)
[2018-12-11] MEDS ORDERED: THIAMINE HCL 100 MG TABLET (FP) PO SCH (22:00)
[2018-12-12] MEDS: LORazepam 2 MG TABLET PO SCH ×2 (06:13→10:18)
[2018-12-12 09:57] VITALS: BP 118/86; PULSE 62; TEMP 97.7
[2018-12-12] MEDS ORDERED: PRENATAL VITAMINS W/ FOLIC ACID TABLET (FP) PO SCH (10:00)
--- NOTE | 2018-12-12 12:37 | PN ---
S CIWA - CIWA Score Nausea/Vomitin-No Nausea/No Vomiting Muscle Tremors: None Anxiety: 3 Agitation: 2 Paroxysmal Sweats: 3 Orientation: 0-Oriented Tacttile Disturbances: 0-None Auditory Disturbances: 0-None Visual Disturbances: 0-None Headache: 2-Mild CIWA-Ar Total Score: 10 S Progress Note (SOAP) Subjective: c/o sweats, anxiety, interrupted sleep, and headache. Objective: 12/12/18 12:34 Vital Signs 12/12/18 12/12/18 06:44 09:53 Temperature 96.5 F L 97.7 F Pulse Rate 60 62 Respiratory 16 16 Rate Blood Pressure 120/82 118/86 Lab Results WBC 8.2 K/mm3 (4.0-10.0) 12/11/18 12:00 RBC 4.29 M/mm3 (4.00-5.60) 12/11/18 12:00 Hgb 13.7 GM/dL (11.7-16.9) 12/11/18 12:00 Hct 40.7 % (35.4-49) 12/11/18 12:00 MCV 94.9 fl (80-96) 12/11/18 12:00 MCHC 33.7 g/dl (32.0-35.9) 12/11/18 12:00 RDW 13.0 % (11.9-15.9) 12/11/18 12:00 Plt Count 255 K/MM3 (134-434) 12/11/18 12:00 Sodium 139 mmol/L (136-145) 12/11/18 12:00 Potassium 3.8 mmol/L (3.5-5.1) 12/11/18 12:00 Chloride 103 mmol/L (98-107) 12/11/18 12:00 Carbon Dioxide 30 mmol/L (21-32) 12/11/18 12:00 Anion Gap 6 MMOL/L (8-16) L 12/11/18 12:00 BUN 11.5 mg/dL (7-18) 12/11/18 12:00 Creatinine 1.1 mg/dL (0.55-1.3) 12/11/18 12:00 Random Glucose 66 mg/dL (74-106) L 12/11/18 12:00 Calcium 9.2 mg/dL (8.5-10.1) 12/11/18 12:00 labs noted. Assessment: 12/12/18 12:36 AOX3, in no acute respiratory distress Full ROM, ambulating in the unit. withdrawal symptoms. Plan: continue detox.
[2018-12-13] MEDS ORDERED: LORazepam 1 MG TABLET PO SCH (05:00)
[2018-12-14] MEDS ORDERED: LORazepam 0.5 MG TABLET PO PRN
[2018-12-14] MEDS ORDERED: LORazepam 0.5 MG TABLET PO SCH (05:00)
[2018-12-15] MEDS ORDERED: LORazepam 0.5 MG TABLET PO ONE (05:00)
== END 2018-12-12 11:28 | disposition left against medical advice (07) | DRG 770 ==
LOC: YASAS 09:20 → Y3N 12:15
PROVIDERS: ADMIT Surgery; ATTEND Surgery
PROC: HZ2ZZZZ Detoxification Services for Substance Abuse Treatment (ICD-10-PCS; principal; 2018-12-11)
DX: F10.230 Alcohol dependence with withdrawal, uncomplicated (principal); F14.20 Cocaine dependence, uncomplicated; F12.20 Cannabis dependence, uncomplicated; F17.213 Nicotine dependence, cigarettes, with withdrawal; F25.1 Schizoaffective disorder, depressive type; E86.0 Dehydration; R63.4 Abnormal weight loss
CPT/HCPCS: 36415; 80053; 85027; 86593; 87389

== ENCOUNTER 2019-02-25 08:10 | Inpatient (IN) | payer OTHER ==
[2019-02-25 08:35] VITALS: BMI 23.8
--- NOTE | 2019-02-25 09:00 | HP ---
CIWA Score Nausea/Vomitin Muscle Tremors: 1-None Visible, but [place] Anxiety: 2 Agitation: 2 Paroxysmal Sweats: No Perspiration Orientation: 0-Oriented Tacttile Disturbances: 0-None Auditory Disturbances: 0-None Visual Disturbances: 3-Moderate Sensitivity Headache: 2-Mild CIWA-Ar Total Score: 12 - Admission Criteria OASAS Guidelines: Admission for Medically Managed Detox: Requires at least one of the followin. CIWA greater than 12 2. Seizures within the past 24 hours 3. Delirium tremens within the past 24 hours 4. Hallucinations within the past 24 hours 5. Acute intervention needed for co occurring medical disorder 6. Acute intervention needed for co occurring psychiatric disorder 7. Severe withdrawal that cannot be handled at a lower level of care (continued vomiting, continued diarrhea, abnormal vital signs) requiring intravenous medication and/or fluids 8. Admitting History and Physical - Smoking History Smoking history: Current every day smoker Have you smoked in the past 12 months: Yes Aproximately how many cigarettes per day: 4 If you are a former smoker, when did you quit?: 01/30/2018 - Alcohol/Substance Use Hx Alcohol Use: Yes Admission [facility] Allergies/Adverse Reactions: Allergies Allergy/AdvReac Type Severity Reaction Status Date / Time No Known Allergies Allergy Verified 02/25/19 08:26 History of Present Illness: patient here requesting detox from etoh use , reports 1 case beer /day and 1 liter liquor , latest use today , denies tremors seizures , falls while intoxicated , current symptoms as above , cocaine : 10-14 years , 2-3 gr/day denies IVDU. cannabis : occasional use tobacco : 1/2 ppd requesting nrt w/ gum PMHX : denies PSych :SAD Exam Limitations: No Limitations - Ebola screening Have you traveled outside of the country in the last 21 days: No Have you had contact with anyone from an Ebola affected area: No - Review of Systems Constitutional: Loss of Appetite EENT: reports: No Symptoms Reported Respiratory: reports: SOB with Exertion Cardiac: reports: No Symptoms Reported GI: reports: See HPI : reports: No Symptoms Reported Musculoskeletal: reports: No Symptoms Reported Integumentary: reports: No Symptoms Reported Neuro: reports: See HPI Hematology: reports: No Symptoms Reported Psychiatric: reports: Orientated x3, Agitated, Anxious Patient History - Patient Medical History Hx Anemia: No Hx Asthma: No Hx Chronic Obstructive Pulmonary Disease (COPD): No Hx Cancer: No Hx Cardiac Disorders: No Hx Congestive Heart Failure: No Hx Hypertension: No Hx Hypercholesterolemia: No Hx Pacemaker: No HX Cerebrovascular Accident: No Hx Seizures: No Hx Dementia: No Hx Diabetes: No Hx Gastrointestinal Disorders: No Hx Liver Disease: No Hx Genitourinary Disorders: No Hx Sexually Transmitted Disorders: No Hx Renal Disease (ESRD): No Hx Thyroid Disease: No Hx Human Immunodeficiency Virus (HIV): No Hx Hepatitis C: No Hx Depression: Yes Hx Suicide Attempt: No (denies) Hx Bipolar Disorder: No Hx Schizophrenia: Yes (no med) - Patient Surgical History Past Surgical History: No Hx Neurologic Surgery: No Hx Cataract Extraction: No Hx Cardiac Surgery: No Hx Lung Surgery: No Hx Breast Surgery: No Hx Breast Biopsy: No Hx Abdominal Surgery: No Hx Appendectomy: No Hx Cholecystectomy: No Hx Genitourinary Surgery: No Hx Section: No Hx Orthopedic Surgery: Yes (fx left mandible 1998) Other Surgical History: fx, left mandible in 1998 Anesthesia Reaction: No - PPD History Date: 02/08/18 Results: 0 mm - Smoking Cessation Smoking history: Current every day smoker Have you smoked in the past 12 months: Yes Aproximately how many cigarettes per day: 4 If you are a former smoker, when did you quit?: 01/30/2018 Cigars Per Day: 0 Hx Chewing Tobacco Use: No Initiated information on smoking cessation: Yes 'Breaking Loose' booklet given: 02/25/19 - Substances abused Alcohol Substance route: Oral Frequency: Daily Amount used: 1 liter of vodka Age of first use: 13 Date of last use: 02/25/19 Cocaine Substance route: Smoking Frequency: Daily Amount used: 10 grams Age of first use: 27 Date of last use: 02/25/19 Marijuana/Hashish Substance route: Smoking Frequency: 1-2 times per week Amount used: 1 bag Age of first use: 12 Date of last use: 11/01/18 Admission Physical Exam BHS - Vital Signs Vital Signs: Vital Signs - 24 hr 02/25/19 08:28 Temperature 97.6 F Pulse Rate 93 H Respiratory 18 Rate Blood Pressure 108/73 - Physical General Appearance: Yes: Mild Distress, Anxious HEENTM: Yes: EOMI, Hearing grossly Normal, Normocephalic, Normal Voice Respiratory: Yes: Chest Non-Tender, Lungs Clear, Normal Breath Sounds, No Respiratory Distress, No Accessory Muscle Use Neck: Yes: No masses,lesions,Nodules, Trachea in good position Cardiology: Yes: Regular Rhythm, Regular Rate, S1, S2, Tachycardia Abdominal: Yes: Non Tender, Soft Musculoskeletal: Yes: Gait Steady Extremities: Yes: Normal Range of Motion, Non-Tender Neurological: Yes: Fully Oriented, Alert, Motor Strength 5/5, Depressed Affect Integumentary: Yes: Warm - Diagnostic (1) Alcohol dependence with uncomplicated withdrawal Current Visit: Yes Status: Chronic (2) Cocaine dependence Current Visit: Yes Status: Chronic Qualifiers: Substance use status: uncomplicated Qualified Code(s): F14.20 - Cocaine dependence, uncomplicated (3) Nicotine dependence Current Visit: Yes Status: Chronic Qualifiers: Nicotine product type: cigarettes Breathalyzer - Breathalyzer Breathalyzer: 0 Urine Drug Screen - Test Device Lot number: [id number] Expiration date: 10/02/20 - Control Is test valid?: Yes - Results Drug screen NEGATIVE: No Urine drug screen results: THC-Marijuana, JACKELINE-Cocaine, BZO-Benzodiazepines Inpatient Rehab Admission - Rehab Decision to Admit Inpatient rehab admission?: No
[2019-02-25] MEDS ORDERED: BISMUTH SUBSALICYLATE 262 MG/15 ML BTL PO PRN (09:01)
[2019-02-25] MEDS ORDERED: MAG HYDROX/AL HYDROX/SIMETH 30 ML UNIT-DOSE CUP PO PRN (09:01)
[2019-02-25] MEDS ORDERED: MENTHOL/PHENOL 1 EACH UD MM PRN (09:01)
[2019-02-25] MEDS ORDERED: hydrOXYzine PAMOATE 25 MG CAPSULE (FP) PO PRN (09:01)
[2019-02-25] MEDS ORDERED: MAGNESIUM HYDROX 2400MG/30ML ORAL SUSPENSION 30 ML CUP PO PRN (09:01)
[2019-02-25] MEDS ORDERED: MELATONIN 5 MG TABLETS PO PRN (09:01)
[2019-02-25] MEDS ORDERED: IBUPROFEN 400 MG TABLET (FP) PO PRN (09:01)
[2019-02-25] MEDS ORDERED: ACETAMINOPHEN 325 MG TABLET (FP) PO PRN ×2 (09:01)
[2019-02-25] MEDS ORDERED: MAGNESIUM CITRATE 300 ML BOTTLE PO PRN (09:01)
[2019-02-25] MEDS: diazePAM 5 MG TABLET PO PRN (10:27)
[2019-02-25] MEDS: PRENATAL VITAMINS W/ FOLIC ACID TABLET (FP) PO SCH (10:27)
[2019-02-25] MEDS: NICOTINE 7 MG/24 HOURS TOPICAL PATCH TD SCH (10:27)
[2019-02-25] MEDS: diazePAM 5 MG TABLET PO SCH ×2 (13:32→21:25)
[2019-02-25 15:45] LABS: HEMATOCRIT 40.3 % (35.4-49); HEMOGLOBIN 13.3 GM/dL (11.7-16.9); MCH 31.1 pg (25.7-33.7); MCHC 33.1 g/dl (32.0-35.9); MEAN CELL VOLUME 94.1 fl (80-96); MEAN PLT VOLUME 9.4 fl (7.5-11.1); PLATELET COUNT 239 K/MM3 (134-434); RBC 4.28 M/mm3 (4.00-5.60); RDW 13.1 % (11.9-15.9); WHITE BLOOD COUNT 6.8 K/mm3 (4.0-10.0)
[2019-02-25 16:01] LABS: BILIRUBIN,TOTAL 0.5 mg/dL (0.2-1); BLOOD UREA NITROGEN 18.4 mg/dL (7-18); CALCIUM 8.9 mg/dL (8.5-10.1); CREATININE 1.1 mg/dL (0.55-1.3); POTASSIUM 4.1 mmol/L (3.5-5.1)
[2019-02-25] MEDS ORDERED: THIAMINE HCL 100 MG TABLET (FP) PO SCH (22:00)
[2019-02-26] MEDS: diazePAM 5 MG TABLET PO SCH ×2 (06:30→13:20)
[2019-02-26] MEDS: PRENATAL VITAMINS W/ FOLIC ACID TABLET (FP) PO SCH (09:58)
[2019-02-26] MEDS: diazePAM 5 MG TABLET PO PRN (09:58)
[2019-02-26] MEDS: NICOTINE 7 MG/24 HOURS TOPICAL PATCH TD SCH (09:58)
--- NOTE | 2019-02-26 14:47 | PN ---
S CIWA - CIWA Score Nausea/Vomitin-Mild Nausea/No Vomiting Muscle Tremors: 3 Anxiety: 3 Agitation: 1-Slight > Activity Paroxysmal Sweats: No Perspiration Orientation: 0-Oriented Tacttile Disturbances: 0-None Auditory Disturbances: 1-Very Mild Visual Disturbances: 0-None Headache: 2-Mild CIWA-Ar Total Score: 11 BHS Progress Note (SOAP) Subjective: Anxious, Nausea (Mild), Tremors. Objective: PATIENT A & O X 3, OBSERVED AMBULATING ON DETOX UNIT UNASSISTED. IN NO ACUTE DISTRESS. 02/26/19 14:48 Vital Signs Temperature 96.8 F L 02/26/19 09:04 Pulse Rate 62 02/26/19 09:04 Respiratory Rate 16 02/26/19 09:04 Blood Pressure 95/63 02/26/19 09:04 O2 Sat by Pulse Oximetry (%) Laboratory Tests 02/25/19 02/25/19 02/25/19 11:40 11:40 11:40 WBC 6.8 RBC 4.28 Hgb 13.3 Hct 40.3 MCV 94.1 MCH 31.1 MCHC 33.1 RDW 13.1 Plt Count 239 MPV 9.4 Sodium 140 Potassium 4.1 Chloride 104 Carbon Dioxide 30 Anion Gap 6 L BUN 18.4 H Creatinine 1.1 Est GFR (CKD-EPI)AfAm 93.47 Est GFR (CKD-EPI)NonAf 80.64 Random Glucose 96 Calcium 8.9 Total Bilirubin 0.5 AST 30 ALT 33 Alkaline Phosphatase 82 Total Protein 7.0 Albumin 4.0 RPR Titer Nonreactive LABS NOTED Assessment: 02/26/19 14:49 WITHDRAWAL SYMPTOMS. Plan: CONTINUE DETOX. INCREASE DAILY PO WATER INTAKE.
[2019-02-26 14:58] VITALS: BP 117/62; PULSE 75; TEMP 97.7
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
[2019-02-27] MEDS ORDERED: diazePAM 5 MG TABLET PO SCH (06:00)
[2019-02-28] MEDS ORDERED: diazePAM 5 MG TABLET PO ONE (06:00)
== END 2019-02-26 16:05 | disposition home or self-care (01) | DRG 774 ==
LOC: YASAS 08:10 → Y3N 09:07
PROVIDERS: ADMIT Allergy & Immunology; ATTEND Allergy & Immunology
PROC: HZ2ZZZZ Detoxification Services for Substance Abuse Treatment (ICD-10-PCS; principal; 2019-02-25)
DX: F10.230 Alcohol dependence with withdrawal, uncomplicated (principal); F14.20 Cocaine dependence, uncomplicated; F12.20 Cannabis dependence, uncomplicated; F17.210 Nicotine dependence, cigarettes, uncomplicated; F91.8 Other conduct disorders; F20.9 Schizophrenia, unspecified; R00.0 Tachycardia, unspecified
CPT/HCPCS: 36415; 80053; 85027; 86593

== ENCOUNTER 2019-04-21 13:19 | Inpatient (IN) | payer OTHER ==
[~2019-04-21 13:19] MED LIST changes: -MELATONIN 5 MG TABLETS PO PRN; +chlordiazePOXIDE HCL 25 MG CAPSULE PO SCH
[2019-04-21 15:32] VITALS: BMI 23.6
--- NOTE | 2019-04-21 15:47 | HP ---
CIWA Score Nausea/Vomitin Muscle Tremors: 2 Anxiety: 2 Agitation: 1-Slight > Activity Paroxysmal Sweats: 2 Orientation: 0-Oriented Tacttile Disturbances: 1-Very Mild Itch/Numbness Auditory Disturbances: 0-None Visual Disturbances: 0-None Headache: 1-Very Mild CIWA-Ar Total Score: 12 - Admission Criteria [facility] Guidelines: Admission for Medically Managed Detox: Requires at least one of the followin. CIWA greater than 12 2. Seizures within the past 24 hours 3. Delirium tremens within the past 24 hours 4. Hallucinations within the past 24 hours 5. Acute intervention needed for co occurring medical disorder 6. Acute intervention needed for co occurring psychiatric disorder 7. Severe withdrawal that cannot be handled at a lower level of care (continued vomiting, continued diarrhea, abnormal vital signs) requiring intravenous medication and/or fluids 8. Patient presents the following: CIWA greater than 12 Admission Criteria Met: Admission criteria met Admitting History and Physical - Admission Chief Complaint: I'm drinking more alcohol lately and need to stop. I am concerned about my health. History of Present Illness: 43 y/o m pt with a h/o alcohol use and dep. since age 13. Pt reports using 1 liter of vodka and a 12 pk of beer /day. Pt gives a h/o tremors in the morning until he has a drinks Gives h/o hallucinations in the past. Last drink 3am today. Pt has been to detox at [facility] on multiple occasions . History Source: Patient Limitations to Obtaining History: No Limitations - Past Medical History Psych: Yes: Addictions (chronic alcoholism.), Anxiety, Depression - Past Surgical History Past Surgical History: Yes: None - Smoking History Smoking history: Current every day smoker Have you smoked in the past 12 months: Yes Aproximately how many cigarettes per day: 4 If you are a former smoker, when did you quit?: 01/30/2018 - Alcohol/Substance Use Hx Alcohol Use: Yes Number of Drinks Daily: 1 (1 litter of vodka , 12 beers/day) History of Substance Use: reports: Cocaine, Marijuana Date of Last Use: 04/21/19 - Social History Usual Living Arrangement: Yes: Alone Do you think of yourself as: Straight/Heterosexual ADL: Independent History of Recent Travel: Yes Admission [facility] - [facility] Allergies/Adverse Reactions: Allergies Allergy/AdvReac Type Severity Reaction Status Date / Time No Known Allergies Allergy Verified 04/21/19 15:27 - Ebola screening Have you traveled outside of the country in the last 21 days: No Have you had contact with anyone from an Ebola affected area: No - Review of Systems GI: reports: Nausea Neuro: reports: Tremors Psychiatric: reports: Anxious, Depressed Patient History - Patient Medical History Hx Anemia: No Hx Asthma: No Hx Chronic Obstructive Pulmonary Disease (COPD): No Hx Cancer: No Hx Cardiac Disorders: No Hx Congestive Heart Failure: No Hx Hypertension: No Hx Hypercholesterolemia: No Hx Pacemaker: No HX Cerebrovascular Accident: No Hx Seizures: No Hx Dementia: No Hx Diabetes: No Hx Gastrointestinal Disorders: No Hx Liver Disease: No Hx Genitourinary Disorders: No Hx Sexually Transmitted Disorders: No Hx Renal Disease (ESRD): No Hx Thyroid Disease: No Hx Human Immunodeficiency Virus (HIV): No Hx Hepatitis C: No Hx Depression: Yes Hx Suicide Attempt: No (denies) Hx Bipolar Disorder: No Hx Schizophrenia: Yes (no med) - Patient Surgical History Past Surgical History: No Hx Neurologic Surgery: No Hx Cataract Extraction: No Hx Cardiac Surgery: No Hx Lung Surgery: No Hx Breast Surgery: No Hx Breast Biopsy: No Hx Abdominal Surgery: No Hx Appendectomy: No Hx Cholecystectomy: No Hx Genitourinary Surgery: No Hx Section: No Hx Orthopedic Surgery: Yes (fx left mandible 1998) Other Surgical History: fx, left mandible in 1998 Anesthesia Reaction: No - PPD History Date: 02/08/18 Results: 0 mm - Reproductive History Patient is a Female of Child Bearing Age (11 -55 yrs old): No - Smoking Cessation Smoking history: Current every day smoker Have you smoked in the past 12 months: Yes Aproximately how many cigarettes per day: 4 If you are a former smoker, when did you quit?: 01/30/2018 Cigars Per Day: 0 Hx Chewing Tobacco Use: No Initiated information on smoking cessation: Yes 'Breaking Loose' booklet given: 04/21/19 - Substance & Tx. History Hx Alcohol Use: Yes Hx Substance Use: No Substance Use Type: Alcohol, Cocaine, Marijuana Hx Substance Use Treatment: Yes () - Substances abused Alcohol Substance route: Oral Frequency: Daily Amount used: 1 liter of vodka Age of first use: 13 Date of last use: 04/21/19 Cocaine Other (specify): CRACK Substance route: Smoking Frequency: Daily Amount used: $100 Age of first use: 27 Date of last use: 04/21/19 Marijuana/Hashish Substance route: Smoking Frequency: 1-2 times per week Amount used: 1 bag Age of first use: 12 Date of last use: 11/01/[address] [facility] - Vital Signs Vital Signs: Vital Signs - 24 hr 04/21/19 15:27 Temperature 98.7 F Pulse Rate 66 Respiratory 20 Rate Blood Pressure 123/66 43 y/o m pt aox3 in nad ambulating well with mild tremor , cooperative with exam . - Physical General Appearance: Yes: Tremorous, Anxious HEENTM: Yes: EOMI, Hearing grossly Normal, Normocephalic, Normal Voice, PRISCILLA Respiratory: Yes: Chest Non-Tender, Lungs Clear, Normal Breath Sounds Neck: Yes: No masses,lesions,Nodules, Supple, Trachea in good position Breast: Yes: Within Normal Limits Cardiology: Yes: Regular Rhythm, Regular Rate, S1, S2 Abdominal: Yes: Normal Bowel Sounds, Non Tender, Flat, Soft, Increased Bowel Sounds Genitourinary: Yes: Within Normal Limits Back: Yes: Decreased Range of Motion (painfull lb) Musculoskeletal: Yes: Muscle Pain (thighs) Extremities: Yes: Tremors Neurological: Yes: wardrobe manager II-XII NML intact, Fully Oriented, Alert, Motor Strength 5/5 Integumentary: Yes: Moist Lymphatic: Yes: Within Normal Limits - Diagnostic (1) Alcohol dependence with uncomplicated withdrawal Current Visit: Yes Status: Chronic (2) Cannabis dependence Current Visit: Yes Status: Chronic (3) Cocaine dependence Current Visit: Yes Status: Chronic Qualifiers: Substance use status: uncomplicated Qualified Code(s): F14.20 - Cocaine dependence, uncomplicated (4) Nicotine dependence Current Visit: Yes Status: Chronic Qualifiers: Nicotine product type: cigarettes Substance use status: uncomplicated Qualified Code(s): F17.210 - Nicotine dependence, cigarettes, uncomplicated Cleared for Admission [facility] - Detox or Rehab [facility] Level of Care: Medically Managed Detox Regimen/Protocol: Librium Breathalyzer - Breathalyzer Breathalyzer: 0 Urine Drug Screen - Test Device Lot number: [id number] Expiration date: 10/02/20 - Control Is test valid?: Yes - Results Drug screen NEGATIVE: No Urine drug screen results: THC-Marijuana, JACKELINE-Cocaine, BZO-Benzodiazepines Inpatient Rehab Admission - Rehab Decision to Admit Inpatient rehab admission?: No
[2019-04-21] MEDS ORDERED: MENTHOL/PHENOL 1 EACH UD MM PRN (16:15)
[2019-04-21] MEDS ORDERED: METHOCARBAMOL 500 MG TABLET PO PRN (16:15)
[2019-04-21] MEDS ORDERED: ACETAMINOPHEN 325 MG TABLET (FP) PO PRN ×2 (16:15)
[2019-04-21] MEDS ORDERED: NICOTINE POLACRILEX 4 MG GUM BUC PRN (16:15)
[2019-04-21] MEDS ORDERED: MELATONIN 5 MG TABLETS PO PRN (16:15)
[2019-04-21] MEDS ORDERED: MAGNESIUM CITRATE 300 ML BOTTLE PO PRN (16:15)
[2019-04-21] MEDS ORDERED: MAGNESIUM HYDROX 2400MG/30ML ORAL SUSPENSION 30 ML CUP PO PRN (16:15)
[2019-04-21] MEDS ORDERED: BISMUTH SUBSALICYLATE 524 MG/30 ML UD PO PRN (16:15)
[2019-04-21] MEDS ORDERED: MAG HYDROX/AL HYDROX/SIMETH 30 ML UNIT-DOSE CUP PO PRN (16:15)
[2019-04-21] MEDS ORDERED: chlordiazePOXIDE HCL 10 MG CAPSULE PO PRN (16:15)
[2019-04-21] MEDS ORDERED: IBUPROFEN 400 MG TABLET (FP) PO PRN (16:15)
[2019-04-21] MEDS ORDERED: hydrOXYzine PAMOATE 25 MG CAPSULE (FP) PO PRN (16:15)
[2019-04-21] MEDS ORDERED: chlordiazePOXIDE HCL 25 MG CAPSULE PO PRN (16:23)
[2019-04-21] MEDS: chlordiazePOXIDE HCL 25 MG CAPSULE PO SCH ×2 (17:30→22:34)
[2019-04-21] MEDS: THIAMINE HCL 100 MG TABLET (FP) PO SCH (22:34)
[2019-04-22] MEDS: chlordiazePOXIDE HCL 25 MG CAPSULE PO SCH ×4 (06:13→22:57)
[2019-04-22 09:52] LABS: HEMOGLOBIN 13.7 GM/dL (11.7-16.9); MCH 31.6 pg (25.7-33.7); MCHC 33.5 g/dl (32.0-35.9); MEAN CELL VOLUME 94.4 fl (80-96); MEAN PLT VOLUME 9.3 fl (7.5-11.1); PLATELET COUNT 224 K/MM3 (134-434); RBC 4.35 M/mm3 (4.00-5.60); RDW 13.3 % (11.9-15.9); WHITE BLOOD COUNT 5.4 K/mm3 (4.0-10.0)
--- NOTE | 2019-04-22 09:53 | PN ---
S CIWA - CIWA Score Nausea/Vomitin-Mild Nausea/No Vomiting Muscle Tremors: 3 Anxiety: 3 Agitation: 1-Slight > Activity Paroxysmal Sweats: 2 Orientation: 0-Oriented Tacttile Disturbances: 0-None Auditory Disturbances: 0-None Visual Disturbances: 0-None Headache: 0-None Present CIWA-Ar Total Score: 10 S Progress Note (SOAP) Subjective: 43 years old male admitted on 04/21/19 for alcohol withdrawal sx management treating with librium detox regimen ate breakfast feeling tired resting on bed limited conversation with staff Objective: 04/22/19 09:52 Vital Signs Temperature 97.5 F L 04/22/19 09:08 Pulse Rate 74 04/22/19 09:08 Respiratory Rate 16 04/22/19 09:08 Blood Pressure 90/55 L 04/22/19 09:08 O2 Sat by Pulse Oximetry (%) 04/22/19 09:52 lab pending encourage oral fluid Assessment: 04/22/19 09:52 alcohol withdrawal sx Plan: librium regimen
[2019-04-22 10:03] LABS: ALBUMIN 3.5 g/dl (3.4-5.0); BILIRUBIN,TOTAL 0.4 mg/dL (0.2-1); BLOOD UREA NITROGEN 11.6 mg/dL (7-18); CALCIUM 8.6 mg/dL (8.5-10.1); CREATININE 1.1 mg/dL (0.55-1.3); POTASSIUM 4.1 mmol/L (3.5-5.1); TOT PROT 6.3 g/dl (6.4-8.2)
[2019-04-22] MEDS: PRENATAL VITAMINS W/ FOLIC ACID TABLET (FP) PO SCH (10:11)
[2019-04-22] MEDS: NICOTINE 21 MG/24 HOURS TOPICAL PATCH TD SCH (10:13)
[2019-04-22] MEDS: THIAMINE HCL 100 MG TABLET (FP) PO SCH (22:56)
[2019-04-23] MEDS ORDERED: chlordiazePOXIDE HCL 10 MG CAPSULE PO PRN
[2019-04-23] MEDS ORDERED: chlordiazePOXIDE 5 MG CAPSULE PO SCH (05:00)
[2019-04-23] MEDS: chlordiazePOXIDE HCL 25 MG CAPSULE PO SCH ×2 (05:24→10:32)
[2019-04-23] MEDS: NICOTINE 21 MG/24 HOURS TOPICAL PATCH TD SCH (10:32)
[2019-04-23] MEDS: PRENATAL VITAMINS W/ FOLIC ACID TABLET (FP) PO SCH (10:32)
--- NOTE | 2019-04-23 12:20 | PN ---
[facility] CIWA - CIWA Score Nausea/Vomitin-No Nausea/No Vomiting Muscle Tremors: 1-None Visible, but [place] Anxiety: 3 Agitation: 1-Slight > Activity Paroxysmal Sweats: 2 Orientation: 0-Oriented Tacttile Disturbances: 1-Very Mild Itch/Numbness Auditory Disturbances: 0-None Visual Disturbances: 0-None Headache: 0-None Present CIWA-Ar Total Score: 8 [facility] Progress Note (SOAP) Subjective: Patient is a 43 yo male currently treated for alcohol withdrawal management c/o feeling anxious, chills, interrupted sleep Objective: 04/23/19 12:19 Vital Signs Temperature 97.6 F 04/23/19 09:47 Pulse Rate 75 04/23/19 09:47 Respiratory Rate 16 04/23/19 09:47 Blood Pressure 102/71 04/23/19 09:47 O2 Sat by Pulse Oximetry (%) Laboratory Last Values WBC 5.4 K/mm3 (4.0-10.0) 04/22/19 08:00 RBC 4.35 M/mm3 (4.00-5.60) 04/22/19 08:00 Hgb 13.7 GM/dL (11.7-16.9) 04/22/19 08:00 Hct 41.0 % (35.4-49) 04/22/19 08:00 MCV 94.4 fl (80-96) 04/22/19 08:00 MCH 31.6 pg (25.7-33.7) 04/22/19 08:00 MCHC 33.5 g/dl (32.0-35.9) 04/22/19 08:00 RDW 13.3 % (11.9-15.9) 04/22/19 08:00 Plt Count 224 K/MM3 (134-434) 04/22/19 08:00 MPV 9.3 fl (7.5-11.1) 04/22/19 08:00 Sodium 142 mmol/L (136-145) 04/22/19 08:00 Potassium 4.1 mmol/L (3.5-5.1) 04/22/19 08:00 Chloride 108 mmol/L (98-107) H 04/22/19 08:00 Carbon Dioxide 30 mmol/L (21-32) 04/22/19 08:00 Anion Gap 4 MMOL/L (8-16) L 04/22/19 08:00 BUN 11.6 mg/dL (7-18) 04/22/19 08:00 Creatinine 1.1 mg/dL (0.55-1.3) 04/22/19 08:00 Est GFR (CKD-EPI)AfAm 93.47 04/22/19 08:00 Est GFR (CKD-EPI)NonAf 80.64 04/22/19 08:00 Random Glucose 103 mg/dL (74-106) 04/22/19 08:00 Calcium 8.6 mg/dL (8.5-10.1) 04/22/19 08:00 Total Bilirubin 0.4 mg/dL (0.2-1) 04/22/19 08:00 AST 20 U/L (15-37) 04/22/19 08:00 ALT 30 U/L (13-61) 04/22/19 08:00 Alkaline Phosphatase 76 U/L (45-117) 04/22/19 08:00 Total Protein 6.3 g/dl (6.4-8.2) L 04/22/19 08:00 Albumin 3.5 g/dl (3.4-5.0) 04/22/19 08:00 RPR Titer Nonreactive (NONREACTIVE) 04/22/19 08:00 labs reviewed Assessment: 04/23/19 12:19 AOx3 no acute distress Ambulating in the unit, no gait disturbance withdrawal sx Plan: increase PO fluids continue detox continue to monitor
[2019-04-23] MEDS: chlordiazePOXIDE HCL 10 MG CAPSULE PO SCH ×2 (17:34→22:53)
[2019-04-23] MEDS: THIAMINE HCL 100 MG TABLET (FP) PO SCH (22:53)
[2019-04-24] MEDS ORDERED: chlordiazePOXIDE HCL 10 MG CAPSULE PO PRN
[2019-04-24] MEDS ORDERED: chlordiazePOXIDE HCL 10 MG CAPSULE PO SCH (05:00)
[2019-04-24] MEDS: chlordiazePOXIDE HCL 10 MG CAPSULE PO SCH ×3 (06:14→18:38)
[2019-04-24] MEDS: NICOTINE 21 MG/24 HOURS TOPICAL PATCH TD SCH (10:07)
[2019-04-24] MEDS: PRENATAL VITAMINS W/ FOLIC ACID TABLET (FP) PO SCH (10:07)
--- NOTE | 2019-04-24 10:33 | PN ---
[facility] CIWA - CIWA Score Nausea/Vomitin-No Nausea/No Vomiting Muscle Tremors: None Anxiety: 2 Agitation: 0-Normal Activity Paroxysmal Sweats: 2 Orientation: 0-Oriented Tacttile Disturbances: 0-None Auditory Disturbances: 0-None Visual Disturbances: 0-None Headache: 0-None Present CIWA-Ar Total Score: 4 [facility] Progress Note (SOAP) Subjective: c/o mild withdrawal symptoms. Objective: 04/24/19 10:31 Vital Signs 04/24/19 04/24/19 04/24/19 03:30 06:08 09:17 Temperature 96.2 F L 97.2 F L Pulse Rate 59 L 66 Respiratory 18 18 18 Rate Blood Pressure 103/61 116/73 Laboratory Last Values WBC 5.4 K/mm3 (4.0-10.0) 04/22/19 08:00 RBC 4.35 M/mm3 (4.00-5.60) 04/22/19 08:00 Hgb 13.7 GM/dL (11.7-16.9) 04/22/19 08:00 Hct 41.0 % (35.4-49) 04/22/19 08:00 MCV 94.4 fl (80-96) 04/22/19 08:00 MCH 31.6 pg (25.7-33.7) 04/22/19 08:00 MCHC 33.5 g/dl (32.0-35.9) 04/22/19 08:00 RDW 13.3 % (11.9-15.9) 04/22/19 08:00 Plt Count 224 K/MM3 (134-434) 04/22/19 08:00 MPV 9.3 fl (7.5-11.1) 04/22/19 08:00 Sodium 142 mmol/L (136-145) 04/22/19 08:00 Potassium 4.1 mmol/L (3.5-5.1) 04/22/19 08:00 Chloride 108 mmol/L (98-107) H 04/22/19 08:00 Carbon Dioxide 30 mmol/L (21-32) 04/22/19 08:00 Anion Gap 4 MMOL/L (8-16) L 04/22/19 08:00 BUN 11.6 mg/dL (7-18) 04/22/19 08:00 Creatinine 1.1 mg/dL (0.55-1.3) 04/22/19 08:00 Est GFR (CKD-EPI)AfAm 93.47 04/22/19 08:00 Est GFR (CKD-EPI)NonAf 80.64 04/22/19 08:00 Random Glucose 103 mg/dL (74-106) 04/22/19 08:00 Calcium 8.6 mg/dL (8.5-10.1) 04/22/19 08:00 Total Bilirubin 0.4 mg/dL (0.2-1) 04/22/19 08:00 AST 20 U/L (15-37) 04/22/19 08:00 ALT 30 U/L (13-61) 04/22/19 08:00 Alkaline Phosphatase 76 U/L (45-117) 04/22/19 08:00 Total Protein 6.3 g/dl (6.4-8.2) L 04/22/19 08:00 Albumin 3.5 g/dl (3.4-5.0) 04/22/19 08:00 RPR Titer Nonreactive (NONREACTIVE) 04/22/19 08:00 Labs noted. Assessment: 04/24/19 10:31 AOX3, in no respiratory distress. Full ROM, ambulating in the unit. mild Withdrawal symptoms. For d/c tomorrow. Plan: continue detox. D/C in AM.
[2019-04-24] MEDS: THIAMINE HCL 100 MG TABLET (FP) PO SCH (22:07)
[2019-04-25] MEDS ORDERED: chlordiazePOXIDE HCL 10 MG CAPSULE PO ONE ×2 (05:00)
[2019-04-25 06:17] VITALS: PULSE 58; TEMP 97.2
[2019-04-25] MEDS: chlordiazePOXIDE HCL 10 MG CAPSULE PO SCH (06:25)
[2019-04-25 09:08] VITALS: BP 94/61
--- NOTE | 2019-04-25 09:26 | DS ---
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 that the patient arrived property area picked up his belonging and left the facility patient expresses interesting in going to [facility] for chemical dependent rehab - Physical Exam Results Vital Signs: Vital Signs Temperature 97.2 F L 04/25/19 09:08 Pulse Rate 58 L 04/25/19 09:08 Respiratory Rate 16 04/25/19 09:08 Blood Pressure 94/61 04/25/19 09:08 O2 Sat by Pulse Oximetry (%) Pertinent Admission Physical Exam Findings: alcohol withdrawal sx Laboratory Last Values WBC 5.4 K/mm3 (4.0-10.0) 04/22/19 08:00 RBC 4.35 M/mm3 (4.00-5.60) 04/22/19 08:00 Hgb 13.7 GM/dL (11.7-16.9) 04/22/19 08:00 Hct 41.0 % (35.4-49) 04/22/19 08:00 MCV 94.4 fl (80-96) 04/22/19 08:00 MCH 31.6 pg (25.7-33.7) 04/22/19 08:00 MCHC 33.5 g/dl (32.0-35.9) 04/22/19 08:00 RDW 13.3 % (11.9-15.9) 04/22/19 08:00 Plt Count 224 K/MM3 (134-434) 04/22/19 08:00 MPV 9.3 fl (7.5-11.1) 04/22/19 08:00 Sodium 142 mmol/L (136-145) 04/22/19 08:00 Potassium 4.1 mmol/L (3.5-5.1) 04/22/19 08:00 Chloride 108 mmol/L (98-107) H 04/22/19 08:00 Carbon Dioxide 30 mmol/L (21-32) 04/22/19 08:00 Anion Gap 4 MMOL/L (8-16) L 04/22/19 08:00 BUN 11.6 mg/dL (7-18) 04/22/19 08:00 Creatinine 1.1 mg/dL (0.55-1.3) 04/22/19 08:00 Est GFR (CKD-EPI)AfAm 93.47 04/22/19 08:00 Est GFR (CKD-EPI)NonAf 80.64 04/22/19 08:00 Random Glucose 103 mg/dL (74-106) 04/22/19 08:00 Calcium 8.6 mg/dL (8.5-10.1) 04/22/19 08:00 Total Bilirubin 0.4 mg/dL (0.2-1) 04/22/19 08:00 AST 20 U/L (15-37) 04/22/19 08:00 ALT 30 U/L (13-61) 04/22/19 08:00 Alkaline Phosphatase 76 U/L (45-117) 04/22/19 08:00 Total Protein 6.3 g/dl (6.4-8.2) L 04/22/19 08:00 Albumin 3.5 g/dl (3.4-5.0) 04/22/19 08:00 RPR Titer Nonreactive (NONREACTIVE) 04/22/19 08:00 lab noted Vital Signs Temperature 97.2 F L 04/25/19 09:08 Pulse Rate 58 L 04/25/19 09:08 Respiratory Rate 16 04/25/19 09:08 Blood Pressure 94/61 04/25/19 09:08 O2 Sat by Pulse Oximetry (%) - Treatment Hospital Course: Detox Protocol Followed, Detoxed Safely, Responded well, Discharged Condition Good, Rehab Referral Accepted Patient has Accepted a Rehab Referral to: community support approach - Medication Discharge Medications: Ambulatory Orders NK [No Known Home Medication] 09/12/18 - Diagnosis (1) Substance induced mood disorder Status: Suspected (2) Alcohol dependence with uncomplicated withdrawal Status: Chronic (3) Nicotine dependence Status: Chronic Qualifiers: Nicotine product type: cigarettes Substance use status: uncomplicated Qualified Code(s): F17.210 - Nicotine dependence, cigarettes, uncomplicated - AMA Did Patient Leave Against Medical Advice: No CIWA Score - CIWA Score Nausea/Vomitin-No Nausea/No Vomiting Muscle Tremors: None Anxiety: 2 Agitation: 0-Normal Activity Paroxysmal Sweats: 2 Orientation: 0-Oriented Tacttile Disturbances: 0-None Auditory Disturbances: 0-None Visual Disturbances: 0-None Headache: 0-None Present CIWA-Ar Total Score: 4
[2019-04-25] MEDS: PRENATAL VITAMINS W/ FOLIC ACID TABLET (FP) PO SCH (11:06)
[2019-04-25] MEDS: NICOTINE 21 MG/24 HOURS TOPICAL PATCH TD SCH (11:06)
== END 2019-04-25 09:17 | disposition home or self-care (01) | DRG 774 ==
LOC: YASAS 13:19 → Y3N 16:31
PROVIDERS: ADMIT Allergy & Immunology; ATTEND Allergy & Immunology
PROC: HZ2ZZZZ Detoxification Services for Substance Abuse Treatment (ICD-10-PCS; principal; 2019-04-21)
DX: F10.230 Alcohol dependence with withdrawal, uncomplicated (principal); F14.20 Cocaine dependence, uncomplicated; F12.20 Cannabis dependence, uncomplicated; F17.210 Nicotine dependence, cigarettes, uncomplicated; F19.24 Other psychoactive substance dependence with psychoactive substance-induced mood disorder
CPT/HCPCS: 36415; 80053; 85027; 86593

== ENCOUNTER 2019-05-06 08:03 | Inpatient (IN) | payer OTHER ==
[2019-05-06 08:34] VITALS: BMI 23.6
--- NOTE | 2019-05-06 08:57 | HP ---
CIWA Score Nausea/Vomitin-No Nausea/No Vomiting Muscle Tremors: None Anxiety: 1-Mildly Anxious Agitation: 1-Slight > Activity Paroxysmal Sweats: No Perspiration Orientation: 0-Oriented Tacttile Disturbances: 0-None Auditory Disturbances: 0-None Visual Disturbances: 0-None Headache: 1-Very Mild CIWA-Ar Total Score: 3 - Admission Criteria OASAS Guidelines: Admission for Medically Managed Detox: Requires at least one of the followin. CIWA greater than 12 2. Seizures within the past 24 hours 3. Delirium tremens within the past 24 hours 4. Hallucinations within the past 24 hours 5. Acute intervention needed for co occurring medical disorder 6. Acute intervention needed for co occurring psychiatric disorder 7. Severe withdrawal that cannot be handled at a lower level of care (continued vomiting, continued diarrhea, abnormal vital signs) requiring intravenous medication and/or fluids 8. Admitting History and Physical - Admission Chief Complaint: i am here for rehab,from crack,alcohol,marijuana History of Present Illness: this 43 years ld male with crack dependence,alcohol and marijuana abused,need help in rehab, multiple admissions in detox and rehab last detox [facility] 04/21/19 to 04/25/19 History Source: Patient Limitations to Obtaining History: No Limitations - Past Medical History Psych: Yes: Addictions (chronic alcoholism.), Anxiety, Depression - Past Surgical History Past Surgical History: Yes: None - Smoking History Smoking history: Current every day smoker Have you smoked in the past 12 months: Yes Aproximately how many cigarettes per day: 20 - Alcohol/Substance Use Hx Alcohol Use: Yes Number of Drinks Daily: 1 (1 litter of vodka , 12 beers/day) History of Substance Use: reports: Cocaine, Marijuana Date of Last Use: 04/21/19 - Social History Usual Living Arrangement: Yes: Alone ADL: Support Services Occupation: unemployed History of Recent Travel: Yes Admission ROS [facility] Chief Complaint: i need help to stop using crack,alcohol and marijuana abused Allergies/Adverse Reactions: Allergies Allergy/AdvReac Type Severity Reaction Status Date / Time No Known Allergies Allergy Verified 05/06/19 08:24 History of Present Illness: this 43 years old male with crack dependence ,alcohol,marijuana abused,need help to come in to rehab,multiple admissions in detox and rehab but keep relapsing nicotine dependence no seizure no syncope unemployed coughing for 2 days no longest sobriety schizophrenia Exam Limitations: No Limitations - Ebola screening Have you traveled outside of the country in the last 21 days: No Have you had contact with anyone from an Ebola affected area: No Do you have a fever: No - Review of Systems Constitutional: No Symptoms Reported EENT: reports: Other (coughing for 2 days) Respiratory: reports: Other (coughing) Cardiac: reports: No Symptoms Reported GI: reports: No Symptoms Reported : reports: No Symptoms Reported Musculoskeletal: reports: No Symptoms Reported Integumentary: reports: No Symptoms Reported Neuro: reports: No Symptoms reported Endocrine: reports: No Symptoms Reported Hematology: reports: No Symptoms Reported Psychiatric: reports: No Sypmtoms Reported, Judgement Intact, Mood/Affect Appropiate, Orientated x3, Anxious, Depressed Other Systems: Reviewed and Negative Patient History - Patient Medical History Hx Anemia: No Hx Asthma: No Hx Chronic Obstructive Pulmonary Disease (COPD): No Hx Cancer: No Hx Cardiac Disorders: No Hx Congestive Heart Failure: No Hx Hypertension: No Hx Hypercholesterolemia: No Hx Pacemaker: No HX Cerebrovascular Accident: No Hx Seizures: No Hx Dementia: No Hx Diabetes: No Hx Gastrointestinal Disorders: No Hx Liver Disease: No Hx Genitourinary Disorders: No Hx Sexually Transmitted Disorders: No Hx Renal Disease (ESRD): No Hx Thyroid Disease: No Hx Human Immunodeficiency Virus (HIV): No (last 04/22 negative) Hx Hepatitis C: No Hx Depression: Yes Hx Suicide Attempt: No (denies) Hx Bipolar Disorder: No Hx Schizophrenia: Yes (no med) Other Medical History: no suicidal,no homicidal,do not want to see psychiatrist - Patient Surgical History Past Surgical History: No Hx Neurologic Surgery: No Hx Cataract Extraction: No Hx Cardiac Surgery: No Hx Lung Surgery: No Hx Breast Surgery: No Hx Breast Biopsy: No Hx Abdominal Surgery: No Hx Appendectomy: No Hx Cholecystectomy: No Hx Genitourinary Surgery: No Hx Section: No Hx Orthopedic Surgery: Yes (fx left mandible 1998) Other Surgical History: fx, left mandible in 1998 Anesthesia Reaction: No - PPD History Previous Implant?: Yes Documented Results: Negative w/proof Implanted On Prior R Admission?: Yes Date: 02/08/18 Results: 0 mm PPD to be Administered?: Yes - Smoking Cessation Smoking history: Current every day smoker Have you smoked in the past 12 months: Yes Aproximately how many cigarettes per day: 20 Cigars Per Day: 0 Hx Chewing Tobacco Use: No Initiated information on smoking cessation: Yes 'Breaking Loose' booklet given: 05/06/19 - Substance & Tx. History Hx Alcohol Use: Yes Hx Substance Use: Yes Substance Use Type: Alcohol, Cocaine, Marijuana Hx Substance Use Treatment: Yes (last [facility] 04/21/19 to 04/25/19) - Substances abused Alcohol Substance route: Oral Frequency: Daily Amount used: 1 liter of vodka Age of first use: 13 Date of last use: 04/22/19 Cocaine Other (specify): CRACK Substance route: Smoking Frequency: Daily Amount used: $200 Age of first use: 27 Date of last use: 05/06/19 Marijuana/Hashish Substance route: Smoking Frequency: 1-2 times per week Amount used: 1 bag Age of first use: 12 Date of last use: 11/01/18 Admission Physical Exam [facility] - Vital Signs Vital Signs: Vital Signs - 24 hr 05/06/19 08:25 Temperature 97.2 F L Pulse Rate 80 Respiratory 20 Rate Blood Pressure 126/75 - Physical General Appearance: Yes: Within Normal Limits, Anxious HEENTM: Yes: Normal ENT Inspection, PRISCILLA, Pharynx Normal Respiratory: Yes: Lungs Clear, Other (coughing for 2 days) Neck: Yes: Within Normal Limits, Supple, Trachea in good position Breast: Yes: Within Normal Limits Cardiology: Yes: Within Normal Limits, Regular Rhythm, Regular Rate, S1, S2 Abdominal: Yes: Within Normal Limits, Normal Bowel Sounds, Non Tender, Flat Genitourinary: Yes: Within Normal Limits Back: Yes: Within Normal Limits Musculoskeletal: Yes: Within Normal Limits Extremities: Yes: Within Normal Limits 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 NML intact, Fully Oriented, Alert, Motor Strength 5/5 Integumentary: Yes: Dry Lymphatic: Yes: Within Normal Limits - Diagnostic (1) Cocaine dependence Current Visit: Yes Status: Acute (2) Alcohol use disorder Current Visit: Yes Status: Acute (3) Cannabis abuse Current Visit: Yes Status: Acute (4) Schizophrenia Current Visit: Yes Status: Acute (5) Nicotine dependence Current Visit: Yes Status: Acute Cleared for Admission S - Detox or Rehab Claeared for Rehab Admission: Yes Breathalyzer - Breathalyzer Breathalyzer: 0 Urine Drug Screen - Test Device Lot number: [id number] Expiration date: 10/02/20 - Control Is test valid?: Yes - Results Drug screen NEGATIVE: No Urine drug screen results: THC-Marijuana, JACKELINE-Cocaine, BZO-Benzodiazepines Inpatient Rehab Admission - Rehab Decision to Admit Inpatient rehab admission?: Yes - Initial Determination Are CD services needed?: Yes Free of communicable disease: Yes Not in need of hospitalization: Yes - Rehab Admission Criteria Previous failed treatment: Yes Poor recovery environment: Yes Comorbidities: Yes Lacks judgement: No Patient is meeting Inpatient Rehab admission criteria:: Yes
[2019-05-06] MEDS ORDERED: hydrOXYzine PAMOATE 50 MG CAPSULE (FP) PO PRN (09:07)
[2019-05-06] MEDS ORDERED: MENTHOL/PHENOL 1 EACH UD MM PRN (09:07)
[2019-05-06] MEDS ORDERED: MAGNESIUM CITRATE 300 ML BOTTLE PO PRN (09:07)
[2019-05-06] MEDS ORDERED: MAGNESIUM HYDROX 2400MG/30ML ORAL SUSPENSION 30 ML CUP PO PRN (09:07)
[2019-05-06] MEDS ORDERED: ACETAMINOPHEN 325 MG TABLET (FP) PO PRN (09:07)
[2019-05-06] MEDS ORDERED: IBUPROFEN 400 MG TABLET (FP) PO PRN (09:07)
[2019-05-06] MEDS ORDERED: LOPERAMIDE HCL 2 MG CAPSULE PO PRN (09:07)
[2019-05-06] MEDS ORDERED: guaiFENesin 200 MG/10 ML 10 ML UNIT-DOSE CUPS PO PRN (09:07)
[2019-05-06] MEDS ORDERED: NICOTINE POLACRILEX 2 MG GUM BUC PRN (09:07)
[2019-05-06] MEDS ORDERED: P-EPHED 60MG/TRIPROLIDI 2.5MG TABLET PO PRN (09:07)
[2019-05-06] MEDS ORDERED: MAG HYDROX/AL HYDROX/SIMETH 30 ML UNIT-DOSE CUP PO PRN (09:07)
[2019-05-06] MEDS: NICOTINE 21 MG/24 HOURS TOPICAL PATCH TD SCH (10:10)
[2019-05-06] MEDS ORDERED: TUBERCULIN PPD 5 TU/0.1ML VIAL ID ONE (10:10)
[2019-05-06] MEDS: PRENATAL VITAMINS W/ FOLIC ACID TABLET (FP) PO SCH (10:11)
--- NOTE | 2019-05-06 12:57 | CONSULT ---
[facility] Psychiatric Consult - Data Date of interview: 05/06/18 Admission source: [facility] Identifying data: Patient is a 43 year old single black male, father of six, unemployed, domiciled, and is supported by [facility]. This is one of multiple admissions for patient. Patient admitted to for alcohol, cocaine, and marijuana dependence. Substance Abuse History: Smoking Cessation. Smoking history: Current every day smoker. Have you smoked in the past 12 months: Yes. Aproximately how many cigarettes per day: 20. Cigars Per Day: 0. Hx Chewing Tobacco Use: No. Initiated information on smoking cessation: Yes. 'Breaking Loose' booklet given : 05/06/19. - Substance & Tx. History. Hx Alcohol Use: Yes. Hx Substance Use : Yes. Substance Use Type: Alcohol, Cocaine, Marijuana. Hx Substance Use Treatment: Yes (last [facility] 04/21/19 to 04/25/19). - Substances abused. Alcohol. Substance route: Oral. Frequency: Daily. Amount used: 1 liter of vodka. Age of first use: 13. Date of last use: 04/22/19. Cocaine. Other ( specify): CRACK. Substance route: Smoking. Frequency: Daily. Amount used: $ 200. Age of first use: 27. Date of last use: 05/06/19. Marijuana/Hashish. Substance route: Smoking. Frequency: 1-2 times per week. Amount used: 1 bag. Age of first use: 12. Date of last use: 11/01/18 Medical History: fx left mandible 1998 Psychiatric History: Patient uncooperative with consultation. Stated to functional tester typewriters "I do not take psych medications. That was the past. I am fine now. i'm just tired and need to sleep." As per previous notes, patient has a past of diagnosis of schizophrenia. His onset of psychiatric disturbances occured at 28 years of age which consisted of auditory hallucinations, persecutory delusions, and acting out behaviors. Patient has past psychiatric hospitalizations at [facility] in which he was diagnosed with schizophrenia and PTSD. Multiple hospitalizations followed. Mr De La Rosa is known for chronic non-adherence to psychiatric aftercare. As per previous notes patient has received trials of various psychotropic medications which include risperidone, quetiapine, haloperidol, Invega and many other molecules. At present patient denies auditory/visual hallucinations and suicidal/homicidal ideation. Physical/Sexual Abuse/Trauma History: denies. Mental Status Exam - Mental Status Exam Alert and Oriented to: Time, Place, Person Cognitive Function: Good Patient Appearance: Well Groomed Mood: Withdrawn Affect: Mood Congruent Patient Behavior: Fatigued, Uncooperative Speech Pattern: Clear Voice Loudness: Moderately Soft/Quiet Thought Process: Goal Oriented Thought Disorder: Not Present Hallucinations: Denies Suicidal Ideation: Denies Homicidal Ideation: Denies Insight/Judgement: Poor Sleep: Fair Appetite: Fair Muscle strength/Tone: Normal Gait/Station: Normal Psychiatric Findings - Problem List ([place] 1, 2,3) (1) Alcohol use disorder Current Visit: Yes Status: Acute (2) Cannabis abuse Current Visit: Yes Status: Acute (3) Cocaine dependence Current Visit: Yes Status: Acute (4) Nicotine dependence Current Visit: Yes Status: Acute (5) Schizophrenia Current Visit: No Status: Chronic (6) Substance induced mood disorder Current Visit: Yes Status: Acute - Initial Treatment Plan Initial Treatment Plan: Psychoeducation provided. Rehab in progress. Observation.
[2019-05-06 15:02] LABS: HEMATOCRIT 38.3 % (35.4-49); HEMOGLOBIN 12.7 GM/dL (11.7-16.9); MCH 31.3 pg (25.7-33.7); MCHC 33.2 g/dl (32.0-35.9); MEAN CELL VOLUME 94.4 fl (80-96); MEAN PLT VOLUME 8.7 fl (7.5-11.1); PLATELET COUNT 274 K/MM3 (134-434); RBC 4.06 M/mm3 (4.00-5.60); RDW 13.6 % (11.9-15.9); WHITE BLOOD COUNT 7.6 K/mm3 (4.0-10.0)
[2019-05-06 15:21] LABS: ALBUMIN 3.8 g/dl (3.4-5.0); BILIRUBIN,TOTAL 0.3 mg/dL (0.2-1); BLOOD UREA NITROGEN 16.7 mg/dL (7-18); CALCIUM 8.9 mg/dL (8.5-10.1); CREATININE 1.1 mg/dL (0.55-1.3); POTASSIUM 3.9 mmol/L (3.5-5.1); TOT PROT 7.1 g/dl (6.4-8.2)
--- NOTE | 2019-05-06 15:28 | PN ---
[facility] Progress Note Note: Pt is a 43 y/o male with a hx of JOSE and multiple admissions to this facility admitted today to rehab [address] [place] [address]. Pt was seen sleeping in bed but arousable and answered to verbal command. Pt reports fatigue and prefers to rest and talk to provider at a later time. Vital Signs - 24 hr 05/06/19 05/06/19 08:25 10:05 Temperature 97.2 F L 97.4 F L Pulse Rate 80 79 Respiratory 20 18 Rate Blood Pressure 126/75 134/69 Laboratory Tests 05/06/19 05/06/19 09:20 09:20 WBC 7.6 RBC 4.06 Hgb 12.7 Hct 38.3 MCV 94.4 MCH 31.3 MCHC 33.2 RDW 13.6 Plt Count 274 D MPV 8.7 Sodium 140 Potassium 3.9 Chloride 108 H Carbon Dioxide 27 Anion Gap 5 L BUN 16.7 Creatinine 1.1 Est GFR (CKD-EPI)AfAm 93.47 Est GFR (CKD-EPI)NonAf 80.64 Random Glucose 106 Calcium 8.9 Total Bilirubin 0.3 AST 33 ALT 42 Alkaline Phosphatase 82 Total Protein 7.1 Albumin 3.8 Alert o x3 nad A/P new pt to rehab Maintain safety D/w pt to Increase po fluids.
[2019-05-06] MEDS ORDERED: MELATONIN 5 MG TABLETS PO PRN (22:00)
[2019-05-06] MEDS: THIAMINE HCL 100 MG TABLET (FP) PO SCH (23:10)
[2019-05-07] MEDS: PRENATAL VITAMINS W/ FOLIC ACID TABLET (FP) PO SCH (10:40)
[2019-05-07] MEDS: NICOTINE 21 MG/24 HOURS TOPICAL PATCH TD SCH (10:40)
[2019-05-07] MEDS: THIAMINE HCL 100 MG TABLET (FP) PO SCH (21:56)
[2019-05-08] MEDS: PRENATAL VITAMINS W/ FOLIC ACID TABLET (FP) PO SCH (11:57)
[2019-05-08] MEDS: NICOTINE 21 MG/24 HOURS TOPICAL PATCH TD SCH (11:57)
[2019-05-08] MEDS: THIAMINE HCL 100 MG TABLET (FP) PO SCH (22:06)
[2019-05-09] MEDS: NICOTINE 21 MG/24 HOURS TOPICAL PATCH TD SCH (10:02)
[2019-05-09] MEDS: PRENATAL VITAMINS W/ FOLIC ACID TABLET (FP) PO SCH (10:02)
[2019-05-09] MEDS: THIAMINE HCL 100 MG TABLET (FP) PO SCH (22:08)
[2019-05-10] MEDS: PRENATAL VITAMINS W/ FOLIC ACID TABLET (FP) PO SCH (10:17)
[2019-05-10] MEDS: NICOTINE 21 MG/24 HOURS TOPICAL PATCH TD SCH (10:17)
[2019-05-10] MEDS: THIAMINE HCL 100 MG TABLET (FP) PO SCH (22:20)
[2019-05-11] MEDS: NICOTINE 21 MG/24 HOURS TOPICAL PATCH TD SCH (10:29)
[2019-05-11] MEDS: PRENATAL VITAMINS W/ FOLIC ACID TABLET (FP) PO SCH (10:29)
[2019-05-11] MEDS: THIAMINE HCL 100 MG TABLET (FP) PO SCH (21:32)
[2019-05-12] MEDS: PRENATAL VITAMINS W/ FOLIC ACID TABLET (FP) PO SCH (11:22)
[2019-05-12] MEDS: NICOTINE 21 MG/24 HOURS TOPICAL PATCH TD SCH (11:22)
[2019-05-12] MEDS: THIAMINE HCL 100 MG TABLET (FP) PO SCH (22:14)
[2019-05-13] MEDS: NICOTINE 21 MG/24 HOURS TOPICAL PATCH TD SCH (10:54)
[2019-05-13] MEDS: PRENATAL VITAMINS W/ FOLIC ACID TABLET (FP) PO SCH (10:54)
[2019-05-13] MEDS: THIAMINE HCL 100 MG TABLET (FP) PO SCH (22:51)
[2019-05-14 06:56] VITALS: BP 93/58; PULSE 73; TEMP 97.7
[2019-05-14] MEDS: NICOTINE 21 MG/24 HOURS TOPICAL PATCH TD SCH (11:00)
[2019-05-14] MEDS: PRENATAL VITAMINS W/ FOLIC ACID TABLET (FP) PO SCH (11:00)
--- NOTE | 2019-05-14 14:56 | DS ---
[facility] Rehab Discharge Summary - [facility] Rehab Discharge Summary Admission Date: 05/06/19 Discharge Date: 05/14/19 - History Present History: Alcohol dependence, Cannabis dependence, Cocaine dependence Additional Comments: Pt is a 43 y/o male with a hx of JOSE admitted to rehab and requests early discharge today to take care of personal issues. Pt met with Ms. Megan Christianson, DANNIEAC and treatment team and encouraged to follow up with aftercare as recommended. Pt reports he has no PCP but has been encouraged to follow up with one near his location. Pertinent Past History: Chronic LBP Hx head injury PTSD Schizophrenia - Discharge Physical Exam Vital Signs: Vital Signs Temperature 97.7 F 05/14/19 06:55 Pulse Rate 73 05/14/19 06:55 Respiratory Rate 18 05/14/19 06:55 Blood Pressure 93/58 L 05/14/19 06:55 O2 Sat by Pulse Oximetry (%) Alert o x 3,denies s/h/i nad oob ambulating with steady gait cardiac:s1 s2,rrr lungs:cta,pepito. abdomen:soft, flat,+bs,nt extremities/skin:no edema/skin intact. Pertinent Admission Physical Exam Findings: Laboratory Tests 05/06/19 05/06/19 05/06/19 09:20 09:20 09:20 WBC 7.6 RBC 4.06 Hgb 12.7 Hct 38.3 MCV 94.4 MCH 31.3 MCHC 33.2 RDW 13.6 Plt Count 274 D MPV 8.7 Sodium 140 Potassium 3.9 Chloride 108 H Carbon Dioxide 27 Anion Gap 5 L BUN 16.7 Creatinine 1.1 Est GFR (CKD-EPI)AfAm 93.47 Est GFR (CKD-EPI)NonAf 80.64 Random Glucose 106 Calcium 8.9 Total Bilirubin 0.3 AST 33 ALT 42 Alkaline Phosphatase 82 Total Protein 7.1 Albumin 3.8 RPR Titer HIV 1&2 Antibody Screen Negative HIV P24 Antigen Negative 05/06/19 09:20 WBC RBC Hgb Hct MCV MCH MCHC RDW Plt Count MPV Sodium Potassium Chloride Carbon Dioxide Anion Gap BUN Creatinine Est GFR (CKD-EPI)AfAm Est GFR (CKD-EPI)NonAf Random Glucose Calcium Total Bilirubin AST ALT Alkaline Phosphatase Total Protein Albumin RPR Titer Nonreactive HIV 1&2 Antibody Screen HIV P24 Antigen - Treatment Discharge Condition: Discharge condition good Hospital Course: rehabilitated safely - Medication Discharge Medications: Ambulatory Orders NK [No Known Home Medication] 09/12/18 - Medication-Assisted Treatment (MAT) Medication-Assisted Treatment (MAT): No - Discharge Instructions Diet, activity, other medical instructions: Diet:regular Activity: oob ad ashtyn Other medical instructions:follow up with CD aftercare recommendations. Follow up with primary care 1-2 weeks after discharge or as needed. - Diagnosis (1) Alcohol use disorder Current Visit: Yes Status: Chronic (2) Nicotine dependence Current Visit: Yes Status: Acute Qualifiers: Nicotine product type: cigarettes Substance use status: uncomplicated Qualified Code(s): F17.210 - Nicotine dependence, cigarettes, uncomplicated (3) Back pain Current Visit: Yes Status: Chronic Qualifiers: Back pain location: low back pain Chronicity: acute Back pain laterality : bilateral Sciatica presence: without sciatica Qualified Code(s): M54.5 - Low back pain (4) Cannabis dependence Current Visit: Yes Status: Chronic (5) Cocaine dependence Current Visit: Yes Status: Chronic Qualifiers: Substance use status: uncomplicated Qualified Code(s): F14.20 - Cocaine dependence, uncomplicated (6) History of head injury Current Visit: Yes Status: Resolved - Follow-up Referral Minutes to complete discharge: 20 - AMA Did Patient Leave Against Medical Advice: No Additional Comments: patient was contracted on this admission and was able to stay in treatment for longer this admission. Pt's Discharge request discussed with Dr. Gleason,director investment banking and agrees with pt's request.
== END 2019-05-14 15:05 | disposition home or self-care (01) | DRG 772 ==
LOC: YASAS 08:03 → Y5N 09:11
PROVIDERS: ADMIT Neuromusculoskeletal Medicine & OMM; ATTEND Neuromusculoskeletal Medicine & OMM
PROC: HZ42ZZZ Group Counseling for Substance Abuse Treatment, Cognitive-Behavioral (ICD-10-PCS; principal; 2019-05-06)
DX: F10.20 Alcohol dependence, uncomplicated (principal); F14.20 Cocaine dependence, uncomplicated; F12.20 Cannabis dependence, uncomplicated; F17.210 Nicotine dependence, cigarettes, uncomplicated; F19.24 Other psychoactive substance dependence with psychoactive substance-induced mood disorder; F20.9 Schizophrenia, unspecified; F41.8 Other specified anxiety disorders; F32.9 Major depressive disorder, single episode, unspecified; F43.10 Post-traumatic stress disorder, unspecified; M54.5 Low back pain; G89.29 Other chronic pain; Z87.828 Personal history of other (healed) physical injury and trauma
CPT/HCPCS: 36415; 80053; 85027; 86593; 87389